=== PATIENT | male | born 1940 | race Caucasian/White ===

== ENCOUNTER 2022-12-21 08:37 | Day surgery (SDC) | payer MEDICARE, OTHER, SELFPAY ==
--- NOTE | 2022-12-18 14:04 | EKG12_ITS ---
Test Reason : PRE OP Blood Pressure : / mmHG Vent. Rate : 062 BPM Atrial Rate : 062 BPM P-R Int : 170 ms QRS Dur : 082 ms QT Int : 366 ms P-R-T Axes : 030 -33 013 degrees QTc Int : 371 ms Normal sinus rhythm Left axis deviation Abnormal ECG Confirmed by JORDANA KNUTSON, ROLY ([id number]), film or videotape editor SONIA PATTON ([id number]) on 12/19/2022 9:03:17 AM Referred By: Munir Vincent Confirmed By:SATURNINO SILVEIRA MD
--- NOTE | 2022-12-18 14:04 | RAD_ITS ---
STUDY: X-RAY CHEST REASON FOR EXAM: Male, 81 years old. PREOP TECHNIQUE: PA and lateral views of the chest. COMPARISON: Comparison is made with prior examination dated January 14, 2017. FINDINGS: Elevation of the right hemidiaphragm. Mild increased linear markings at the left lung base suggestive of either linear atelectasis and/or scarring. There is no demonstrated pleural abnormality. Normal size heart. Normal mediastinum and genesis. Normal visualized pulmonary arteries. There is atherosclerotic tortuosity of the aortic arch and descending thoracic aorta. There are diffuse degenerative changes of the visualized thoracic spine. Normal visualized ribs, clavicles, and shoulders. There is no demonstrated abnormality of the visualized soft tissue structures of the upper abdomen. RAD/Chest PA and Lateral IMPRESSION: Mild increased markings at the left lung base suggestive of linear atelectasis and/or scarring. Electronically Signed: Juan Alberto Patino MD at 14:23 EDT ,
[2022-12-18 14:23] LABS: Absolute Lymphocyte Count 2.44 X10^3/uL (0.83-4.51); Absolute Neutrophil Count 5.3 X10^3/uL (2.0-7.7); Basophil# 0.07 X10^3/uL; Basophil% 0.8 % (0-1); Eosinophils% 2.3 % (0-5); Hematocrit 40.9 % (40-54); Hemoglobin 13.3 g/dL (13.0-16.5); Lymphocyte # 2.44 X10^3/ul (0.83-4.51); Lymphocyte % 27.6 % (19-41); Mean Corp Hgb Conc 32.5 g/dL (32-36); Mean Corpuscular Hgb 31.1 pg (27.0-32.0); Mean Corpuscular Volume 95.6 fL (80-94); Mean Platelet Vol. 9.8 fl (6.2-12.0); Monocyte# 0.81 X10^3/uL; Monocyte% 9.2 % (0-10); NRBC Flagged by Analyzer 0 % (0-5); Neutrophil % 59.8 % (47-70); Platelet Count 208 K/mm3 (150-450); RBC Distribution Width CV 14.5 % (11.6-14.6); RBC Distribution Width SD 50.2 fl (35.1-43.9); Red Blood Count 4.28 M/mm3 (4.6-6.2); White Blood Count 8.9 K/mm3 (4.4-11.0)
[2022-12-18 14:30] LABS: International Normalized Ratio 1.1; Partial Thromboplast Time 32.7 Seconds (24.1-36.2); Prothrombin Time (Protime)PT. 13.9 SECONDS (11.7-14.9)
[2022-12-18 14:45] LABS: Anion Gap 6 (5-15); BUN 17 mg/dL (7-18); BUN/Creat Ratio 14.5 RATIO (10-20); Chloride 106 mmol/L (98-107); Creatinine, Serum 1.17 mg/dL (0.70-1.30); EST Glomerular Filtration Rate 63 mL/min (>60); Est Glom Filt Rate - Afr Amer 76 mL/min (>60); Glucose 88 mg/dL (74-106); Potassium 4.4 mmol/L (3.5-5.1); Sodium Level 141 mmol/L (136-145)
[2022-12-21] VITALS (8 sets, daily range): BP systolic 112–141; BP diastolic 59–67; PULSE 62–79; RESP 16–18; TEMP 36.1–36.9; O2SAT 93–96; BMI 35.3
--- NOTE | 2022-12-21 09:17 | OP.PCM_ITS ---
Problems Associated Problem List Diagnoses (1) Lumbar stenosis: Report of Operation Date of Procedure: 12/21/22 Pre-Operative Diagnosis: 1. Lumbar stenosis L3-4 with spondylosis 2. Lumbar degenerative disc disease L3-4 3. Postlaminectomy syndrome Post-Operative Diagnosis: 1. Lumbar stenosis L3-4 with spondylosis 2. Lumbar degenerative disc disease L3-4 3. Postlaminectomy syndrome Surgery/Procedure Performed:: 1. L3 laminectomy decompression 2. Bilateral L3-4 foraminotomies Description of Surgical Findings:: The patient is an 81-year-old male with intractable back and leg pain. Image studies confirm the above diagnosis. He has failed conservative treatments including medications physical therapy and injections and has opted for operative intervention understanding the risk to include but not limited to infection, bleeding, damage to nerves arteries and veins, possibility of spinal fluid leak, continued pain, need for further surgery, deep vein thrombosis, pulmonary embolism, heart attack, risk of stroke or . The patient was identified in the preoperative holding area. There he received preoperative IV antibiotics Ancef and was then transferred to the operative suite. Once in the operative suite after general endotracheal anesthesia was established the patient was transferred to the [place] operating table in the prone position. All bony prominences were padded accordingly. The lumbar spine was prepped and draped in a sterile manner. A midline incision was made and taken down to the fascia. The fascia was divided and subperiosteal dissection was taken down to the level of the bilateral L3-4 facet joints. Deep retractors were placed. A bone scalpel was used to make cuts in the lamina of L3 bilaterally and then a series of Kerrisons and rongeurs was used removing the spinous process and lamina of L3 bilaterally. Then foraminotomies were performed at L3-4 bilaterally decompressing the bilateral nerve roots. The incision was thoroughly irrigated. Tisseel was placed over the dura as a hemostatic agent. The fascia was closed with #1 Vicryl, subcutaneous with 2-0 Vicryl and skin with 2-0 nylon. A sterile dressing was applied with 4 x 4's ABD and tape. Sponge instrument and needle counts were correct at the end of the case. The patient was extubated and taken to the PACU without incident Surgeon: Munir Vincent Type of Anesthesia: General Estimated Blood Loss (mL): 20 cc Fluids Replaced: 1600 cc Complications None Admit VTE Documentation VTE Present on Admission: No
--- NOTE | 2022-12-21 09:17 | PCM.PN.ORT ---
Subjective Subjective The patient was seen and examined postoperatively. He is lying in bed resting comfortably. His pain is well controlled. He denies any acute numbness tingling or weakness Objective Data Lab / Micro Data Result Diagrams: 12/18/22 13:38 12/18/22 13:38 Physical Exam Const alert, oriented x3 and no apparent distress General Appearance: cooperative, comfortable and well kempt HEENT normocephalic and head/scalp atraumatic Eyes EOMs intact bilaterally and conjunctivae normal Neck full ROM General: normal visual inspection Chest inspection of chest normal and palpation of chest normal Resp normal respiratory effort and normal air movement Cardio regular rate, regular rhythm and peripheral pulses 2+ throughout GI soft to palpation, non-tender and non-distended Back/Spine Back/Spine Narrative: Dressing clean dry and intact Cervical Spine: cervical ROM normal Thoracic Spine / Upper Back: normal to inspection Lumbar Spine / Lower Back: normal to inspection Extremity normal to inspection, full ROM, normal capillary refill and no calf tenderness Skin no rashes or lesions noted General Skin Exam: no breakdown Neuro oriented x3, CN's II-XII intact bilaterally, moves all extremities, no focal motor deficits, no sensory deficits noted and deep tendon reflexes 2+ bilaterally Motor Exam: strength 5/5 throughout and muscle tone normal throughout Assessment & Plan Assessment/Plan (1) Lumbar stenosis: PLAN: Okay to discharge home See discharge instructions Follow-up with Dr. Vincent as scheduled
[2022-12-21] MEDS: Lactated Ringers 1,000 ML 15 ML IV (09:20)
--- NOTE | 2022-12-21 10:15 | RAD_ITS ---
PROCEDURE: L3 laminectomy. DATE OF EXAMINATION: December 21, 2022 INDICATION: Male, 81 years old. Spinal stenosis. FLUOROSCOPY TIME (if supplied): (11 seconds) minutes/seconds. 8.38 mCi RAD/Spine 1 View Any Level IMPRESSION: Intraoperative fluoroscopy for localization of the L3-L4 disc space. Electronically Signed: Juan Alberto Patino MD at 13:09 EDT ,
[2022-12-21] MEDS: Cefazolin 2 GM in 0.9% Normal Saline 100 ML IV (10:20)
[2022-12-21] MEDS: THROMBIN (RECOMBINANT) 20,000 UNIT VIAL 20000 UNIT TOPICAL (10:53)
[2022-12-21] MEDS: Bupivacaine 0.25% 30 ML Vial (11:49)
== END 2022-12-21 14:54 | disposition home or self-care (01) ==
LOC: SDC 08:38 → AC 08:38
PROVIDERS: PCP Internal Medicine; Referring Provider Orthopaedic Surgery; Visit Provider Orthopaedic Surgery
PROC: (CPT 63030; principal; 2022-12-21 09:45)
DX: M48.061 Spinal stenosis, lumbar region without neurogenic claudication (principal); M46.96 Unspecified inflammatory spondylopathy, lumbar region; M46.98 Unspecified inflammatory spondylopathy, sacral and sacrococcygeal region; E11.9 Type 2 diabetes mellitus without complications; M96.1 Postlaminectomy syndrome, not elsewhere classified; M51.36 Other intervertebral disc degeneration, lumbar region; M47.26 Other spondylosis with radiculopathy, lumbar region; I10 Essential (primary) hypertension; E78.00 Pure hypercholesterolemia, unspecified; Z79.82 Long term (current) use of aspirin; Z79.899 Other long term (current) drug therapy; Z86.718 Personal history of other venous thrombosis and embolism
CPT/HCPCS: 63047; 00630; 36415; 71046; 72020; 76000; 80048; 85025; 85610; 85730; 93005; J7120; J2405

== ENCOUNTER → 2023-01-26 | Outpatient (CLI) | payer MEDICARE, OTHER, SELFPAY ==
[2023-01-26 10:57] LABS: Absolute Lymphocyte Count 2.41 X10^3/uL (0.83-4.51); Absolute Neutrophil Count 4.2 X10^3/uL (2.0-7.7); Basophil# 0.05 X10^3/uL; Basophil% 0.7 % (0-1); Eosinophil# 0.13 X10^3/uL; Eosinophils% 1.7 % (0-5); Hematocrit 39.5 % (40-54); Hemoglobin 12.6 g/dL (13.0-16.5); Lymphocyte # 2.41 X10^3/ul (0.83-4.51); Lymphocyte % 31.9 % (19-41); Mean Corp Hgb Conc 31.9 g/dL (32-36); Mean Corpuscular Hgb 30.7 pg (27.0-32.0); Mean Corpuscular Volume 96.3 fL (80-94); Mean Platelet Vol. 9.8 fl (6.2-12.0); Monocyte# 0.71 X10^3/uL; Monocyte% 9.4 % (0-10); NRBC Flagged by Analyzer 0 % (0-5); Neutrophil % 55.6 % (47-70); Platelet Count 236 K/mm3 (150-450); RBC Distribution Width CV 14.4 % (11.6-14.6); RBC Distribution Width SD 50.8 fl (35.1-43.9); White Blood Count 7.6 K/mm3 (4.4-11.0)
[2023-01-26 11:16] LABS: Hemoglobin A1c 6.2 % (3.8-5.6)
[2023-01-26 11:37] LABS: ALB/GLOB Ratio 0.9 RATIO (0.9-2.4); AST(SGOT) 21 U/L (15-37); Alanine Aminotransfer ALT/SGPT 26 U/L (16-61); Alkaline Phosphatase 94 U/L (45-117); Anion Gap 6 (5-15); BUN 17 mg/dL (7-18); BUN/Creat Ratio 16.3 RATIO (10-20); Calcium,Total 9.2 mg/dL (8.5-10.1); Chloride 108 mmol/L (98-107); Cholesterol 126 mg/dL (200); Creatinine, Serum 1.04 mg/dL (0.70-1.30); EST Glomerular Filtration Rate 72 mL/min (>60); Est Glom Filt Rate - Afr Amer 88 mL/min (>60); Globulin 3.4 g/dL (2.2-4.2); Glucose 112 mg/dL (74-106); High Density Lipoprotein 56 mg/dL; Potassium 4.3 mmol/L (3.5-5.1); Protein, Total 6.4 g/dL (6.4-8.2); Sodium Level 141 mmol/L (136-145); Thyroid Stim Hormone (TSH) 1.45 uIU/mL (0.358-3.74); Triglycerides 83 mg/dL; Very Low Density Lipoprotein 17 mg/dL (5-40)
== END | disposition home or self-care (01) ==
LOC: MFPLAB 08:04
PROVIDERS: PCP Family Medicine; Visit Provider Family Medicine
DX: E88.81 Metabolic syndrome and other insulin resistance (principal); E78.5 Hyperlipidemia, unspecified; I10 Essential (primary) hypertension
CPT/HCPCS: 36415; 80053; 80061; 83036; 84443; 85025

== ENCOUNTER → 2023-02-02 | Outpatient (CLI) | payer MEDICARE, OTHER, SELFPAY ==
--- NOTE | 2023-02-02 13:54 | VDLE_ITS ---
Reason For Study: Right leg edema RIGHT LEFT GSV is normal. CFV is compressible, spontaneous, phasic, CFV is compressible, spontaneous, phasic, competent, and demonstrates normal competent and demonstrates normal augmentation. augmentation. FV is compressible, spontaneous, phasic, competent and demonstrates normal augmentation. POP V is compressible, spontaneous, phasic, competent and demonstrates normal augmentation. T/P Trunk is compressible. PTV is compressible. RT PerV is compressible. Non vascularized structure noted from the popliteal fossa to prox calf that measures 0.93 x 5.68 x 6.93 cm. Procedure This is a venous duplex using B-mode, color flow and spectral Doppler. Exam performed in department. A preliminary report was called and/or faxed to Dr. Geiger and Dr. Vincent. VL/Venous Duplex US, Unilateral Interpretation Summary There is no evidence of right lower extremity deep vein thrombosis. Right great saphenous vein appears patent and compressible segmentally. 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 Clinical correlation would be approp yesenia. Patent and compressible left common femoral vein Ordering Physician: Trey Geiger Referring Physician: Juanjo Yang Performed By: Rosalind Cisse RVT
== END | disposition home or self-care (01) ==
LOC: CVS 13:48
PROVIDERS: PCP Family Medicine; Visit Provider Family Medicine
DX: R22.41 Localized swelling, mass and lump, right lower limb (principal)
CPT/HCPCS: 93971

== ENCOUNTER 2023-03-21 19:33 | Emergency (ER) | payer MEDICARE, OTHER, SELFPAY ==
[2023-03-21 19:34] VITALS: BP 129/66; PULSE 81; RESP 16; TEMP 36.6; O2SAT 99; BMI 35.4
--- NOTE | 2023-03-21 20:14 | CT_ITS ---
EXAM: CT ABDOMEN AND PELVIS WITH INTRAVENOUS CONTRAST CLINICAL INDICATION: LLQ abdominal pain TECHNIQUE: Helically acquired images were obtained of the abdomen and pelvis with intravenous contrast. This CT exam was performed using one or more of the following dose reduction techniques: automated exposure control, adjustment of the mA and/or kV according to patient size, and/or use of iterative reconstruction technique. CONTRAST: IV 100mL Isovue-370 COMPARISON: No relevant prior studies available. FINDINGS: LOWER THORAX: Unremarkable. Lung bases are clear. No cardiomegaly. No significant pericardial effusion. ABDOMEN: LIVER: Unremarkable. Homogeneous. No focal mass. GALLBLADDER AND BILE DUCTS: Unremarkable. No calcified gallstones. No gallbladder distention or wall edema. No intra- or extrahepatic biliary ductal dilation. PANCREAS: Unremarkable. No focal cystic or solid mass. SPLEEN: Unremarkable. Normal size without focal cystic or solid mass. ADRENALS: Unremarkable. No nodules. KIDNEYS AND URETERS: There is a nonobstructing calyceal stone left kidney. Normal renal size and position. STOMACH AND BOWEL: There is moderate stool in the rectosigmoid colon which may represent early fecal impaction. There is sigmoid diverticulosis with no evidence of diverticulitis. No stomach or bowel distention. PELVIS: APPENDIX: No evidence of acute appendicitis. BLADDER: There is a Marr catheter in the bladder. REPRODUCTIVE: Unremarkable as visualized. No mass. ABDOMEN and PELVIS: INTRAPERITONEAL SPACE: Unremarkable. No ascites or other fluid collection. No free air. BONES/JOINTS: There are postsurgical changes from laminectomy from L3 through L5. There is hardware from posterior fusion of L4 and L5. No suspicious lytic or blastic abnormality. SOFT TISSUES: Unremarkable. No discrete abdominal or pelvic wall hernia. VASCULATURE: There is an inferior vena cava filter in place. Abdominal aorta is non-dilated. LYMPH NODES: Unremarkable. No enlarged lymph nodes. CT/Abdomen/Pelvis W IV Cont ONLY IMPRESSION: 1. Moderate stool the distal colon which may represent developing impaction. 2. Sigmoid diverticulosis with no evidence of diverticulitis. Electronically Signed: Bart Viera MD at 22:03 EDT ,
--- NOTE | 2023-03-21 20:16 | ED.VIS.GI ---
HPI HPI - GI History of Present Illness Chief Complaint: Constipation Narrative Narrative: 82-year-old male presents with his because of 2 chief complaints, mainly constipation quadrant pain, and urinary retention. He states that he at least has a bowel movement daily, and his last normal bowel movement was 3 days ago. He saw his primary care provider who put him on a stool softener. Since noon today, 8 hours ago, he has not urinated. He denies any fevers or chills, no nausea or vomiting, no prior abdominal surgeries. He is still having flatulence, but very little. He states he is starting to have suprapubic discomfort from bladder distention. [facility] Medical History High cholesterol History of DVT (deep vein thrombosis) History of edema History of stress test Hypertension Injury of back Non-smoker Wears glasses Home Medications simvastatin 40 mg tablet 40 mg PO QHS HLD 03/07/14 [History Last Taken Unknown] glucosamine HCl 500 mg-msm 83 mg-chondroitin 400 mg tablet 1,500 mg PO BID SUPPLEMENT 03/26/14 [History Last Taken Unknown] potassium 99 mg tablet 99 mg PO DAILY SUPPLEMENT 03/27/14 [History Last Taken Unknown] cholecalciferol (vitamin D3) 125 mcg (5,000 unit) tablet (Vitamin D3) 125 mcg PO DAILY SUPPLEMENT 12/18/22 [History Last Taken Unknown] enalapril maleate 5 mg tablet 10 mg PO DAILY HTN 12/18/22 [History Last Taken 12/21/22] gabapentin 300 mg capsule 600 mg PO 5X/DAY NERVE PAIN 12/18/22 [History Last Taken Unknown] vitamin B complex 2 cap PO DAILY SUPPLEMENT 12/18/22 [History Last Taken Unknown] aspirin 81 mg tablet,delayed release (Adult Aspirin Regimen) 81 mg PO DAILY 03/21/23 [History Last Taken Unknown] enalapril maleate 10 mg tablet 10 mg PO Q24H 03/21/23 [History Last Taken Unknown] pregabalin 150 mg capsule 300 mg PO DAILY 03/21/23 [History Last Taken Unknown] Allergy/AdvReac Type Severity Reaction Status Date / Time vancomycin Allergy Rash Verified 03/21/23 19:35 Surgical History History of back surgery History of bilateral cataract extraction History of colonoscopy Social History Smoking Status: Never smoker ROS ROS ED ROS Narrative Constitutional: No fever, no chills. HEENT: No sore throat. No neck pain. No loss of vision. No rhinorrhea. Cardiovascular: No chest pain. No palpitations. No pedal edema. Respiratory: No cough, no shortness of breath. Abdominal: Lower quadrant abdominal pain. No nausea. No vomiting. Positive constipation with no bowel movement for last 2 to 3 days. Genitourinary: No dysuria. No hematuria. Polo retention and bladder discomfort/distention. Musculoskeletal: No myalgias. No arthralgias. Neurologic: No headaches. No dizziness. No lightheadedness. Skin: No rash. No change in color. Psychiatric: No depression. No anxiety. EXAM Physical Exam Narrative Exam Narrative: Afebrile. Vital signs noted. HEENT: Normocephalic. Atraumatic. PERRL, EOMI. Neck soft and supple. No point tenderness or step off. Cardiovascular: Regular rate and rhythm. No murmurs, rubs, or gallops appreciated. Respiratory: No tachypnea. Lungs clear to auscultation bilaterally. Gastrointestinal: Abdomen soft, mild tenderness to palpation left lower quadrant with normoactive bowel sounds. No rebound or guarding. Neurological: Awake. Alert. Nonfocal, nonlateralizing. Skin: No rash. Normal color. No pallor. Musculoskeletal: No pedal edema. Full range of motion extremities. Const Vital Signs: 03/21/23 19:34 03/21/23 21:33 Temperature 98 F Temperature Source Temporal Pulse Rate 81 71 Respiratory Rate 16 14 Blood Pressure 129/66 H 124/84 H Blood Pressure Mean 87 97 Pulse Ox 99 98 Oxygen Delivery Method Room Air Room Air MDM MDM MDM Narrative Medical decision making narrative: In the differential diagnosis is diverticulitis versus constipation. His urinary retention may be secondary to fecal impaction as well. I have lower suspicion for bowel obstruction as he has not had any prior abdominal surgeries. Comprehensive work-up was pursued. I do feel CT imaging is indicated. He will be bladder scan and Marr catheter placed as he may have BPH causing his urinary retention. He will be bolused normal saline after Marr catheter placement because of the IV dye load from the CT scan. Reviewed his laboratory work and he has slightly elevated white count 11.3 which I think is nonspecific, hemoglobin normal at 13.5, hematocrit 42.1, with platelet count normal at 206. Electrolyte panel was reviewed and he has a normal sodium of 138, potassium normal at 4.6, chloride normal at 107, BUN slightly elevated 21 with a creatinine of 1.18. Glucose is elevated appropriately at 157 with a normal anion gap/low at 3. AST and ALT are normal. Urinalysis was obtained after Marr catheter was inserted. Bladder scan had shown greater than 600 mL of urine. He had approximately 800 to a liter out, and was relieved. I am unsure as to which came first, his urinary retention causing constipation versus fecal impaction causing urinary retention. I do feel that the Marr catheter should be left in place and removed by urology for a voiding trial. He will be given a leg bag. CT of the abdomen pelvis was obtained and I reviewed the radiology report which shows sigmoid diverticulosis without evidence of diverticulitis. There is a moderate amount of stool in the distal colon consistent with developing fecal impaction. I discussed manual disimpaction with the patient and his . Chaperoned rectal examination was performed with a moderate amount of stool removed from the rectal vault. Patient shows improvement. He will continue his stool softener at home, and they state that they have MiraLAX as well. He will start his dosing tomorrow, and if he does not have a bowel movement within an hour, he will repeat the dose. He will also try to have a bowel movement prior to bedtime tonight. I feel he be discharged safely home with follow-up and I do not feel that he requires observation. Return instructions to the emergency department were reviewed. Disposition is discharged home in stable condition. History & Record Review Discussion w/independent historian: Patient and Family Additional record(s) reviewed:: Prior ED visit and Prior labs Lab Data Attestation: I reviewed the patient's lab results. Labs: Laboratory Results - last 24 hr 03/21/23 20:25 WBC 11.3 H RBC 4.42 L Hgb 13.5 Hct 42.1 MCV 95.2 H MCH 30.5 MCHC 32.1 RDW Std Deviation 51.2 H RDW Coeff of Leigha 14.6 Plt Count 206 MPV 9.8 Immature Gran % (Auto) 0.600 Neut % (Auto) 75.8 H Lymph % (Auto) 13.6 L [place] % (Auto) 9.3 Eos % (Auto) 0.5 Baso % (Auto) 0.2 Absolute Neuts (auto) 8.6 H Absolute Lymphs (auto) 1.54 Nucleated RBC % 0 Sodium 138 Potassium 4.6 Chloride 107 Carbon Dioxide 28.0 Anion Gap 3 L BUN 21 H Creatinine 1.18 Estim Creat Clear Calc 49.63 Est GFR (MDRD) Af Amer 76 Est GFR (MDRD) Non-Af 63 BUN/Creatinine Ratio 17.8 Glucose 157 H Calcium 9.7 Total Bilirubin 0.50 AST 36 ALT 33 Alkaline Phosphatase 86 Total Protein 6.8 Albumin 3.2 Globulin 3.6 Albumin/Globulin Ratio 0.9 Urine Color Yellow Urine Clarity Clear Urine pH 5.0 Ur Specific [place] 1.020 Urine Protein Negative Urine Glucose (UA) Normal Urine Ketones 15 H Urine Occult Blood Negative Urine Nitrite Negative Urine Bilirubin Negative Urine Urobilinogen Normal Ur Leukocyte Esterase Negative Urine RBC 0 SEEN Urine WBC 0 SEEN Ur Squamous Epith Cells 0 SEEN Urine Bacteria 0 SEEN Urine Mucus 0 SEEN Radiography Diagnostic Testing: Clinical Impression(s) from Imaging Studies Abdomen/Pelvis CT 03/21/23 20:14 IMPRESSION: 1. Moderate stool the distal colon which may represent developing impaction. 2. Sigmoid diverticulosis with no evidence of diverticulitis. Electronically Signed: Bart Viera MD at 22:03 EDT Reading Location ID and State: [address] [place] [address] Tel , Service support , Discharge Plan Triage Chief Complaint: Constipation Other Complaint: Complaint ED Provider: Donell Glover Dx/Rx/DC Orders Clinical Impression: Fecal impaction, Acute urinary retention, Constipation Instructions: ED Constipation (Adult), ED Fecal Impaction, Treated, ED Marr Catheter, Care, ED Urinary Retention, Male Prescriptions: No Action simvastatin 40 MG tablet 40 mg PO QHS Patient Comments: reduce cholesterol glucosamine [id number] 1 EACH tablet 1,500 mg PO BID Patient Comments: DIABETES potassium 99 MG tablet 99 mg PO DAILY Patient Comments: DIETARY SUPPLEMENT enalapril maleate 5 MG tablet 10 mg PO DAILY Patient Comments: LOWERS BLOOD PRESSURE gabapentin 300 MG capsule 600 mg PO 5X/DAY Patient Comments: NEUROPATHY vitamin B complex Capsule 2 cap PO DAILY cholecalciferol (vitamin D3) [Vitamin D3] 125 mcg (5,000 unit) Tablet 125 mcg PO DAILY enalapril maleate 10 mg tablet 10 mg PO Q24H pregabalin 150 mg capsule 300 mg PO DAILY aspirin [Adult Aspirin Regimen] 81 mg tablet,delayed release (DR/EC) 81 mg PO DAILY Primary Care Provider: Trey Geiger Referrals: Trey Geiger MD [Primary Care Provider] - 3-5 Days if not improving Joe Bee MD [Med Staff - Active Staff] - 1 Week Activity Restrictions/Additional Instructions: Take MiraLAX as directed. If no bowel movement within an hour, you may repeat the dose. Do not target Marr catheter. Call Dr. Bee for an appointment to have the Marr catheter removed within 1 week. Continue your stool softener as previously directed. Disposition Disposition: Home, Self Care
[2023-03-21] MEDS: 0.9% Normal Saline (1000mL) 1,000 ML 1000 ML IV (20:39)
[2023-03-21 20:52] LABS: Bacteria 0 SEEN /hpf (None Seen); Mucous, Urine 0 SEEN /hpf (<or=2+); Red Blood Cells-Urine 0 SEEN /hpf (0-5); Squamous Epithelial Cells - UA 0 SEEN /hpf (0-5); White Blood Cells 0 SEEN /hpf (0-5)
[2023-03-21 20:54] LABS: Absolute Lymphocyte Count 1.54 X10^3/uL (0.83-4.51); Absolute Neutrophil Count 8.6 X10^3/uL (2.0-7.7); Basophil# 0.02 X10^3/uL; Basophil% 0.2 % (0-1); Eosinophil# 0.06 X10^3/uL; Eosinophils% 0.5 % (0-5); Hematocrit 42.1 % (40-54); Hemoglobin 13.5 g/dL (13.0-16.5); Lymphocyte # 1.54 X10^3/ul (0.83-4.51); Lymphocyte % 13.6 % (19-41); Mean Corp Hgb Conc 32.1 g/dL (32-36); Mean Corpuscular Hgb 30.5 pg (27.0-32.0); Mean Corpuscular Volume 95.2 fL (80-94); Mean Platelet Vol. 9.8 fl (6.2-12.0); Monocyte# 1.06 X10^3/uL; Monocyte% 9.3 % (0-10); NRBC Flagged by Analyzer 0 % (0-5); Neutrophil # 8.59 X10^3/uL (2.7-7.7); Neutrophil % 75.8 % (47-70); Platelet Count 206 K/mm3 (150-450); RBC Distribution Width CV 14.6 % (11.6-14.6); RBC Distribution Width SD 51.2 fl (35.1-43.9); Red Blood Count 4.42 M/mm3 (4.6-6.2); White Blood Count 11.3 K/mm3 (4.4-11.0)
[2023-03-21 21:01] LABS: Color, Urine Yellow (Yellow); Glucose, Dipstick Normal (Normal); Ketone-Dipstick 15 mg/dl (Negative); Leukocyte Esterase-Dipstick Negative /ul (Negative); Nitrite-Dipstick Negative (Negative); Occult Blood-Urine Negative /ul (Negative); Protein-Dipstick Negative (Negative); Urine Bilirubin Dipstick Negative (Negative); Urine Clarity Clear (Clear); Urine Urobilinogen Normal (Normal)
[2023-03-21 21:11] LABS: ALB/GLOB Ratio 0.9 RATIO (0.9-2.4); AST(SGOT) 36 U/L (15-37); Alanine Aminotransfer ALT/SGPT 33 U/L (16-61); Albumin, Serum 3.2 g/dL (3.2-5.0); Alkaline Phosphatase 86 U/L (45-117); Anion Gap 3 (5-15); BUN 21 mg/dL (7-18); BUN/Creat Ratio 17.8 RATIO (10-20); Calcium,Total 9.7 mg/dL (8.5-10.1); Chloride 107 mmol/L (98-107); Creatinine, Serum 1.18 mg/dL (0.70-1.30); EST Glomerular Filtration Rate 63 mL/min (>60); Est Glom Filt Rate - Afr Amer 76 mL/min (>60); Estimated Creatinine Clearance 49.63 ml/min; Globulin 3.6 g/dL (2.2-4.2); Glucose 157 mg/dL (74-106); Potassium 4.6 mmol/L (3.5-5.1); Protein, Total 6.8 g/dL (6.4-8.2); Sodium Level 138 mmol/L (136-145)
[2023-03-21 21:33] VITALS: BP 124/84; PULSE 71; RESP 14; O2SAT 98
== END 2023-03-21 23:15 | disposition home or self-care (01) ==
PROVIDERS: Emergency Provider Emergency Medicine; PCP Family Medicine; Visit Provider Emergency Medicine
DX: K56.41 Fecal impaction (principal); I10 Essential (primary) hypertension; E78.00 Pure hypercholesterolemia, unspecified; R33.9 Retention of urine, unspecified; K57.30 Diverticulosis of large intestine without perforation or abscess without bleeding; Z79.82 Long term (current) use of aspirin; Z79.899 Other long term (current) drug therapy
CPT/HCPCS: 74177; 80053; 81001; 85025; 96360; 99284; J7030; Q9967; A4216

== ENCOUNTER → 2023-11-13 | Outpatient (CLI) | payer MEDICARE, SELFPAY ==
[2023-11-13 11:09] LABS: PSA,Total- Diagnostic 3.06 ng/mL (0.0-4.0)
== END | disposition home or self-care (01) ==
PROVIDERS: PCP Family Medicine; Referring Provider Urology; Visit Provider Urology
DX: N40.3 Nodular prostate with lower urinary tract symptoms (principal)
CPT/HCPCS: 36415; 84153

== ENCOUNTER 2023-11-22 17:02 | Emergency (ER) | payer MEDICARE, SELFPAY ==
[2023-11-22 17:03] VITALS: BP 139/75; PULSE 54; RESP 18; TEMP 35.8; O2SAT 99
[2023-11-22 17:05] VITALS: BP 139/75; PULSE 54; RESP 18; TEMP 35.8; O2SAT 99
[2023-11-22] MEDS: Ketorolac 30 MG/ML Syringe IM (17:35)
--- NOTE | 2023-11-22 17:36 | ED.VIS.BACK ---
HPI <GLENNY Barba - Last Filed: 11/22/23 18:13> History of Present Illness Chief Complaint: Back Narrative Narrative: 82-year-old male who was carrying a box of canned blades from his RV into the house when he twisted and felt pain in his left lower back along the belt line. Pain is worse with movement. He had no fall or direct trauma. He has no pain radiating down into the lower extremities and denies weakness, numbness or tingling, saddle anesthesia or bladder bowel incontinence. He has had 2 remote low back surgeries but states he does not have much chronic pain. He took Tylenol this afternoon. PFS <GLENNY Barba - Last Filed: 11/22/23 18:13> [facility] Medical History High cholesterol History of DVT (deep vein thrombosis) History of edema History of stress test Hypertension Injury of back Non-smoker Wears glasses Home Medications ?Medication ?Instructions ?Recorded ?Last Taken ?Type simvastatin 40 mg tablet 40 mg PO QHS HLD 03/07/14 Unknown History glucosamine HCl 500 mg-msm 83 1,500 mg PO BID SUPPLEMENT 03/26/14 Unknown History mg-chondroitin 400 mg tablet potassium 99 mg tablet 99 mg PO DAILY SUPPLEMENT 03/27/14 Unknown History cholecalciferol (vitamin D3) 125 125 mcg PO DAILY SUPPLEMENT 12/18/22 Unknown History mcg (5,000 unit) tablet (Vitamin D3) enalapril maleate 5 mg tablet 10 mg PO DAILY HTN 12/18/22 12/21/22 History gabapentin 300 mg capsule 600 mg PO 5X/DAY NERVE PAIN 12/18/22 Unknown History vitamin B complex 2 cap PO DAILY SUPPLEMENT 12/18/22 Unknown History aspirin 81 mg tablet,delayed 81 mg PO DAILY 03/21/23 Unknown History release (Adult Aspirin Regimen) enalapril maleate 10 mg tablet 10 mg PO Q24H 03/21/23 Unknown History pregabalin 150 mg capsule 300 mg PO DAILY 03/21/23 Unknown History orphenadrine citrate 100 mg 100 mg PO BID PRN back pain 5 days 11/22/23 Unknown Rx tablet,extended release #10 tabs Allergy/AdvReac Type Severity Reaction Status Date / Time vancomycin Allergy Rash Verified 11/22/23 17:04 Surgical History History of back surgery History of bilateral cataract extraction History of colonoscopy Social History Smoking Status: Never smoker ROS <GLENNY Barba - Last Filed: 11/22/23 18:13> ROS ED ROS Narrative Constitutional: Negative for fever, chills, malaise. GI: Negative for abdominal pain, nausea, vomiting. Neuro: Negative for motor/sensory dysfunction. Musc: Negative for joint pain, swelling, trauma. EXAM <GLENNY Barba - Last Filed: 11/22/23 18:13> Physical Exam Narrative Exam Narrative: CONST: Patient sitting in no acute distress. EYES: Normal inspection. NECK: Normal inspection. RESP: No respiratory distress, CTAB. CVS: Regular rate and rhythm, no murmur, no gallop. Back: Normal inspection with old healed midline lumbar surgical scar. No midline tenderness or step-offs. Tender over left lower lumbar muscles. SKIN: Color normal, no rash, warm, dry, intact. EXTREMITIES: Normal appearance, wearing bilateral compression hose. Full range of motion, 5/5 strength in bilateral hip flexion, knee flexion/extension, and DF/PF. Normal sensation. 2+ DP pulses. Negative straight leg raise bilaterally. NEURO: Alert and answering questions appropriately. PSYCH: Normal affect. Const Vital Signs: 11/22/23 17:03 11/22/23 17:05 Temperature 96.4 F L 96.4 F L Temperature Source Temporal Temporal Pulse Rate 54 L 54 L Respiratory Rate 18 18 Blood Pressure 139/75 H 139/75 H Blood Pressure Mean 96 96 Pulse Ox 99 99 Oxygen Delivery Method Room Air Room Air <Dr. Pete Bland MD - Last Filed: 11/22/23 17:59> Physical Exam Const Vital Signs: 11/22/23 17:03 11/22/23 17:05 Temperature 96.4 F L 96.4 F L Temperature Source Temporal Temporal Pulse Rate 54 L 54 L Respiratory Rate 18 18 Blood Pressure 139/75 H 139/75 H Blood Pressure Mean 96 96 Pulse Ox 99 99 Oxygen Delivery Method Room Air Room Air MDM <GLENNY Barba - Last Filed: 11/22/23 18:13> MDM MDM Narrative Medical decision making narrative: History gathered from: Patient and spouse Patient has left lumbar pain after carrying a box of canned goods. He felt a pull in this area while turning to the side holding the box. No fall or direct trauma. Is reproducible left lumbar muscle tenderness. No midline tenderness. Lower extremity MSPs and reflexes are intact. No indication for x-rays with no direct trauma and he has no red flag signs concerning for cauda equina syndrome. He was treated with IM Norflex and Toradol and feels much better and states he would like to go home. I recommended [id number] pain relievers and prescribed Norflex as needed. He was discharged in stable condition. <Dr. Pete Bland MD - Last Filed: 11/22/23 17:59> [facility] Treatment and Re-Evaluation Narrative: I have personally performed a face to face assessment of the patient and have reviewed the GUILHERME Note. I performed a substantive portion of the visit including all aspects of the following. My salter findings include: History is acute injury to left low back while turning while lifting a heavy box. No leg radiation, bowel or bladder dysfunction. Hurts more to move better to rest. Exam is tender along the waist line left low back, more when he moves, no midline tenderness no sciatic notch tenderness negative straight leg raises. Neurovascular intact distally both lower extremities. Medical Decison Making muscle strain versus sacroiliac dysfunction/sprain, supportive care advised follow-up as needed. Other additions or changes: [None] Discharge Plan Triage Chief Complaint: Back ED Midlevel Provider: Thais Reardon ED Provider: Pete Bland Dx/Rx/DC Orders Clinical Impression: Acute lumbar myofascial strain Instructions: Back Safety: Lifting, Understanding Lumbosacral Strain Prescriptions: New orphenadrine citrate 100 mg tablet extended release 100 mg PO BID PRN (Reason: back pain) 5 Days Qty: 10 0RF No Action simvastatin 40 MG tablet 40 mg PO QHS Patient Comments: reduce cholesterol glucosamine [id number] 1 EACH tablet 1,500 mg PO BID Patient Comments: DIABETES potassium 99 MG tablet 99 mg PO DAILY Patient Comments: DIETARY SUPPLEMENT enalapril maleate 5 MG tablet 10 mg PO DAILY Patient Comments: LOWERS BLOOD PRESSURE gabapentin 300 MG capsule 600 mg PO 5X/DAY Patient Comments: NEUROPATHY vitamin B complex Capsule 2 cap PO DAILY cholecalciferol (vitamin D3) [Vitamin D3] 125 mcg (5,000 unit) Tablet 125 mcg PO DAILY enalapril maleate 10 mg tablet 10 mg PO Q24H pregabalin 150 mg capsule 300 mg PO DAILY aspirin [Adult Aspirin Regimen] 81 mg tablet,delayed release (DR/EC) 81 mg PO DAILY Primary Care Provider: Trey Geiger Referrals: Trey Geiger MD [Primary Care Provider] - Activity Restrictions/Additional Instructions: Ice and you can alternate Tylenol and ibuprofen as needed. Follow-up with your primary care doctor. Print Language: [place] Citizen Disposition Disposition: Home, Self Care
[2023-11-22] MEDS: Orphenadrine 60 MG/2 ML Ampul IM (17:39)
[2023-11-22 18:15] VITALS: BP 138/74; PULSE 55; RESP 18; TEMP 36.4; O2SAT 99
== END 2023-11-22 18:37 | disposition home or self-care (01) ==
LOC: ED 18:26
PROVIDERS: Emergency Provider Emergency Medicine; PCP Family Medicine; Visit Provider Emergency Medicine
DX: S39.012A Strain of muscle, fascia and tendon of lower back, initial encounter (principal); X50.0XXA Overexertion from strenuous movement or load, initial encounter; I10 Essential (primary) hypertension; E78.00 Pure hypercholesterolemia, unspecified; Z86.718 Personal history of other venous thrombosis and embolism
CPT/HCPCS: 96372; 99283

== ENCOUNTER 2023-12-05 09:37 | Outpatient (RCR) | payer MEDICARE, SELFPAY ==
[2023-12-05 09:54] VITALS: BP 120/60; PULSE 81; RESP 18; TEMP 37.1; BMI 34.8
--- NOTE | 2023-12-05 15:13 | PCM.WC.HP ---
History of Present Illness Date of Service: 12/05/23 Chief Complaint: Right digital wound History of Wound: Right digital wound Progress of Wound: Mr. Gordon is a 82-year-old male presenting to wound care center today [facility] for evaluation of a full-thickness wound to the plantar aspect of his right great toe. Patient has been in [place] since winter as he travels there during the cold season in [place] and then returns to [place] in the summer months. 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 Patient has had history of calluses to the plantar aspect of the right great toe and now has noticed a wound with drainage in his custom inserts. The patient's last A1c was 6.2%. He is not a diabetic however does suffer from lumbar radiculopathy. Patient has been doing home treatment. He denies trauma. Denies constitutional symptoms. No other pedal complaints at this time. [facility] Medical History Wears glasses High cholesterol History of DVT (deep vein thrombosis) Injury of back Non-smoker History of edema History of stress test Hypertension Home Medications ?Medication ?Instructions ?Recorded ?Last Taken ?Type simvastatin 40 mg tablet 20 mg PO QHS HLD 03/07/14 Unknown History glucosamine HCl 500 mg-msm 83 1,500 mg PO BID SUPPLEMENT 03/26/14 Unknown History mg-chondroitin 400 mg tablet potassium 99 mg tablet 99 mg PO DAILY SUPPLEMENT 03/27/14 Unknown History cholecalciferol (vitamin D3) 125 125 mcg PO DAILY SUPPLEMENT 12/18/22 Unknown History mcg (5,000 unit) tablet (Vitamin D3) enalapril maleate 5 mg tablet 10 mg PO DAILY HTN 12/18/22 12/21/22 History gabapentin 300 mg capsule 600 mg PO 5X/DAY NERVE PAIN 12/18/22 Unknown History vitamin B complex 2 cap PO DAILY SUPPLEMENT 12/18/22 Unknown History aspirin 81 mg tablet,delayed 81 mg PO DAILY 03/21/23 Unknown History release (Adult Aspirin Regimen) enalapril maleate 10 mg tablet 10 mg PO Q24H 03/21/23 Unknown History pregabalin 150 mg capsule 300 mg PO DAILY 03/21/23 Unknown History orphenadrine citrate 100 mg 100 mg PO BID PRN back pain 5 days 11/22/23 Unknown Rx tablet,extended release #10 tabs Allergy/AdvReac Type Severity Reaction Status Date / Time vancomycin Allergy Rash Verified 11/22/23 17:04 Surgical History History of colonoscopy History of back surgery History of bilateral cataract extraction Social History Smoking Status: Never smoker Vital Signs Vital Signs Vital Signs: 12/05/23 09:54 Temperature 98.7 F Temperature Source Temporal Pulse Rate 81 Respiratory Rate 18 Blood Pressure 120/60 Blood Pressure Mean 80 Blood Pressure Source Monitor Blood Pressure Position Sitting Blood Pressure Location Left Arm Oxygen Delivery Method Room Air Weight Weight: 113.398 kg Body Mass Index (BMI) 34.8 Physical Exam Narrative Vascular: DP and PT pulses are palpable. CFT is brisk. Skin temperature gradient is warm to warm from proximal ankle to distal digits. Nonpitting edema appreciated bilateral lower extremity. Neurological: Light touch intact. Protective sensation is diminished to the toes and reestablish at the level of the midfoot and ankle. Dermatological: Full-thickness ulceration to the plantar aspect of the IPJ of the right hallux measuring 0.7 x 0.6 x 0.2 cm. Wound base is granular nature. No drainage. No probe to bone. No malodor. No sign of infection. Evidence of callus to the distal aspect of the left hallux stable. Excisional debridement of the right hallux plantar ulceration down to and including subcutaneous tissue with a number 3 mm dermal curette without incident. Predebridement measurement is callus. Postdebridement measurement is 0.7 x 0.6 x 0.2 cm. Musculoskeletal: Muscle strength is 5 out of 5 in all quadrants bilateral. 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 First metatarsophalangeal joint range of motion is within normal limits bilateral. No pain with calf compression. Debridement Note Debridement Note Debridement Free Text: Excisional debridement of the right hallux plantar ulceration down to and including subcutaneous tissue with a number 3 mm dermal curette without incident. Predebridement measurement is callus. Postdebridement measurement is 0.7 x 0.6 x 0.2 cm. Post-Debridement Measurements and Additional Note: Post-Debridement Measurements/Treatment - Nurse 1 - General Ulcer Assessment Start: 12/05/23 09:49 Freq: Status: Active Protocol: VICTORINO Activity Type Activity Date Activity User E-sign Co-sign Detail Recorded Client Recorded Date Recorded By Document 12/05/23 09:54 GM 12/05/23 10:06 GM 12/05/23 09:54 - Today's Visit Information Type of service Initial Visit Arrival Mode Ambulatory Accompanied by Patient Identification Verified (Name & Yes ) Height and Weight Height 5 ft 11 in Weight 113.398 kg Weight in Pounds 250.0 lbs Body Mass Index (BMI) 34.8 BMI Classification Obese BSA - Nevin 2.32 Vital Signs Temperature (97.8 F-99.1 F) 98.7 F Temperature Source Temporal Pulse Rate (60-100) 81 Pulse Location Monitor Respiratory Rate (12-18) 18 Respiratory rate source Observation Oxygen Delivery Method Room Air Blood Pressure (90/60-120/80) 120/60 Blood Pressure Mean 80 Source Monitor Position Sitting Blood Pressure Location Left Arm Pain Scale: 0-10 Numeric Is Patient Pain Free? Yes Lower Extremity Assessment/ Foot Assessment/ Toe Nail Assessment Right -Posterior Tibial Palpable Yes -Dorsalis Pedis Palpable Yes -Extremity Color Normal -Hair Growth on Legs No -Hair Growth on Toes No -Temperature of Extremity Warm -Capillary Refill Less than 3 Seconds -Dependent Rubor No -Other Deformity No -Prior Foot Ulcer No -Charcot Joint No -Thick Yes -Discolored Yes -Deformed No -Improper Length & Hygeine No Neuropathy Assessment Feet - Top Side and Bottom <Entered> (a) Communication Assessment Preferred language [place]i Block Engraver Required No Able to Read Yes Able to Write Yes Communication Tools Letter Board Right Hearing Abillity Normal Left Hearing Abillity Normal Visual Assistive Devices Glasses Teaching Assessment Preferences Verbal,Written Barriers to Learning None Readiness To Learn Good Willingness to Engage in Self Management High Activies Readiness to Engage in Self Management High Activities Anxiety Level Calm Cooperation Cooperative Perception Coherent Interest in Health Problem Asks Questions Does Patient Smoke tobacco or other No substances Functional Assessment Recent Decline in Ability to Perform Denies Any Declines Assistive Device With Patient Yes List Device(s) with Patient cane Culture/Presybeterian/Display Coordinator Cultural/Presybeterian Needs that may affect No Treatment Plan Would you allow our hospital retail merchandising coordinator to No meet you for the purpose of spiritual/ emotional support? Display Coordinator to contact place of rastafarian No (a) 1 - decreased sensation 2 - decreased sensation WC - Nurse 1 - General Ulcer Measurement Start: 12/05/23 09:49 Freq: Status: Active Protocol: Activity Type Activity Date Activity User E-sign Co-sign Detail Recorded Client Recorded Date Recorded By Document 12/05/23 09:54 GM 12/05/23 10:06 12/05/23 09:54 Wound Center Nurse 1 Right great toe -Current Size (cm) - Length 0.5 -Current Size (cm) - Width 0.6 -Current Size (cm) - Depth 0.1 -Total Square Cm 0.30 -Date of Last Picture (Recall this 12/05/23 field) -Photo Taken Yes -Epithelialization Small 1-33% -Tunneling No -Undermining/Tunneling No -Circular Undermining No -Exudate Amt None Present -Wound Margin Indistinct, Non -Visible -Granulation Amt Small (1-33%) -Granulation Quality Imbery -Slough/Fibrin Yes -Texture (Bhavna-wound Skin Appearance) Assessed,Callus -Moisture (Bhavna-wound Skin Appearance) Assessed,Dry/ Scaly -Color (Bhavna-wound Skin Appearance) Assessed -Temperature (Bhavna-wound Skin No Abnormality Appearance) (Pt Warm) -Tenderness on Palpation (Bhavna-wound No Skin Appearance) -Ulcer Cleansing Soap and Water -Foul Odor after Cleansing No -Anesthetic Used 5% Lidocaine Gel Lower Limb Edema Present No Right Calf (cm) 41.5 Right Ankle (cm) 25.0 WC - Nurse 2 - General Ulcer CM Notes Start: 12/05/23 09:49 Freq: Status: Active Protocol: Activity Type Activity Date Activity User E-sign Co-sign Detail Recorded Client Recorded Date Recorded By Document 12/05/23 10:12 [id number] 12/05/23 10:26 12/05/23 10:12 Wound Center Nurse 2 Right great toe -Time 10:13 -Correct Patient Yes -Correct Side, Site, Position Yes -Correct Procedure Yes -Procedure Performed Yes -Type of Procedure Debridement -Clinical Debridement Subcutaneous -Tissue Removed Subcutaneous -Post Debridement (cm) - Length 0.7 -Post Debridement (cm) - Width 0.6 -Post Debridement (cm) - Depth 0.2 -Total Square (Post) (cm) 0.42 -Area of Debridement (cm) - Length 0.7 -Area of Debridement (cm) - Width 0.6 -Total Square (Area) (cm) 0.42 -Tunneling No -Undermining/Tunneling No -Circular Undermining No -Wound/Ulcer Outcome Not Healed -Ulcer Cleansing Rinsed/ Irrigated with Saline -Foul Odor after Cleansing No -Bioengineered Tissue No -Bleeding Controlled with Pressure -Treatment Response Procedure Tolerated Well -Offloading No -Debridement - Subq, 1st 20sq cm Yes Pain Scale: 0-10 Numeric Is Patient Pain Free? Yes WC - Nurse 3 - General Ulcer D/C NN Start: 12/05/23 09:49 Freq: Status: Active Protocol: Activity Type Activity Date Activity User E-sign Co-sign Detail Recorded Client Recorded Date Recorded By Document 12/05/23 10:44 KW wound center 12/05/23 11:03 KW 12/05/23 10:44 Wound Care Center Nurse 3 Right great toe -Primary Dressing Applied C Hydrogel ($) -Primary Dressing Covered/Secured with Dry Gauze & Roll Gauze, Secured with Tape Pain Scale: 0-10 Numeric Is Patient Pain Free? Yes WC - Visit Discharge Discharge Condition Stable Ambulatory Status Ambulatory,Cane Transportation Private Auto Accompanied by Medication Reconcilliation completed & No provided to patient/care provider Clinical Summary of Care Provided Yes Assessment/Plan Assessment/Plan (1) Non-pressure chronic ulcer of other part of right foot with fat layer exposed: CODE(S): L97.512 - Non-pressure chronic ulcer of other part of right foot with fat layer exposed PLAN: Patient was examined and evaluated. All findings were discussed with the patient. All questions were answered to the patient's satisfaction. Excisional debridement of the right hallux plantar ulceration down to and including subcutaneous tissue with a number 3 mm dermal curette without incident. Predebridement measurement is callus. Postdebridement measurement is 0.7 x 0.6 x 0.2 cm. Right lower extremities were cleaned and patted dry. The ulceration was dressed with triple antibiotic and sterile Band-Aid. Patient will do daily dressing changes at home and understanding how to do them. There is also educated the patient that due to the contracture and osteoarthritis of his IPJ of the right hallux that he would benefit from a arthroplasty of the IPJ to help increase his range of motion and allow the ulceration to heal if it is nonhealing in nature which she is understanding of. Further discussion will be made during the patient's next wound care visit. Patient was grateful for his care and will follow-up in 1 week. Follow-up at the wound care center with Dr. Cunningham in 1 week. (2) Other specified peripheral vascular diseases: CODE(S): I73.89 - Other specified peripheral vascular diseases (3) Osteoarthritis of right foot: CODE(S): M19.071 - Primary osteoarthritis, right ankle and foot QUALIFIERS: Osteoarthritis type: primary Qualified Code(s): M19.071 - Primary osteoarthritis, right ankle and foot (4) Lumbar radiculopathy: CODE(S): M54.16 - Radiculopathy, lumbar region
== END 2023-12-07 23:59 | disposition home or self-care (01) ==
LOC: WC 09:37
PROVIDERS: PCP Family Medicine; Visit Provider Podiatrist Foot & Ankle Surgery
DX: L97.412 Non-pressure chronic ulcer of right heel and midfoot with fat layer exposed (principal); I10 Essential (primary) hypertension; I73.89 Other specified peripheral vascular diseases; M19.071 Primary osteoarthritis, right ankle and foot; M54.16 Radiculopathy, lumbar region; E78.00 Pure hypercholesterolemia, unspecified; Z79.82 Long term (current) use of aspirin; Z79.899 Other long term (current) drug therapy
CPT/HCPCS: 11042; 87070; 87075; 87101; 87205; 99214; G0463

== ENCOUNTER 2024-01-02 10:00 | Outpatient (RCR) | payer MEDICARE, SELFPAY ==
[2023-12-08 02:38] VITALS: BP 120/60; PULSE 81; RESP 18; TEMP 37.1; BMI 34.8
[2023-12-12 10:00] VITALS: BP 134/74; PULSE 78; RESP 18; TEMP 36.4; BMI 34.8
--- NOTE | 2023-12-12 12:32 | PN.PCM_ITS ---
History of Present Illness Date of Service: 12/12/23 Chief Complaint: Right digital wound History of Wound: Right digital wound Subjective Subjective Mr. Gordon is 82-year-old male presenting to clinic today for follow-up evaluation of full-thickness wound to the right great toe. He has been changing his dressing as instructed. He admits the wound is smaller. He has continued to use the offloading pad and his orthotics. He is grateful for his care. Denies trauma. Denies constitutional symptoms. No other pedal complaints at this time. Objective Data Objective Data Vital Signs: Vital Signs Temp Pulse Resp BP O2 Del Method 97.5 F L 78 18 134/74 H Room Air 12/12/23 10:00 12/12/23 10:00 12/12/23 10:00 12/12/23 10:12/12/23 10:00 Oxygen Delivery Method Room Air Weight: 113.398 kg Body Mass Index (BMI) 34.8 Physical Exam Narrative Vascular: DP and PT pulses are palpable. CFT is brisk. Skin temperature gradient is warm to warm from proximal ankle to distal digits. Nonpitting edema appreciated bilateral lower extremity. Neurological: Light touch intact. Protective sensation is diminished to the toes and reestablish at the level of the midfoot and ankle. Dermatological: Full-thickness ulceration to the plantar aspect of the IPJ of the right hallux measuring 0.9 x 1.1 x 0.1 cm. Wound base is granular nature. No drainage. No probe to bone. No malodor. No sign of infection. Evidence of callus to the distal aspect of the left hallux stable. Excisional debridement of the right hallux plantar ulceration down to and including subcutaneous tissue with a number 3 mm dermal curette without incident. Predebridement measurement is 0.5 x 0.5 x 0.1 cm. Postdebridement measurement is 0.9 x 1.1 x 0.1 cm. Musculoskeletal: Muscle strength is 5 out of 5 in all quadrants bilateral. 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 First metatarsophalangeal joint range of motion is within normal limits bilateral. No pain with calf compression. Debridement Note Debridement Note Debridement Free Text: Excisional debridement of the right hallux plantar ulceration down to and including subcutaneous tissue with a number 3 mm dermal curette without incident. Predebridement measurement is 0.5 x 0.5 x 0.1 cm. Postdebridement measurement is 0.9 x 1.1 x 0.1 cm. Post-Debridement Measurements and Additional Note: Post-Debridement Measurements/Treatment ANTONIO - Nurse 1 - General Ulcer Assessment Start: 12/12/23 09:58 Freq: Status: Active Protocol: LOWEXCinthia Activity Type Activity Date Activity User E-sign Co-sign Detail Recorded Client Recorded Date Recorded By Document 12/12/23 10:00 [facility] 12/12/23 10:11 12/12/23 10:00 - Today's Visit Information Type of service Follow-up Visit (Physician/[employer] ) Arrival Mode Ambulatory,Cane Accompanied by Patient Identification Verified (Name & Yes ) Height and Weight Body Mass Index (BMI) 34.8 BMI Classification Obese Vital Signs Temperature (97.8 F-99.1 F) 97.5 F L Temperature Source Temporal Pulse Rate (60-100) 78 Pulse Location Monitor Respiratory Rate (12-18) 18 Respiratory rate source Observation Oxygen Delivery Method Room Air Blood Pressure (90/60-120/80) 134/74 H Blood Pressure Mean (mm Hg) 94 Source Monitor Position Sitting Blood Pressure Location Left Arm History Since Last Visit- (Skip if this is Patient's initial visit) Have you changed medications since your No last visit? Any new allergies or adverse reactions No Had a fall/change in ADL's that may No increase risk of falls Signs or symptoms of abuse and/or No neglect since last visit Have you been in the hospital since your No last visit? Has dressing in place as prescribed Yes Has compression in place as prescribed Yes Has offloadiing in place as prescribed N/A Experienced any changes in pain level or No management Left Footwear Regular Shoe Right Footwear Regular Shoe Pain Scale: 0-10 Numeric Is Patient Pain Free? Yes ANTONIO - Nurse 1 - General Ulcer Measurement Start: 12/12/23 09:58 Freq: Status: Active Protocol: Activity Type Activity Date Activity User E-sign Co-sign Detail Recorded Client Recorded Date Recorded By Document 12/12/23 10:00 [facility] 12/12/23 10:11 12/12/23 10:00 Wound Center Nurse 1 Right great toe -Current Size (cm) - Length 0.5 -Current Size (cm) - Width 0.5 -Current Size (cm) - Depth 0.1 -Total Square Cm 0.25 -Photo Taken No -Epithelialization Small 1-33% -Tunneling No -Undermining/Tunneling No -Circular Undermining No -Exudate Amt Medium -Exudate Type Serosanguineous -Wound Margin Distinct, Outline Attached -Granulation Amt Medium (34-66%) -Granulation Quality Red -Necrosis Amt Small (1-33%) -Texture (Bhavna-wound Skin Appearance) Assessed -Moisture (Bhavna-wound Skin Appearance) Assessed -Color (Bhavna-wound Skin Appearance) Assessed -Temperature (Bhavna-wound Skin No Abnormality Appearance) (Pt Warm) -Ulcer Cleansing Soap and Water -Foul Odor after Cleansing No -Anesthetic Used 5% Lidocaine Gel Right Calf (cm) 40.7 Right Ankle (cm) 25.2 WC - Nurse 2 - General Ulcer CM Notes Start: 12/12/23 09:58 Freq: Status: Active Protocol: Activity Type Activity Date Activity User E-sign Co-sign Detail Recorded Client Recorded Date Recorded By Document 12/12/23 10:25 [id number] 12/12/23 10:27 12/12/23 10:25 Wound Center Nurse 2 Right great toe -Time 10:26 -Correct Patient Yes -Correct Side, Site, Position Yes -Correct Procedure Yes -Procedure Performed Yes -Type of Procedure Debridement -Clinical Debridement Subcutaneous -Tissue Removed Subcutaneous -Post Debridement (cm) - Length 0.9 -Post Debridement (cm) - Width 1.1 -Post Debridement (cm) - Depth 0.1 -Total Square (Post) (cm) 0.99 -Area of Debridement (cm) - Length 0.9 -Area of Debridement (cm) - Width 1.1 -Total Square (Area) (cm) 0.99 -Tunneling No -Undermining/Tunneling No -Circular Undermining No -Wound/Ulcer Outcome Not Healed -Ulcer Cleansing Rinsed/ Irrigated with Saline -Foul Odor after Cleansing No -Bioengineered Tissue No -Bleeding Controlled with Pressure -Treatment Response Procedure Tolerated Well -Offloading Yes -Type of Offloading Surgical Shoe -Debridement - Subq, 1st 20sq cm Yes Pain Scale: 0-10 Numeric Is Patient Pain Free? Yes - Nurse 3 - General Ulcer D/C NN Start: 12/12/23 09:58 Freq: Status: Active Protocol: Activity Type Activity Date Activity User E-sign Co-sign Detail Recorded Client Recorded Date Recorded By Document 12/12/23 10:27 [id number] 12/12/23 10:28 LINO 12/12/23 10:27 Wound Care Center Nurse 3 Right great toe -Ulcer Cleansing Rinsed/ Irrigated with Saline -Foul Odor after Cleansing No -Other Dressing hydrogel -Primary Dressing Covered/Secured with Dry Gauze, Secured with Tape Pain Scale: 0-10 Numeric Is Patient Pain Free? Yes WC - Visit Discharge Discharge Condition Stable Ambulatory Status Ambulatory,Cane Transportation Private Auto Accompanied by Medication Reconcilliation completed & Yes provided to patient/care provider Clinical Summary of Care Provided Yes Assessment/Plan Assessment/Plan (1) Non-pressure chronic ulcer of other part of right foot with fat layer exposed: CODE(S): L97.512 - Non-pressure chronic ulcer of other part of right foot with fat layer exposed PLAN: Patient was examined and evaluated. All findings were discussed with the patient. All questions were answered to the patient's satisfaction. Excisional debridement of the right hallux plantar ulceration down to and including subcutaneous tissue with a number 3 mm dermal curette without incident. Predebridement measurement is 0.5 x 0.5 x 0.1 cm. Postdebridement measurement is 0.9 x 1.1 x 0.1 cm. Left hallux with pain and patted dry. New offloading pad was placed in the orthotic. Hydrogel was placed on the wound followed by dry sterile dressing and tape. Patient will continue wound care plans. Patient will get vascular studies and x-rays this Sunday. Follow-up at the wound care center with Dr. Cunningham in 2 week. (2) Other specified peripheral vascular diseases: CODE(S): I73.89 - Other specified peripheral vascular diseases
--- NOTE | 2023-12-14 13:02 | VDLE_ITS ---
Reason For Study: Bilateral leg edema RIGHT LEFT CFV is compressible, spontaneous, phasic, CFV is compressible, spontaneous, phasic, competent and demonstrates normal competent, and demonstrates normal augmentation. augmentation. FV is compressible, spontaneous, phasic, FV is compressible, spontaneous, phasic, competent and demonstrates normal competent and demonstrates normal augmentation. augmentation. POP V is compressible, spontaneous, phasic, POP V is compressible, spontaneous, phasic, competent and demonstrates normal competent and demonstrates normal augmentation. augmentation. T/P Trunk is compressible. T/P Trunk is compressible. PTV is compressible. PTV is compressible. RT PerV is compressible. LT PerV is compressible. Nonvascularized structure noted in the right Gastroc V is partially compressible with popliteal to prox calf. bright intraluminal echoes consistent with GSV and SSV prox previous ablation. Chronic DVT. SFJ is INCOMPETENT and measures 0.68 x 0.90 Nonvascularized structure noted in the right cm. popliteal to prox calf. SSV mid calf is INCOMPETENT for greater than SSV previous ablation. 0.5 seconds and measures 0.13 x 0.15 cm. SFJ is competent and measures 1.25 x 1.17 cm. Procedure GSV proximal thigh measures 0.62 x 0.69 cm. This is a venous duplex using B-mode, color GSV at knee measures 0.46 x 0.45 cm. flow and spectral Doppler. GSV INCOMPETENT throughout for greater than Exam performed in department. 0.5 seconds. A preliminary report was called and/or faxed to . VL/Venous Duplex US - Ezequiel Extrem Interpretation Summary Deep veins of the right lower extremity are patent and compressible segmentally . There is no evidence of right lower extremity deep vein thrombosis. Chronic venous changes are noted in the left gastrocnemius vein, which is partially compressible and demonstrates bright int raluminal echogenicity. The remainder of the left lower extremity deep venous system is p atent and compressible. Valvular competence appears intact within the proximal deep venou s systems bilaterally. The right sapheno-femoral junction is incompetent. The right great saphenous vein and small saphenous vein are absent, consistent with a prior endoluminal ablation. The left sapheno- femoral junction is competent. The left great saphenous vein is patent and inco mpetent. The left small saphenous vein has been previously ablated. A non-vascular, hypoechoic st ructure is noted in the popliteal space/proximal calf bilaterally. These may represent popliteal cy sts. Clinical correlation is advised. Ordering Physician: Rob Cunningham Referring Physician: Trey Geiger Performed By: Rosalind Cisse RVT
--- NOTE | 2023-12-14 13:02 | ART_ITS ---
Reason For Study: PVD Procedure A bilateral lower extremity continuous wave Doppler with analog waveform analysis,segmental pressures,and ankle brachial indexes without exercise. Left Segmental Pressures Left brachial= 111mmHg. Left posterior tibial artery = 133mmHg. Left dorsalis pedis artery = 150mmHg. The left dorsalis pedis waveforms are triphasic. The left posterior tibial artery waveforms are triphasic. Right Segmental Pressures Right brachial= 112mmHg. Right posterior tibial artery = 147mmHg. Right dorsalis pedis artery = 148mmHg. The right dorsalis pedis waveforms are triphasic. The right posterior tibial artery waveforms are triphasic. Indices The right ankle brachial index by the dorsalis pedis is 1.32. The right ankle brachial index by the posterior tibial artery is 1.31. The left ankle brachial index by the dorsalis pedis is 1.34. The left ankle brachial index by the posterior tibial artery is 1.19. VL/Lower Ext Art Exam w/o Exercis Interpretation Summary Triphasic Doppler waveforms are noted at ankle level bilaterally. Pulse-volume recordings appear satisfactory at all levels bilaterally. Resting ankle-brachial indices are norm al bilaterally. There is no evidence of significant arterial occlusive disease in the lower ext remities bilaterally. Ordering Physician: Rob Cunningham Referring Physician: Trey Geiger Performed By: Rosalind Cisse RVT and Student
--- NOTE | 2023-12-14 14:30 | RAD_ITS ---
STUDY: X-RAY - RIGHT FOOT CLINICAL: Male, 82 years old. Pain, skin ulceration TECHNIQUE: 3 view(s) of the foot. COMPARISON: None. FINDINGS: Normal talus, calcaneus, and tarsal bones. Normal visualized subtalar, talonavicular, calcaneocuboid, tarsal and tarsometatarsal articulations. Normal metatarsi. Normal metatarsophalangeal joint of the great toe. Normal tibial and fibular sesamoid bones. 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 Normal phalanges of the great toe. Normal second through fifth metatarsophalangeal joints. 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 No subchondral erosions. There is subtle dorsal soft tissue swelling but no evidence of subcutaneous emphysema to suspect an aggressive inflammatory process RAD/Foot min 3 Views IMPRESSION: Age consistent arthrosis. No demonstrated fracture or suspicious osseous lesion Mild dorsal soft tissue swelling, no length film evidence of subcutaneous emphysema Electronically Signed: Adam Menezes MD at 10:38 EDT ,
[2023-12-26 10:05] VITALS: BP 140/67; PULSE 67; RESP 18; TEMP 36.4; BMI 34.8
--- NOTE | 2023-12-26 15:53 | PCM.WC.PN ---
History of Present Illness Date of Service: 12/26/23 Chief Complaint: Right digital wound History of Wound: Right digital wound Subjective Subjective Mr. Gordon is 82-year-old male presenting to clinic today for follow-up evaluation of full-thickness wound to the right great toe. He has been changing his dressing as instructed. He admits the wound is smaller. He has continued to use the offloading pad and his orthotics. He is grateful for his care. Denies trauma. Denies constitutional symptoms. No other pedal complaints at this time. Objective Data Objective Data Vital Signs: Vital Signs Temp Pulse Resp BP O2 Del Method 97.5 F L 67 18 140/67 H Room Air 12/26/23 10:05 12/26/23 10:05 12/26/23 10:05 12/26/23 10:12/26/23 10:05 Oxygen Delivery Method Room Air Weight: 113.398 kg Body Mass Index (BMI) 34.8 Physical Exam Narrative Vascular: DP and PT pulses are palpable. CFT is brisk. Skin temperature gradient is warm to warm from proximal ankle to distal digits. Nonpitting edema appreciated bilateral lower extremity. Neurological: Light touch intact. Protective sensation is diminished to the toes and reestablish at the level of the midfoot and ankle. Dermatological: Full-thickness ulceration to the plantar aspect of the IPJ of the right hallux measuring 0.1 x 0.1 x 0.1 cm. Wound base is granular nature. No drainage. No probe to bone. No malodor. No sign of infection. Evidence of callus to the distal aspect of the left hallux stable. Excisional debridement of the right hallux plantar ulceration down to and including subcutaneous tissue with a number 3 mm dermal curette without incident. Predebridement measurement is callus. Postdebridement measurement is 0.1 x 0.1 x 0.1 cm. Musculoskeletal: Muscle strength is 5 out of 5 in all quadrants bilateral. 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 First metatarsophalangeal joint range of motion is within normal limits bilateral. No pain with calf compression. Debridement Note Debridement Note Debridement Free Text: Excisional debridement of the right hallux plantar ulceration down to and including subcutaneous tissue with a number 3 mm dermal curette without incident. Predebridement measurement is callus. Postdebridement measurement is 0.1 x 0.1 x 0.1 cm. Post-Debridement Measurements and Additional Note: Post-Debridement Measurements/Treatment ANTONIO - Nurse 1 - General Ulcer Assessment Start: 12/12/23 09:58 Freq: Status: Active Protocol: VICTORINO Activity Type Activity Date Activity User E-sign Co-sign Detail Recorded Client Recorded Date Recorded By Document 12/12/23 10:00 [facility] 12/12/23 10:11 Document 12/26/23 10:05 [facility] 12/26/23 10:11 12/12/23 12/26/23 10:00 10:05 - Today's Visit Information Type of service Follow-up Visit Follow-up Visit (Physician/THIRD OFFICER (Physician/THIRD OFFICER ) ) Arrival Mode Ambulatory,Cane Ambulatory,Cane Accompanied by Patient Identification Verified (Name & Yes Yes ) Height and Weight Body Mass Index (BMI) 34.8 34.8 BMI Classification Obese Obese Vital Signs Temperature (97.8 F-99.1 F) 97.5 F L 97.5 F L Temperature Source Temporal Temporal Pulse Rate (60-100) 78 67 Pulse Location Monitor Respiratory Rate (12-18) 18 18 Respiratory rate source Observation Observation Oxygen Delivery Method Room Air Room Air Blood Pressure (90/60-120/80) 134/74 H 140/67 H Blood Pressure Mean (mm Hg) 94 91 Source Monitor Monitor Position Sitting Sitting Blood Pressure Location Left Arm Left Arm History Since Last Visit- (Skip if this is Patient's initial visit) Have you changed medications since your No No last visit? Any new allergies or adverse reactions No No Had a fall/change in ADL's that may No No increase risk of falls Signs or symptoms of abuse and/or No No neglect since last visit Have you been in the hospital since your No No last visit? Has dressing in place as prescribed Yes Yes Has compression in place as prescribed Yes Yes Has offloadiing in place as prescribed N/A Experienced any changes in pain level or No No management Left Footwear Regular Shoe Regular Shoe Right Footwear Regular Shoe Regular Shoe Pain Scale: 0-10 Numeric Is Patient Pain Free? Yes Yes ANTONIO - Nurse 1 - General Ulcer Measurement Start: 12/12/23 09:58 Freq: Status: Active Protocol: Activity Type Activity Date Activity User E-sign Co-sign Detail Recorded Client Recorded Date Recorded By Document 12/12/23 10:00 [facility] 12/12/23 10:11 Document 12/26/23 10:05 [facility] 12/26/23 10:11 12/12/23 12/26/23 10:00 10:05 Wound Center Nurse 1 Right great toe -Current Size (cm) - Length 0.5 0.1 -Current Size (cm) - Width 0.5 0.1 -Current Size (cm) - Depth 0.1 0.1 -Total Square Cm 0.25 0.01 -Photo Taken No No -Epithelialization Small 1-33% -Tunneling No No -Undermining/Tunneling No No -Circular Undermining No No -Exudate Amt Medium None Present -Exudate Type Serosanguineous -Wound Margin Distinct, Outline Attached -Granulation Amt Medium (34-66%) None Present (0 %) -Granulation Quality Red -Necrosis Amt Small (1-33%) -Texture (Bhavna-wound Skin Appearance) Assessed Assessed,Callus -Moisture (Bhavna-wound Skin Appearance) Assessed Assessed -Color (Bhavna-wound Skin Appearance) Assessed Assessed -Temperature (Bhavna-wound Skin No Abnormality No Abnormality Appearance) (Pt Warm) (Pt Warm) -Ulcer Cleansing Soap and Water Rinsed/ Irrigated with Saline -Foul Odor after Cleansing No No -Anesthetic Used 5% Lidocaine 5% Lidocaine Gel Gel Lower Limb Edema Present No Right Calf (cm) 40.7 44.0 Right Ankle (cm) 25.2 24.4 - Nurse 2 - General Ulcer CM Notes Start: 12/12/23 09:58 Freq: Status: Active Protocol: Activity Type Activity Date Activity User E-sign Co-sign Detail Recorded Client Recorded Date Recorded By Document 12/12/23 10:25 [id number] 12/12/23 10:27 Document 12/26/23 10:19 [id number] 12/26/23 10:23 12/12/23 12/26/23 10:25 10:19 Wound Center Nurse 2 Right great toe -Time 10:26 10:22 -Correct Patient Yes Yes -Correct Side, Site, Position Yes Yes -Correct Procedure Yes Yes -Procedure Performed Yes Yes -Type of Procedure Debridement Debridement -Clinical Debridement Subcutaneous Epidermis / Dermis -Tissue Removed Subcutaneous Epidermis, Dermis -Post Debridement (cm) - Length 0.9 0.1 -Post Debridement (cm) - Width 1.1 0.1 -Post Debridement (cm) - Depth 0.1 0.1 -Total Square (Post) (cm) 0.99 0.01 -Area of Debridement (cm) - Length 0.9 0.1 -Area of Debridement (cm) - Width 1.1 0.1 -Total Square (Area) (cm) 0.99 0.01 -Tunneling No No -Undermining/Tunneling No No -Circular Undermining No No -Wound/Ulcer Outcome Not Healed Not Healed -Ulcer Cleansing Rinsed/ Rinsed/ Irrigated with Irrigated with Saline Saline -Foul Odor after Cleansing No No -Bioengineered Tissue No No -Bleeding Controlled with Pressure Pressure -Treatment Response Procedure Procedure Tolerated Well Tolerated Well -Offloading Yes No -Type of Offloading Surgical Shoe Other -Other Type of Offloading insert custom -Debridement - Open, 1st 20sq cm Yes -Debridement - Subq, 1st 20sq cm Yes Pain Scale: 0-10 Numeric Is Patient Pain Free? Yes Yes - Nurse 3 - General Ulcer D/C NN Start: 12/12/23 09:58 Freq: Status: Active Protocol: Activity Type Activity Date Activity User E-sign Co-sign Detail Recorded Client Recorded Date Recorded By Document 12/12/23 10:27 [id number] 12/12/23 10:28 Document 12/26/23 10:31 KW j 12/26/23 10:31 12/12/23 12/26/23 10:27 10:31 Wound Care Center Nurse 3 Right great toe -Ulcer Cleansing Rinsed/ Irrigated with Saline -Foul Odor after Cleansing No -Other Dressing hydrogel c. hydrogel -Primary Dressing Covered/Secured with Dry Gauze, Dry Gauze, Secured with Secured with Tape Tape Pain Scale: 0-10 Numeric Is Patient Pain Free? Yes Yes - Visit Discharge Discharge Condition Stable Stable Ambulatory Status Ambulatory,Cane Ambulatory,Cane Transportation Private Auto Private Auto Accompanied by Medication Reconcilliation completed & Yes No provided to patient/care provider Clinical Summary of Care Provided Yes Yes Assessment/Plan Assessment/Plan (1) Non-pressure chronic ulcer of other part of right foot with fat layer exposed: CODE(S): L97.512 - Non-pressure chronic ulcer of other part of right foot with fat layer exposed PLAN: Patient was examined and evaluated. All findings were discussed with the patient. All questions were answered to the patient's satisfaction. Excisional debridement of the right hallux plantar ulceration down to and including subcutaneous tissue with a number 3 mm dermal curette without incident. Predebridement measurement is callus. Postdebridement measurement is 0.1 x 0.1 x 0.1 cm. The right lower extremities are clean and patted dry. The ulceration was dressed with hydrogel collagen and dry sterile dressing. Patient was dispensed extra dressing supplies. He will changes every other day and will follow-up next week. Told the patient to follow-up with Dr. Slater who made his orthotic to see if he can adjust his orthotic with a Bui's extension with offloading pad to the bilateral first rays. Follow-up at the wound care center with Dr. Cunningham in 1 week. (2) Other specified peripheral vascular diseases: CODE(S): I73.89 - Other specified peripheral vascular diseases (3) Osteoarthritis of right foot: CODE(S): M19.071 - Primary osteoarthritis, right ankle and foot QUALIFIERS: Osteoarthritis type: primary Qualified Code(s): M19.071 - Primary osteoarthritis, right ankle and foot
[2024-01-02 10:21] VITALS: BP 124/68; PULSE 54; RESP 16; TEMP 35.8; BMI 34.8
--- NOTE | 2024-01-02 12:58 | PN.PCM_ITS ---
History of Present Illness Date of Service: 01/02/24 Chief Complaint: Right digital wound History of Wound: Right digital wound Subjective Subjective Mr. Gordon is 82-year-old male presenting to clinic today for follow-up evaluation of full-thickness wound to the right great toe. Patient states that he got his orthotics adjusted by his crop grain or livestock farmer. He states his wound is healed. He is grateful for his care. Denies any pain to the right great toe. Denies trauma. Denies constitutional symptoms. No other pedal complaints at this time. Objective Data Objective Data Vital Signs: Vital Signs Temp Pulse Resp BP O2 Del Method 96.4 F L 54 L 16 124/68 H Room Air 01/02/24 10:01/02/24 10:21 01/02/24 10:01/02/24 10:12/26/23 10:05 Oxygen Delivery Method Room Air Weight: 113.398 kg Body Mass Index (BMI) 34.8 Physical Exam Narrative Vascular: DP and PT pulses are palpable. CFT is brisk. Skin temperature gradient is warm to warm from proximal ankle to distal digits. Nonpitting edema appreciated bilateral lower extremity. Neurological: Light touch intact. Protective sensation is diminished to the toes and reestablish at the level of the midfoot and ankle. Dermatological: Full-thickness ulceration to the plantar aspect of the IPJ of the right hallux measuring 0.1 x 0.1 x 0.1 cm. Wound base is granular nature. No drainage. No probe to bone. No malodor. No sign of infection. Evidence of callus to the distal aspect of the left hallux stable. Musculoskeletal: Muscle strength is 5 out of 5 in all quadrants bilateral. 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 First metatarsophalangeal joint range of motion is within normal limits bilateral. No pain with calf compression. Debridement Note Debridement Note Post-Debridement Measurements and Additional Note: Post-Debridement Measurements/Treatment - Nurse 1 - General Ulcer Assessment Start: 12/12/23 09:58 Freq: Status: Active Protocol: [email or web address] Activity Type Activity Date Activity User E-sign Co-sign Detail Recorded Client Recorded Date Recorded By Document 12/12/23 10:00 GM 12/12/23 10:11 GM Document 12/26/23 10:05 [facility] 12/26/23 10:11 Document 01/02/24 10:21 [id number] 01/02/24 10:23 12/12/23 12/26/23 01/02/24 10:00 10:05 10:21 - Today's Visit Information Type of service Follow-up Visit Follow-up Visit Follow-up Visit (Physician/FRACTIONATION PLANT SUPERVISOR (Physician/FRACTIONATION PLANT SUPERVISOR (Physician/FRACTIONATION PLANT SUPERVISOR ) ) ) Arrival Mode Ambulatory,Cane Ambulatory,Cane Ambulatory,Cane Accompanied by Patient Identification Verified (Name & Yes Yes Yes ) Patient Requires Transmission-Based No Precautions Height and Weight Body Mass Index (BMI) 34.8 34.8 34.8 BMI Classification Obese Obese Obese Vital Signs Temperature (97.8 F-99.1 F) 97.5 F L 97.5 F L 96.4 F L Temperature Source Temporal Temporal Temporal Pulse Rate (60-100) 78 67 54 L Pulse Location Monitor Monitor Respiratory Rate (12-18) 18 18 16 Respiratory rate source Observation Observation Observation Oxygen Delivery Method Room Air Room Air Blood Pressure (90/60-120/80) 134/74 H 140/67 H 124/68 H Blood Pressure Mean (mm Hg) 94 91 86 Source Monitor Monitor Monitor Position Sitting Sitting Sitting Blood Pressure Location Left Arm Left Arm Left Arm History Since Last Visit- (Skip if this is Patient's initial visit) Have you changed medications since your No No No last visit? Any new allergies or adverse reactions No No No Had a fall/change in ADL's that may No No No increase risk of falls Signs or symptoms of abuse and/or No No No neglect since last visit Have you been in the hospital since your No No No last visit? Has dressing in place as prescribed Yes Yes Yes Has compression in place as prescribed Yes Yes N/A Has offloadiing in place as prescribed N/A Yes Experienced any changes in pain level or No No No management Left Footwear Regular Shoe Regular Shoe Regular Shoe Right Footwear Regular Shoe Regular Shoe Regular Shoe Pain Scale: 0-10 Numeric Is Patient Pain Free? Yes Yes Yes - Nurse 1 - General Ulcer Measurement Start: 12/12/23 09:58 Freq: Status: Active Protocol: Activity Type Activity Date Activity User E-sign Co-sign Detail Recorded Client Recorded Date Recorded By Document 12/12/23 10:00 [facility] 12/12/23 10:11 Document 12/26/23 10:05 [facility] 12/26/23 10:11 Document 01/02/24 10:21 [id number] 01/02/24 10:23 12/12/23 12/26/23 01/02/24 10:00 10:05 10:21 Wound Center Nurse 1 Right great toe -Combined with other wound No -Current Size (cm) - Length 0.5 0.1 0.1 -Current Size (cm) - Width 0.5 0.1 0.1 -Current Size (cm) - Depth 0.1 0.1 0.1 -Total Square Cm 0.25 0.01 0.01 -Photo Taken No No No -Epithelialization Small 1-33% Large 67-100% -Tunneling No No No -Undermining/Tunneling No No No -Circular Undermining No No No -Exudate Amt Medium None Present None Present -Exudate Type Serosanguineous -Wound Margin Distinct, Flat & Intact Outline Attached -Granulation Amt Medium (34-66%) None Present (0 None Present (0 %) %) -Granulation Quality Red -Slough/Fibrin No -Necrosis Amt Small (1-33%) -Structure Exposed N/A -Texture (Bhavna-wound Skin Appearance) Assessed Assessed,Callus Assessed,Callus -Moisture (Bhavna-wound Skin Appearance) Assessed Assessed Assessed -Color (Bhavna-wound Skin Appearance) Assessed Assessed Assessed -Temperature (Bhavna-wound Skin No Abnormality No Abnormality No Abnormality Appearance) (Pt Warm) (Pt Warm) (Pt Warm) -Tenderness on Palpation (Bhavna-wound No Skin Appearance) -Ulcer Cleansing Soap and Water Rinsed/ Rinsed/ Irrigated with Irrigated with Saline Saline -Foul Odor after Cleansing No No -Anesthetic Used 5% Lidocaine 5% Lidocaine Gel Gel Lower Limb Edema Present No NA Right Calf (cm) 40.7 44.0 Right Ankle (cm) 25.2 24.4 - Nurse 2 - General Ulcer CM Notes Start: 12/12/23 09:58 Freq: Status: Active Protocol: Activity Type Activity Date Activity User E-sign Co-sign Detail Recorded Client Recorded Date Recorded By Document 12/12/23 10:25 [id number] 12/12/23 10:27 Document 12/26/23 10:19 [id number] 12/26/23 10:23 JF Document 01/02/24 10:31 JF 000 01/02/24 10:34 JF 12/12/23 12/26/23 01/02/24 10:25 10:19 10:31 Wound Center Nurse 2 Right great toe -Time 10:26 10:22 -Correct Patient Yes Yes No -Correct Side, Site, Position Yes Yes No -Correct Procedure Yes Yes No -Procedure Performed Yes Yes No -Type of Procedure Debridement Debridement -Clinical Debridement Subcutaneous Epidermis / Dermis -Tissue Removed Subcutaneous Epidermis, Dermis -Post Debridement (cm) - Length 0.9 0.1 0.1 -Post Debridement (cm) - Width 1.1 0.1 0.1 -Post Debridement (cm) - Depth 0.1 0.1 0.1 -Total Square (Post) (cm) 0.99 0.01 0.01 -Area of Debridement (cm) - Length 0.9 0.1 0.1 -Area of Debridement (cm) - Width 1.1 0.1 0.1 -Total Square (Area) (cm) 0.99 0.01 0.01 -Tunneling No No -Undermining/Tunneling No No -Circular Undermining No No -Wound/Ulcer Outcome Not Healed Not Healed Not Healed -Ulcer Cleansing Rinsed/ Rinsed/ Irrigated with Irrigated with Saline Saline -Foul Odor after Cleansing No No -Bioengineered Tissue No No -Bleeding Controlled with Pressure Pressure Pressure -Treatment Response Procedure Procedure Tolerated Well Tolerated Well -Offloading Yes No -Type of Offloading Surgical Shoe Other -Other Type of Offloading insert custom -Debridement - Open, 1st 20sq cm Yes -Debridement - Subq, 1st 20sq cm Yes No Pain Scale: 0-10 Numeric Is Patient Pain Free? Yes Yes Yes - Nurse 3 - General Ulcer D/C NN Start: 12/12/23 09:58 Freq: Status: Active Protocol: Activity Type Activity Date Activity User E-sign Co-sign Detail Recorded Client Recorded Date Recorded By Document 12/12/23 10:27 [id number] 12/12/23 10:28 JF Document 12/26/23 10:31 KW j 12/26/23 10:31 KW Document 01/02/24 11:18 KW [id number] 01/02/24 11:19 KW 12/12/23 12/26/23 01/02/24 10:27 10:31 11:18 Wound Care Center Nurse 3 Right great toe -Ulcer Cleansing Rinsed/ Irrigated with Saline -Foul Odor after Cleansing No -Primary Dressing Applied C Hydrogel ($) -Other Dressing hydrogel c. hydrogel -Primary Dressing Covered/Secured with Dry Gauze, Dry Gauze, Dry Gauze, Secured with Secured with Secured with Tape Tape Tape ble -Other pt own compression stockings Pain Scale: 0-10 Numeric Is Patient Pain Free? Yes Yes Yes WC - Visit Discharge Discharge Condition Stable Stable Stable Ambulatory Status Ambulatory,Cane Ambulatory,Cane Ambulatory,Cane Transportation Private Auto Private Auto Private Auto Accompanied by Medication Reconcilliation completed & Yes No No provided to patient/care provider Clinical Summary of Care Provided Yes Yes Yes Assessment/Plan Assessment/Plan (1) Non-pressure chronic ulcer of other part of right foot with fat layer exposed: CODE(S): L97.512 - Non-pressure chronic ulcer of other part of right foot with fat layer exposed PLAN: Patient was examined and evaluated. All findings were discussed with the patient. All questions were answered to the patient's satisfaction. Patient shows evidence of very small wound to the distal aspect of the right great toe measuring 0.1 x 0.1 x 0.1 cm. Patient will continue to use the hydrogel with collagen and a Band-Aid and use his orthotics as instructed by his outpatient crop grain or livestock farmer. Patient is grateful for his care and will follow-up in 1 week for evaluation. Follow-up at the wound care center with Dr. Cunningham in 1 week. (2) Other specified peripheral vascular diseases: CODE(S): I73.89 - Other specified peripheral vascular diseases (3) Osteoarthritis of right foot: CODE(S): M19.071 - Primary osteoarthritis, right ankle and foot QUALIFIERS: Osteoarthritis type: primary Qualified Code(s): M19.071 - Primary osteoarthritis, right ankle and foot
== END 2024-01-06 23:59 | disposition home or self-care (01) ==
LOC: WC 10:00
PROVIDERS: PCP Family Medicine; Visit Provider Podiatrist Foot & Ankle Surgery
DX: L97.412 Non-pressure chronic ulcer of right heel and midfoot with fat layer exposed (principal); L84 Corns and callosities; I73.89 Other specified peripheral vascular diseases; M19.071 Primary osteoarthritis, right ankle and foot; R60.0 Localized edema
CPT/HCPCS: 11042; 73630; 93923; 93970; 97597; 99212; G0463

== ENCOUNTER 2024-01-09 10:05 | Outpatient (RCR) | payer MEDICARE, SELFPAY ==
[2024-01-07 00:47] VITALS: BP 120/60; PULSE 81; RESP 18; TEMP 37.1; BMI 34.8
[2024-01-09 11:19] VITALS: BP 131/61; PULSE 56; RESP 18; TEMP 36; BMI 34.8
--- NOTE | 2024-01-09 12:26 | PCM.WC.PN ---
History of Present Illness Date of Service: 01/09/24 Chief Complaint: Right digital wound History of Wound: Right digital wound Subjective Subjective Mr. Gordon is 82-year-old male presenting to clinic today for follow-up evaluation of full-thickness wound to the right great toe. Patient states that he got his orthotics adjusted by his museum service scheduler. He states his wound is healed. He is grateful for his care. Denies any pain to the right great toe. Denies trauma. Denies constitutional symptoms. No other pedal complaints at this time. Objective Data Objective Data Vital Signs: Vital Signs Temp Pulse Resp BP O2 Del Method 96.8 F L 56 L 18 131/61 H Room Air 01/09/24 11:19 01/09/24 11:19 01/09/24 11:19 01/09/24 11:19 01/09/24 11:19 Oxygen Delivery Method Room Air Weight: 113.398 kg Body Mass Index (BMI) 34.8 Physical Exam Narrative Vascular: DP and PT pulses are palpable. CFT is brisk. Skin temperature gradient is warm to warm from proximal ankle to distal digits. Nonpitting edema appreciated bilateral lower extremity. Neurological: Light touch intact. Protective sensation is diminished to the toes and reestablish at the level of the midfoot and ankle. Dermatological: Full-thickness ulceration to the plantar aspect of the IPJ of the right hallux, healed. No drainage. No probe to bone. No malodor. No sign of infection. Evidence of callus to the distal aspect of the left hallux stable. Musculoskeletal: Muscle strength is 5 out of 5 in all quadrants bilateral. 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 First metatarsophalangeal joint range of motion is within normal limits bilateral. No pain with calf compression. Debridement Note Debridement Note Post-Debridement Measurements and Additional Note: Post-Debridement Measurements/Treatment ANTONIO - Nurse 1 - General Ulcer Assessment Start: 01/09/24 11:19 Freq: Status: Active Protocol: [email or web address] Activity Type Activity Date Activity User E-sign Co-sign Detail Recorded Client Recorded Date Recorded By Document 01/09/24 11:19 KW ; 01/09/24 11:23 KW 01/09/24 11:19 - Today's Visit Information Type of service Follow-up Visit (Physician/PROFESSOR OF ENVIRONMENTAL ENGINEERING ) Arrival Mode Ambulatory,Cane Accompanied by Patient Identification Verified (Name & Yes ) Height and Weight Body Mass Index (BMI) 34.8 BMI Classification Obese Vital Signs Temperature (97.8 F-99.1 F) 96.8 F L Temperature Source Temporal Pulse Rate (60-100) 56 L Pulse Location Monitor Respiratory Rate (12-18) 18 Respiratory rate source Observation Oxygen Delivery Method Room Air Blood Pressure (90/60-120/80) 131/61 H Blood Pressure Mean (mm Hg) 84 Source Monitor Position Sitting Blood Pressure Location Right Arm History Since Last Visit- (Skip if this is Patient's initial visit) Have you changed medications since your No last visit? Any new allergies or adverse reactions No Had a fall/change in ADL's that may No increase risk of falls Signs or symptoms of abuse and/or No neglect since last visit Have you been in the hospital since your No last visit? Has dressing in place as prescribed Yes Has compression in place as prescribed Yes Has offloadiing in place as prescribed N/A Experienced any changes in pain level or No management Left Footwear Regular Shoe Right Footwear Regular Shoe Pain Scale: 0-10 Numeric Is Patient Pain Free? Yes WC - Nurse 1 - General Ulcer Measurement Start: 01/09/24 11:19 Freq: Status: Active Protocol: Activity Type Activity Date Activity User E-sign Co-sign Detail Recorded Client Recorded Date Recorded By Document 01/09/24 11:19 KW ; 01/09/24 11:23 KW 01/09/24 11:19 Wound Center Nurse 1 Right great toe -Current Size (cm) - Length 0.1 -Current Size (cm) - Width 0.1 -Current Size (cm) - Depth 0.1 -Total Square Cm 0.01 -Exudate Amt None Present -Texture (Bhavna-wound Skin Appearance) Assessed -Moisture (Bhavna-wound Skin Appearance) Assessed -Color (Bhavna-wound Skin Appearance) Assessed -Temperature (Bhavna-wound Skin No Abnormality Appearance) (Pt Warm) -Tenderness on Palpation (Bhavna-wound No Skin Appearance) -Ulcer Cleansing Rinsed/ Irrigated with Saline -Foul Odor after Cleansing No -Anesthetic Used 5% Lidocaine Gel WC - Nurse 2 - General Ulcer CM Notes Start: 01/09/24 11:19 Freq: Status: Active Protocol: Activity Type Activity Date Activity User E-sign Co-sign Detail Recorded Client Recorded Date Recorded By Document 01/09/24 11:31 JF 0000 01/09/24 11:32 01/09/24 11:31 Wound Center Nurse 2 -Correct Patient No -Correct Side, Site, Position No -Correct Procedure No -Procedure Performed No -Post Debridement (cm) - Length 0 -Post Debridement (cm) - Width 0 -Post Debridement (cm) - Depth 0 -Total Square (Post) (cm) 0 -Area of Debridement (cm) - Length 0 -Area of Debridement (cm) - Width 0 -Total Square (Area) (cm) 0 -Wound/Ulcer Outcome Healed- Epithelialized Pain Scale: 0-10 Numeric Is Patient Pain Free? Yes WC - Nurse 3 - General Ulcer D/C NN Start: 01/09/24 11:19 Freq: Status: Active Protocol: Activity Type Activity Date Activity User E-sign Co-sign Detail Recorded Client Recorded Date Recorded By Document 01/09/24 11:32 JF 0000 01/09/24 11:32 01/09/24 11:32 Is Patient Pain Free? Yes - Visit Discharge Discharge Condition Stable Ambulatory Status Ambulatory Transportation Private Auto Medication Reconcilliation completed & Yes provided to patient/care provider Clinical Summary of Care Provided Yes Assessment/Plan Assessment/Plan (1) Non-pressure chronic ulcer of other part of right foot with fat layer exposed: CODE(S): L97.512 - Non-pressure chronic ulcer of other part of right foot with fat layer exposed PLAN: Patient was examined and evaluated. All findings were discussed with the patient. All questions were answered to the patient's satisfaction. Patient's ulcer is now healed. He will continue to wear his offloading orthotics and continue to apply lotion on his legs wears compression stockings. Patient will follow-up in private office in approximately 1 month. He last the wound care center completed this visit. (2) Other specified peripheral vascular diseases: CODE(S): I73.89 - Other specified peripheral vascular diseases
== END 2024-01-11 08:49 | disposition home or self-care (01) ==
LOC: WC 10:05
PROVIDERS: PCP Family Medicine; Visit Provider Podiatrist Foot & Ankle Surgery
DX: Z09 Encounter for follow-up examination after completed treatment for conditions other than malignant neoplasm (principal); I73.89 Other specified peripheral vascular diseases; Z79.82 Long term (current) use of aspirin; Z79.899 Other long term (current) drug therapy
CPT/HCPCS: 99213; G0463

== ENCOUNTER → 2024-01-15 | Outpatient (CLI) | payer MEDICARE, SELFPAY ==
[2024-01-15 13:36] LABS: Anion Gap 6 (5-15); BUN 15 mg/dL (7-18); BUN/Creat Ratio 14.7 RATIO (10-20); Calcium,Total 9.7 mg/dL (8.5-10.1); Chloride 107 mmol/L (98-107); Creatinine, Serum 1.02 mg/dL (0.70-1.30); EST Glomerular Filtration Rate 74 mL/min (>60); Est Glom Filt Rate - Afr Amer 89 mL/min (>60); Glucose 99 mg/dL (74-106); Potassium 4.3 mmol/L (3.5-5.1); Sodium Level 139 mmol/L (136-145)
== END | disposition home or self-care (01) ==
LOC: LAB 11:07
PROVIDERS: PCP Family Medicine; Referring Provider Family Medicine; Visit Provider Family Medicine
DX: E87.5 Hyperkalemia (principal)
CPT/HCPCS: 36415; 80048

== ENCOUNTER → 2024-04-25 | Outpatient (CLI) | payer MEDICARE, SELFPAY ==
--- NOTE | 2024-04-25 10:45 | RAD_ITS ---
INDICATION: DEFORMITY, PAIN EXAMINATION/TECHNIQUE: X-RAY - LEFT XR Foot Min 3 Views COMPARISON: Right foot radiograph on same day FINDINGS: SOFT TISSUES: No soft tissue swelling or gas. No radiopaque foreign body. BONES/JOINTS: No acute fracture.. No dislocation. 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 No erosions or aggressive osseous lesion. Mild osteopenia. RAD/Foot min 3 Views IMPRESSION: No evidence of acute injury. Mild diffuse forefoot osteoarthritis. Osteopenia. Electronically Signed: George Locke MD at 10:29 EDT ,
--- NOTE | 2024-04-25 10:45 | RAD_ITS ---
INDICATION: DEFORMITY, PAIN EXAMINATION/TECHNIQUE: X-RAY - RIGHT XR Foot Min 3 Views 6 VIEWS COMPARISON: Left foot radiograph on same day.] Right foot radiograph December 14, 2023 FINDINGS: SOFT TISSUES: No soft tissue swelling or subcutaneous emphysema. No radiopaque foreign body. BONES/JOINTS: New plantar lateral subluxation of the first distal phalanx relative to the medial phalanx with increased lateral angulation compared to prior exam. Small osseous fragment at the lateral first distal phalanx base on AP view suggests corner fracture. Hammertoe configuration of the second through fourth digits. Mild first metatarsophalangeal joint and scattered interphalangeal joint degenerative change. No aggressive osseous lesion... Mild osteopenia. RAD/Foot min 3 Views IMPRESSION: Findings concerning for fracture of the lateral first distal phalanx base with exaggerated lateral and plantar subluxation Hammertoe configuration of the second through fourth digits with mild degenerative change. Osteopenia. Electronically Signed: George Locke MD at 10:26 EDT ,
--- OUTSIDE RECORDS SUMMARY | 2024-04-25 11:02 | XMS RPT_ITS | CCD ---
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 Name Role Phone Kong Pollack Unavailable Unavailable Mary Lou Sneed MD Primary Care Provider GANKRISTIAN, MARY LOU Attending Unavailable GANTA, MARY LOU Primary Care Unavailable GANTA, MARY LOU Referring Unavailable GANTA, MARY LOU Attending Unavailable GANTA, MARY LOU Primary Care Unavailable GANTA, MARY LOU Referring Unavailable GANTA, MARY LOU Primary Care Unavailable GANTA, MARY LOU Primary Care Unavailable GANTA, MARY LOU Attending Unavailable GANTA, MARY LOU Primary Care Unavailable GANTA, MARY LOU Referring Unavailable YIFANTA, MARY LOU Primary Care Unavailable Kong Pollack Unavailable Unavailable Mary Lou Sneed MD Primary Care Provider Mary Lou Sneed MD Primary Care Provider Allergies Allergy Classification Reported Allergen(s) Allergy Type Date of Onset Reaction(s) Facility (14 sources) Vancomycin; Translations: [VANCOMYCIN] Drug Allergy 07-21-2014 Rash, Swelling [facility] Medications Current Medications Medication Drug Class(es) Dates Sig (Normalized) Sig (Original) Blood-Glucose Meter misc (13 sources) Start: 02-03-2014 Blood-Glucose Meter misc As directed daily. Dx 250.00 1 Each 0 02/03/2014 Active Comment on above: As directed daily. D x 250.00 capsaicin 0.75 mg/ml topical cream (13 sources) Start: 01-25-2016 capsaicin (ZOSTRIX-HP) 0.075 % topical cream Apply 1 application to affected area twice daily. 01/25/2016 Active Comment on above: Apply 1 application to affected area twice daily. gabapentin 600 mg oral tablet (15 sources) Anti-epileptic Agent Start: 12-25-2022 End: 12-25-2023 take 1 tablet by mouth five times daily gabapentin (NEURONTIN) 600 mg tablet Indications: Hereditary and idiopathic peripheral neuropathy Take 1 tablet by mouth five times daily. 450 tablet 3 12/25/2022 12/25/2023 Active Start: 05-16-2021 End: 01-15-2023 gabapentin (NEURONTIN) 600 m g tablet Indications: Hereditary and idiopathic peripheral neuropathy Take 5 times daily 450 tablet 3 01/20/2022 12/25/2022 Discontinued Comment on above: Take 5 times daily Take 1 tablet by ari th five times daily. potassium gluconate 2.5 meq oral tablet (13 sources) Start: 03-12-2009 POTASSIUM 99 MG TAB Take one(1) tablet daily. 0 03/12/2009 Active Comment on above: Take one(1) tablet d aily. Completed/Discontinued Medications Medication Drug Class(es) Dates Sig (Normalized) Sig (Original) COMPOUNDED PRESCRIPTION (20 sources) Start: 03-16-2017 End: 12-26-2022 COMPOUNDED PRESCRIPTION Indications: DM type 2 with diabetic peripheral neuropathy (HCC) Hba1c due in jun 2017. Re: DIABETES MELLITUS 1 Each 03/16/2017 12/26/2022 Discontinued Start: 03-16-2017 End: 12-26-2022 COMPOUNDED PRESCRIPTION Ana cations: DM type 2 with diabetic peripheral neuropathy (HCC) Hba1c due in jun 2017. Re: DIABETES MELLITUS 1 Each 0 03/16/2017 12/26/2022 Discontinued Start: 03-16-2017 COMPOUNDED PRE SCRIPTION Indications: DM type 2 with diabetic peripheral neuropathy (HCC) Hba1c due in jun 2017. Re: DIABETES MELLITUS 1 Each 0 03/16/2017 Active Start: 12-08-2014 COMPOUNDED PRE SCRIPTION Standing INR monthly and prn Dx:453.40 License #[id number] 1 Each 99 12/08/2014 Active Comment on above: Standing INR monthly and prn Dx:453.40 License #[id number] Hba1c due in jun. Re: DIABETES MELLITUS enalapril maleate 10 mg oral tablet (15 sources) Angiotensin Converting Enzyme Inhibitor Start: End: take 1 tablet by mouth once daily enalapril (VASOTEC) 10 mg tablet Indications: Essential hypertension Take 1 tablet by mouth once daily. 90 tablet 3 04/24/2022 04/24/2023 Discontinued Comment on above: Take 1 tablet by ari th once daily. take 1 tablet every day Multivitamins-[place] als-Lutein (CENTRUM SILVER) ORAL Tab (11 sources) Start: 7 End: 3 take 1 tablet by mouth once daily Multivitamins-Mineral s-Lutein (CENTRUM SILVER) ORAL Tab Take one(1) tablet daily. 1 0 02/07/2007 12/26/2022 Discontinued Start: 02-07-2007 take 1 tablet by ari th once daily Hesovldqnwmue-Llwkrnfh-Qdmiqe (CENTRUM SILVER) ORAL Tab Take one(1) tablet daily. 1 0 02/07/2007 Active Comment on above: Take one(1) tablet d aily. pregabalin 150 mg oral capsule (2 sources) Start: 3 pregabalin (LYRICA) 150 mg capsule sennosides, chcf 8.6 mg oral tablet (2 sources) take 1 tablet by mouth twice daily senna (ELSA-PAMELA) 8.6 mg tab Take 8.6 mg by mouth twice daily. 0 Active Comment on above: Take 8.6 mg by mouth twice daily. simvastatin 40 mg oral tablet (16 sources) HMG-CoA Reductase Inhibitor Start: 3 End: 3 take 1 tablet by mouth once daily at bedtime simvastatin (ZOCOR) 40 mg tablet Indications: Mixed hyperlipidemia Take 1 tablet by mouth daily at bedtime. 90 tablet 1 10/16/2022 04/24/2023 Discontinued Start: 12-07-2021 End: 10-13-2022 take 1 tablet by mouth once daily at bedtime simvastatin (ZOCOR) 40 mg tablet Indications: Mixed hyperlipidemia Take 1 tablet by mouth daily at bedtime. 90 tablet 3 12/07/2021 10/13/2022 Discontinued Start: 12-30-2020 End: 12-02-2021 take 1 tablet by mouth once daily at bedtime simvastatin (ZOCOR) 40 mg tablet Indications: Mixed hyperlipidemia Take 1 tablet by mouth daily at bedtime. 90 tablet 3 12/30/2020 12/02/2021 Discontinued Comment on above: Take 1 tablet by ari th daily at bedtime. take 1 tablet at bed time Problems Active Problems Problem Classification Problem Date Documented Da te Episodic/Chronic Abdominal pain (1 source) Abdominal pain; Translations: [Unspecified abdominal pain] 03-21-2023 Episodic Disorders of lipid metabolism (19 sources) Mixed hyperlipidemia; Translations: [Mixed hyperlipidemia] Chronic Diverticulosis and diverticulitis (13 sources) Diverticulosis of colon; Translations: [Diverticulosis of large intestine without perforation or abscess without bleeding] 05-20-2015 Chronic Essential hypertension (19 sources) Essential hypertension; Translations: [Essential (primary) hypertension] Onset: 03-16-2017 Chronic Immunizations and screening for infectious disease (1 source) Patient encounter status; Translations: [Encounter for immunization] Episodic Miscellaneous mental health disorders (1 source) Dream disorder; 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 or known physiological condition] Chronic Open wounds of extremities (1 source) Open wound of left elbow region; Translations: [Unspecified open wound of left elbow, initial encounter] Episodic Osteoarthritis (13 sources) Bilateral arthritis of knees; Translations: [Bilateral primary osteoarthritis of knee] Onset: 07-21-2014 07-21-2014 Chronic Other and unspecified benign neoplasm (13 sources) History of polyp of colon; Translations: [Personal history of colonic polyps] 05-20-2015 Episodic Other congenital anomalies (13 sources) Congenital pes planus; Translations: [Congenital pes planus, unspecified foot] Onset: 01-18-2011 01-18-2011 Chronic Other connective tissue disease (1 source) History of lumbar fusion; Translations: [Arthrodesis status] Episodic Other gastrointestinal disorders (1 source) Constipation; Translations: [Constipation, unspecified] Episodic Other gastrointestinal disorders (1 source) Acute constipation; Translations: [Constipation, unspecified] 03-21-2023 Episodic Other nervous system disorders (16 sources) Disorder of the peripheral nervous system; Translations: [Hereditary and idiopathic neuropathy, unspecified] Chronic Other nutritional; endocrine; and metabolic disorders (13 sources) Metabolic syndrome X; Translations: [Metabolic syndrome] Onset: 05-10-2010 Chronic Past or Other Problems Problem Classification Problem Date Documented Da te Episodic/Chronic Diabetes mellitus with complications (6 sources) Type 2 diabetes mellitus; Translations: [Type 2 diabetes mellitus with other specified complication] Onset: 01-20-2014 Resolved: 12-26-2022 11-27-2022 Chronic Diabetes mellitus without complication (4 sources) Prediabetes; Translations: [Prediabetes] Onset: 06-05-2008 Resolved: 02-12-2014 Episodic Genitourinary symptoms and ill-defined conditions (14 sources) Nocturia; Translations: [Nocturia] Onset: 05-10-2010 05-10-2010 Episodic Other connective tissue disease (13 sources) Enthesopathy of ankle AND/OR tarsus; Translations: [Other enthesopathy of unspecified foot and ankle] Onset: 01-18-2011 01-18-2011 Episodic Other connective tissue disease (12 sources) Synovial cyst of knee; Translations: [Synovial cyst of popliteal space [Bond], unspecified knee] Onset: 02-19-2014 02-19-2014 Episodic Other connective tissue disease (1 source) Synovial cyst of popliteal space [Bond], unspecified knee; Translations: [Synovial cyst of popliteal space] Onset: 02-19-2014 02-19-2014 Episodic Other lower respiratory disease (1 source) Cough; Translations: [Cough] Onset: 03-04-2014 Resolved: 01-25-2016 01-25-2016 Episodic Other non-epithelial cancer of skin (13 sources) Basal cell carcinoma of skin; Translations: [Basal cell carcinoma of skin, unspecified] Onset: 03-17-2008 07-04-2021 Episodic Other non-traumatic joint disorders (13 sources) Swelling of knee joint; Translations: [Effusion, left knee] Onset: 07-21-2014 07-21-2014 Episodic Other non-traumatic joint disorders (13 sources) Pain in left knee; Translations: [Pain in joint, lower leg] Onset: 07-21-2014 07-21-2014 Episodic Other upper respiratory disease (1 source) Other diseases of pharynx; Translations: [Other diseases of pharynx, not elsewhere classified] Onset: 03-10-2008 Resolved: 01-25-2016 01-25-2016 Episodic Phlebitis; thrombophlebitis and thromboembolism (13 sources) Thromboembolism of vein; Translations: [Acute embolism and thrombosis of unspecified deep veins of unspecified lower extremity] Onset: 04-27-2014 03-16-2017 Episodic Sprains and strains (13 sources) Sprain of foot; Translations: [Unspecified sprain of unspecified foot, initial encounter] Onset: 01-18-2011 01-18-2011 Episodic Results Test Name Value Interpretation Reference Range Facility CNOVon 03-21-2023 CNOV Office Visit (UCWSTR ) SALINAS GORDON ([id number]) 1940 M Date Time Provider Department 03/21/23 7:00 PM LOBO FELICIANO [facility] During your visit today, we recorded the following information about you: Temperature Pulse Respiration Blood pressure 98.1 degrees 79/minute 18/minute 140/72 Weight 114.1 kg Lobo Feliciano PA-C 03/21/2023 7:30 PM Signed This note was created using CredSimpleriter. Subjective Salinas Gordon is a 82 year old male. HPI Patient presents with a chief complaint of lower abdominal pain, urinary retention and constipation. He has not had a bowel movement in 3 days. His primary care wrote him for Elsa-Pamela which she took about 12 hours ago and has not had a bowel movement. He has been leaking fluid stool. He states he has not been able to urinate the past 8 hours either. Denies history of abdominal surgeries. Denies chronic constipation. Denies history of diverticulitis. No fever. No vomiting. States he does have a history of prostate enlargement. Review of Systems HENT: Negative. Respiratory: Negative. Gastrointestinal: Positive for abdominal pain, constipation and rectal pain. Negative for nausea and vomiting. Genitourinary: Positive for difficulty urinating. Urinary retention All other systems reviewed and are negative. PAST MEDICAL HISTORY Diagnosis Date BCC (basal cell carcinoma of skin) Benign neoplasm of colon Diabetes (HCC) Diverticulosis of colon (without mention of hemorrhage) Diverticulosis DM type 2 with diabetic peripheral neuropathy ([facility]) 02/24/2016 Foot pain Intractable back pain Other and unspecified hyperlipidemia Personal history of colonic polyps Colon polyps Spinal stenosis Type 2 diabetes mellitus with other specified complication, without long-term current use of insulin ([facility]) 11/27/2022 Unspecified essential hypertension Unspecified hereditary and idiopathic peripheral neuropathy Current Outpatient Medications Medication Sig Dispense Refill senna (ELSA-PAMELA) 8.6 mg tab Take 8.6 mg by mouth twice daily. pregabalin (LYRICA) 150 mg capsule gabapentin (NEURONTIN) 600 mg tablet Take 1 tablet by mouth five times daily. (Patient not taking: Reported on 03/21/2023) 450 tablet 3 simvastatin (ZOCOR) 40 mg tablet Take 1 tablet by mouth daily at bedtime. 90 tablet 1 enalapril (VASOTEC) 10 mg tablet Take 1 tablet by mouth once daily. 90 tablet 3 blood sugar diagnostic (BLOOD GLUCOSE TEST) test strip Test blood sugar(s) once daily. Dx: E11.9. Insulin: No 50 Strip 5 capsaicin (ZOSTRIX-HP) 0.075 % topical cream Apply 1 application to affected area twice daily. COMPOUNDED PRESCRIPTION Standing INR monthly and prn Dx:453.40 License #[id number] 1 Each 99 Lancets lancets Test blood sugar(s) once daily. Dx: 250.00. Insulin: No 100 Each 11 Blood-Glucose Meter misc As directed daily. Dx 250.00 1 Each 0 POTASSIUM 99 MG TAB Take one(1) tablet daily. 0 No current facility-administered medications for this visit. PAST SURGICAL HISTORY Procedure Laterality Date CATARACT SURGERY, COMPLEX r2001 lt 2009 bilateral COLONOSCOPY ABLATION POLYP 03/14/07 COLONOSCOPY FLX DX W/COLLJ SPEC WHEN PFRMD 03/11/2002 flex sigmoidoscopy COLONOSCOPY FLX DX W/COLLJ SPEC WHEN PFRMD 02/26/12 PAST SURGICAL HISTORY OF lumbar laminectomy FAMILY HISTORY Problem Relation Age of Onset other (no siblings [Other]) Other Social History Tobacco Use Smoking status: Never Smokeless tobacco: Never Substance Use Topics Alcohol use: No Drug use: No Objective BP 140/72 Pulse 79 Temp 36.7 ?C (98.1 ?F) Resp 18 Wt 114.1 kg (251 lb 9.6 oz) SpO2 95% BMI 35.09 kg/m? Physical Exam Vitals reviewed. Constitutional: Appearance: Normal appearance. HENT: Head: Normocephalic and atraumatic. Cardiovascular: Rate and Rhythm: Normal rate and regular rhythm. Heart sounds: Normal heart sounds. Pulmonary: Effort: Pulmonary effort is normal. Breath sounds: Normal breath sounds. Abdominal: General: Abdomen is flat. Palpations: Abdomen is soft. Comments: Abdomen is distended. He is tender on palpation over the suprapubic and left lower quadrant. Some guarding. Bowel sounds hyperactive. Musculoskeletal: Cervical back: Neck supple. Skin: General: Skin is warm and dry. Neurological: General: No focal deficit present. Mental Status: He is alert. Assessment and Plan ASSESSMENT/PLAN: 1. Abdominal pain, unspecified abdominal location - ICD9: 789.00, ICD10: R10.9 (primary diagnosis) Concern for the abdominal pain and urinary retention. He has not been able to urinate in over 8 hours. Likely also has impacted stool with the leaking liquid around it. Discussed with patient I would recommend being seen in the ER as he may need a catheter due to the urinary retention. Patient and are agreeable with plan. She will take him to [facility] (more content not included)... Normal [facility] CNOVon 12-26-2022 CNOV Office Visit (INTMWS ) SALINAS GORDON ([id number]) 1940 M Date Time Provider Department 12/26/22 1:40 PM MARY LOU SNEED During your visit today, we recorded the following information about you: Temperature Pulse Respiration Blood pressure 97.5 degrees 72/minute 14/minute 130/68 Weight Height 120.2 kg 1.803 m Mary Lou Sneed MD 12/26/2022 5:28 PM Signed Reason for Visit Patient presents with: Follow Up: post back surgery Salinas Gordon is a 82 year old male who presents here today for Above Complaints.. Health Maintenance SHINGRIX VACCINE(2 of 3) DTAP,TDAP,TD(2 - Tdap) LDL CHOLESTEROL DILATED RETINAL EXAM HBA1C ADVANCE DIRECTIVE DISCUSSION DEPRESSION ASSESSMENT HPI Patient had back surgery, was a day procedure, sent home the same day once they kept him awake. Was asked to use compression stockings and then was asked to do things the same way as before. He is to remove stiches in 3 weeks in the office. He is a little concerned about the bruising in the back from the surgery. It is worse when they did l4 and l5. He is not not diabetic yet, hba1c last month was 6.0. he is careful with diet and will improve the exercise now that his back is a little better. Bp is a little on the higher side due to the procedure, he is on vicodin for pain. For constipation he is taking stool softner. Also advised miralax for the patient. It was recommended he hang on to the walker for stability No problem-specific Assessment AND Plan notes found for this encounter. PAST MEDICAL HISTORY Diagnosis Date BCC (basal cell carcinoma of skin) Benign neoplasm of colon Diabetes (HCC) Diverticulosis of colon (without mention of hemorrhage) Diverticulosis DM type 2 with diabetic peripheral neuropathy (HCC) 02/24/2016 Foot pain Intractable back pain Other and unspecified hyperlipidemia Personal history of colonic polyps Colon polyps Spinal stenosis Unspecified essential hypertension Unspecified hereditary and idiopathic peripheral neuropathy PAST SURGICAL HISTORY Procedure Laterality Date CATARACT SURGERY, COMPLEX r2001 lt 2009 bilateral COLONOSCOPY ABLATION POLYP 03/14/07 COLONOSCOPY FLX DX W/COLLJ SPEC WHEN PFRMD 03/11/2002 flex sigmoidoscopy COLONOSCOPY FLX DX W/COLLJ SPEC WHEN PFRMD 02/26/12 PAST SURGICAL HISTORY OF lumbar laminectomy FAMILY HISTORY Problem Relation Age of Onset other (no siblings [Other]) Other Social History Tobacco Use Smoking status: Never Smokeless tobacco: Never Substance Use Topics Alcohol use: No Drug use: No Past medical history, appointments, medications, allergies reviewed. Pertinent Lab/Diagnostic Studies are reviewed and discussed today Current Outpatient Medications: gabapentin (NEURONTIN) 600 mg tablet simvastatin (ZOCOR) 40 mg tablet enalapril (VASOTEC) 10 mg tablet COMPOUNDED PRESCRIPTION blood sugar diagnostic (BLOOD GLUCOSE TEST) test strip capsaicin (ZOSTRIX-HP) 0.075 % topical cream COMPOUNDED PRESCRIPTION Lancets lancets Blood-Glucose Meter misc POTASSIUM 99 MG TAB Multivitamins-Minerals -Lutein (CENTRUM SILVER) ORAL Tab Review of Systems CONSTITUTIONAL: No fevers, chills night sweats, unintended weight loss CARDIOVASCULAR: No chest pain, dyspnea, palpitations, orthopnea, PND, ankle edema. PULM: No dyspnea, unexplained cough. GI: No dysphagia/odynophagia, problematic reflux, constipation, diarrhea, changes in stool habits, hematochezia, melena. : No new urinary complaints, including dysuria, gross hematuria or pyuria. NEURO: No new balance problems, peripheral weakness/paresthesias or numbness of concern. Physical Exam BP 130/68 (BP Site: Left Arm, BP Position: Sitting, BP Cuff Size: Large Adult) Pulse 72 Temp 36.4 ?C (97.5 ?F) Resp 14 Ht 180.3 cm (5' 11 ) Wt 120.2 kg (265 lb) SpO2 98% BMI 36.96 kg/m? General appearance: in a walker alert, in no acute distress, well nourished. Skin: Skin color, texture, turgor normal, no suspicious rashes or lesions Head: Normocephalic, no masses, lesions, tenderness or abnormalities Eyes: Anicteric sclera. Pupils are equally round and reactive to light. Extraocular movements are intact. Lungs: Lungs clear to auscultation. No wheezing, rhonchi, rales Heart: RRR without murmur, gallop, or rubs. Back: the stitches do not look infected , he does have some bruising on the left lower back ASSESSMENT/PLAN: 1. S/P lumbar fusion - ICD9: V45.4, ICD10: Z98.1 (primary diagnosis) The incision looks clean with no signs of infection His lungs are clear 2. Mixed hyperlipidemia - ICD9: 272.2, ICD10: E78.2 - Controlled - Counseled on healthy diet and regular exercise 3. Essential hypertension - ICD9: 401.9, ICD10: I10 - Controlled - Recommend home blood pressure monitoring, to bring results to next visit - Encouraged sodium restriction (more content not included)... Normal [facility] 12-11-20[facility] SALINAS GORDON ([id number]) 1940 M Date Time Provider Department 12/11/22 MARY LOU SNEED [facility] During your visit today, we recorded the following information about you: Adriana Patel RN 12/11/2022 8:45 AM Signed Patient calls to check on pre-op forms that were to be sent to Dr. Vincent. Noted OV note but no forms. Please fax to [phone]. During call, patient reports that pain to left buttocks and leg has gotten so bad that he is having difficulty ambulating. Rates the pain a 9/10 and reports that he has been using a urinal in bed because he is afraid to get out. Spoke with patient and recommending ED evaluation for severe pain and inability to ambulate. reports she wouldn't be able to transport him. Instructed to call an ambulance. verbalizes understanding. TESSIE Kumar Ma 12/11/2022 12:03 PM Signed Pre- op form and OV note refaxed. Allergies As of Date: 12/11/2022 Noted Allergy Reaction VANCOMYCIN 07/21/2014 2 - Rash 7 - Swelling Date Reviewed: 11/27/2022 Reviewed by: Anay Peace LPN - Fully Assessed Reason for Visit: Patient Update [1234] Forms [913] Prescriptions as of 12/11/2022 - simvastatin (ZOCOR) 40 mg tablet Take 1 tablet by mouth daily at bedtime. - enalapril (VASOTEC) 10 mg tablet Take 1 tablet by mouth once daily. - gabapentin (NEURONTIN) 600 mg tablet Take 5 times daily - COMPOUNDED PRESCRIPTION Hba1c due in jun 2017. Re: DIABETES MELLITUS - blood sugar diagnostic (BLOOD GLUCOSE TEST) test strip Test blood sugar(s) once daily. Dx: E11.9. Insulin: No - capsaicin (ZOSTRIX-HP) 0.075 % topical cream Apply 1 application to affected area twice daily. - COMPOUNDED PRESCRIPTION Standing INR monthly and prn Dx:453.40 License #[id number] - Lancets lancets Test blood sugar(s) once daily. Dx: 250.00. Insulin: No - Blood-Glucose Meter misc As directed daily. Dx 250.00 - POTASSIUM 99 MG TAB Take one(1) tablet daily. - Multivitamins-Minerals -Lutein (CENTRUM SILVER) ORAL Tab Take one(1) tablet daily. Problem List As Of Date 12/11/2022 Noted Resolved Hereditary and idiopathic peripheral neuropathy* Mixed hyperlipidemia [E78.2] Essential hypertension [I10] PERS HX COLONIC POLYPS [Z86.010] DIVERTICULOSIS OF COLON W/O BLEED [K57.30] Other diseases of pharynx, not elsewhere classi*03/10/2008 01/25/2016 Impaired fasting glucose [R73.01] 06/05/2008 02/12/2014 Metabolic syndrome [E88.81] 05/10/2010 Nocturia [R35.1] 05/10/2010 Basal cell carcinoma [C44.91] 03/17/2008 Enthesopathy of ankle and tarsus, unspecified [*01/18/2011 Sprain of foot, unspecified site [S93.609A] 01/18/2011 Congenital pes planus [Q66.50] 01/18/2011 DM (diabetes mellitus), type 1 with neurologica*01/20/2014 02/05/2018 Bond's cyst [M71.20] 02/19/2014 Cough [R05.9] 03/04/2014 01/25/2016 Acute thromboembolism of deep veins of lower ex*04/27/2014 Arthritis of both knees [M17.0] 07/21/2014 Swelling of joint, knee, left [M25.462] 07/21/2014 Left knee pain [M25.562] 07/21/2014 Medicare annual wellness visit, subsequent [Z00*03/10/2015 DM type 2 with diabetic peripheral neuropathy (*02/24/2016 11/30/2021 Type 2 diabetes mellitus with other specified c*11/27/2022 Encounter Status:Closed by AIMEE GO [facility] SALINAS GORDON ([id number]) 1940 M Date Time Provider Department 11/28/[address] [facility] During your visit today, we recorded the following information about you: Angely Hwang LPN 11/28/2022 9:07 AM Signed Pt is calling for CXR results. Pt requests dr's result message be sent through . Angely Sneed MD 11/29/2022 12:51 PM Signed Xr results show Either the patient is not breathing full breaths as he has some parts of his lungs collapsed Its a small area of his lung and not concerning. The way the collapsed lung and early pneumonia look son the xr is the same so, if he has sob, cough, fever, feels very tired he could be developing a pneumonia Please confirm I did release his surgical clearance. He had dvt back in 2013 after some surgery so he needs to be care to not have it again Regards, Mary Lou Peace LPN 11/29/2022 1:58 PM Signed Patient stated that coughing, tired no other symptoms noted at this time. Please review. Anay Sneed MD 11/29/2022 7:44 PM Signed I would treat for pneumonia- sent 2 abx to [facility], he needs to take both He could be having a pneumonia shot Regards, Mary Lou Peace LPN 11/29/2022 7:56 PM Signed Patient stated that he is also taking meloxicam. Patient and notified of meds that have been sent to pharmacy. Anay Peace LPN Allergies As of Date: 11/28/2022 Noted Allergy Reaction VANCOMYCIN 07/21/2014 2 - Rash 7 - Swelling Date Reviewed: 11/27/2022 Reviewed by: Anay Peace LPN - Fully Assessed Reason for Visit: Results [95] Order(s):amoxicillin (AMOXIL) 875 mg tabletTake 1 tablet by mouth twice daily for 10 days.Disp: 20 tabletRfl: 0 azithromycin (ZITHROMAX Z-ALEXEI) 250 mg tabletTake 2 tablets day one, then, 1 tablet daily until gone.Disp: 6 tabletRfl: 0 Prescriptions as of 11/29/2022 - amoxicillin (AMOXIL) 875 mg tablet Take 1 tablet by mouth twice daily for 10 days. - azithromycin (ZITHROMAX Z-ALEXEI) 250 mg tablet Take 2 tablets day one, then, 1 tablet daily until gone. - simvastatin (ZOCOR) 40 mg tablet Take 1 tablet by mouth daily at bedtime. - enalapril (VASOTEC) 10 mg tablet Take 1 tablet by mouth once daily. - gabapentin (NEURONTIN) 600 mg tablet Take 5 times daily - COMPOUNDED PRESCRIPTION Hba1c due in jun 2017. Re: DIABETES MELLITUS - blood sugar diagnostic (BLOOD GLUCOSE TEST) test strip Test blood sugar(s) once daily. Dx: E11.9. Insulin: No - capsaicin (ZOSTRIX-HP) 0.075 % topical cream Apply 1 application to affected area twice daily. - COMPOUNDED PRESCRIPTION Standing INR monthly and prn Dx:453.40 License #[id number] - Lancets lancets Test blood sugar(s) once daily. Dx: 250.00. Insulin: No - Blood-Glucose Meter misc As directed daily. Dx 250.00 - POTASSIUM 99 MG TAB Take one(1) tablet daily. - Multivitamins-Minerals -Lutein (CENTRUM SILVER) ORAL Tab Take one(1) tablet daily. Problem List As Of Date 11/28/2022 Noted Resolved Hereditary and idiopathic peripheral neuropathy* Mixed hyperlipidemia [E78.2] Essential hypertension [I10] PERS HX COLONIC POLYPS [Z86.010] DIVERTICULOSIS OF COLON W/O BLEED [K57.30] Other diseases of pharynx, not elsewhere classi*03/10/2008 01/25/2016 Impaired fasting glucose [R73.01] 06/05/2008 02/12/2014 Metabolic syndrome [E88.81] 05/10/2010 Nocturia [R35.1] 05/10/2010 Basal cell carcinoma [C44.91] 03/17/2008 Enthesopathy of ankle and tarsus, unspecified [*01/18/2011 Sprain of foot, unspecified site [S93.609A] 01/18/2011 Congenital pes planus [Q66.50] 01/18/2011 DM (diabetes mellitus), type 1 with neurologica*01/20/2014 02/05/2018 Bond's cyst [M71.20] 02/19/2014 Cough [R05.9] 03/04/2014 01/25/2016 Acute thromboembolism of deep veins of lower ex*04/27/2014 Arthritis of both knees [M17.0] 07/21/2014 Swelling of joint, knee, left [M25.462] 07/21/2014 Left knee pain [M25.562] 07/21/2014 Medicare annual wellness visit, subsequent [Z00*03/10/2015 DM type 2 with diabetic peripheral neuropathy (*02/24/2016 11/30/2021 Type 2 diabetes mellitus with other specified c*11/27/2022 Prescriptions ordered this encounter Disp Refills Start End AMOXICILLIN 875 MG TABLET 20 t* 0 11/29/2022 12/09/2022 Route: ORAL Sig: Take 1 tablet by mouth twice daily for 10 days. AZITHROMYCIN 250 MG TABLET 6 ta* 0 11/29/2022 12/04/2022 Sig: Take 2 tablets day one, then, 1 tablet daily until gone. Encounter Status:Closed by ANAY PEACE LPN on 11/29/22 [facility] CNNighat 11-27-2022 CNOV Office Visit (INTMWS ) SALINAS GORDON ([id number]) 1940 M Date Time Provider Department 11/27/22 3:20 PM MARY LOU SNEEDWS During your visit today, we recorded the following information about you: Temperature Pulse Respiration Blood pressure 97.6 degrees 68/minute 12/minute 108/56 Weight Height 113.9 kg 1.803 m Mary Lou Sneed MD 11/27/2022 5:59 PM Signed Reason for Visit Patient presents with: Pre-Op Visit: surgery undetermined with Dr.Watts Salinas Vaz Evan is a 81 year old male who presents here today for Above Complaints.. Health Maintenance SHINGRIX VACCINE(2 of 3) DTAP,TDAP,TD(2 - Tdap) LDL CHOLESTEROL DILATED RETINAL EXAM HBA1C ADVANCE DIRECTIVE DISCUSSION DEPRESSION ASSESSMENT HPI Going for a Lumbar surgery for L3 nerve decompression. His symptoms are pain in the buttock area. It goes down to the leg, and knee if the angle is such. When that happens he can lose all strength and fall He is using a walker proactively to prevent such a situation. He also had decreased sensation of the thigh and paraethesias with sensation of a shock when it happens. He has the l4 and l5 fused many years ago. Cp: not chest pain , sob, dizziness, or syncope. Lung: did not recently have any lung issues, no cp or sob. No hemoptysis. HTN: BP controlled today. Checks BP at home. Compliant with medications. Denies any chest pain, palpitations, SOB, swelling in the feet. Careful with diet to avoid salt, trying to eat more fruits and vegetables, exercises regularly Patient fell a week ago, while he was trying to get up 3 stairs. METS: Walk indoors, such as around the house (1.75 METs): YES Do light work around the house, such as dusting or washing dishes (2.70 METs): YES Take care of self; that is eating, dressing, bathing, using the toilet (2.75 METs): YES Walk a block or two on level ground (2.75 METs): YES Do moderate work around the house such as vacuuming, sweeping floors, or carrying in groceries (3.50 METs): YES Do yardwork, such as raking leaves, weeding,or pushing a power mower (4.50 METs): YES No problem-specific Assessment AND Plan notes found for this encounter. PAST MEDICAL HISTORY Diagnosis Date BCC (basal cell carcinoma of skin) Benign neoplasm of colon Diabetes (HCC) Diverticulosis of colon (without mention of hemorrhage) Diverticulosis DM type 2 with diabetic peripheral neuropathy (HCC) 02/24/2016 Foot pain Intractable back pain Other and unspecified hyperlipidemia Personal history of colonic polyps Colon polyps Spinal stenosis Unspecified essential hypertension Unspecified hereditary and idiopathic peripheral neuropathy PAST SURGICAL HISTORY Procedure Laterality Date CATARACT SURGERY, COMPLEX r2001 lt 2009 bilateral COLONOSCOPY ABLATION POLYP 03/14/07 COLONOSCOPY FLX DX W/COLLJ SPEC WHEN PFRMD 03/11/2002 flex sigmoidoscopy COLONOSCOPY FLX DX W/COLLJ SPEC WHEN PFRMD 02/26/12 PAST SURGICAL HISTORY OF lumbar laminectomy FAMILY HISTORY Problem Relation Age of Onset other (no siblings [Other]) Other Social History Tobacco Use Smoking status: Never Smokeless tobacco: Never Substance Use Topics Alcohol use: No Drug use: No Past medical history, appointments, medications, allergies reviewed. Pertinent Lab/Diagnostic Studies are reviewed and discussed today Current Outpatient Medications: simvastatin (ZOCOR) 40 mg tablet enalapril (VASOTEC) 10 mg tablet gabapentin (NEURONTIN) 600 mg tablet COMPOUNDED PRESCRIPTION blood sugar diagnostic (BLOOD GLUCOSE TEST) test strip capsaicin (ZOSTRIX-HP) 0.075 % topical cream COMPOUNDED PRESCRIPTION Lancets lancets Blood-Glucose Meter misc POTASSIUM 99 MG TAB Multivitamins-Minerals -Lutein (CENTRUM SILVER) ORAL Tab Review of Systems CONSTITUTIONAL: No fevers, chills night sweats, unintended weight loss CARDIOVASCULAR: No chest pain, dyspnea, palpitations, orthopnea, PND, ankle edema. PULM: No dyspnea, unexplained cough. GI: No dysphagia/odynophagia, problematic reflux, constipation, diarrhea, changes in stool habits, hematochezia, melena. : No new urinary complaints, including dysuria, gross hematuria or pyuria. NEURO: No new balance problems, peripheral weakness/paresthesias or numbness of concern. Physical Exam BP 108/56 (BP Site: Left Arm, BP Position: Sitting, BP Cuff Size: Large Adult) Pulse 68 Temp 36.4 ?C (97.6 ?F) Resp 12 Ht 180.3 cm (5' 11 ) Wt 113.9 kg (251 lb) SpO2 97% BMI 35.01 kg/m? General appearance: Well appearing, alert, in no acute distress, well nourished. Skin: Skin color, texture, turgor normal, no suspicious rashes or lesions Head: Normocephalic, no masses, lesions, tenderness or abnormalities Eyes: Anicteric sclera. Pupils are equally round and reactive to light. Extraocular movements are intact. Lungs: Lungs clear to (more content not included)... Normal [facility] XR CHEST 2V FRONTAL/LATon XR CHEST 2V FRONTAL/LAT * * *Final Report* * * DATE OF EXAM: Nov 27 2022 4:51PM WOX 5291 - XR CHEST 2V FRONTAL/LAT / PROCEDURE REASON: Pre-operative clearance * * * * Physician Interpretation * * * * EXAMINATION: CHEST RADIOGRAPH (2 VIEW FRONTAL and LATERAL) CLINICAL HISTORY: Pre-operative clearance MQ: XC2_6 EXAM DATE/TIME: 11/27/2022 4:51 PM COMPARISON: Chest x-ray on 03/19/2014. RESULT: Lines, tubes, and devices: None. Lungs and pleura: There appear to be bibasilar pulmonary infiltrates versus atelectasis; a complete evaluation is limited due to inadequate inspiration. No solid mass lesion identified. No definite pleural effusions or pneumothorax. Cardiomediastinal silhouette: The cardiac silhouette is within normal limits, with tortuosity of the thoracic aorta. Bones and soft tissues: The spine shows degenerative changes. IMPRESSION: Bibasilar pulmonary infiltrates versus atelectasis. Consider follow-up. Mental Health Unit Lead Psychologist: [facility] Transcribe Date/Time: Nov 27 2022 4:53P Dictated by : KEL RIVERA MD This examination was interpreted and the report reviewed and electronically signed by: KEL RIVERA MD on Nov 27 2022 4:55PM EST [id number] Normal [facility] XR Chest PA and Lateralon IMPRESSION: Bibasilar pulmonary infiltrates versus atelectasis. Consider follow-up. Mental Health Unit Lead Psychologist: [facility] Transcribe Date/Time: Nov 27 2022 4:53P Dictated by : KEL RIVERA MD This examination was interpreted and the report reviewed and electronically signed by: KEL RIVERA MD on Nov 27 2022 4:55PM EST DIVISION OF RADIOLOGY * * *Final Report* * * DATE OF EXAM: Nov 27 2022 4:51PM WOX 5291 - XR CHEST 2V FRONTAL/LAT / PROCEDURE REASON: Pre-operative clearance * * * * Physician Interpretation * * * * EXAMINATION: CHEST RADIOGRAPH (2 VIEW FRONTAL & LATERAL) CLINICAL HISTORY: Pre-operative clearance MQ: XC2_6 EXAM DATE/TIME: 11/27/2022 4:51 PM COMPARISON: Chest x-ray on 03/19/2014. RESULT: Lines, tubes, and devices: None. Lungs and pleura: There appear to be bibasilar pulmonary infiltrates versus atelectasis; a complete evaluation is limited due to inadequate inspiration. No solid mass lesion identified. No definite pleural effusions or pneumothorax. Cardiomediastinal silhouette: The cardiac silhouette is within normal limits, with tortuosity of the thoracic aorta. Bones and soft tissues: The spine shows degenerative changes. DIVISION OF RADIOLOGY Provider, [facility] - 11/27/2022 * * *Final Report* * * DATE OF EXAM: Nov 27 2022 4:51PM WOX 5291 - XR CHEST 2V FRONTAL/LAT / PROCEDURE REASON: Pre-operative clearance * * * * Physician Interpretation * * * * EXAMINATION: CHEST RADIOGRAPH (2 VIEW FRONTAL & LATERAL) CLINICAL HISTORY: Pre-operative clearance MQ: XC2_6 EXAM DATE/TIME: 11/27/2022 4:51 PM COMPARISON: Chest x-ray on 03/19/2014. RESULT: Lines, tubes, and devices: None. Lungs and pleura: There appear to be bibasilar pulmonary infiltrates versus atelectasis; a complete evaluation is limited due to inadequate inspiration. No solid mass lesion identified. No definite pleural effusions or pneumothorax. Cardiomediastinal silhouette: The cardiac silhouette is within normal limits, with tortuosity of the thoracic aorta. Bones and soft tissues: The spine shows degenerative changes. IMPRESSION IMPRESSION: Bibasilar pulmonary infiltrates versus atelectasis. Consider follow-up. Mental Health Unit Lead Psychologist: [facility] Transcribe Date/Time: Nov 27 2022 4:53P Dictated by : KEL RIVERA MD This examination was interpreted and the report reviewed and electronically signed by: KEL RIVERA MD on Nov 27 2022 4:55PM EST [facility] Radiology Study observation (narrative) [facility] XR Chest PA and LateralOrder ed By: [facility] Provider on 11-27-[address] [facility] CNOVon 04-11-2022 CNOV Office Visit (INTMWS ) SALINAS GORDON ([id number]) 1940 M Date Time Provider Department 04/11/22 12:00 PM MARY LOU SNEED INTMWS During your visit today, we recorded the following information about you: Temperature Pulse Respiration Blood pressure 98.4 degrees 72/minute 14/minute 110/52 Weight Height 109.8 kg 1.803 m Mary Lou Sneed MD 04/11/2022 2:47 PM Signed Reason for Visit Patient presents with: Recheck: 5 month follow up Salinas Gordon is a 81 year old male who presents here today for Above Complaints.. Health Maintenance SHINGRIX VACCINE(2 of 3) DTAP,TDAP,TD(2 - Tdap) COVID-19 VACCINE(2 - Pfizer series) DEPRESSION ASSESSMENT LDL CHOLESTEROL DILATED RETINAL EXAM INFLUENZA(1) HPI Reviewed blood work- -glucose was mildly elevated so next time we will check the hba1c. Patient maintained his intentional weight loss, gained a couple pounds back. Went from a large to smaller plate. They eat less. Typically dont have a desire for more. They are eating less carbs and dessert. More vegetables and meat. Less red meat. uptodate with all screening, increased exercise. Last year we increased the gabapentin to 600 mgs 5 times a day and it has helped significant. Last month he started having random dreams and was acting out in his dreams some bit. Hit his elbow Does not remember his dreams, is loud. Most of the time he is not aware of the dream but was aware this time. Interestingly no new medications. No sleep aid. No much change in the past few years HPL: Reviewed test results with patient , takes medications regularly , does not report side effects. Conscious to avoid red meats, full fat dairy and its by products. Exercising 3 to 5 times a week. HTN: Compliant with medications. Denies any chest pain, palpitations, or edema. No SOB. Doesn't check BP at home generally. Careful with diet to avoid salt, trying to eat more fruits and vegetables, exercises regularly. No problem-specific Assessment AND Plan notes found for this encounter. PAST MEDICAL HISTORY Diagnosis Date BCC (basal cell carcinoma of skin) Benign neoplasm of colon Diabetes (HCC) Diverticulosis of colon (without mention of hemorrhage) Diverticulosis DM type 2 with diabetic peripheral neuropathy (HCC) 02/24/2016 Foot pain Intractable back pain Other and unspecified hyperlipidemia Personal history of colonic polyps Colon polyps Spinal stenosis Unspecified essential hypertension Unspecified hereditary and idiopathic peripheral neuropathy PAST SURGICAL HISTORY Procedure Laterality Date CATARACT SURGERY, COMPLEX r2001 lt 2009 bilateral COLONOSCOPY ABLATION POLYP 03/14/07 COLONOSCOPY FLX DX W/COLLJ SPEC WHEN PFRMD 03/11/2002 flex sigmoidoscopy COLONOSCOPY FLX DX W/COLLJ SPEC WHEN PFRMD 02/26/12 PAST SURGICAL HISTORY OF lumbar laminectomy FAMILY HISTORY Problem Relation Age of Onset other (no siblings [Other]) Other Social History Tobacco Use Smoking status: Never Smokeless tobacco: Never Substance Use Topics Alcohol use: No Drug use: No Past medical history, appointments, medications, allergies reviewed. Pertinent Lab/Diagnostic Studies are reviewed and discussed today Current Outpatient Medications: gabapentin (NEURONTIN) 600 mg tablet simvastatin (ZOCOR) 40 mg tablet enalapril (VASOTEC) 10 mg tablet COMPOUNDED PRESCRIPTION blood sugar diagnostic (BLOOD GLUCOSE TEST) test strip capsaicin (ZOSTRIX-HP) 0.075 % topical cream COMPOUNDED PRESCRIPTION Lancets lancets Blood-Glucose Meter misc POTASSIUM 99 MG TAB Multivitamins-Minerals -Lutein (CENTRUM SILVER) ORAL Tab Review of Systems CONSTITUTIONAL: No fevers, chills night sweats, unintended weight loss CARDIOVASCULAR: No chest pain, dyspnea, palpitations, orthopnea, PND, ankle edema. PULM: No dyspnea, unexplained cough. GI: No dysphagia/odynophagia, problematic reflux, constipation, diarrhea, changes in stool habits, hematochezia, melena. : No new urinary complaints, including dysuria, gross hematuria or pyuria. NEURO: No new balance problems, peripheral weakness/paresthesias or numbness of concern. Physical Exam BP 110/52 (BP Site: Left Arm, BP Position: Sitting, BP Cuff Size: Large Adult) Pulse 72 Temp 36.9 ?C (98.4 ?F) Resp 14 Ht 180.3 cm (5' 11 ) Wt 109.8 kg (242 lb) SpO2 96% BMI 33.75 kg/m? General appearance: Well appearing, alert, in no acute distress, well nourished. Skin: Skin color, texture, turgor normal, no suspicious rashes or lesions Head: Normocephalic, no masses, lesions, tenderness or abnormalities Eyes: Anicteric sclera. Pupils are equally round and reactive to light. Extraocular movements are intact. Lungs: Lungs clear to auscultation. No wheezing, rhonchi, rales Heart: RRR without murmur, gallop, or rubs. Extremities: No deformities, edema, skin discoloration, (more content not included)... Normal [facility] CBC W Auto Differential pane l (Bld)on 04-06-2022 Basophils (Bld) [#/Vol] 0.07 10*3/uL Normal <0.11 [facility] Comment on above: Order Comment: Speci men Type: BLOOD SPECIMENOrdering Facility: [facility] Address: [address] [place] [address] Performed By: #### 5 7021-8 ####[facility] LABCLIA [id number] [place] [address] [place] Basophils/100 WBC (Bld) 0.7 % Normal [facility] Comment on above: Order Comment: Speci men Type: BLOOD SPECIMENOrdering Facility: [facility] Address: [address] [place] [address] Performed By: #### 5 7021-8 ####[facility] LABCLIA [id number] [address] [place] Differential cell count method Nom (Bld) Auto Normal [facility] Comment on above: Order Comment: Speci men Type: BLOOD SPECIMENOrdering Facility: [facility] Address: [address] [place] [address] Performed By: #### 5 7021-8 ####[facility] LABCLIA [id number] [place] [address] [place] Eosinophils (Bld) [#/Vol] 0.15 10*3/uL Normal <0.46 [facility] Comment on above: Order Comment: Speci men Type: BLOOD SPECIMENOrdering Facility: [facility] Address: [address] [place] [address] Performed By: #### 5 7021-8 ####[facility] LABCLIA [id number] [facility] [address] [place] Eosinophils/100 WBC (Bld) 1.6 % Normal [facility] Comment on above: Order Comment: Speci men Type: BLOOD SPECIMENOrdering Facility: [facility] Address: [address] [place], [place] [id number] Performed By: #### 5 7021-8 ####[facility] LABCLIA [id number] [address] [place] Erythrocyte distribution width (RBC) [Ratio] 13.8 % Normal 11.5-15.0 [facility] Comment on above: Order Comment: Speci men Type: BLOOD SPECIMENOrdering Facility: [facility] Address: [address] [place], [place] [id number] Performed By: #### 5 7021-8 ####[facility] LABCLIA [id number] [address] [place] Hematocrit (Bld) [Volume fraction] 43.0 % Normal 39.0-51.0 [facility] Comment on above: Order Comment: Speci men Type: BLOOD SPECIMENOrdering Facility: [facility] Address: [address] [place], [place] [id number] Performed By: #### 5 7021-8 ####[facility] LABCLIA [id number] [place] [address] [place] Hemoglobin (Bld) [Mass/Vol] 14.0 g/dL Normal 13.0-17.0 [facility] Comment on above: Order Comment: Speci men Type: BLOOD SPECIMENOrdering Facility: [facility] Address: [address] [place], [place] [id number] Performed By: #### 5 7021-8 ####[facility] LABCLIA [id number] [place] [address] [place] IMMATURE GRAN % 0.4 % Normal [facility] Comment on above: Order Comment: Speci men Type: BLOOD SPECIMENOrdering Facility: [facility] Address: [address] [place], [place] [id number] Performed By: #### 5 7021-8 ####[facility] LABCLIA [id number] [place] [address] [place] IMMATURE GRAN ABS 0.04 k/uL Normal <0.10 [facility] Comment on above: Order Comment: Speci men Type: BLOOD SPECIMENOrdering Facility: [facility] Address: [address] [place] [address] Performed By: #### 5 7021-8 ####[facility] LABCLIA [id number] [place] [address] [place] Lymphocytes (Bld) [#/Vol] 2.21 10*3/uL Normal 1.00-4.00 [facility] Comment on above: Order Comment: Speci men Type: BLOOD SPECIMENOrdering Facility: [facility] Address: [address] [place] [address] Performed By: #### 5 7021-8 ####[facility] LABIA [id number] [address] [place] Lymphocytes/100 WBC (Bld) 23.1 % Normal [facility] Comment on above: Order Comment: Speci men Type: BLOOD SPECIMENOrdering Facility: [facility] Address: [address] [place] [address] Performed By: #### 5 7021-8 ####[facility] LABIA [id number] [place] [address] [place] MCH (RBC) [Entitic mass] 30.4 pg Normal 26.0-34.0 [facility] Comment on above: Order Comment: Speci men Type: BLOOD SPECIMENOrdering Facility: [facility] Address: [address] [place], [place] [id number] Performed By: #### 5 7021-8 ####[facility] LABCLIA [id number] [address] [place] MCHC (RBC) [Mass/Vol] 32.6 g/dL Normal 30.5-36.0 [facility] Comment on above: Order Comment: Speci men Type: BLOOD SPECIMENOrdering Facility: [facility] Address: [address] [place], [place] [id number] Performed By: #### 5 7021-8 ####[facility] LABCLIA [id number] [place] [address] [place] MCV (RBC) [Entitic vol] 93.3 fL Normal 80.0-100.0 [facility] Comment on above: Order Comment: Speci men Type: BLOOD SPECIMENOrdering Facility: [facility] Address: [address] [place], [place] [id number] Performed By: #### 5 7021-8 ####[facility] LABIA [id number] [place] [address] [place] Monocytes (Bld) [#/Vol] 0.78 10*3/uL Normal <0.87 [facility] Comment on above: Order Comment: Speci men Type: BLOOD SPECIMENOrdering Facility: [facility] Address: [address] [place], [place] [id number] Performed By: #### 5 7021-8 ####[facility] LABCLIA [id number] [place] [address] [place] Monocytes/100 WBC (Bld) 8.2 % Normal [facility] Comment on above: Order Comment: Speci men Type: BLOOD SPECIMENOrdering Facility: [facility] Address: [address] [place] [address] Performed By: #### 5 7021-8 ####[facility] LABCLIA [id number] [place] [address] [place] Neutrophils (Bld) [#/Vol] 6.32 10*3/uL Normal 1.45-7.50 [facility] Comment on above: Order Comment: Speci men Type: BLOOD SPECIMENOrdering Facility: [facility] Address: [address] [place] [address] Performed By: #### 5 7021-8 ####[facility] LABCLIA [id number] [address] [place] Neutrophils/100 WBC (Bld) 66.0 % Normal [facility] Comment on above: Order Comment: Speci men Type: BLOOD SPECIMENOrdering Facility: [facility] Address: [address] [place], [place] [id number] Performed By: #### 5 7021-8 ####[facility] LABIA [id number] [place] [address] [place] Nucleated RBC (Bld) [#/Vol] 10*3/uL Normal <0.01 [facility] Comment on above: Order Comment: Speci men Type: BLOOD SPECIMENOrdering Facility: [facility] Address: [address] [place], [place] [id number] Performed By: #### 5 7021-8 ####[facility] LABIA [id number] [place] [address] [place] Nucleated RBC/100 WBC (Bld) [Ratio] 0.0 /100 WBC Normal [facility] Comment on above: Order Comment: Speci men Type: BLOOD SPECIMENOrdering Facility: [facility] Address: [address] [place] [address] Performed By: #### 5 7021-8 ####[facility] LABIA [id number] [place] [address] [place] Platelet mean volume (Bld) [Entitic vol] 9.9 fL Normal 9.0-12.7 [facility] Comment on above: Order Comment: Speci men Type: BLOOD SPECIMENOrdering Facility: [facility] Address: [address] [place] [address] Performed By: #### 5 7021-8 ####[facility] LABIA [id number] [place] [address] [place] Platelets (Bld) [#/Vol] 227 10*3/uL Normal 150-400 [facility] Comment on above: Order Comment: Speci men Type: BLOOD SPECIMENOrdering Facility: [facility] Address: [address] [place] [address] Performed By: #### 5 7021-8 ####[facility] LABCLIA [id number] [place] [address] [place] RBC (Bld) [#/Vol] 4.61 10*6/uL Normal 4.20-6.00 [facility] Comment on above: Order Comment: Speci men Type: BLOOD SPECIMENOrdering Facility: [facility] Address: [address] [place] [address] Performed By: #### 5 7021-8 ####[facility] LABCLIA [id number] [place] [address] [place] WBC (Bld) [#/Vol] 9.57 10*3/uL Normal 3.70-11.00 [facility] Comment on above: Order Comment: Speci men Type: BLOOD SPECIMENOrdering Facility: [facility] Address: [address] [place], [place] [id number] Performed By: #### 5 7021-8 ####[facility] LABCLIA [id number] [place] [address] [place] Comprehensive metabolic 2000 panelon 04-06-2022 Albumin [Mass/Vol] 3.9 g/dL Normal 3.9-4.9 [facility] Comment on above: Order Comment: Speci men Type: BLOOD SPECIMEN [facility] Address: [address] [place], [place] [id number] Performed By: #### 2 4323-8 #### [facility] CLIA [id number] [address] [place] [address] [place] ALP [Catalytic activity/Vol] 76 U/L Normal 38-113 [facility] Comment on above: Order Comment: Speci men Type: BLOOD SPECIMEN [facility] Address: [address] [place], [place] [id number] Performed By: #### 2 4323-8 #### [facility] CLIA [id number] [address] [place] [address] [place] ALT [Catalytic activity/Vol] 33 U/L Normal 10-54 [facility] Comment on above: Order Comment: Speci men Type: BLOOD SPECIMEN [facility] Address: [address] [place], [place] [address] Performed By: #### 2 4323-8 #### [facility] CLIA [id number] [address] [place] [address] [place] Anion gap [Moles/Vol] 9 mmol/L Normal 9-18 [facility] Comment on above: Order Comment: Speci men Type: BLOOD SPECIMEN [facility] Address: [address] [place], [place] [id number] Performed By: #### 2 4323-8 #### [facility] CLIA [id number] [address] [place] [address] [place] AST [Catalytic activity/Vol] 36 U/L Normal 14-40 [facility] Comment on above: Order Comment: Speci men Type: BLOOD SPECIMEN [facility] Address: [address] [place], [place] [address] Performed By: #### 2 4323-8 #### [facility] CLIA [id number] [address] [place] [address] [place] Bilirubin [Mass/Vol] 0.6 mg/dL Normal 0.2-1.3 [facility] Comment on above: Order Comment: Speci men Type: BLOOD SPECIMEN [facility] Address: [address] [place], [place] [id number] Performed By: #### 2 4323-8 #### [facility] CLIA [id number] [address] [place] [address] [place] Calcium [Mass/Vol] 9.9 mg/dL Normal 8.5-10.2 [facility] Comment on above: Order Comment: Speci men Type: BLOOD SPECIMEN [facility] Address: [address] [place] [address] Performed By: #### 2 4323-8 #### [facility] CLIA [id number] [address] [place] [address] [place] Chloride [Moles/Vol] 106 mmol/L High 97-105 [facility] Comment on above: Order Comment: Speci men Type: BLOOD SPECIMEN [facility] Address: [address] [place] [address] Performed By: #### 2 4323-8 #### [facility] CLIA [id number] [address] [place] [address] [place] CO2 [Moles/Vol] 24 mmol/L Normal 22-30 [facility] Comment on above: Order Comment: Speci men Type: BLOOD SPECIMEN [facility] Address: [address] [place] [address] Performed By: #### 2 4323-8 #### [facility] CLIA [id number] [address] [place] [address] [place] Creatinine [Mass/Vol] 0.96 mg/dL Normal 0.73-1.22 [facility] Comment on above: Order Comment: Speci men Type: BLOOD SPECIMEN [facility] Address: [address] [place] [address] Performed By: #### 2 4323-8 #### [facility] CLIA [id number] [address] [place] [address] [place] ESTIMATED GLOMERULAR FILTRATION RATE 78 mL/min/1.73m??? Normal >=60 [facility] Comment on above: Order Comment: Maggy ly Type: BLOOD SPECIMEN [facility] Address: [address] [place] [address] Result Comment: Lisa mated Glomerular Filtration Rate (eGFR) is calculated using the 2020 CKD-EPI creatinine equation. This equation utilizes serum creatinine, sex, and age as parameters. The creatinine assay has traceable calibration to isotope dilution-mass spectrometry. Refer to KDIGO guidelines for clinical interpretation. In patients with unstable renal function, e.g. those with acute kidney injury, the eGFR may not accurately reflect actual GFR. Performed By: #### 2 4323-8 #### [facility] CLIA [id number] [address] [place] [address] [place] Glucose [Mass/Vol] 101 mg/dL High 74-99 [facility] Comment on above: Order Comment: Maggy ly Type: BLOOD SPECIMEN [facility] Address: [address] [place] [address] Result Comment: The [place] [employer] (ADA) provides guidance for cutoff values for fasting glucose and random glucose. The ADA defines fasting as no caloric intake for at least 8 hours. Fasting plasma glucose results between 100 to 125 mg/dL indicate increased risk for diabetes (prediabetes). Fasting plasma glucose results greater than or equal to 126 mg/dL meet the criteria for diagnosis of diabetes. In the absence of unequivocal hyperglycemia, results should be confirmed by repeat testing. In a patient with classic symptoms of hyperglycemia or hyperglycemic crisis, random plasma glucose results greater than or equal to 200 mg/dL meet the criteria for diagnosis of diabetes. Reference: Standards of Medical Care in Diabetes 2016, [place] [employer]. Diabetes Care. 2016.39(Suppl 1). Performed By: #### 2 4323-8 #### [facility] CLIA [id number] [address] [place] [address] [place] Potassium [Moles/Vol] 4.6 mmol/L Normal 3.7-5.1 [facility] Comment on above: Order Comment: Maggy ly Type: BLOOD SPECIMEN [facility] Address: [address] [place], [place] [id number] Performed By: #### 2 4323-8 #### [facility] CLIA [id number] [address] [place] [address] [place] Protein [Mass/Vol] 6.4 g/dL Normal 6.3-8.0 [facility] Comment on above: Order Comment: Speci men Type: BLOOD SPECIMEN [facility] Address: [address] [place] [address] Performed By: #### 2 4323-8 #### [facility] CLIA [id number] [address] [place] [address] [place] Sodium [Moles/Vol] 139 mmol/L Normal 136-144 [facility] Comment on above: Order Comment: Speci men Type: BLOOD SPECIMEN [facility] Address: [address] [place] [address] Performed By: #### 2 4323-8 #### [facility] CLIA [id number] [address] [place] [address] [place] Urea nitrogen [Mass/Vol] 17 mg/dL Normal 9-24 [facility] Comment on above: Order Comment: Speci men Type: BLOOD SPECIMEN [facility] Address: [address] [place], [place] [address] Performed By: #### 2 4323-8 #### [facility] CLIA [id number] [address] [place] [address] [place] Vital Signs Date Time Vital Sign Value Performing Clinician Reg carpenter 03-21-2023 19:08-0400 Body temperature 98.1 [degF] Lobo Feliciano PA-C Work Phone: [facility] 03-21-2023 19:08-0400 Body weight 114.13 kg Lobo Feliciano PA-C Work Phone: [facility] 03-21-2023 19:08-0400 Diastolic blood pressure 72 mm[Hg] Lobo Athy PA-C Work Phone: [facility] 03-21-2023 19:08-0400 Heart rate 79 /min Lobo Athy PA-C Work Phone: [facility] 03-21-2023 19:08-0400 Respiratory rate 18 /min Lobo Athy PA-C Work Phone: [facility] 03-21-2023 19:08-0400 SaO2% (BldA) [Mass fraction] 95 % Lobo Athy PA-C Work Phone: [facility] 03-21-2023 19:08-0400 Systolic blood pressure 140 mm[Hg] Lobo Athy PA-C Work Phone: [facility] 12-26-2022 13:51-0400 Body height 180.3 cm Mary Lou Sneed MD Work Phone: [facility] 12-26-2022 13:51-0400 Body temperature 97.5 [degF] Mary Lou Sneed MD Work Phone: [facility] 12-26-2022 13:51-0400 Body weight 120.2 kg Mary Lou Sneed MD Work Phone: [facility] 12-26-2022 13:51-0400 Diastolic blood pressure 68 mm[Hg] Mary Lou Sneed MD Work Phone: [facility] 12-26-2022 13:51-0400 Heart rate 72 /min Mary Lou Sneed MD Work Phone: [facility] 12-26-2022 13:51-0400 Respiratory rate 14 /min Mary Lou Sneed MD Work Phone: [facility] 12-26-2022 13:51-0400 SaO2% (BldA) [Mass fraction] 98 % Mary Lou Sneed MD Work Phone: [facility] 12-26-2022 13:51-0400 Systolic blood pressure 130 mm[Hg] Mary Lou Sneed MD Work Phone: [facility] 04-11-2022 11:46-0400 Body height 180.3 cm Mary Lou Sneed MD Work Phone: [facility] 04-11-2022 11:46-0400 Body temperature 98.4 [degF] Mary Lou Sneed MD Work Phone: [facility] 04-11-2022 11:46-0400 Body weight 109.77 kg Mary Lou Sneed MD Work Phone: [facility] 04-11-2022 11:46-0400 Diastolic blood pressure 52 mm[Hg] Mary Lou Sneed MD Work Phone: [facility] 04-11-2022 11:46-0400 Heart rate 72 /min Mary Lou Sneed MD Work Phone: [facility] 04-11-2022 11:46-0400 Respiratory rate 14 /min Mary Lou Sneed MD Work Phone: [facility] 04-11-2022 11:46-0400 SaO2% (BldA) [Mass fraction] 96 % Mary Lou Sneed MD Work Phone: [facility] 04-11-2022 11:46-0400 Systolic blood pressure 110 mm[Hg] Mary Lou Sneed MD Work Phone: [facility] 11-30-2021 08:08-0400 Body height 180.3 cm Mary Lou Sneed MD Work Phone: [facility] 11-30-2021 08:08-0400 Body temperature 96.8 [degF] Mary Lou Sneed MD Work Phone: [facility] 11-30-2021 08:08-0400 Body weight 107.96 kg Mary Lou Sneed MD Work Phone: [facility] 11-30-2021 08:08-0400 Diastolic blood pressure 58 mm[Hg] Mary Lou Sneed MD Work Phone: [facility] 11-30-2021 08:08-0400 Heart rate 58 /min Mary Lou Sneed MD Work Phone: [facility] 11-30-2021 08:08-0400 Respiratory rate 14 /min Mary Lou Sneed MD Work Phone: [facility] 11-30-2021 08:08-0400 SaO2% (BldA) [Mass fraction] 97 % Mary Lou Sneed MD Work Phone: [facility] 11-30-2021 08:08-0400 Systolic blood pressure 122 mm[Hg] Mary Lou Sneed MD Work Phone: [facility] Encounters Encounter Date Encounter Type Care Provider Facility Start: 04-23-2023 Refill Nica Older RETAIL STORE ASSISTANT .[employer] TOPSTITCHER Work Phone: [facility] Comment on above: Refill Request Start: 03-21-2023 End: 03-21-2023 [facility] Facility:[facility] Start: 03-21-2023 End: 03-21-2023 Patient encounter procedure Lobo Feliciano PA-C Work Phone: [facility] Comment on above: Abdominal pain, unsp ecified abdominal location (Primary Dx); Urinary retention; Acute constipation Start: 12-26-2022 End: 12-26-2022 [facility] Facility:[facility] Start: 12-26-2022 End: 12-26-2022 Patient encounter procedure Mary Lou Sneed MD Work Phone: [facility] Comment on above: S/P lumbar fusion (P rimary Dx); Mixed hyperlipidemia; Essential hypertension; Prediabetes; Constipation, unspecified constipation type Start: 12-24-2022 Refill Nica Older RETAIL STORE ASSISTANT .LOCKSTITCH TOPSTITCHER Work Phone: [facility] Comment on above: Refill Request Start: 12-11-2022 ambulatory Mary Lou Deleon Work Phone: [facility] Comment on above: Pre-Operative reques t Start: 12-11-2022 Telephone encounter Mary Lou bhardwaj MD Work Phone: [facility] Comment on above: Patient Update; Form s Start: 11-27-2022 End: 11-27-2022 [facility] Facility:[facility] Start: 11-27-2022 Encounter for other preprocedural examination [facility] Start: 11-27-2022 End: 11-27-2022 ambulatory [facility] Facility:[facility] Start: 11-27-2022 End: 11-27-2022 Preoperative state [facility]r [facility] Work Phone: [facility] Start: 11-27-2022 End: 11-27-2022 Subsequent hospital visit by physician Xr [facility] Work Phone: Radiology Comment on above: Pre-operative cleara nce [Z01.818] Start: 10-13-2022 Refill Nica De La Torre RETAIL STORE ASSISTANT .[employer]STITCH TOPSTITCHER Work Phone: [facility] Comment on above: Refill Request Start: 04-23-2022 Refill Nicolasa Adkins APRN.[employer]STITCH TOPSTITCHER Work Phone: [facility] Comment on above: Refill Request Start: 04-11-2022 End: 04-11-2022 [facility] Facility:[facility] Start: 04-11-2022 End: 04-11-2022 Patient encounter procedure Mary Lou Sneed MD Work Phone: [facility] Comment on above: Elevated blood sugar (Primary Dx); Mixed hyperlipidemia; Essential hypertension Start: 04-06-2022 End: 04-06-2022 [facility] Start: 01-19-2022 Refill Mary Lou Deleon Work Phone: [facility] Comment on above: Refill Request Start: 12-02-2021 Refill Harry Bocanegra APRN.[employer]STITCH TOPSTITCHER Work Phone: [facility] Comment on above: Refill Request Start: 11-30-2021 End: 11-30-2021 Patient encounter procedure Mary Lou Sneed MD Work Phone: [facility] [place] Comment on above: Medicare annual well ness visit, subsequent (Primary Dx); Essential hypertension; Mixed hyperlipidemia; Encounter for immunization; Abnormal dreams; Prediabetes; Hereditary and idiopathic peripheral neuropathy; Open wound of left elbow, initial encounter Start: 03-10-2015 Patient encounter procedure Mary Lou Sneed MD Work Phone: [facility] Procedures Date Procedure Procedure Detail Performing Clinician Start: 11-27-2022 Radiologic exam ches t 2 views Mary Lou Sneed MD Work Phone: Plan of Treatment Date Care Activity Detail Author Start: 04-06-2025 Diabetes Screening Diabetes Screenin g [facility] Start: 03-09-2024 Covid-19 Vaccine () Covid-19 Vaccine () [facility] Start: 03-09-2024 Influenza vaccination Influenza Vacc ine (#1) [facility] Start: 07-09-2023 Advance Directive Discussion Advance Directive Discussion [facility] Start: 03-09-2023 Covid-19 Vaccine () Covid-19 Vaccine () [facility] Start: 10-10-2022 End: 12-10-2022 Hemoglobin A1c in Blood HGB A1C Lab Routine Elevated blood sugar Mixed hyperlipidemia Expected: 10/10/2022, Expires: 12/10/2022 [facility] Work Phone: Comment on above: Expected: 10/10/2022 , Expires: 12/10/2022 Start: 10-10-2022 End: 12-10-2022 Lipid 1996 panel - Serum or Plasma LIPID PANEL BASIC Lab Routine Mixed hyperlipidemia Expected: 10/10/2022, Expires: 12/10/2022 [facility] Work Phone: Comment on above: Expected: 10/10/2022 , Expires: 12/10/2022 Start: 09-06-2022 Covid-19 Vaccine (3 - Pfizer series) Covid-19 Vaccine (3 - Pfizer series) [facility] Start: 07-09-2022 ADVANCE DIRECTIVE DISCUSSION ADVANCE DIRECTIVE DISCUSSION [facility] Start: 07-09-2022 DEPRESSION ASSESSMENT DEPRESSION ASS ESSMENT [facility] Start: 06-02-2022 End: 08-02-2022 LIPID PANEL BASIC LIPID PANEL BASIC Lab Routine Mixed hyperlipidemia Expected: 06/02/2022, Expires: 08/02/2022 [facility] Work Phone: Comment on above: Expected: 06/02/2022 , Expires: 08/02/2022 Start: 05-26-2022 Hemoglobin A1c/Hemoglobin.total in Blood HBA1C [facility] Start: 05-02-2022 End: 07-02-2022 CBC W Auto Differential panel - Blood CBC + DIFF Lab Routine Essential hypertension Expected: 05/02/2022, Expires: 07/02/2022 [facility] Work Phone: Comment on above: Expected: 05/02/2022 , Expires: 07/02/2022 Start: 05-02-2022 End: 07-02-2022 Comprehensive metabolic 2000 panel - Serum or Plasma COMP METABOLIC PANEL Lab Routine Essential hypertension Expected: 05/02/2022, Expires: 07/02/2022 [facility] Work Phone: Comment on above: Expected: 05/02/2022 , Expires: 07/02/2022 Start: 03-09-2022 Influenza vaccination INFLUENZA (#1) [facility] Start: 02-04-2022 Hepatitis C antibody , confirmatory test DILATED RETINAL EXAM [facility] Start: 12-31-2021 Urine microalbumin profile DTAP,TDAP,TD (2 - Tdap) [facility] Comment on above: Postponed from 02/07 (Postponed To Appropriate Date) Start: 12-14-2021 Hepatitis B surface antibody level LDL CHOLESTEROL [facility] Start: 07-09-2021 DEPRESSION ASSESSMENT DEPRESSION ASS ESSMENT [facility] Start: 04-27-2021 COVID-19 VACCINE (2 - Pfizer series) COVID-19 VACCINE (2 - Pfizer series) [facility] Start: 02-07-2017 Urine microalbumin profile [facility] Start: 04-15-2012 SHINGRIX VACCINE (2 of 3) SHINGRIX VACCINE (2 of 3) [facility] Start: 1998 Hepatitis B Vaccine (1 of 3 - Risk 3-dose series) Hepatitis B Vaccine (1 of 3 - Risk 3-dose series) [facility] Start: 1998 RSV Vaccine (1 - 1-d ose 60+ series) RSV Vaccine (1 - 1-dose 60+ series) [facility] Start: 1956 Anxiety Screening Anxiety Screening [facility] Start: 1958 Depression Screening Depression Scre ening [facility] Immunizations Immunization Date Immunization Notes Care Provider Andrew robert 03-18-2023 influenza virus vacc ine, unspecified formulation [facility] Work Phone: [facility] 11-30-2021 pneumococcal polysaccharide vaccine, 23 valent Mary Lou Sneed MD Work Phone: [facility] Work Phone: 04-21-2019 influenza, high dose seasonal, preservative-free Mary Lou Sneed MD Work Phone: [facility] Work Phone: 04-29-2018 influenza, high dose seasonal, preservative-free Mary Lou Sneed MD Work Phone: [facility] Work Phone: 05-11-2017 influenza, high dose seasonal, preservative-free Mary Lou Sneed MD Work Phone: [facility] Work Phone: 04-20-2016 influenza, high dose seasonal, preservative-free Mary Lou Sneed MD Work Phone: [facility] 04-21-2015 influenza, high dose seasonal, preservative-free Mary Lou Sneed MD Work Phone: [facility] Work Phone: 10-20-2014 pneumococcal conjuga te vaccine, 13 valent Mary Lou Sneed MD Work Phone: [facility] 04-23-2014 influenza, high dose seasonal, preservative-free Mary Lou Sneed MD Work Phone: [facility] Work Phone: 03-18-2013 influenza virus vacc ine, unspecified formulation Mary Lou Sneed MD Work Phone: [facility] 02-19-2012 zoster vaccine, live Mary Lou Sneed MD Work Phone: [facility] Work Phone: 02-07-2007 diphtheria and tetan us toxoids, adsorbed for pediatric use Mary Lou Sneed MD Work Phone: [facility] Work Phone: 01-02-2006 pneumococcal polysaccharide vaccine, 23 valent Mary Lou Sneed MD Work Phone: [facility] Payers Date Payer Category Payer Medicare [id number] 2012 Private Health Insurance [employer]NA HU[employer]NA MEDICARE SUPPLEMENT [id number] 2012-Present [phone] [address] [address] [place] [address] Indemnity [id number] 2012 Private Health Insurance HUMANA HUMANA MEDICARE SUPPLEMENT [id number] 2012-Present [phone] [address] [address] [place] [address] Indemnity [id number] 2003 Medicare MEDICARE MEDICAR E A AND B [id number] 2003-Present [phone] [id number] [place], [place] [address] Medicare [id number] 2003 Medicare MEDICARE MEDICAR E A AND B [id number] 2003-Present [phone] [place] [address] Medicare [id number] 2003 Medicare [id number] Social History Date Type Detail Facility Start: 06-29-2014 Tobacco smoking status NHIS Never smoked tobacco [facility] Work Phone: Start: 11-30-2021 End: 11-27-2022 Alcohol intake Current non-drinker of alcohol (finding) [facility] Start: 12-24-2020 End: 12-24-2022 History SDOH Alcohol Frequency [address] [facility] Start: 12-24-2020 End: 12-24-2022 History SDOH Alcohol Std Drinks [address] [facility] Start: 12-24-2020 End: 12-24-2022 History SDOH Social Connections Phone [address] [facility] Start: 12-24-2020 End: 12-24-2022 History SDOH Social Connections Get Together [address] [facility] Start: 12-24-2020 History SDOH Physical Activity DPW [address] [facility] Start: 12-24-[address] [facility] Start: 1940 Sex Assigned At Male [facility] Start: 11-20-2021 End: 04-11-2022 Exposure to SARS-CoV-2 (event) Not sure [facility] Work Phone: Start: 06-29-2014 Tobacco use and exposure Smokeless tobacco non-user [facility] Start: 12-24-2022 History SDOH Social Connections Yarsanism [address] [facility] Start: 12-24-2022 History SDOH Physical Activity DPW [address] [facility] Start: 12-24-2022 History SDOH Physical Activity MPS [address] [facility] Start: 11-27-2022 End: 12-24-2022 History of Social function [facility] Start: 11-27-2022 End: 12-24-2022 Social connection and isolation panel [facility] How often do you att end christian or catholic services? Patient refused [facility] Do you belong to any clubs or organizations such as christian groups, unions, fraternal or athletic groups, or school groups? Yes [facility] Are you now , , , , never or living with a partner? [facility] How often to you hav e a drink containing alcohol? Monthly or less [facility] How many standard dr inks containing alcohol do you have on a typical day? [address] [facility] How often do you hav e 6 or more drinks on 1 occasion? Never [facility] Do you feel stress - tense, restless, nervous, or anxious, or unable to sleep at night because your mind is troubled all the time - these days [OSQ] Not at all [facility] (I/We) worried wheearlene er (my/our) food would run out before (I/we) got money to buy more. Never true [facility] In the past 12 month s, was there a time when you were not able to pay the mortgage or rent on time? No [facility] Start: 11-24-2021 Gender identity Identifies as male gender (finding) [facility] Start: 11-24-2021 Sexual orientation Heterosexual (finding) [facility] How often to you hav e a drink containing alcohol? 2-4 times a month [facility] Do you feel stress - tense, restless, nervous, or anxious, or unable to sleep at night because your mind is troubled all the time - these days [OSQ] Only a little [facility] Medical Equipment Procedure Code Equipment Code Equipment Origin al Text Equipment Identifier Dates Screw [id number] Start: 03-03-2014 Comment on above: Description: LEGACY Aaron [id number] Start: 03-03-2014 Comment on above: Description: LEGACY Set Screw [id number] Start: 03-03-2014 Comment on above: Description: LEGACY Interbody Fusion Device [id number] Start: 03-03-2014 [id number], [id number] Start: 02-03-2014 Comment on above: Test blood sugar(s) once daily. Dx: E11.9. Insulin: No Test blood sugar(s) once daily. Dx: 250.00. Insulin: No Clinical Notes 02-24-2016 to 04-24-2023 Telephone Encounter - Anay Emanuel - 04/24/2023 12:17 PM Lobo Matamoros PA-C - 03/21/2023 7:26 PM Melania Sneed MD - 12/26/2022 2:09 PM Sandra Sarabia RT(R) - 11/27/2022 4:50 PM EDT Note Date & Type Note Facility 04-24-2023 Miscellaneous Notes Formattin g of this note is different from the original. Patient has been identified by name and date of : No Patient phones for refill(s): Requested Prescriptions Pending Prescriptions Disp Refills enalapril (VASOTEC) 10 mg tablet [Pharmacy Med Name: ENALAPRIL MALEATE 10 MG Tablet] 90 tablet 10 Sig: take 1 tablet every day simvastatin (ZOCOR) 40 mg tablet [Pharmacy Med Name: SIMVASTATIN 40 MG Tablet] 90 tablet 10 Sig: take 1 tablet at bedtime Date of last office visit in primary care: 12/26/2022 Date of next office visit in primary care: Visit date not found Last 2 Encounter Wt Readings: Date: Wt: 03/21/2023 114.1 kg (251 lb 9.6 oz) 12/26/2022 120.2 kg (265 lb) Previous labs/tests for medication: Cholesterol: HDL Cholesterol (mg/dL) Date Value 12/14/2020 56 LDL Cholesterol (mg/dL) Date Value 12/14/2020 73 ALT (U/L) Date Value 04/06/2022 33 12/14/2020 20 Non HDL Cholesterol (mg/dL) Date Value 12/14/2020 89 Blood Pressure: BUN (mg/dL) Date Value 04/06/2022 17 12/14/2020 13 Sodium (mmol/L) Date Value 04/06/2022 139 12/14/2020 140 Last 1 Encounter BP Readings: Date: BP: 03/21/2023 140/72 Please advise. Thank you. Anay Emanuel. documented in this encounter [facility] 03-21-2023 Note HNO ID: [id number] Author: Lobo Feliciano PA-C Service: ? Author Type: Physician Product Control And Logistics Analyst Type: Progress Notes Filed: 03/21/2023 7:30 PM Note Text: This note was created using CredSimpleriter. Subjective Salinas Gordon is a 82 year old male. HPI Patient presents with a chief complaint of lower abdominal pain, urinary retention and constipation. He has not had a bowel movement in 3 days. His primary care wrote him for Elsa-Pamela which she took about 12 hours ago and has not had a bowel movement. He has been leaking fluid stool. He states he has not been able to urinate the past 8 hours either. Denies history of abdominal surgeries. Denies chronic constipation. Denies history of diverticulitis. No fever. No vomiting. States he does have a history of prostate enlargement. Review of Systems HENT: Negative. Respiratory: Negative. Gastrointestinal: Positive for abdominal pain, constipation and rectal pain. Negative for nausea and vomiting. Genitourinary: Positive for difficulty urinating. Urinary retention All other systems reviewed and are negative. PAST MEDICAL HISTORY Diagnosis Date BCC (basal cell carcinoma of skin) Benign neoplasm of colon Diabetes (HCC) Diverticulosis of colon (without mention of hemorrhage) Diverticulosis DM type 2 with diabetic peripheral neuropathy ([facility]) 02/24/2016 Foot pain Intractable back pain Other and unspecified hyperlipidemia Personal history of colonic polyps Colon polyps Spinal stenosis Type 2 diabetes mellitus with other specified complication, without long-term current use of insulin ([facility]) 11/27/2022 Unspecified essential hypertension Unspecified hereditary and idiopathic peripheral neuropathy Current Outpatient Medications Medication Sig Dispense Refill senna (ELSA-PAMELA) 8.6 mg tab Take 8.6 mg by mouth twice daily. pregabalin (LYRICA) 150 mg capsule gabapentin (NEURONTIN) 600 mg tablet Take 1 tablet by mouth five times daily. (Patient not taking: Reported on 03/21/2023) 450 tablet 3 simvastatin (ZOCOR) 40 mg tablet Take 1 tablet by mouth daily at bedtime. 90 tablet 1 enalapril (VASOTEC) 10 mg tablet Take 1 tablet by mouth once daily. 90 tablet 3 blood sugar diagnostic (BLOOD GLUCOSE TEST) test strip Test blood sugar(s) once daily. Dx: E11.9. Insulin: No 50 Strip 5 capsaicin (ZOSTRIX-HP) 0.075 % topical cream Apply 1 application to affected area twice daily. COMPOUNDED PRESCRIPTION Standing INR monthly and prn Dx:453.40 License #[id number] 1 Each 99 Lancets lancets Test blood sugar(s) once daily. Dx: 250.00. Insulin: No 100 Each 11 Blood-Glucose Meter misc As directed daily. Dx 250.00 1 Each 0 POTASSIUM 99 MG TAB Take one(1) tablet daily. 0 No current facility-administered medications for this visit. PAST SURGICAL HISTORY Procedure Laterality Date CATARACT SURGERY, COMPLEX r2001 lt 2010 bilateral COLONOSCOPY ABLATION POLYP 03/14/07 COLONOSCOPY FLX DX W/COLLJ SPEC WHEN PFRMD 03/11/2002 flex sigmoidoscopy COLONOSCOPY FLX DX W/COLLJ SPEC WHEN PFRMD 02/26/12 PAST SURGICAL HISTORY OF lumbar laminectomy FAMILY HISTORY Problem Relation Age of Onset other (no siblings [Other]) Other Social History Tobacco Use Smoking status: Never Smokeless tobacco: Never Substance Use Topics Alcohol use: No Drug use: No Objective BP 140/72 Pulse 79 Temp 36.7 ?C (98.1 ?F) Resp 18 Wt 114.1 kg (251 lb 9.6 oz) SpO2 95% BMI 35.09 kg/m? Physical Exam Vitals reviewed. Constitutional: Appearance: Normal appearance. HENT: Head: Normocephalic and atraumatic. Cardiovascular: Rate and Rhythm: Normal rate and regular rhythm. Heart sounds: Normal heart sounds. Pulmonary: Effort: Pulmonary effort is normal. Breath sounds: Normal breath sounds. Abdominal: General: Abdomen is flat. Palpations: Abdomen is soft. Comments: Abdomen is distended. He is tender on palpation over the suprapubic and left lower quadrant. Some guarding. Bowel sounds hyperactive. Musculoskeletal: Cervical back: Neck supple. Skin: General: Skin is warm and dry. Neurological: General: No focal deficit present. Mental Status: He is alert. Assessment and Plan ASSESSMENT/PLAN: 1. Abdominal pain, unspecified abdominal location - ICD9: 789.00, ICD10: R10.9 (primary diagnosis) Concern for the abdominal pain and urinary retention. He has not been able to urinate in over 8 hours. Likely also has impacted stool with the leaking liquid around it. Discussed with patient I would recommend being seen in the ER as he may need a catheter due to the urinary retention. Patient and are agreeable with plan. She will take him to [facility] across the street. ER passport sent. 2. Urinary retention - ICD9: 788.20, ICD10: R33.9 3. Acute constipation - ICD9: 564.00, ICD10: K59.00 Lobo Feliciano PA-C [facility] 03-21-2023 History of Presen t illness Narrative This note was created using Cred[employer]pleriter. Subjective Salinas Gordon is a 82 year old male. HPI Patient presents with a chief complaint of lower abdominal pain, urinary retention and constipation. He has not had a bowel movement in 3 days. His primary care wrote him for Elsa-Pamela which she took about 12 hours ago and has not had a bowel movement. He has been leaking fluid stool. He states he has not been able to urinate the past 8 hours either. Denies history of abdominal surgeries. Denies chronic constipation. Denies history of diverticulitis. No fever. No vomiting. States he does have a history of prostate enlargement. Review of Systems HENT: Negative. Respiratory: Negative. Gastrointestinal: Positive for abdominal pain, constipation and rectal pain. Negative for nausea and vomiting. Genitourinary: Positive for difficulty urinating. Urinary retention All other systems reviewed and are negative. PAST MEDICAL HISTORY Diagnosis Date BCC (basal cell carcinoma of skin) Benign neoplasm of colon Diabetes (HCC) Diverticulosis of colon (without mention of hemorrhage) Diverticulosis DM type 2 with diabetic peripheral neuropathy ([facility]) 02/24/2016 Foot pain Intractable back pain Other and unspecified hyperlipidemia Personal history of colonic polyps Colon polyps Spinal stenosis Type 2 diabetes mellitus with other specified complication, without long-term current use of insulin ([facility]) 11/27/2022 Unspecified essential hypertension Unspecified hereditary and idiopathic peripheral neuropathy Current Outpatient Medications Medication Sig Dispense Refill senna (ELSA-PAMELA) 8.6 mg tab Take 8.6 mg by mouth twice daily. pregabalin (LYRICA) 150 mg capsule gabapentin (NEURONTIN) 600 mg tablet Take 1 tablet by mouth five times daily. (Patient not taking: Reported on 03/21/2023) 450 tablet 3 simvastatin (ZOCOR) 40 mg tablet Take 1 tablet by mouth daily at bedtime. 90 tablet 1 enalapril (VASOTEC) 10 mg tablet Take 1 tablet by mouth once daily. 90 tablet 3 blood sugar diagnostic (BLOOD GLUCOSE TEST) test strip Test blood sugar(s) once daily. Dx: E11.9. Insulin: No 50 Strip 5 capsaicin (ZOSTRIX-HP) 0.075 % topical cream Apply 1 application to affected area twice daily. COMPOUNDED PRESCRIPTION Standing INR monthly and prn Dx:453.40 License #[id number] 1 Each 99 Lancets lancets Test blood sugar(s) once daily. Dx: 250.00. Insulin: No 100 Each 11 Blood-Glucose Meter misc As directed daily. Dx 250.00 1 Each 0 POTASSIUM 99 MG TAB Take one(1) tablet daily. 0 No current facility-administered medications for this visit. PAST SURGICAL HISTORY Procedure Laterality Date CATARACT SURGERY, COMPLEX r2001 lt 2009 bilateral COLONOSCOPY ABLATION POLYP 03/14/07 COLONOSCOPY FLX DX W/COLLJ SPEC WHEN PFRMD 03/11/2002 flex sigmoidoscopy COLONOSCOPY FLX DX W/COLLJ SPEC WHEN PFRMD 02/26/12 PAST SURGICAL HISTORY OF lumbar laminectomy FAMILY HISTORY Problem Relation Age of Onset other (no siblings [Other]) Other Social History Tobacco Use Smoking status: Never Smokeless tobacco: Never Substance Use Topics Alcohol use: No Drug use: No Objective BP 140/72 Pulse 79 Temp 36.7 C (98.1 F) Resp 18 Wt 114.1 kg (251 lb 9.6 oz) SpO2 95% BMI 35.09 kg/m Physical Exam Vitals reviewed. Constitutional: Appearance: Normal appearance. HENT: Head: Normocephalic and atraumatic. Cardiovascular: Rate and Rhythm: Normal rate and regular rhythm. Heart sounds: Normal heart sounds. Pulmonary: Effort: Pulmonary effort is normal. Breath sounds: Normal breath sounds. Abdominal: General: Abdomen is flat. Palpations: Abdomen is soft. Comments: Abdomen is distended. He is tender on palpation over the suprapubic and left lower quadrant. Some guarding. Bowel sounds hyperactive. Musculoskeletal: Cervical back: Neck supple. Skin: General: Skin is warm and dry. Neurological: General: No focal deficit present. Mental Status: He is alert. Assessment and Plan ASSESSMENT/PLAN: 1. Abdominal pain, unspecified abdominal location - ICD9: 789.00, ICD10: R10.9 (primary diagnosis) Concern for the abdominal pain and urinary retention. He has not been able to urinate in over 8 hours. Likely also has impacted stool with the leaking liquid around it. Discussed with patient I would recommend being seen in the ER as he may need a catheter due to the urinary retention. Patient and are agreeable with plan. She will take him to [facility] across the street. ER passport sent. 2. Urinary retention - ICD9: 788.20, ICD10: R33.9 3. Acute constipation - ICD9: 564.00, ICD10: K59.00 Lobo Feliciano PA-C documented in this encounter [facility] 12-26-2022 Note HNO ID: [id number] Author: Mary Lou Sneed MD Service: ? Author Type: Physician Type: Progress Notes Filed: 12/26/2022 5:28 PM Note Text: Reason for Visit Patient presents with: Follow Up: post back surgery Salinas Gordon is a 82 year old male who presents here today for Above Complaints.. Health Maintenance SHINGRIX VACCINE(2 of 3) DTAP,TDAP,TD(2 - Tdap) LDL CHOLESTEROL DILATED RETINAL EXAM HBA1C ADVANCE DIRECTIVE DISCUSSION DEPRESSION ASSESSMENT HPI Patient had back surgery, was a day procedure, sent home the same day once they kept him awake. Was asked to use compression stockings and then was asked to do things the same way as before. He is to remove stiches in 3 weeks in the office. He is a little concerned about the bruising in the back from the surgery. It is worse when they did l4 and l5. He is not not diabetic yet, hba1c last month was 6.0. he is careful with diet and will improve the exercise now that his back is a little better. Bp is a little on the higher side due to the procedure, he is on vicodin for pain. For constipation he is taking stool softner. Also advised miralax for the patient. It was recommended he hang on to the walker for stability No problem-specific Assessment AND Plan notes found for this encounter. PAST MEDICAL HISTORY Diagnosis Date BCC (basal cell carcinoma of skin) Benign neoplasm of colon Diabetes (HCC) Diverticulosis of colon (without mention of hemorrhage) Diverticulosis DM type 2 with diabetic peripheral neuropathy (HCC) 02/24/2016 Foot pain Intractable back pain Other and unspecified hyperlipidemia Personal history of colonic polyps Colon polyps Spinal stenosis Unspecified essential hypertension Unspecified hereditary and idiopathic peripheral neuropathy PAST SURGICAL HISTORY Procedure Laterality Date CATARACT SURGERY, COMPLEX r2001 lt 2009 bilateral COLONOSCOPY ABLATION POLYP 03/14/07 COLONOSCOPY FLX DX W/COLLJ SPEC WHEN PFRMD 03/11/2002 flex sigmoidoscopy COLONOSCOPY FLX DX W/COLLJ SPEC WHEN PFRMD 02/26/12 PAST SURGICAL HISTORY OF lumbar laminectomy FAMILY HISTORY Problem Relation Age of Onset other (no siblings [Other]) Other Social History Tobacco Use Smoking status: Never Smokeless tobacco: Never Substance Use Topics Alcohol use: No Drug use: No Past medical history, appointments, medications, allergies reviewed. Pertinent Lab/Diagnostic Studies are reviewed and discussed today Current Outpatient Medications: gabapentin (NEURONTIN) 600 mg tablet simvastatin (ZOCOR) 40 mg tablet enalapril (VASOTEC) 10 mg tablet COMPOUNDED PRESCRIPTION blood sugar diagnostic (BLOOD GLUCOSE TEST) test strip capsaicin (ZOSTRIX-HP) 0.075 % topical cream COMPOUNDED PRESCRIPTION Lancets lancets Blood-Glucose Meter misc POTASSIUM 99 MG TAB Ysmvawonvagkc-Jlpocwzq-Kvzvzf (CENTRUM SILVER) ORAL Tab Review of Systems CONSTITUTIONAL: No fevers, chills night sweats, unintended weight loss CARDIOVASCULAR: No chest pain, dyspnea, palpitations, orthopnea, PND, ankle edema. PULM: No dyspnea, unexplained cough. GI: No dysphagia/odynophagia, problematic reflux, constipation, diarrhea, changes in stool habits, hematochezia, melena. : No new urinary complaints, including dysuria, gross hematuria or pyuria. NEURO: No new balance problems, peripheral weakness/paresthesias or numbness of concern. Physical Exam BP 130/68 (BP Site: Left Arm, BP Position: Sitting, BP Cuff Size: Large Adult) Pulse 72 Temp 36.4 ?C (97.5 ?F) Resp 14 Ht 180.3 cm (5' 11 ) Wt 120.2 kg (265 lb) SpO2 98% BMI 36.96 kg/m? General appearance: in a walker alert, in no acute distress, well nourished. Skin: Skin color, texture, turgor normal, no suspicious rashes or lesions Head: Normocephalic, no masses, lesions, tenderness or abnormalities Eyes: Anicteric sclera. Pupils are equally round and reactive to light. Extraocular movements are intact. Lungs: Lungs clear to auscultation. No wheezing, rhonchi, rales Heart: RRR without murmur, gallop, or rubs. Back: the stitches do not look infected , he does have some bruising on the left lower back ASSESSMENT/PLAN: 1. S/P lumbar fusion - ICD9: V45.4, ICD10: Z98.1 (primary diagnosis) The incision looks clean with no signs of infection His lungs are clear 2. Mixed hyperlipidemia - ICD9: 272.2, ICD10: E78.2 - Controlled - Counseled on healthy diet and regular exercise 3. Essential hypertension - ICD9: 401.9, ICD10: I10 - Controlled - Recommend home blood pressure monitoring, to bring results to next visit - Encouraged sodium restriction, DASH or Mediterranean diet - Recommend regular aerobic exercise 4. Prediabetes - ICD9: 790.29, ICD10: R73.03 5. Constipation, unspecified constipation type - ICD9: 564.00, ICD10: K59.00 Cont the miralax Mary Lou Sneed MD [facility] 12-26-2022 History of Presen t illness Narrative Reason for Visit Patient presents with: Follow Up: post back surgery Salinas Gordon is a 82 year old male who presents here today for Above Complaints.. Health Maintenance SHINGRIX VACCINE(2 of 3) DTAP,TDAP,TD(2 - Tdap) LDL CHOLESTEROL DILATED RETINAL EXAM HBA1C ADVANCE DIRECTIVE DISCUSSION DEPRESSION ASSESSMENT HPI Patient had back surgery, was a day procedure, sent home the same day once they kept him awake. Was asked to use compression stockings and then was asked to do things the same way as before. He is to remove stiches in 3 weeks in the office. He is a little concerned about the bruising in the back from the surgery. It is worse when they did l4 and l5. He is not not diabetic yet, hba1c last month was 6.0. he is careful with diet and will improve the exercise now that his back is a little better. Bp is a little on the higher side due to the procedure, he is on vicodin for pain. For constipation he is taking stool softner. Also advised miralax for the patient. It was recommended he hang on to the walker for stability No problem-specific Assessment & Plan notes found for this encounter. PAST MEDICAL HISTORY Diagnosis Date BCC (basal cell carcinoma of skin) Benign neoplasm of colon Diabetes (HCC) Diverticulosis of colon (without mention of hemorrhage) Diverticulosis DM type 2 with diabetic peripheral neuropathy (HCC) 02/24/2016 Foot pain Intractable back pain Other and unspecified hyperlipidemia Personal history of colonic polyps Colon polyps Spinal stenosis Unspecified essential hypertension Unspecified hereditary and idiopathic peripheral neuropathy PAST SURGICAL HISTORY Procedure Laterality Date CATARACT SURGERY, COMPLEX r2001 lt 2009 bilateral COLONOSCOPY ABLATION POLYP 03/14/07 COLONOSCOPY FLX DX W/COLLJ SPEC WHEN PFRMD 03/11/2002 flex sigmoidoscopy COLONOSCOPY FLX DX W/COLLJ SPEC WHEN PFRMD 02/26/12 PAST SURGICAL HISTORY OF lumbar laminectomy FAMILY HISTORY Problem Relation Age of Onset other (no siblings [Other]) Other Social History Tobacco Use Smoking status: Never Smokeless tobacco: Never Substance Use Topics Alcohol use: No Drug use: No Past medical history, appointments, medications, allergies reviewed. Pertinent Lab/Diagnostic Studies are reviewed and discussed today Current Outpatient Medications: gabapentin (NEURONTIN) 600 mg tablet simvastatin (ZOCOR) 40 mg tablet enalapril (VASOTEC) 10 mg tablet COMPOUNDED PRESCRIPTION blood sugar diagnostic (BLOOD GLUCOSE TEST) test strip capsaicin (ZOSTRIX-HP) 0.075 % topical cream COMPOUNDED PRESCRIPTION Lancets lancets Blood-Glucose Meter misc POTASSIUM 99 MG TAB Xunxokezevtve-Xtydtycy-Obummt (CENTRUM SILVER) ORAL Tab Review of Systems CONSTITUTIONAL: No fevers, chills night sweats, unintended weight loss CARDIOVASCULAR: No chest pain, dyspnea, palpitations, orthopnea, PND, ankle edema. PULM: No dyspnea, unexplained cough. GI: No dysphagia/odynophagia, problematic reflux, constipation, diarrhea, changes in stool habits, hematochezia, melena. : No new urinary complaints, including dysuria, gross hematuria or pyuria. NEURO: No new balance problems, peripheral weakness/paresthesias or numbness of concern. Physical Exam BP 130/68 (BP Site: Left Arm, BP Position: Sitting, BP Cuff Size: Large Adult) Pulse 72 Temp 36.4 C (97.5 F) Resp 14 Ht 180.3 cm (5' 11 ) Wt 120.2 kg (265 lb) SpO2 98% BMI 36.96 kg/m General appearance: in a walker alert, in no acute distress, well nourished. Skin: Skin color, texture, turgor normal, no suspicious rashes or lesions Head: Normocephalic, no masses, lesions, tenderness or abnormalities Eyes: Anicteric sclera. Pupils are equally round and reactive to light. Extraocular movements are intact. Lungs: Lungs clear to auscultation. No wheezing, rhonchi, rales Heart: RRR without murmur, gallop, or rubs. Back: the stitches do not look infected , he does have some bruising on the left lower back ASSESSMENT/PLAN: 1. S/P lumbar fusion - ICD9: V45.4, ICD10: Z98.1 (primary diagnosis) The incision looks clean with no signs of infection His lungs are clear 2. Mixed hyperlipidemia - ICD9: 272.2, ICD10: E78.2 - Controlled - Counseled on healthy diet and regular exercise 3. Essential hypertension - ICD9: 401.9, ICD10: I10 - Controlled - Recommend home blood pressure monitoring, to bring results to next visit - Encouraged sodium restriction, DASH or Mediterranean diet - Recommend regular aerobic exercise 4. Prediabetes - ICD9: 790.29, ICD10: R73.03 5. Constipation, unspecified constipation type - ICD9: 564.00, ICD10: K59.00 Cont the miralax Mary Lou Sneed MD documented in this encounter [facility] 12-25-2022 Miscellaneous Notes Formattin g of this note is different from the original. Patient has been identified by name and date of : No Patient phones for refill(s): Requested Prescriptions Pending Prescriptions Disp Refills gabapentin (NEURONTIN) 600 mg tablet [Pharmacy Med Name: GABAPENTIN 600 MG Tablet] 450 tablet 3 Sig: TAKE 5 TIMES DAILY Date of last office visit in primary care: 11/27/22 Last 2 Encounter Wt Readings: Date: Wt: 11/27/2022 113.9 kg (251 lb) 04/11/2022 109.8 kg (242 lb) Previous labs/tests for medication: Not applicable Please advise. Thank you. Anay Peace LPN documented in this encounter [facility] 12-12-2022 Miscellaneous Notes Formattin g of this note might be different from the original. Phoned patient to notify him that we have faxed the preop clearance form to office on November 29 and then again on December 11 and we can again refax today as well. patient understood Phoned [facility] and left message that we have faxed form to their office x 3 on November 29, December 11, . Anay Peace LPN Staff Please call patients ortho office to see what is required for surgical clearance As far as I remember I think the clearance was given. The patient unfortunately since he could not schedule his surgery because there was some disconnect about where the clearance was given. This is urgent care please look into it Regards, Mary Lou Sneed MD documented in this encounter [facility] 12-11-2022 Miscellaneous Notes Formattin g of this note might be different from the original. Pre- op form and OV note refaxed. Patient calls to check on pre-op forms that were to be sent to Dr. Vincent. Noted OV note but no forms. Please fax to [phone]. During call, patient reports that pain to left buttocks and leg has gotten so bad that he is having difficulty ambulating. Rates the pain a 9/10 and reports that he has been using a urinal in bed because he is afraid to get out. Spoke with patient and recommending ED evaluation for severe pain and inability to ambulate. reports she wouldn't be able to transport him. Instructed to call an ambulance. verbalizes understanding. Adriana Patel RN documented in this encounter [facility] 11-27-2022 Note HNO ID: [id number] Author: Sandra Ya RT(R) Service: Nuclear Medicine Author Type: Technologist Type: Progress Notes Filed: 11/27/2022 4:50 PM Note Text: Radiology Service Progress Note PATIENT NAME: Sal[place] Gordon DATE OF SERVICE: November 27, 2022 TIME: 4:43 PM PATIENT IDENTITY VERIFICATION COMPLETED USING TWO (2) IDENTIFIERS: Name and Date of confirmed by patient verbally. FALL SCREENING: Has the patient had 2 falls in the last year or 1 fall with injury or currently using an Ambulatory Assistive Device (Walker, Cane, Wheelchair, Crutches, etc.)? No PATIENT GENDER DATA: Male PATIENT RELEVANT IMPLANT DATA REVIEWED: Not Applicable RADIOLOGY DEPARTMENT: General X-ray: Exam(s) Completed: Chest X-Ray PERIPHERAL IV DATA: Not applicable SIGNED BY: Sandra Ya, RT(R) November 27, 2022 4:43 PM [facility] 11-27-2022 Note HNO ID: [id number] Author: Mary Lou Sneed MD Service: ? Author Type: Physician Type: Progress Notes Filed: 11/27/2022 5:59 PM Note Text: Reason for Visit Patient presents with: Pre-Op Visit: surgery undetermined with Dr.Watts Niño Milind Gordon is a 81 year old male who presents here today for Above Complaints.. Health Maintenance SHINGRIX VACCINE(2 of 3) DTAP,TDAP,TD(2 - Tdap) LDL CHOLESTEROL DILATED RETINAL EXAM HBA1C ADVANCE DIRECTIVE DISCUSSION DEPRESSION ASSESSMENT HPI Going for a Lumbar surgery for L3 nerve decompression. His symptoms are pain in the buttock area. It goes down to the leg, and knee if the angle is such. When that happens he can lose all strength and fall He is using a walker proactively to prevent such a situation. He also had decreased sensation of the thigh and paraethesias with sensation of a shock when it happens. He has the l4 and l5 fused many years ago. Cp: not chest pain , sob, dizziness, or syncope. Lung: did not recently have any lung issues, no cp or sob. No hemoptysis. HTN: BP controlled today. Checks BP at home. Compliant with medications. Denies any chest pain, palpitations, SOB, swelling in the feet. Careful with diet to avoid salt, trying to eat more fruits and vegetables, exercises regularly Patient fell a week ago, while he was trying to get up 3 stairs. METS: Walk indoors, such as around the house (1.75 METs): YES Do light work around the house, such as dusting or washing dishes (2.70 METs): YES Take care of self; that is eating, dressing, bathing, using the toilet (2.75 METs): YES Walk a block or two on level ground (2.75 METs): YES Do moderate work around the house such as vacuuming, sweeping floors, or carrying in groceries (3.50 METs): YES Do yardwork, such as raking leaves, weeding,or pushing a power mower (4.50 METs): YES No problem-specific Assessment AND Plan notes found for this encounter. PAST MEDICAL HISTORY Diagnosis Date BCC (basal cell carcinoma of skin) Benign neoplasm of colon Diabetes (HCC) Diverticulosis of colon (without mention of hemorrhage) Diverticulosis DM type 2 with diabetic peripheral neuropathy (HCC) 02/24/2016 Foot pain Intractable back pain Other and unspecified hyperlipidemia Personal history of colonic polyps Colon polyps Spinal stenosis Unspecified essential hypertension Unspecified hereditary and idiopathic peripheral neuropathy PAST SURGICAL HISTORY Procedure Laterality Date CATARACT SURGERY, COMPLEX r2001 lt 2010 bilateral COLONOSCOPY ABLATION POLYP 03/14/07 COLONOSCOPY FLX DX W/COLLJ SPEC WHEN PFRMD 03/11/2002 flex sigmoidoscopy COLONOSCOPY FLX DX W/COLLJ SPEC WHEN PFRMD 02/26/12 PAST SURGICAL HISTORY OF lumbar laminectomy FAMILY HISTORY Problem Relation Age of Onset other (no siblings [Other]) Other Social History Tobacco Use Smoking status: Never Smokeless tobacco: Never Substance Use Topics Alcohol use: No Drug use: No Past medical history, appointments, medications, allergies reviewed. Pertinent Lab/Diagnostic Studies are reviewed and discussed today Current Outpatient Medications: simvastatin (ZOCOR) 40 mg tablet enalapril (VASOTEC) 10 mg tablet gabapentin (NEURONTIN) 600 mg tablet COMPOUNDED PRESCRIPTION blood sugar diagnostic (BLOOD GLUCOSE TEST) test strip capsaicin (ZOSTRIX-HP) 0.075 % topical cream COMPOUNDED PRESCRIPTION Lancets lancets Blood-Glucose Meter misc POTASSIUM 99 MG TAB Vrinubscsjtog-Gzyxfisg-Rrhcby (CENTRUM SILVER) ORAL Tab Review of Systems CONSTITUTIONAL: No fevers, chills night sweats, unintended weight loss CARDIOVASCULAR: No chest pain, dyspnea, palpitations, orthopnea, PND, ankle edema. PULM: No dyspnea, unexplained cough. GI: No dysphagia/odynophagia, problematic reflux, constipation, diarrhea, changes in stool habits, hematochezia, melena. : No new urinary complaints, including dysuria, gross hematuria or pyuria. NEURO: No new balance problems, peripheral weakness/paresthesias or numbness of concern. Physical Exam BP 108/56 (BP Site: Left Arm, BP Position: Sitting, BP Cuff Size: Large Adult) Pulse 68 Temp 36.4 ?C (97.6 ?F) Resp 12 Ht 180.3 cm (5' 11 ) Wt 113.9 kg (251 lb) SpO2 97% BMI 35.01 kg/m? General appearance: Well appearing, alert, in no acute distress, well nourished. Skin: Skin color, texture, turgor normal, no suspicious rashes or lesions Head: Normocephalic, no masses, lesions, tenderness or abnormalities Eyes: Anicteric sclera. Pupils are equally round and reactive to light. Extraocular movements are intact. Lungs: Lungs clear to auscultation. No wheezing, rhonchi, rales Heart: RRR without murmur, gallop, or rubs. Extremities: No deformities, edema, skin discoloration, clubbing or cyanosis. Good capillary refill. ASSESSMENT/PLAN: 1. Pre-operative clearance - ICD9: V72.84, ICD10: Z01.818 (primary diagnosis) Advised deep breathi (more content not included)... [facility] 11-27-2022 History of Presen t illness Narrative Radiology Service Progress Note PATIENT NAME: Salinas Gordon DATE OF SERVICE: November 27, 2022 TIME: 4:43 PM PATIENT IDENTITY VERIFICATION COMPLETED USING TWO (2) IDENTIFIERS: Name and Date of confirmed by patient verbally. FALL SCREENING: Has the patient had 2 falls in the last year or 1 fall with injury or currently using an Ambulatory Assistive Device (Walker, Cane, Wheelchair, Crutches, etc.)? No PATIENT GENDER DATA: Male PATIENT RELEVANT IMPLANT DATA REVIEWED: Not Applicable RADIOLOGY DEPARTMENT: General X-ray: Exam(s) Completed: Chest X-Ray PERIPHERAL IV DATA: Not applicable SIGNED BY: RT Carrie(R) November 27, 2022 4:43 PM documented in this encounter [facility] 11-27-2022 History of Past i llness Narrative Problem Noted Date Resolved Date Type 2 diabetes mellitus wit h other specified complication, without long-term current use of insulin 11/27/2022 12/26/2022 DM type 2 with diabetic peripheral neuropathy 11/30/2021 Last Assessment & Plan: Blood sugar level have been running an average of 122. After food he does not check it. Cough 03/04/2014 01/25/2016 DM (diabetes mellitus), type 1 with neurological complications 01/20/2014 02/05/2018 Last Assessment & Plan: Sugar is very well controlled at this point Impaired fasting glucose 06/05/2008 014 Other diseases of pharynx, not elsewhere classif ied(478.29) 03/10/2008 01/25/2016 documented as of this encounter (statuses as of 12/27/2022) [facility] History of Past illness Narrative* Problem Noted Date Diagnosed Date Resolved Date Type 2 diabetes mellitus wit h other specified complication, without long-term current use of insulin 11/27/2022 12/26/2022 DM type 2 with diabetic peripheral neuropathy 02/24/20 16 11/30/2021 Last Assessment & Plan: Blood sugar level have been running an average of 122. After food he does not check it. Cough 03/04/2014 01/25/2016 DM (diabetes mellitus), type 1 with neurological complications 01/20/2014 02/05/2018 Last Assessment & Plan: Sugar is very well controlled at this point Impaired fasting glucose 06/05/200801/2014 Other diseases of pharynx, n ot elsewhere classified(478.29) 03/10/2008 01/25/2016 documented as of this encounter (statuses as of 03/22/2023) [facility] History of Past illness Narrative* Problem Noted Date Diagnosed Date Resolved Date Type 2 diabetes mellitus wit h other specified complication, without long-term current use of insulin 11/27/2022 12/26/2022 DM type 2 with diabetic peripheral neuropathy 02/24/20 16 11/30/2021 Last Assessment & Plan: Blood sugar level have been running an average of 122. After food he does not check it. Cough 03/04/2014 01/25/2016 DM (diabetes mellitus), type 1 with neurological complications 01/20/2014 02/05/2018 Last Assessment & Plan: Sugar is very well controlled at this point Impaired fasting glucose 06/05/200801/2014 Other diseases of pharynx, n ot elsewhere classified(478.29) 03/10/2008 01/25/2016 documented as of this encounter (statuses as of 04/25/2023) [facility]-10[facility] Miscellaneous Notes* Telephone Encounter - Anay Peace LPN - 10/16/2022 1:25 PM EDT Patient has been identified by name and date of : No Patient phones for refill(s): Requested Prescriptions Pending Prescriptions Disp Refills simvastatin (ZOCOR) 40 mg tablet 90 tablet 3 Sig: Take 1 tablet by mouth daily at bedtime. Date of last office visit in primary care: 04/11/22 Last 2 Encounter Wt Readings: Date: Wt: 04/11/2022 109.8 kg (242 lb) 11/30/2021 108 kg (238 lb) Previous labs/tests for medication: Cholesterol: HDL Cholesterol (mg/dL) Date Value 12/14/2020 56 LDL Cholesterol (mg/dL) Date Value 12/14/2020 73 ALT (U/L) Date Value 04/06/2022 33 12/14/2020 20 Non HDL Cholesterol (mg/dL) Date Value 12/14/2020 89 Please advise. Thank you. Anay Peace LPN [facility] Miscellaneous Notes* Telephone Encounter - Daisha Andrews LPN - 04/24/2022 1:04 PM EDT Patient phones requesting refills as follows: Requested Prescriptions Pending Prescriptions Disp Refills enalapril (VASOTEC) 10 mg tablet 90 tablet 3 Sig: Take 1 tablet by mouth once daily. LISA-04/11/22 Labs-04/06/22 NOV-none med filled 06/10/21 Please review and advise. Daisha Andrews LPN [facility] NoteHNO ID: [id number] Author: Mary Lou Sneed MD Service: ? Author Type: Physician Type: Progress Notes Filed: 04/11/2022 2:47 PM Note Text: Reason for Visit Patient presents with: Recheck: 5 month follow up Salinas Gordon is a 81 year old male who presents here today for Above Complaints.. Health Maintenance SHINGRIX VACCINE(2 of 3) DTAP,TDAP,TD(2 - Tdap) COVID-19 VACCINE(2 - Pfizer series) DEPRESSION ASSESSMENT LDL CHOLESTEROL DILATED RETINAL EXAM INFLUENZA(1) HPI Reviewed blood work- -glucose was mildly elevated so next time we will check the hba1c. Patient maintained his intentional weight loss, gained a couple pounds back. Went from a large to smaller plate. They eat less. Typically dont have a desire for more. They are eating less carbs and dessert. More vegetables and meat. Less red meat. uptodate with all screening, increased exercise. Last year we increased the gabapentin to 600 mgs 5 times a day and it has helped significant. Last month he started having random dreams and was acting out in his dreams some bit. Hit his elbow Does not remember his dreams, is loud. Most of the time he is not aware of the dream but was aware this time. Interestingly no new medications. No sleep aid. No much change in the past few years HPL: Reviewed test results with patient , takes medications regularly , does not report side effects. Conscious to avoid red meats, full fat dairy and its by products. Exercising 3 to 5 times a week. HTN: Compliant with medications. Denies any chest pain, palpitations, or edema. No SOB. Doesn't check BP at home generally. Careful with diet to avoid salt, trying to eat more fruits and vegetables, exercises regularly. No problem-specific Assessment AND Plan notes found for this encounter. PAST MEDICAL HISTORY Diagnosis Date BCC (basal cell carcinoma of skin) Benign neoplasm of colon Diabetes (HCC) Diverticulosis of colon (without mention of hemorrhage) Diverticulosis DM type 2 with diabetic peripheral neuropathy (HCC) 02/24/2016 Foot pain Intractable back pain Other and unspecified hyperlipidemia Personal history of colonic polyps Colon polyps Spinal stenosis Unspecified essential hypertension Unspecified hereditary and idiopathic peripheral neuropathy PAST SURGICAL HISTORY Procedure Laterality Date CATARACT SURGERY, COMPLEX r2001 lt 2009 bilateral COLONOSCOPY ABLATION POLYP 03/14/07 COLONOSCOPY FLX DX W/COLLJ SPEC WHEN PFRMD 03/11/2002 flex sigmoidoscopy COLONOSCOPY FLX DX W/COLLJ SPEC WHEN PFRMD 02/26/12 PAST SURGICAL HISTORY OF lumbar laminectomy FAMILY HISTORY Problem Relation Age of Onset other (no siblings [Other]) Other Social History Tobacco Use Smoking status: Never Smokeless tobacco: Never Substance Use Topics Alcohol use: No Drug use: No Past medical history, appointments, medications, allergies reviewed. Pertinent Lab/Diagnostic Studies are reviewed and discussed today Current Outpatient Medications: gabapentin (NEURONTIN) 600 mg tablet simvastatin (ZOCOR) 40 mg tablet enalapril (VASOTEC) 10 mg tablet COMPOUNDED PRESCRIPTION blood sugar diagnostic (BLOOD GLUCOSE TEST) test strip capsaicin (ZOSTRIX-HP) 0.075 % topical cream COMPOUNDED PRESCRIPTION Lancets lancets Blood-Glucose Meter misc POTASSIUM 99 MG TAB Mvutnhzpnzfgx-Bfhllbpq-Lierud (CENTRUM SILVER) ORAL Tab Review of Systems CONSTITUTIONAL: No fevers, chills night sweats, unintended weight loss CARDIOVASCULAR: No chest pain, dyspnea, palpitations, orthopnea, PND, ankle edema. PULM: No dyspnea, unexplained cough. GI: No dysphagia/odynophagia, problematic reflux, constipation, diarrhea, changes in stool habits, hematochezia, melena. : No new urinary complaints, including dysuria, gross hematuria or pyuria. NEURO: No new balance problems, peripheral weakness/paresthesias or numbness of concern. Physical Exam BP 110/52 (BP Site: Left Arm, BP Position: Sitting, BP Cuff Size: Large Adult) Pulse 72 Temp 36.9 ?C (98.4 ?F) Resp 14 Ht 180.3 cm (5' 11 ) Wt 109.8 kg (242 lb) SpO2 96% BMI 33.75 kg/m? General appearance: Well appearing, alert, in no acute distress, well nourished. Skin: Skin color, texture, turgor normal, no suspicious rashes or lesions Head: Normocephalic, no masses, lesions, tenderness or abnormalities Eyes: Anicteric sclera. Pupils are equally round and reactive to light. Extraocular movements are intact. Lungs: Lungs clear to auscultation. No wheezing, rhonchi, rales Heart: RRR without murmur, gallop, or rubs. Extremities: No deformities, edema, skin discoloration, clubbing or cyanosis. Good capillary refill. ASSESSMENT/PLAN: 1. Elevated blood sugar - ICD9: 790.29, ICD10: R73.9 (primary diagnosis) - HGB A1C 2. Mixed hyperlipidemia - ICD9: 272.2, ICD10: E78.2 - HGB A1C - LIPID PANEL BASIC 3. Essential hypertension - ICD9: 401.9, ICD10: I10 HTN: Compliant with (more content not included)...[facility] 04-11-2022 History of Present illness Narrative* Mary Lou Sneed MD - 04/11/2022 12:05 PM EDT Reason for Visit Patient presents with: Recheck: 5 month follow up Sal[place] Gordon is a 81 year old male who presents here today for Above Complaints.. Health Maintenance SHINGRIX VACCINE(2 of 3) DTAP,TDAP,TD(2 - Tdap) COVID-19 VACCINE(2 - Pfizer series) DEPRESSION ASSESSMENT LDL CHOLESTEROL DILATED RETINAL EXAM INFLUENZA(1) HPI Reviewed blood work- -glucose was mildly elevated so next time we will check the hba1c. Patient maintained his intentional weight loss, gained a couple pounds back. Went from a large to smaller plate. They eat less. Typically dont have a desire for more. They are eating less carbs and dessert. More vegetables and meat. Less red meat. uptodate with all screening, increased exercise. Last year we increased the gabapentin to 600 mgs 5 times a day and it has helped significant. Last month he started having random dreams and was acting out in his dreams some bit. Hit his elbow Does not remember his dreams, is loud. Most of the time he is not aware of the dream but was aware this time. Interestingly no new medications. No sleep aid. No much change in the past few years HPL: Reviewed test results with patient , takes medications regularly , does not report side effects. Conscious to avoid red meats, full fat dairy and its by products. Exercising 3 to 5 times a week. HTN: Compliant with medications. Denies any chest pain, palpitations, or edema. No SOB. Doesn't check BP at home generally. Careful with diet to avoid salt, trying to eat more fruits and vegetables, exercises regularly. No problem-specific Assessment & Plan notes found for this encounter. PAST MEDICAL HISTORY Diagnosis Date BCC (basal cell carcinoma of skin) Benign neoplasm of colon Diabetes (HCC) Diverticulosis of colon (without mention of hemorrhage) Diverticulosis DM type 2 with diabetic peripheral neuropathy (HCC) 02/24/2016 Foot pain Intractable back pain Other and unspecified hyperlipidemia Personal history of colonic polyps Colon polyps Spinal stenosis Unspecified essential hypertension Unspecified hereditary and idiopathic peripheral neuropathy PAST SURGICAL HISTORY Procedure Laterality Date CATARACT SURGERY, COMPLEX r2001 lt 2009 bilateral COLONOSCOPY ABLATION POLYP 03/14/07 COLONOSCOPY FLX DX W/COLLJ SPEC WHEN PFRMD 03/11/2002 flex sigmoidoscopy COLONOSCOPY FLX DX W/COLLJ SPEC WHEN PFRMD 02/26/12 PAST SURGICAL HISTORY OF lumbar laminectomy FAMILY HISTORY Problem Relation Age of Onset other (no siblings [Other]) Other Social History Tobacco Use Smoking status: Never Smokeless tobacco: Never Substance Use Topics Alcohol use: No Drug use: No Past medical history, appointments, medications, allergies reviewed. Pertinent Lab/Diagnostic Studies are reviewed and discussed today Current Outpatient Medications: gabapentin (NEURONTIN) 600 mg tablet simvastatin (ZOCOR) 40 mg tablet enalapril (VASOTEC) 10 mg tablet COMPOUNDED PRESCRIPTION blood sugar diagnostic (BLOOD GLUCOSE TEST) test strip capsaicin (ZOSTRIX-HP) 0.075 % topical cream COMPOUNDED PRESCRIPTION Lancets lancets Blood-Glucose Meter misc POTASSIUM 99 MG TAB Kminlxbyeeniw-Xhrxoxzn-Npvcsp (CENTRUM SILVER) ORAL Tab Review of Systems CONSTITUTIONAL: No fevers, chills night sweats, unintended weight loss CARDIOVASCULAR: No chest pain, dyspnea, palpitations, orthopnea, PND, ankle edema. PULM: No dyspnea, unexplained cough. GI: No dysphagia/odynophagia, problematic reflux, constipation, diarrhea, changes in stool habits, hematochezia, melena. : No new urinary complaints, including dysuria, gross hematuria or pyuria. NEURO: No new balance problems, peripheral weakness/paresthesias or numbness of concern. Physical Exam BP 110/52 (BP Site: Left Arm, BP Position: Sitting, BP Cuff Size: Large Adult) Pulse 72 Temp 36.9 C (98.4 F) Resp 14 Ht 180.3 cm (5' 11 ) Wt 109.8 kg (242 lb) SpO2 96% BMI 33.75 kg/m General appearance: Well appearing, alert, in no acute distress, well nourished. Skin: Skin color, texture, turgor normal, no suspicious rashes or lesions Head: Normocephalic, no masses, lesions, tenderness or abnormalities Eyes: Anicteric sclera. Pupils are equally round and reactive to light. Extraocular movements are intact. Lungs: Lungs clear to auscultation. No wheezing, rhonchi, rales Heart: RRR without murmur, gallop, or rubs. Extremities: No deformities, edema, skin discoloration, clubbing or cyanosis. Good capillary refill. ASSESSMENT/PLAN: 1. Elevated blood sugar - ICD9: 790.29, ICD10: R73.9 (primary diagnosis) - HGB A1C 2. Mixed hyperlipidemia - ICD9: 272.2, ICD10: E78.2 - HGB A1C - LIPID PANEL BASIC 3. Essential hypertension - ICD9: 401.9, ICD10: I10 HTN: Compliant with medications. Denies any chest pain, palpitations, or edema. No SOB. Doesn't check BP at home generally. Careful with diet to avoid salt, trying to eat more fruits and vegetables, exercises regularly. Mary Lou Sneed MD [facility] Miscellaneous Notes* Telephone Encounter - Nica De La Torre APRN.CNP - 01/20/2022 4:32 PM EDT Please remind patient there is outstanding lab work that needs completed. Thank you Nica De La Torre APRN.CNP * Telephone Encounter - Anay Peace LPN - 01/20/2022 8:14 AM EDT Patient has been identified by name and date of : Yes Patient phones for refill(s): Pending Prescriptions Disp Refills GABAPENTIN 600 MG TABLET 450 tablet 3 Sig: Take 5 times daily DONAVON: No Date of last office visit in primary care: 11/30/21 Last 2 Encounter Wt Readings: Date: Wt: 11/30/2021 108 kg (238 lb) 12/30/2020 114.3 kg (252 lb) Previous labs/tests for medication: Not applicable Please advise. Thank you. Anay Peace LPN [facility] Miscellaneous Notes* Telephone Encounter - Jessica Glynn LPN - 12/03/2021 11:22 AM EDT Pharmacy electronically requests the following refill(s) Pending Prescriptions Disp Refills SIMVASTATIN 40 MG TABLET 90 tablet 3 Sig: Take 1 tablet by mouth daily at bedtime. DONAVON: No Jessica Glynn LPN Last Office visit: 11/30/2021 Next Office visit: 04/11/[address] [facility] History of Present illness Narrative* Mary Lou Sneed MD - 11/30/2021 8:19 AM EDT Welcome To Medicare Visit Medical B eligibility date age 63 Date of last exam none in the last visit. PAST MEDICAL HISTORY Diagnosis Date BCC (basal cell carcinoma of skin) Benign neoplasm of colon Diabetes (HCC) Diverticulosis of colon (without mention of hemorrhage) Diverticulosis Foot pain Intractable back pain Other and unspecified hyperlipidemia Personal history of colonic polyps Colon polyps Spinal stenosis Unspecified essential hypertension Unspecified hereditary and idiopathic peripheral neuropathy PAST SURGICAL HISTORY Procedure Laterality Date CATARACT SURGERY, COMPLEX r2001 lt 2010 bilateral COLONOSCOPY ABLATION POLYP 03/14/07 COLONOSCOPY FLX DX W/COLLJ SPEC WHEN PFRMD 03/11/2002 flex sigmoidoscopy COLONOSCOPY FLX DX W/COLLJ SPEC WHEN PFRMD 02/26/12 PAST SURGICAL HISTORY OF lumbar laminectomy Vancomycin Medications reviewed: Yes FAMILY HISTORY Problem Relation Age of Onset other (no siblings [Other]) Unknown SOCIAL HISTORY: Social History Tobacco Use Smoking status: Never Smoker Smokeless tobacco: Never Used Substance Use Topics Alcohol use: No Drug use: No Salinas denies regular aerobic exercise or likes to exercise by walking. He watches his diet for sodium, low fat and low cholesterol most of the time. List of current specialists seen: Eye doc [place] Planning discussed including patients advanced directive wishes: Yes I am willing to follow Salinas's advanced directives. PHQ-2 / Depression screen He in the past two weeks denies having felt down, depressed, hopeless or with little interest or pleasure in doing things. Functional Ability/Safety Screen 1. Was the patient's timed Up and Go test unsteady or longer than 30 seconds? No 2. Does the patient need help with the phone, transportation, shopping,preparing meals, housework, laundry, medications or managing money? No 3. Does your home have rugs in the hallway, lack of grab bars in the bathroom, lack of handrails onthe stairs or have poor lighting? No Hearing Evaluation: normal PHYSICAL EXAM BP 122/58 (BP Site: Right Arm, BP Position: Sitting, BP Cuff Size: Large Adult) Pulse (!) 58 Temp 36 C (96.8 F) Resp 14 Ht 180.3 cm (5' 11 ) Wt 108 kg (238 lb) SpO2 97% BMI 33.19 kg/m Alert and oriented X 3: YES Body mass index is 33.19 kg/m . ASSESSMENT/PLAN: 80 year old male The following prevention plan was discussed during the office visit and provided to the patient: - Glaucoma screening - Lipid panel Mary Lou Sneed MD Reason for Visit Patient presents with: Established Patient: jhonny Gordon is a 80 year old male who presents here today for Above Complaints.. Health Maintenance SHINGRIX VACCINE(2 of 3) PNEUMOCOCCAL: 65+(3 - PPSV23 or PCV20) COVID-19 VACCINE(2 - Pfizer series) ADVANCE DIRECTIVE DISCUSSION LDL CHOLESTEROL HPI Had a cut with a knife on the right thigh, linear cut but it is clean, and precise and well approximated, they bandaged it at home and it has healed well no signs of infection. Elbow injury during sleep, dreams. otc taking asa, b complex, vit d . Small wound and it is clean with out any signs of infections. He has had 13 pound weight loss, it is intentional. Went from a large to smaller plate. They eat less. Typically dont have a desire for more. They are eating less carbs and dessert. More vegetables and meat. Less red meat. uptodate with all screening, increased exercise. Last year we increased the gabapentin to 600 mgs 5 times a day and it has helped significant. Last month he started having random dreams and was acting out in his dreams some bit. Hit his elbow Does not remember his dreams, is loud. Most of the time he is not aware of the dream but was aware this time. Interestingly no new medications. No sleep aid. HPL: Reviewed test results with patient , takes medications regularly , does not report side effects. Conscious to avoid red meats, full fat dairy and its by products. Exercising 3 to 5 times a week. HTN: Compliant with medications. Denies any chest pain, palpitations, or edema. No SOB. Doesn't check BP at home generally. Careful with diet to avoid salt, trying to eat more fruits and vegetables, exercises regularly. No problem-specific Assessment & Plan notes found for this encounter. PAST MEDICAL HISTORY Diagnosis Date BCC (basal cell carcinoma of skin) Benign neoplasm of colon Diabetes (HCC) Diverticulosis of colon (without mention of hemorrhage) Diverticulosis Foot pain Intractable back pain Other and unspecified hyperlipidemia Personal history of colonic polyps Colon polyps Spinal stenosis Unspecified essential hypertension Unspecified hereditary and idiopathic peripheral neuropathy PAST SURGICAL HISTORY Procedure Laterality Date CATARACT SURGERY, COMPLEX r2001 lt 2009 bilateral COLONOSCOPY ABLATION POLYP 03/14/07 COLONOSCOPY FLX DX W/COLLJ SPEC WHEN PFRMD 03/11/2002 flex sigmoidoscopy COLONOSCOPY FLX DX W/COLLJ SPEC WHEN PFRMD 02/26/12 PAST SURGICAL HISTORY OF lumbar laminectomy FAMILY HISTORY Problem Relation Age of Onset other (no siblings [Other]) Unknown Social History Tobacco Use Smoking status: Never Smoker Smokeless tobacco: Never Used Substance Use Topics Alcohol use: No Drug use: No Past medical history, appointments, medications, allergies reviewed. Pertinent Lab/Diagnostic Studies are reviewed and discussed today Current Outpatient Medications: enalapril (VASOTEC) 10 mg tablet gabapentin (NEURONTIN) 600 mg tablet simvastatin (ZOCOR) 40 mg tablet COMPOUNDED PRESCRIPTION blood sugar diagnostic (BLOOD GLUCOSE TEST) test strip capsaicin (ZOSTRIX-HP) 0.075 % topical cream COMPOUNDED PRESCRIPTION Lancets lancets Blood-Glucose Meter misc POTASSIUM 99 MG TAB Liawupetmgzhu-Jhpfezjv-Jqusnx (CENTRUM SILVER) ORAL Tab Review of Systems CONSTITUTIONAL: No fevers, chills night sweats, unintended weight loss CARDIOVASCULAR: No chest pain, dyspnea, palpitations, orthopnea, PND, ankle edema. PULM: No dyspnea, unexplained cough. GI: No dysphagia/odynophagia, problematic reflux, constipation, diarrhea, changes in stool habits, hematochezia, melena. : No new urinary complaints, including dysuria, gross hematuria or pyuria. NEURO: No new balance problems, peripheral weakness/paresthesias or numbness of concern. Physical Exam BP 122/58 (BP Site: Right Arm, BP Position: Sitting, BP Cuff Size: Large Adult) Pulse (!) 58 Temp 36 C (96.8 F) Resp 14 Ht 180.3 cm (5' 11 ) Wt 108 kg (238 lb) SpO2 97% BMI 33.19 kg/m General appearance: Well appearing, alert, in no acute distress, well nourished. Skin: right thigh, linear cut but it is clean, and precise and well approximated,Head: Normocephalic, no masses, lesions, tenderness or abnormalities, they have cleaned it well and there are no signsof infection Eyes: Anicteric sclera. Pupils are equally round and reactive to light. Extraocular movements are intact. Lungs: Lungs clear to auscultation. No wheezing, rhonchi, rales Heart: RRR without murmur, gallop, or rubs. Extremities: No deformities, edema, skin discoloration, clubbing or cyanosis. Good capillary refill. ASSESSMENT/PLAN: 1. Medicare annual wellness visit, subsequent - ICD9: V70.0, ICD10: Z00.00 (primary diagnosis) - Counseled on healthy diet and regular exercise 2. Essential hypertension - ICD9: 401.9, ICD10: I10 - good control - Recommended regular aerobic exercise. - Recommend home blood pressure monitoring, to bring results in on next visit - Goal of BP <130/80 - CBC + DIFF - COMP METABOLIC PANEL 3. Mixed hyperlipidemia - ICD9: 272.2, ICD10: E78.2 - good control - Continue current medication. - LIPID PANEL BASIC 4. Encounter for immunization - ICD9: V03.89, ICD10: Z23 5. Abnormal dreams - ICD9: 307.47, ICD10: F51.8 Not clear why he has the abnormal dreams - CONSULT TO SLEEP MEDICINE - ADULT 6. Prediabetes - ICD9: 790.29, ICD10: R73.03 Needs to reduce 7 percent of body weight and exercise 30 mins moderate intensity to reverse/ delay progression to diabetes. He has come down on his numbers which is wonderful 7. Hereditary and idiopathic peripheral neuropathy - ICD9: 356.9, ICD10: G60.9 He is on a high dose of gabapentin and he does well with that dose. So he needs to continue that. [facility] Lou Sneed MD [facility] of Past illness Narrative* Problem Noted Date Resolved Date DM type 2 with diabetic peripheral neuropathy 11/30/2021 Last Assessment & Plan: Blood sugar level have been running an average of 122. After food he does not check it. Cough 03/04/2014 01/25/2016 DM (diabetes mellitus), type 1 with neurological complications 01/20/2014 02/05/2018 Last Assessment & Plan: Sugar is very well controlled at this point Impaired fasting glucose 06/05/2008 014 Other diseases of pharynx, not elsewhere classif ied(478.29) 03/10/2008 01/25/2016 documented as of this encounter (statuses as of 11/30/2021) [facility] of Past illness Narrative* Problem Noted Date Resolved Date DM type 2 with diabetic peripheral neuropathy 11/30/2021 Last Assessment & Plan: Blood sugar level have been running an average of 122. After food he does not check it. Cough 03/04/2014 01/25/2016 DM (diabetes mellitus), type 1 with neurological complications 01/20/2014 02/05/2018 Last Assessment & Plan: Sugar is very well controlled at this point Impaired fasting glucose 06/05/2008 014 Other diseases of pharynx, not elsewhere classif ied(478.29) 03/10/2008 01/25/2016 documented as of this encounter (statuses as of 12/07/2021) [facility] of Past illness Narrative* Problem Noted Date Resolved Date DM type 2 with diabetic peripheral neuropathy 11/30/2021 Last Assessment & Plan: Blood sugar level have been running an average of 122. After food he does not check it. Cough 03/04/2014 01/25/2016 DM (diabetes mellitus), type 1 with neurological complications 01/20/2014 02/05/2018 Last Assessment & Plan: Sugar is very well controlled at this point Impaired fasting glucose 06/05/2008 014 Other diseases of pharynx, not elsewhere classif ied(478.29) 03/10/2008 01/25/2016 documented as of this encounter (statuses as of 01/20/2022) [facility] of Past illness Narrative* Problem Noted Date Resolved Date DM type 2 with diabetic peripheral neuropathy 11/30/2021 Last Assessment & Plan: Blood sugar level have been running an average of 122. After food he does not check it. Cough 03/04/2014 01/25/2016 DM (diabetes mellitus), type 1 with neurological complications 01/20/2014 02/05/2018 Last Assessment & Plan: Sugar is very well controlled at this point Impaired fasting glucose 06/05/2008 014 Other diseases of pharynx, not elsewhere classif ied(478.29) 03/10/2008 01/25/2016 documented as of this encounter (statuses as of 04/11/2022) [facility] of Past illness Narrative* Problem Noted Date Resolved Date DM type 2 with diabetic peripheral neuropathy 11/30/2021 Last Assessment & Plan: Blood sugar level have been running an average of 122. After food he does not check it. Cough 03/04/2014 01/25/2016 DM (diabetes mellitus), type 1 with neurological complications 01/20/2014 02/05/2018 Last Assessment & Plan: Sugar is very well controlled at this point Impaired fasting glucose 06/05/2008 014 Other diseases of pharynx, not elsewhere classif ied(478.29) 03/10/2008 01/25/2016 documented as of this encounter (statuses as of 04/24/2022) [facility] of Past illness Narrative* Problem Noted Date Resolved Date DM type 2 with diabetic peripheral neuropathy 11/30/2021 Last Assessment & Plan: Blood sugar level have been running an average of 122. After food he does not check it. Cough 03/04/2014 01/25/2016 DM (diabetes mellitus), type 1 with neurological complications 01/20/2014 02/05/2018 Last Assessment & Plan: Sugar is very well controlled at this point Impaired fasting glucose 06/05/2008 014 Other diseases of pharynx, not elsewhere classif ied(478.29) 03/10/2008 01/25/2016 documented as of this encounter (statuses as of 10/17/2022) [facility] of Past illness Narrative* Problem Noted Date Resolved Date DM type 2 with diabetic peripheral neuropathy 11/30/2021 Last Assessment & Plan: Blood sugar level have been running an average of 122. After food he does not check it. Cough 03/04/2014 01/25/2016 DM (diabetes mellitus), type 1 with neurological complications 01/20/2014 02/05/2018 Last Assessment & Plan: Sugar is very well controlled at this point Impaired fasting glucose 06/05/2008 014 Other diseases of pharynx, not elsewhere classif ied(478.29) 03/10/2008 01/25/2016 documented as of this encounter (statuses as of 12/11/2022) [facility] of Past illness Narrative* Problem Noted Date Resolved Date DM type 2 with diabetic peripheral neuropathy 11/30/2021 Last Assessment & Plan: Blood sugar level have been running an average of 122. After food he does not check it. Cough 03/04/2014 01/25/2016 DM (diabetes mellitus), type 1 with neurological complications 01/20/2014 02/05/2018 Last Assessment & Plan: Sugar is very well controlled at this point Impaired fasting glucose 06/05/2008 014 Other diseases of pharynx, not elsewhere classif ied(478.29) 03/10/2008 01/25/2016 documented as of this encounter (statuses as of 12/12/2022) [facility] of Past illness Narrative* Problem Noted Date Resolved Date DM type 2 with diabetic peripheral neuropathy 11/30/2021 Last Assessment & Plan: Blood sugar level have been running an average of 122. After food he does not check it. Cough 03/04/2014 01/25/2016 DM (diabetes mellitus), type 1 with neurological complications 01/20/2014 02/05/2018 Last Assessment & Plan: Sugar is very well controlled at this point Impaired fasting glucose 06/05/2008 014 Other diseases of pharynx, not elsewhere classif ied(478.29) 03/10/2008 01/25/2016 documented as of this encounter (statuses as of 12/25/2022) [facility] Diagnosis Medicare annual wellness visit, subsequent- Primary Routine general medical examination at a health care facility Essential hypertension Unspecified essential hypertension Mixed hyperlipidemia Encounter for immunization Need for other specified prophylactic vaccination against single bacterial disease Abnormal dreams Other dysfunctions of sleep stages or arousal from sleep Prediabetes Other abnormal glucose Hereditary and idiopathic peripheral neuropathy Unspecified hereditary and idiopathic peripheral neuropathy Open wound of left elbow, initial encounter [facility] Mixed hyperlipidemia [facility] Diagnosis Hereditary and idiopathic peripheral neuropathy Unspecified hereditary and idiopathic peripheral neuropathy [facility] Diagnosis Elevated blood sugar- Primary Other abnormal glucose Mixed hyperlipidemia Essential hypertension Unspecified essential hypertension [facility] Diagnosis Essential hypertension Unspecified essential hypertension [facility] Diagnosis Mixed hyperlipidemia [facility] Diagnosis Hereditary and idiopathic peripheral neuropathy Unspecified hereditary and idiopathic peripheral neuropathy [facility]* Diagnosis S/P lumbar fusion- Primary Arthrodesis status Mixed hyperlipidemia Essential hypertension Unspecified essential hypertension Prediabetes Other abnormal glucose Constipation, unspecified constipation type documented in this encounter [facility] note* Diagnosis Abdominal pain, unspecified abdominal location- Primary Urinary retention Retention of urine, unspecified Acute constipation Unspecified constipation documented in this encounter [facility] note* Diagnosis Essential hypertension Unspecified essential hypertension Mixed hyperlipidemia [facility]* Diagnosis Chronic anticoagulation- Primary Long-term (current) use of anticoagulants DM type 2 with diabetic peripheral neuropathy (HCC) Type II or unspecified type diabetes mellitus with neurological manifestations, not stated as uncontrolled HYPERTENSION NOS Unspecified essential hypertension HYPERLIPIDEMIA NEC/NOS Other and unspecified hyperlipidemia Acute thromboembolism of deep veins of lower extremity, bilateral (HCC) Type 2 diabetes mellitus with diabetic polyneuropathy, without long-term current use of insulin (HCC) Vitamin B 12 deficiency Other B-complex deficiencies Essential hypertension Unspecified essential hypertension DM type 2 with diabetic peripheral neuropathy (HCC) Type II or unspecified type diabetes mellitus with neurological manifestations, not stated as uncontrolled Acute thromboembolism of deep veins of both lower extremities (HCC) Pre-operative clearance Preoperative examination, unspecified documented in this encounter 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 event this information is protected by the Federal Confidentiality of Alcohol and Drug Abuse Patient Records regulations: The Federal rules restrict any use of the information to criminally investigate or prosecute any alcohol or drug abuse patient.[facility] event this information is protected by the Federal Confidentiality of Alcohol and Drug Abuse Patient Records regulations: The Federal rules restrict any use of the information to criminally investigate or prosecute any alcohol or drug abuse patient.[facility] the event this information is protected by the Federal Confidentiality of Alcohol and Drug Abuse Patient Records regulations: The Federal rules restrict any use of the information to criminally investigate or prosecute any alcohol or drug abuse patient.[facility] the event this information is protected by the Federal Confidentiality of Alcohol and Drug Abuse Patient Records regulations: The Federal rules restrict any use of the information to criminally investigate or prosecute any alcohol or drug abuse patient.[facility] the event this information is protected by the Federal Confidentiality of Alcohol and Drug Abuse Patient Records regulations: The Federal rules restrict any use of the information to criminally investigate or prosecute any alcohol or drug abuse patient.[facility] the event this information is protected by the Federal Confidentiality of Alcohol and Drug Abuse Patient Records regulations: The Federal rules restrict any use of the information to criminally investigate or prosecute any alcohol or drug abuse patient.[facility] the event this information is protected by the Federal Confidentiality of Alcohol and Drug Abuse Patient Records regulations: The Federal rules restrict any use of the information to criminally investigate or prosecute any alcohol or drug abuse patient.[facility] the event this information is protected by the Federal Confidentiality of Alcohol and Drug Abuse Patient Records regulations: The Federal rules restrict any use of the information to criminally investigate or prosecute any alcohol or drug abuse patient.[facility] the event this information is protected by the Federal Confidentiality of Alcohol and Drug Abuse Patient Records regulations: The Federal rules restrict any use of the information to criminally investigate or prosecute any alcohol or drug abuse patient.[facility] the event this information is protected by the Federal Confidentiality of Alcohol and Drug Abuse Patient Records regulations: The Federal rules restrict any use of the information to criminally investigate or prosecute any alcohol or drug abuse patient.[facility] the event this information is protected by the Federal Confidentiality of Alcohol and Drug Abuse Patient Records regulations: The Federal rules restrict any use of the information to criminally investigate or prosecute any alcohol or drug abuse patient.[facility] the event this information is protected by the Federal Confidentiality of Alcohol and Drug Abuse Patient Records regulations: The Federal rules restrict any use of the information to criminally investigate or prosecute any alcohol or drug abuse patient.[facility] Reason for Visit (unrecogniz ed section and content) Reason Comments Established Patient annual Reason Onset Date Comments Refill Request 12/02/2021 Reason Onset Date Comments Refill Request 01/19/2022 Reason Comments Recheck 5 month follow up Reason Onset Date Comments Refill Request 04/23/2022 Reason Onset Date Comments Refill Request 10/13/2022 Reason Comments Patient Update Forms Reason Comments Refill Request Reason Comments Follow Up post back surgery Reason Comments Constipation X2 days, causing dif ficult urination Care Teams (unrecognized sec tion and content) Commercial Front Load Driver Relationship Specialty Start Date End Date Mary Lou Sneed MD [address], [place] [address] PCP - General Internal Medicine 11/09/16 Kong Pollack NO FORWARDING ADDRESS 05/02/02 Commercial Front Load Driver Relationship Specialty Start Date End Date Mary Lou Sneed MD [address], [place] [id number] PCP - General Internal Medicine 11/09/16 Kong Pollack NO FORWARDING ADDRESS 05/02/02 Commercial Front Load Driver Relationship Specialty Start Date End Date Mary Lou Sneed MD [address] [place], [place] [id number] PCP - General Internal Medicine 11/09/16 Kong Pollack NO FORWARDING ADDRESS 05/02/02 Commercial Front Load Driver Relationship Specialty Start Date End Date Mary Lou Sneed MD [address] [place] [address] PCP - General Internal Medicine 11/09/16 Kong Pollack NO FORWARDING ADDRESS 05/02/02 Commercial Front Load Driver Relationship Specialty Start Date End Date Mary Lou Sneed MD [address] [place] [address] PCP - General Internal Medicine 11/09/16 Kogn Pollack NO FORWARDING ADDRESS 05/02/02 Commercial Front Load Driver Relationship Specialty Start Date End Date Mary Lou Sneed MD [address] [place] [address] PCP - General Internal Medicine 11/09/16 Kong Pollack NO FORWARDING ADDRESS 05/02/02 Commercial Front Load Driver Relationship Specialty Start Date End Date Mary Lou Sneed MD [address] [place] [address] PCP - General Internal Medicine 11/09/16 Kong Pollack NO FORWARDING ADDRESS 05/02/02 Commercial Front Load Driver Relationship Specialty Start Date End Date Mary Lou Sneed MD [address] [place] [address] PCP - General Internal Medicine 11/09/16 Kong Pollack NO FORWARDING ADDRESS 05/02/02 Commercial Front Load Driver Relationship Specialty Start Date End Date Mary Lou Sneed MD [address] [place] [address] PCP - General Internal Medicine 11/09/16 Kong Pollack NO FORWARDING ADDRESS 05/02/02 Commercial Front Load Driver Relationship Specialty Start Date End Date Mary Lou Sneed MD [address] [place] [address] PCP - General Internal Medicine 11/09/16 Kong Pollack NO FORWARDING ADDRESS 05/02/02 (unrecognized sect ion and content) No Status Records Found INFORMATION SOURCE (unrecogn ized section and content) DATE CREATED AUTHOR 03/23/2023 [facility] FOR RECORDS PERTAINING TO PATIENTS WHO ARE OR HAVE BEEN ENROLLED IN A CHEMICAL DEPENDENCY/SUBSTANCEABUSE PROGRAM, SOME INFORMATION MAY BE OMITTED. This clinical summary was aggregated from multiple sources. Caution should be exercised in using it in the provision of clinical care. This summary normalizes information from multiple sources, and as a consequence, information in this document may materially change the coding, format and clinical context of patient data. In addition, data may be omitted in some cases. CLINICAL DECISIONS SHOULD BE BASED ON THE PRIMARY CLINICAL RECORDS. [email or web address] provides no warranty or guarantee of the accuracy or completeness of information in this document.
== END | disposition home or self-care (01) ==
LOC: MTRAD 10:44
PROVIDERS: PCP Family Medicine; Referring Provider Family Medicine; Visit Provider Family Medicine
DX: M21.962 Unspecified acquired deformity of left lower leg (principal); M79.671 Pain in right foot
CPT/HCPCS: 73630

== ENCOUNTER → 2024-12-02 | Outpatient (CLI) | payer MEDICARE, SELFPAY ==
[2024-12-02 18:04] LABS: Absolute Lymphocyte Count 2.05 X10^3/uL (0.83-4.51); Absolute Neutrophil Count 5.8 X10^3/uL (2.0-7.7); Basophil# 0.06 X10^3/uL; Basophil% 0.7 % (0-1); Eosinophil# 0.09 X10^3/uL; Hematocrit 40.2 % (40-54); Lymphocyte # 2.05 X10^3/ul (0.83-4.51); Lymphocyte % 23.1 % (19-41); Mean Corp Hgb Conc 32.3 g/dL (32-36); Mean Corpuscular Hgb 31.4 pg (27.0-32.0); Mean Corpuscular Volume 97.1 fL (80-94); Monocyte# 0.85 X10^3/uL; Monocyte% 9.6 % (0-10); NRBC Flagged by Analyzer 0 % (0-5); Neutrophil # 5.81 X10^3/uL (2.7-7.7); Neutrophil % 65.3 % (47-70); Platelet Count 244 K/mm3 (150-450); RBC Distribution Width CV 13.9 % (11.6-14.6); RBC Distribution Width SD 49.9 fl (35.1-43.9); Red Blood Count 4.14 M/mm3 (4.6-6.2); White Blood Count 8.9 K/mm3 (4.4-11.0)
[2024-12-02 19:01] LABS: Hemoglobin A1c 6.2 % (<=5.6)
[2024-12-02 19:05] LABS: ALB/GLOB Ratio 1.6 RATIO (0.9-2.4); AST(SGOT) 25 U/L (<=37); Alanine Aminotransfer ALT/SGPT 18 U/L (<=46); Albumin, Serum 3.8 g/dL (3.4-4.8); Alkaline Phosphatase 83 U/L (40-129); Anion Gap 10 (5-15); BUN 13 mg/dL (4-19); BUN/Creat Ratio 13.6 RATIO (10-20); Calcium,Total 9.4 mg/dL (7.6-11.0); Carbon Dioxide 24.2 mmol/L (21.0-32.0); Chloride 104 mmol/L (98-108); Creatinine, Serum 0.97 mg/dL (0.70-1.20); EST Glomerular Filtration Rate 76 (>60); Globulin 2.3 g/dL (2.2-4.2); Glucose 126 mg/dL (70-99); PSA,Total - Annual Screen 2.47 ng/mL (0.02-4.00); Sodium Level 138 mmol/L (133-145); Total Bilirubin 0.29 mg/dL (0.00-1.30); Vitamin D,25 Hydroxy 59.2 ng/mL (30-100)
== END | disposition home or self-care (01) ==
PROVIDERS: PCP Family Medicine; Referring Provider Family Medicine; Visit Provider Family Medicine
DX: E87.5 Hyperkalemia (principal); E11.40 Type 2 diabetes mellitus with diabetic neuropathy, unspecified; E55.9 Vitamin D deficiency, unspecified; I95.9 Hypotension, unspecified; Z12.5 Encounter for screening for malignant neoplasm of prostate
CPT/HCPCS: 36415; 80053; 82306; 83036; 84153; 84443; 85025; G0103

== ENCOUNTER → 2025-02-26 | Outpatient (CLI) | payer MEDICARE, SELFPAY ==
--- NOTE | 2025-02-26 15:27 | RAD_ITS ---
PROCEDURE: FOOT MIN 3 VIEWS 02/26/2025 REASON FOR EXAM: FOOT DEFORMITY TECHNIQUE: FOOT MIN 3 VIEWS Laterality: COMPARISON: 04/25/2024. FINDINGS: No evidence acute fracture or dislocation. Mild degenerative changes throughout the foot. No acute soft tissue abnormalities. Osseous demineralization. RAD/Foot min 3 Views IMPRESSION: No acute osseous abnormalities. Osteoarthrosis. Osseous demineralization. Reading Location: [id number]
--- NOTE | 2025-02-26 15:27 | RAD_ITS ---
PROCEDURE: FOOT MIN 3 VIEWS 02/26/2025 REASON FOR EXAM: FOOT DEFORMITY TECHNIQUE: FOOT MIN 3 VIEWS Laterality: COMPARISON: 12/14/2023. FINDINGS: No evidence of acute fracture or dislocation. Mild degenerative changes throughout the foot. Tiny calcaneal enthesophyte. No ankle joint effusion. No acute soft tissue abnormalities. Osseous demineralization. RAD/Foot min 3 Views IMPRESSION: No acute osseous abnormalities. Osteoarthrosis. Osseous demineralization. Reading Location: [id number]
--- NOTE | 2025-02-26 15:27 | RAD_ITS ---
PROCEDURE: LUMBAR SPINE 2 OR 3 VIEWS 02/26/2025 REASON FOR EXAM: LOW BACK PAIN TECHNIQUE: LUMBAR SPINE 2 OR 3 VIEWS FINDINGS: No evidence of acute fracture or dislocation. L5-S1 posterior fusion. Grade 1 anterolisthesis of L3 on L4 on L4 on L5. Moderate degenerative changes of the non fused levels. IVC filter. RAD/Lumbar Spine 2 or 3 Views IMPRESSION: L5-S1 fusion. Spondylosis. Spondylolisthesis. Reading Location: [id number]
== END | disposition home or self-care (01) ==
LOC: MTRAD 15:25
PROVIDERS: PCP Family Medicine; Referring Provider Family Medicine; Visit Provider Family Medicine
DX: M21.969 Unspecified acquired deformity of unspecified lower leg (principal); M54.50 Low back pain, unspecified
CPT/HCPCS: 72100; 73630

== ENCOUNTER 2025-03-27 06:32 | Observation (INO) | payer MEDICARE, SELFPAY ==
[2025-03-27] VITALS (12 sets, daily range): BP systolic 114–161; BP diastolic 61–78; PULSE 51–89; RESP 16–22; TEMP 36.4–37.1; O2SAT 95–99; BMI 30.4
--- NOTE | 2025-03-27 06:30 | CT_ITS ---
PROCEDURE: SINUS/FACIAL BONE 03/27/2025 REASON FOR EXAM: INJURY TECHNIQUE: Procedure Code: CTSI Modality: CT Procedure: SINUS/FACIAL BONE Coronal and Sagittal reconstruction series were provided. One or more dose reduction techniques were used (e.g., Automated exposure control, adjustment of the mA and/or kV according to patient size, use of iterative reconstruction technique). RADIATION DOSE SUMMARY: CTDlvol: 10.84 mGy DLP: 1833.76 mGycm COMPARISON: None. FINDINGS: Paranasal sinuses and mastoid cells: Clear. Soft tissues: Right frontal scalp hematoma. Orbits: No acute findings. Bones: No acute fractures. Other findings: The visualized intracranial structures and nasopharynx are unremarkable without acute abnormalities. The temporal mandibular joints are well aligned. CT/Sinus/Facial Bone IMPRESSION: No acute injury to the maxillofacial bones. No paranasal sinus mucosal thickening. Reading Location: [id number]
--- NOTE | 2025-03-27 06:30 | CT_ITS ---
PROCEDURE: STROKE CTA HEAD AND NECK W/CON 03/27/2025 REASON FOR EXAM: NEURO DEFICIT, ACUTE, STROKE SUSPECTED TECHNIQUE: Procedure Code: [id number].ST.HN Modality: CT Procedure: STROKE CTA HEAD AND NECK W/CON Multiplanar Sagittal and Coronal images were obtained. CONTRAST: Isovue 370 VOLUME: 95 mL One or more dose reduction techniques were used (e.g., Automated exposure control, adjustment of the mA and/or kV according to patient size, use of iterative reconstruction technique). RADIATION DOSE SUMMARY: CTDlvol: 10.84 mGy DLP: 1833.76 mGycm COMPARISON: None. FINDINGS: Aortic Arch: Normal size and branching pattern. No significant atherosclerotic plaque. Brachiocephalic and Subclavians: Unremarkable RIGHT Carotid: Right CCA: Unremarkable. Right ICA: Unremarkable. Right ECA: Unremarkable. LEFT Carotid: Left CCA: Unremarkable. Left ICA: Unremarkable. Left ECA: Unremarkable. Vertebrals: Codominant. Arise from the subclavians. Both vertebrals form the basilar. RIGHT Vertebral: Unremarkable. LEFT Vertebral: Unremarkable. Anatomy: [place] anatomy is normal. Aneurysm or avm: No intracranial aneurysms or large vascular malformations are identified. Anterior cerebral arteries: Unremarkable: Middle cerebral arteries: Unremarkable. Basilar artery: Unremarkable. Posterior cerebral arteries: Unremarkable. Other major branches of the posterior circulation: Unremarkable. Major venous structures: Unremarkable. Other findings: Neck: No lymphadenopathy. Lungs: Lung apices are clear. Bones: Bones are unremarkable. CT/STROKE CTA Head AND Neck W/Con IMPRESSION: No evidence of hemodynamically significant stenosis or aneurysm in the head and neck. Reading Location: [facility], [facility]
--- NOTE | 2025-03-27 06:36 | RAD_ITS ---
PROCEDURE: CHEST 1 VIEW 03/27/2025 REASON FOR EXAM: NEURO DEFICIT, ACUTE, STROKE SUSPECTED TECHNIQUE: Frontal view of the chest. COMPARISON: Chest x-ray 12/18/2022 FINDINGS: Hardware: Monitoring electrodes overlying chest. Heart: Heart size is mildly enlarged. Lungs: Bibasilar atelectasis. Mild pulmonary vascular congestion. Bones: Age-related degenerative changes. Other: RAD/Chest 1 View IMPRESSION: No acute cardiopulmonary abnormality. Reading Location: [id number]
--- NOTE | 2025-03-27 06:36 | CT_ITS ---
PROCEDURE: STROKE BRAIN/HEAD WITHOUT CONT 03/27/2025 REASON FOR EXAM: NEURO DEFICIT, ACUTE, STROKE SUSPECTED TECHNIQUE: Procedure Code: CTBR.ST Modality: CT Procedure: STROKE BRAIN/HEAD WITHOUT CONT Coronal and Sagittal reconstruction series were provided. One or more dose reduction techniques were used (e.g., Automated exposure control, adjustment of the mA and/or kV according to patient size, use of iterative reconstruction technique. RADIATION DOSE SUMMARY: CTDlvol: 44.99 mGy DLP: 880.47 mGycm COMPARISON: None. FINDINGS: Brain: Extensive low density in the deep cerebral white matter most likely represents advanced chronic small vessel ischemic disease. No acute territorial infarction. No acute intracranial hemorrhage. No mass-effect or midline shift. No ventriculomegaly. Atherosclerotic calcifications of the carotid siphons. CSF Spaces: Advanced generalized cerebral atrophy Sinuses/Mastoids: Clear at visualized levels Bones: No acute bony abnormalities. CT/STROKE Brain/Head without Cont IMPRESSION: No acute intracranial abnormalities. Reading Location: [id number]
--- NOTE | 2025-03-27 06:36 | EKG12_ITS ---
Test Reason : STROKE Blood Pressure : */* mmHG Vent. Rate : 47 BPM Atrial Rate : 47 BPM P-R Int : 180 ms QRS Dur : 90 ms QT Int : 434 ms P-R-T Axes : 36 -35 10 degrees QTcB Int : 384 ms Sinus bradycardia Left axis deviation Low voltage QRS Abnormal ECG Confirmed by ZAID KNUTSON, RUIZ ([id number]), editorial writer LISBET STRAUSS ([id number]) on 03/30/2025 8:08:49 AM Referred By: Confirmed By: RUIZ MAR MD
--- NOTE | 2025-03-27 06:37 | RAD_ITS ---
PROCEDURE: PELVIS 1 OR 2 VIEWS 03/27/2025 REASON FOR EXAM: FALL History of fall. TECHNIQUE: Procedure Code: RADPEL Modality: DX Procedure: PELVIS 1 OR 2 VIEWS COMPARISON: None FINDINGS: Contrast is seen within the bladder from recent CT scan. No fracture seen. The patient is status post laminectomy and fusion at the L4-L5 level with prosthetic disc. Multiple phleboliths are seen. Mild degree of osteoarthritis of both hip joints. RAD/Pelvis 1 or 2 Views IMPRESSION: No fracture seen. Reading Location: [place] [id number]
--- OUTSIDE RECORDS SUMMARY | 2025-03-27 06:38 | XMS RPT_ITS | CCD ---
Author Organization [facility] Care Team Providers Care Bank Compliance Officer Name Role Phone Kong Pollack Unavailable Unavailable Paula KNUTSON, Mary Lou Primary Care Provider Dr. Mary Lou Mitchell Primary Care Provider Dr. Maria E Garner Attending Provider Dr. Munir Vincent Referring Provider [phone] MD Trey Geiger Primary Care Provider [phone] MD Trey Geiger Referring Provider [phone] Dr. Silverio Doty Attending Provider Kong Pollack Unavailable Unavailable Mary Lou Mitchell MD Primary Care Provider [phone] Paula KNUTSON, Mary Lou Primary Care Provider [phone] Juanjo KNUTSON, Trey Primary Care Provider [phone] Juanjo KNUTSON, Trey Primary Care Provider [phone] Trey Geiger MD Attending Provider [phone] Juanjo KNUTSON, Trey Referring Provider [phone] Juanjo, Chalon Attending Unavailable Juanjo, Chalon Referring Unavailable Juanjo, Chalon Primary Care Unavailable Juanjo, Chalon Attending Unavailable Juanjo, Chalon Referring Unavailable Juanjo, Chalon Primary Care Unavailable Juanjo, Chalon Attending Unavailable Juanjo, Chalon Referring Unavailable Juanjo, Chalon Primary Care Unavailable Allergies Allergy Classification Reported Allergen(s) Allergy Type Date of Onset Reaction(s) Facility (20 sources) Vancomycin Drug Allergy 5 Rash, Swelling [facility] Comment on above: Patient received van comycin in Dr. Granados office. After several weeks of treatment, the patient experienced a red rash on back and chest. Leonard from Dr. Granados office called to report the reaction. (2 sources) Finasteride Drug Allergy 4 [facility] (2 sources) tamsulosin Drug Allergy 4 [facility] (1 source) Finasteride Drug Allergy 4 [facility] (1 source) tamsulosin Drug Allergy 4 [facility] (1 source) Vancomycin Drug Allergy 4 [facility] Medications Current Medications Medication Drug Class(es) Dates Sig (Normalized) Sig (Original) aspirin 81 mg delayed release oral tablet (8 sources) Platelet Aggregation Inhibitor, Nonsteroidal Anti-inflammatory Drug Start: 03-21-2023 take 1 tablet by mouth once daily Aspirin (Adult Aspirin Regimen) 81 mg tablet,delayed release (DR/EC) Active 81 mg PO DAILY March 21, 2023 12:00am Start: 12-18-2022 End: 12-21-2022 take 1 tablet by mouth once daily Aspirin 81 mg Tablet Discontinued 81 mg PO DAILY December 18, 2022 12:00am December 21, 2022 9:18am [facility] Blood-Glucose Meter misc (15 sources) Start: 02-03-2014 Blood-Glucose Meter misc As directed daily. Dx 250.00 1 Each 0 02/03/2014 Active Comment on above: As directed daily. D x 250.00 capsaicin 0.75 mg/ml topical cream (15 sources) Start: 01-25-2016 capsaicin (ZOSTRIX-HP) 0.075 % topical cream Apply 1 application to affected area twice daily. 01/25/2016 Active Comment on above: Apply 1 application to affected area twice daily. cholecalciferol 0.125 mg oral tablet (5 sources) Vitamin D Start: 12-18-2022 take 1 tablet by mouth once daily Cholecalciferol (Vitamin D3) (Vitamin D3) 125 mcg (5,000 unit) Tablet Active 125 ug PO DAILY December 18, 2022 12:00am SUPPLEMENT chondroitin sulfates 400 mg / glucosamine hydrochloride 500 mg / methylsulfonylmethane 83 mg oral tablet (5 sources) Start: 03-26-2014 take 1 tablet by mouth twice daily Glucosamine Blw-Dbn-Qszvklegde 1 EACH tablet Active 1500 mg PO TWICE A DAY March 26, 2014 12:00am SUPPLEMENT Start: 03-26-2014 take 1000 mg by mout h twice daily Glucosamine Fll-Jns-Cmpooitsai Active 1000 MG PO TWICE A DAY March 26, 2014 12:00am enalapril maleate 10 mg oral tablet (20 sources) Angiotensin Converting Enzyme Inhibitor Start: 03-21-2023 take 1 tablet by mouth every twenty-four hours Enalapril Maleate 10 mg tablet Active 10 mg PO Q24H March 21, 2023 12:00am Start: 12-18-2022 End: 01-11-2024 take 2 tablets by mouth once daily Enalapril Maleate 5 MG tablet Discontinued 10 mg PO DAILY December 18, 2022 11:45am January 11, 2024 4:53pm HTN Start: 12-18-2022 take 10 mg by mouth once daily Enalapril Maleate Active 10 MG PO DAILY December 18, 2022 11:45am Start: 06-10-2021 End: 04-24-2023 enalapril (VASOTEC) 10 mg ta blet Indications: Essential hypertension take 1 tablet every day 90 tablet 10 04/24/2023 Active Start: 04-01-2014 End: 12-18-2022 take 3 tablets by mouth once daily Enalapril Maleate 5 MG tablet Discontinued 15 mg PO DAILY April 01, 2014 12:00am December 18, 2022 11:45am Start: 04-01-2014 End: 12-18-2022 take 15 mg by mouth once daily Enalapril Maleate Disco ntinued 15 MG PO DAILY April 01, 2014 12:00am December 18, 2022 11:45am Start: 03-07-2014 End: 04-01-2014 take 1 tablet by mouth once daily Enalapril Maleate 10 MG tablet Discontinued 10 mg PO DAILY March 07, 2014 12:00am April 01, 2014 10:24am Comment on above: Take 1 tablet by ari th once daily. take 1 tablet every day gabapentin 600 mg oral tablet (20 sources) Anti-epileptic Agent Start: 12-25-2022 End: 12-25-2023 take 1 tablet by mouth five times daily gabapentin (NEURONTIN) 600 mg tablet Indications: Hereditary and idiopathic peripheral neuropathy Take 1 tablet by mouth five times daily. 450 tablet 3 12/25/2022 Active Start: 12-18-2022 End: 01-11-2024 take 2 capsules by mouth five times daily Gabapentin 300 MG capsule Discontinued 600 mg PO 5 TIMES DAILY December 18, 2022 11:45am January 11, 2024 4:53pm NERVE PAIN Start: 12-18-2022 take 600 mg by mouth five times daily Gabapentin Active 600 MG PO 5 TIMES DAILY December 18, 2022 11:45am Start: 05-16-2021 End: 01-15-2023 gabapentin (NEURONTIN) 600 m g tablet Indications: Hereditary and idiopathic peripheral neuropathy Take 5 times daily 450 tablet 3 01/20/2022 12/25/2022 Discontinued Start: 03-07-2014 End: 12-18-2022 take 2 capsules by mouth four times daily Gabapentin 300 MG capsule Discontinued 600 mg PO 4 TIMES DAILY 120 0 April 01, 2014 10:25am December 18, 2022 11:45am Start: 03-07-2014 End: 12-18-2022 take 600 mg by mouth four times daily Gabapentin Discontinued 600 MG PO 4 TIMES DAILY 120 April 01, 2014 10:25am December 18, 2022 11:45am Comment on above: Take 5 times daily Take 1 tablet by ari th five times daily. 12 hr orphenadrine citrate 100 mg extended release oral tablet (2 sources) Muscle Relaxant Start: take 1 tablet by mouth twice daily as needed for pain Orphenadrine Citrate 100 mg tablet extended release Active 100 mg PO TWICE A DAY as needed for back pain 10 5 0 November 22, 2023 5:58pm potassium 99 mg extended release oral tablet (10 sources) Start: 4 take 1 tablet by mouth once daily Potassium 99 MG tablet Active 99 mg PO DAILY March 27, 2014 12:00am SUPPLEMENT Start: 03-07-2014 End: 03-19-2014 take 1 tablet by mouth once daily Potassium 99 MG tablet Discontinued 99 mg PO DAILY March 07, 2014 12:00am March 19, 2014 10:00am potassium gluconate 2.5 meq oral tablet (15 sources) Start: 03-12-2009 POTASSIUM 99 M G TAB Take one(1) tablet daily. 0 03/12/2009 Active Comment on above: Take one(1) tablet d aily. pregabalin 150 mg oral capsule (7 sources) Start: 03-21-2023 take 2 capsules by mouth once daily Pregabalin 150 mg capsule Active 300 mg PO DAILY March 21, 2023 12:00am Start: 03-21-2023 take 300 mg by mouth once homer y Pregabalin Active 300 MG PO DAILY March 21, 2023 12:00am Start: 02-09-2023 pregabalin (LY MARYAM) 150 mg capsule 02/09/2023 Active sennosides, custodial 8.6 mg oral tablet (4 sources) take 1 tablet by mouth twice daily senna (ELSA-MALIA) 8.6 mg tab Take 8.6 mg by mouth twice daily. Active Comment on above: Take 8.6 mg by mouth twice daily. simvastatin 40 mg oral tablet (20 sources) HMG-CoA Reductase Inhibitor Start: 3 End: 3 simvastatin (ZOCOR) 40 mg tablet Indications: Mixed hyperlipidemia take 1 tablet at bedtime 90 tablet 10 04/24/2023 Active Start: 03-07-2014 End: 01-11-2024 Simvastatin 40 MG tablet Dis continued 20 mg PO AT BEDTIME March 07, 2014 12:00am January 11, 2024 4:53pm HLD Start: 03-07-2014 End: 10-13-2022 take 1 tablet by mouth once daily at bedtime simvastatin (ZOCOR) 40 mg tablet Indications: Mixed hyperlipidemia Take 1 tablet by mouth daily at bedtime. 90 tablet 1 10/16/2022 Active Comment on above: Take 1 tablet by ari th daily at bedtime. take 1 tablet at bed time Vitamin B Complex (3 sources) Start: 12-18-2022 take 2 capsules by mouth once daily Vitamin B Complex Active 2 CAP PO DAILY December 18, 2022 12:00am Vitamin B Complex Capsule (2 sources) Start: 12-18-2022 Vitamin B Complex Capsule Active 2 NMA PO DAILY December 18, 2022 12:00am SUPPLEMENT Start: 12-18-2022 Vitamin B Comp willie Capsule Active 2 NMA PO DAILY December 18, 2022 12:00am Completed/Discontinued Medications Medication Drug Class(es) Dates Sig (Normalized) Sig (Original) acetaminophen 325 mg / oxyCODONE hydrochloride 5 mg oral tablet (5 sources) Opioid Agonist Start: 03-07-2014 End: 04-01-2014 Oxycodone-Acetamino phen 1 TABLET tablet Discontinued 1 - 2 {tbl} PO EVERY 6 HOURS NEEDED as needed for Pain March 07, 2014 12:00am April 01, 2014 10:28am Start: 03-07-2014 End: 04-01-2014 take 1 tablet by mouth every six hours as needed Oxycodone-Acetaminophen Discontinued 1 - 2 TABLET PO EVERY 6 HOURS NEEDED March 07, 2014 12:00am April 01, 2014 10:28am COMPOUNDED PRESCRIPTION (20 sources) Start: 03-16-2017 End: 12-26-2022 COMPOUNDED PRESCRIPTION Ana [...] Standing INR monthly and prn Dx:453.40 License #[id number] 1 Each 99 12/08/2014 Active Comment on above: Standing INR monthly and prn Dx:453.40 License #[id number] Hba1c due in jun. Re: DIABETES MELLITUS 0.8 ml enoxaparin sodium 150 mg/ml prefilled syringe (5 sources) Low Molecular Weight Heparin Start: 03-26-2014 End: 04-01-2014 Enoxaparin 120 MG/0.8 ML syringe Discontinued 120 mg SC Q12@0600,1800 March 26, 2014 12:00am April 01, 2014 10:25am Multivitamins-Minera ls-Lutein (CENTRUM SILVER) ORAL Tab (11 sources) Start: 02-07-2007 End: 12-26-2022 take 1 tablet by mouth once daily Multivitamins-Mineral s-Lutein (CENTRUM SILVER) ORAL Tab Take one(1) tablet daily. 1 0 02/07/2007 12/26/2022 Discontinued Start: 02-07-2007 take 1 tablet by ari th once daily Dkccmgfkihpru-Wrihpmft-Pppqyy (CENTRUM SILVER) ORAL Tab Take one(1) tablet daily. 1 0 02/07/2007 Active Comment on above: Take one(1) tablet d aily. Problems Active Problems Problem Classification Problem Date Documented Da te Episodic/Chronic Abdominal pain (1 source) Abdominal pain; Translations: [Unspecified abdominal pain] 03-21-2023 Episodic Chronic ulcer of skin (2 sources) Non-pressure chronic ulcer of other part of right foot with fat layer exposed; Translations: [Non-pressure chronic ulcer of other part of right foot with fat layer exposed] 12-05-2023 Chronic Diabetes mellitus without complication (5 sources) Diabetes mellitus 03-08-2014 Chronic Disorders of lipid metabolism (20 sources) Mixed hyperlipidemia; Translations: [Mixed hyperlipidemia] Chronic Diverticulosis and diverticulitis (15 sources) Diverticulosis of colon; Translations: [Diverticulosis of large intestine without perforation or abscess without bleeding] 05-20-2015 Chronic Essential hypertension (20 sources) Essential hypertension; Translations: [Essential (primary) hypertension] Chronic Genitourinary symptoms and ill-defined conditions (19 sources) Nocturia; Translations: [Nocturia] Onset: 05-10-2010 05-10-2010 Episodic Immunizations and screening for infectious disease (1 source) Patient encounter status; Translations: [Encounter for immunization] Episodic Intestinal obstruction without hernia (3 sources) Fecal impaction; Translations: [Fecal impaction] 03-21-2023 Episodic Miscellaneous mental health disorders (1 source) Dream disorder; 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 or known physiological condition] Chronic Open wounds of extremities (1 source) Open wound of left elbow region; Translations: [Unspecified open wound of left elbow, initial encounter] Episodic Osteoarthritis (17 sources) Bilateral arthritis of knees; Translations: [Bilateral primary osteoarthritis of knee] Onset: 07-21-2014 07-21-2014 Chronic Other acquired deformities (1 source) Unspecified acquired deformity of unspecified lower leg; Translations: [Unspecified acquired deformity of unspecified lower leg] Onset: 03-16-2025 Episodic Other and unspecified benign neoplasm (15 sources) History of polyp of colon; Translations: [Personal history of colonic polyps] 05-20-2015 Episodic Other circulatory disease (2 sources) Peripheral vascular disease; Translations: [Other specified peripheral vascular diseases] 12-05-2023 Chronic Other congenital anomalies (15 sources) Congenital pes planus; Translations: [Congenital pes planus, unspecified foot] Onset: 01-18-2011 01-18-2011 Chronic Other connective tissue disease (1 source) History of lumbar fusion; Translations: [Arthrodesis status] Episodic Other gastrointestinal disorders (4 sources) Constipation; Translations: [Constipation, unspecified] Episodic Other gastrointestinal disorders (1 source) Acute constipation; Translations: [Constipation, unspecified] 03-21-2023 Episodic Other nervous system disorders (18 sources) Disorder of the peripheral nervous system; Translations: [Hereditary and idiopathic neuropathy, unspecified] Chronic Other nutritional; endocrine; and metabolic disorders (15 sources) Metabolic syndrome X; Translations: [Metabolic syndrome] Onset: 05-10-2010 Chronic Residual codes; unclassified (5 sources) Obstructive sleep apnea syndrome 03-08-2014 Chronic Spondylosis; intervertebral disc disorders; other back problems (2 sources) Lumbar radiculopathy; Translations: [Radiculopathy, lumbar region] 12-05-2023 Episodic Sprains and strains (17 sources) Sprain of foot; Translations: [Unspecified sprain of unspecified foot, initial encounter] Onset: 01-18-2011 01-18-2011 Episodic Unclassified (8 sources) Lumbar stenosis 03-08-2014 Unclassified (5 sources) Polyarticular osteoarthritis 03-08-2014 Past or Other Problems Problem Classification Problem Date Documented Da te Episodic/Chronic Diabetes mellitus with complications (12 sources) Type 2 diabetes mellitus; Translations: [Type 2 diabetes mellitus with other specified complication] Onset: 01-20-2014 Resolved: 12-26-2022 11-27-2022 Chronic Diabetes mellitus without complication (6 sources) Prediabetes; Translations: [Prediabetes] Onset: 06-05-2008 Resolved: 02-12-2014 Episodic Fluid and electrolyte disorders (1 source) Hyperkalemia; Translations: [Hyperkalemia] Onset: 12-07-2024 Episodic Other acquired deformities (1 source) Unspecified acquired deformity of left lower leg; Translations: [Unspecified acquired deformity of left lower leg] Onset: 08-21-2024 Episodic Other connective tissue disease (15 sources) Enthesopathy of ankle AND/OR tarsus; Translations: [Other enthesopathy of unspecified foot and ankle] Onset: 01-18-2011 01-18-2011 Episodic Other connective tissue disease (12 sources) Synovial cyst of knee; Translations: [Synovial cyst of popliteal space [Bond], unspecified knee] Onset: 02-19-2014 02-19-2014 Episodic Other connective tissue disease (3 sources) Synovial cyst of popliteal space [Bond], unspecified knee; Translations: [Synovial cyst of popliteal space] Onset: 02-19-2014 02-19-2014 Episodic Other lower respiratory disease (3 sources) Cough; Translations: [Cough] Onset: 03-04-2014 Resolved: 01-25-2016 01-25-2016 Episodic Other non-epithelial cancer of skin (15 sources) Basal cell carcinoma of skin; Translations: [Basal cell carcinoma of skin, unspecified] Onset: 03-17-2008 07-04-2021 Episodic Other non-traumatic joint disorders (15 sources) Swelling of knee joint; Translations: [Effusion, left knee] Onset: 07-21-2014 07-21-2014 Episodic Other non-traumatic joint disorders (15 sources) Pain in left knee; Translations: [Pain in joint, lower leg] Onset: 07-21-2014 07-21-2014 Episodic Other upper respiratory disease (3 sources) Other diseases of pharynx; Translations: [Other diseases of pharynx, not elsewhere classified] Onset: 03-10-2008 Resolved: 01-25-2016 01-25-2016 Episodic Phlebitis; thrombophlebitis and thromboembolism (15 sources) Thromboembolism of vein; Translations: [Acute embolism and thrombosis of unspecified deep veins of unspecified lower extremity] Onset: 04-27-2014 03-16-2017 Episodic Results Test Name Value Interpretation Reference Range Facility Foot min 3 Viewson 5 Foot min 3 Views [facility] Imaging Services [address], [place] [address] Foot min 3 Views MR#: [id number] Acct: [id number] Name: REGINA GORDON Rep #: [id number] : 1940 M 84 From: George Voss MD PCP: Dr. Trey Geiger MD Status: REG CLI Study: Foot min 3 Views Date of Exam: 02/26/25 Exam# [id number] Ordering Dr: Trey Geiger MD PROCEDURE: FOOT MIN 3 VIEWS 02/26/2025 REASON FOR EXAM: FOOT DEFORMITY TECHNIQUE: FOOT MIN 3 VIEWS Laterality: COMPARISON: 12/14/2023. FINDINGS: No evidence of acute fracture or dislocation. Mild degenerative changes throughout the foot. Tiny calcaneal enthesophyte. No ankle joint effusion. No acute soft tissue abnormalities. Osseous demineralization. RAD/Foot min 3 Views IMPRESSION: No acute osseous abnormalities. Osteoarthrosis. Osseous demineralization. Reading Location: [facility] CC: Dr. Trey Geiger MD Cartridge Belt Puncher: Signed Normal [facility] Foot min 3 Views [facility] Imaging Services [address] [place] [address] Foot min 3 Views MR#: [id number] Acct: [id number] Name: REGINA GORDON Rep #: [id number] : 1940 M 84 From: George Voss MD PCP: Dr. Trey Geiger MD Status: REG CLI Study: Foot min 3 Views Date of Exam: 02/26/25 Exam# [id number] Ordering Dr: Trey Geiger MD PROCEDURE: FOOT MIN 3 VIEWS 02/26/2025 REASON FOR EXAM: FOOT DEFORMITY TECHNIQUE: FOOT MIN 3 VIEWS Laterality: COMPARISON: 04/25/2024. FINDINGS: No evidence acute fracture or dislocation. Mild degenerative changes throughout the foot. No acute soft tissue abnormalities. Osseous demineralization. RAD/Foot min 3 Views IMPRESSION: No acute osseous abnormalities. Osteoarthrosis. Osseous demineralization. Reading Location: [facility] CC: Dr. Trey Geiger MD Cartridge Belt Puncher: Signed Normal [facility] Lumbar Spine 2 or 3 Viewson 02-26-2025 Lumbar Spine 2 or 3 Views [facility] Imaging Services [address] [place] [address] Lumbar Spine 2 or 3 Views MR#: [id number] Acct: [id number] Name: REGINA GORDON Rep #: [id number] : 1940 M 84 From: George Voss MD PCP: Dr. Trey Geiger MD Status: REG CLI Study: Lumbar Spine 2 or 3 Views Date of Exam: Exam# [id number] Ordering Dr: Trey Geiger MD PROCEDURE: LUMBAR SPINE 2 OR 3 VIEWS 02/26/2025 REASON FOR EXAM: LOW BACK PAIN TECHNIQUE: LUMBAR SPINE 2 OR 3 VIEWS FINDINGS: No evidence of acute fracture or dislocation. L5-S1 posterior fusion. Grade 1 anterolisthesis of L3 on L4 on L4 on L5. Moderate degenerative changes of the non fused levels. IVC filter. RAD/Lumbar Spine 2 or 3 Views IMPRESSION: L5-S1 fusion. Spondylosis. Spondylolisthesis. Reading Location: [facility] CC: Dr. Trey Geiger MD Cartridge Belt Puncher: Signed Normal [facility] Absolute lymphocyte countOrd ered By: Trey Geiger on 12-02-2024 Lymphocytes Auto (Unsp spec) [#/Vol] 2.05 10*3/uL 0.83-4.51 [facility] Absolute neutrophil countOrd ered By: Trey Geiger on 12-02-2024 Neutrophils (Bld) [#/Vol] 5.8 10*3/uL 2.0-7.7 [facility] Anion gap in Serum or Plasma Ordered By: Trey Geiger on 12-02-2024 Anion gap [Moles/Vol] 10 mmol/L 5-15 [facility] Automated lymphocyte count a s percentage of total leukocytesOrdered By: Trey Geiger on 12-02-2024 Lymphocytes/100 WBC Auto (Unsp spec) 23.1 % 19-41 [facility] BUN/creatinine ratioOrdered By: Trey Geiger on 12-02-2024 Urea nitrogen/Creatinine [Mass ratio] 13.6 mg/mg 10-20 [facility] Basophil percentageOrdered B y: Trey Geiger on 12-02-2024 Basophils/100 WBC (Bld) 0.7 % 0-1 [facility] Bilirubin, totalOrdered By: Trey Geiger on 12-02-2024 Bilirubin [Mass/Vol] 0.29 mg/dL 0.00-1.30 [facility] CBC W/Diff, Automatedon 05-2 Absolute Lymph 2.05 X10 3/uL Normal 0.83-4.51 [facility] Comment on above: Performed By: #### L 506.1001, L501.9910, L100.0100, L501.9520, L500.4050, L501.9985 #### [facility] [address] [place], [address] Absolute Neut 5.8 X10 3/uL Normal 2.0-7.7 [facility] Comment on above: Performed By: #### L 506.1001, L501.9910, L100.0100, L501.9520, L500.4050, L501.9985 #### [facility] [address] [place], [address] Basophils/100 WBC (Bld) 0.7 % Normal 0-1 [facility] Comment on above: Performed By: #### L 506.1001, L501.9910, L100.0100, L501.9520, L500.4050, L501.9985 #### [facility] [address] [place], [address] Eosinophils/100 WBC (Bld) 1.0 % Normal 0-5 [facility] Comment on above: Performed By: #### L 506.1001, L501.9910, L100.0100, L501.9520, L500.4050, L501.9985 #### [facility] [address] [place], [address] Erythrocyte distribution width (RBC) [Ratio] 13.9 % Normal 11.6-14.6 [facility] Comment on above: Performed By: #### L 506.1001, L501.9910, L100.0100, L501.9520, L500.4050, L501.9985 #### [facility] [address] [place], [address] Hematocrit (Bld) [Volume fraction] 40.2 % Normal 40-54 [facility] Comment on above: Performed By: #### L 506.1001, L501.9910, L100.0100, L501.9520, L500.4050, L501.9985 #### [facility] [address] [place], [address] Hemoglobin (Bld) [Mass/Vol] 13.0 g/dL Normal 13.0-16.5 [facility] Comment on above: Performed By: #### L 506.1001, L501.9910, L100.0100, L501.9520, L500.4050, L501.9985 #### [facility] [address] [facility] [place], [address] IG% 0.300 Normal 0.0-0.9 [facility] Comment on above: Result Comment: IG% - Immature Granulocytes (promyelocytes, myelocytes and metamyelocytes) > 1% indicates that a LEFT SHIFT is Present. Performed By: #### L 506.1001, L501.9910, L100.0100, L501.9520, L500.4050, L501.9985 #### [facility] [address] [place], [address] Lymphocytes/100 WBC (Bld) 23.1 % Normal 19-41 [facility] Comment on above: Performed By: #### L 506.1001, L501.9910, L100.0100, L501.9520, L500.4050, L501.9985 #### [facility] [address] [place], [address] MCH (RBC) [Entitic mass] 31.4 pg Normal 27.0-32.0 [facility] Comment on above: Performed By: #### L 506.1001, L501.9910, L100.0100, L501.9520, L500.4050, L501.9985 #### [facility] [address] [place], [address] MCHC (RBC) [Mass/Vol] 32.3 g/dL Normal 32-36 [facility] Comment on above: Performed By: #### L 506.1001, L501.9910, L100.0100, L501.9520, L500.4050, L501.9985 #### [facility] [address] [place], [address] MCV (RBC) [Entitic vol] 97.1 fL High 80-94 [facility] Comment on above: Performed By: #### L 506.1001, L501.9910, L100.0100, L501.9520, L500.4050, L501.9985 #### [facility] [address] [place], [address] Monocytes/100 WBC (Bld) 9.6 % Normal 0-10 [facility] Comment on above: Performed By: #### L 506.1001, L501.9910, L100.0100, L501.9520, L500.4050, L501.9985 #### [facility] [address] [place], [address] Neutrophils/100 WBC (Bld) 65.3 % Normal 47-70 [facility] Comment on above: Performed By: #### L 506.1001, L501.9910, L100.0100, L501.9520, L500.4050, L501.9985 #### [facility] [address] [place], [address] Nucleated RBC (Bld) [#/Vol] 0 10*3/uL Normal 0-5 [facility] Comment on above: Performed By: #### L 506.1001, L501.9910, L100.0100, L501.9520, L500.4050, L501.9985 #### [facility] [facility] [address] [place], [address] Platelet mean volume (Bld) [Entitic vol] 10.0 fL Normal 6.2-12.0 [facility] Comment on above: Performed By: #### L 506.1001, L501.9910, L100.0100, L501.9520, L500.4050, L501.9985 #### [facility] [address] [place], [address] Platelets (Bld) [#/Vol] 244 10*3/uL Normal 150-450 [facility] Comment on above: Performed By: #### L 506.1001, L501.9910, L100.0100, L501.9520, L500.4050, L501.9985 #### [facility] [address] [place], [address] RBC (Bld) [#/Vol] 4.14 10*6/uL Low 4.6-6.2 [facility] Comment on above: Performed By: #### L 506.1001, L501.9910, L100.0100, L501.9520, L500.4050, L501.9985 #### [facility] [address] [place], [address] RDW SD 49.9 fl High 35.1-43.9 [facility] Comment on above: Performed By: #### L 506.1001, L501.9910, L100.0100, L501.9520, L500.4050, L501.9985 #### [facility] [address] [place], [address] WBC (Bld) [#/Vol] 8.9 10*3/uL Normal 4.4-11.[address] [facility] Comment on above: Performed By: #### L 506.1001, L501.9910, L100.0100, L501.9520, L500.4050, L501.9985 #### [facility] [address] [place], [address] Carbon dioxide, total [Moles /volume] in Central venous bloodOrdered By: Trey Geiger on 12-02-2024 CO2 [Moles/Vol] 24.2 mmol/L 21.0-32.0 [facility] Chloride assayOrdered By: Thea Geiger on 12-02-2024 Chloride [Moles/Vol] 104 mmol/L 98-108 [facility] Comprehensive Metabolic Prof ilon 12-02-2024 Albumin [Mass/Vol] 3.8 g/dL Normal 3.4-4.[address] [facility] Comment on above: Performed By: #### L 506.1001, L501.9910, L100.0100, L501.9520, L500.4050, L501.9985 #### [facility] [address] [place], [address] Albumin/Globulin [Mass ratio] 1.6 {ratio} Normal 0.9-2.4 [facility] Comment on above: Performed By: #### L 506.1001, L501.9910, L100.0100, L501.9520, L500.4050, L501.9985 #### [facility] [address] [place], [address] ALK PHOS 83 U/L Normal 40-129 [facility] Comment on above: Performed By: #### L 506.1001, L501.9910, L100.0100, L501.9520, L500.4050, L501.9985 #### [facility] [address] [place], [address] ALT [Catalytic activity/Vol] 18 U/L Normal <=46 [facility] Comment on above: Performed By: #### L 506.1001, L501.9910, L100.0100, L501.9520, L500.4050, L501.9985 #### [facility] [address] [place], [address] AST [Catalytic activity/Vol] 25 U/L Normal <=37 [facility] Comment on above: Performed By: #### L 506.1001, L501.9910, L100.0100, L501.9520, L500.4050, L501.9985 #### [facility] [address] [place], [address] Bilirubin [Mass/Vol] 0.29 mg/dL Normal 0.00-1.30 [facility] Comment on above: Performed By: #### L 506.1001, L501.9910, L100.0100, L501.9520, L500.4050, L501.9985 #### [facility] [address] [place], [address] BUN/CRE 13.6 RATIO Normal 10-20 [facility] Comment on above: Performed By: #### L 506.1001, L501.9910, L100.0100, L501.9520, L500.4050, L501.9985 #### [facility] [address] [place], [address] Calcium [Mass/Vol] 9.4 mg/dL Normal 7.6-11.[address] [facility] Comment on above: Performed By: #### L 506.1001, L501.9910, L100.0100, L501.9520, L500.4050, L501.9985 #### [facility] [address] [place], [address] Chloride [Moles/Vol] 104 mmol/L Normal 98-108 [facility] Comment on above: Performed By: #### L 506.1001, L501.9910, L100.0100, L501.9520, L500.4050, L501.9985 #### [facility] [address] [place], [address] CO2 [Moles/Vol] 24.2 mmol/L Normal 21.0-32.0 [facility] Comment on above: Performed By: #### L 506.1001, L501.9910, L100.0100, L501.9520, L500.4050, L501.9985 #### [facility] [address] [place], [address] Creatinine [Mass/Vol] 0.97 mg/dL Normal 0.70-1.20 [facility] Comment on above: Performed By: #### L 506.1001, L501.9910, L100.0100, L501.9520, L500.4050, L501.9985 #### [facility] [address] [place], [address] GAP 10 Normal 5-15 [facility] Comment on above: Performed By: #### L 506.1001, L501.9910, L100.0100, L501.9520, L500.4050, L501.9985 #### [facility] [address] [place], [address] GFR/1.73 sq M.predicted among non-blacks MDRD (S/P/Bld) [Vol rate/Area] 76 mL/min/{1.73_m2} Normal >60 [facility] Comment on above: Result Comment: mL/m in/1.73m2 CKD-EPI Creatinine Equation (2020) Performed By: #### L 506.1001, L501.9910, L100.0100, L501.9520, L500.4050, L501.9985 #### [facility] [address] [place], [address] Globulin (S) [Mass/Vol] 2.3 g/dL Normal 2.2-4.2 [facility] Comment on above: Performed By: #### L 506.1001, L501.9910, L100.0100, L501.9520, L500.4050, L501.9985 #### [facility] [address] [place], [address] Glucose [Mass/Vol] 126 mg/dL High 70-[address] [facility] Comment on above: Performed By: #### L 506.1001, L501.9910, L100.0100, L501.9520, L500.4050, L501.9985 #### [facility] [address] [place], [address] Potassium [Moles/Vol] 5.0 mmol/L Normal 3.3-5.1 [facility] Comment on above: Performed By: #### L 506.1001, L501.9910, L100.0100, L501.9520, L500.4050, L501.9985 #### [facility] [address] [place], [address] Sodium [Moles/Vol] 138 mmol/L Normal 133-[address] [facility] Comment on above: Performed By: #### L 506.1001, L501.9910, L100.0100, L501.9520, L500.4050, L501.9985 #### [facility] [address] [place], [address] T PROT 6.0 g/dL Normal 5.9-8.4 [facility] Comment on above: Performed By: #### L 506.1001, L501.9910, L100.0100, L501.9520, L500.4050, L501.9985 #### [facility] [address] [place], [address] Urea nitrogen [Mass/Vol] 13 mg/dL Normal 4-19 [facility] Comment on above: Performed By: #### L 506.1001, L501.9910, L100.0100, L501.9520, L500.4050, L501.9985 #### [facility] [address] [place], [address] Eosinophil percentageOrdered By: Trey Geiger on 12-02-2024 Eosinophils/100 WBC (Bld) 1.0 % 0-5 [facility] Erythrocyte distribution wid th ratioOrdered By: [facility] on [facility]-2024 Erythrocyte distribution width (RBC) [Ratio] 13.9 % 11.6-14.6 [facility] Erythrocyte distribution wid th standard deviationOrdered By: [facility] on 12-02-2024 Erythrocyte distribution width (RBC) [Ratio] 49.9 fl High 35.1-43.9 [facility] Glomerular filtration rate ( GFR) estimation/1.73 sq m using serum, plasma, or whole bOrdered By: [facility] on 12-02-2024 GFR/1.73 sq M.predicted among non-blacks MDRD (S/P/Bld) [Vol rate/Area] 76 mL/min/{1.73_m2} >60 [facility] Comment on above: mL/min/1.73m2 CKD-EP I Creatinine Equation (2020) Hematocrit Auto (Bld) [Volum e fraction]Ordered By: [facility] on 12-02-2024 Hematocrit (Bld) [Volume fraction] 40.2 % 40-54 [facility] Hemoglobin A1con 12-02-2024 HbA1c (Bld) [Mass fraction] 6.2 % High <=5.6 [facility] Comment on above: Result Comment: Norm al < 5.7 % Prediabetic 5.7 - 6.4 % Diabetic >or= 6.5 % Please note range changes. Performed By: #### L 506.1001, L501.9910, L100.0100, L501.9520, L500.4050, L501.9985 #### [facility] [address] [place], [place], [address] Hemoglobin A1c percentageOrd ered By: Trey Geiger on 12-02-2024 HbA1c (Bld) [Mass fraction] 6.2 % High <5.7 [facility] Comment on above: Normal < 5.7 % Predi abetic 5.7 - 6.4 % Diabetic >or= 6.5 % Please note range changes. Hemoglobin measurementOrdere d By: Trey Geiger on 12-02-2024 Hemoglobin (Bld) [Mass/Vol] 13.0 g/dL 13.0-16.5 [facility] Immature granulocytes/100 WB C Auto (Bld)Ordered By: Trey Geiger on 12-02-2024 Immature granulocytes/100 WBC (Bld) 0.300 % 0.0-0.9 [facility] Comment on above: IG% - Immature Granu locytes (promyelocytes, myelocytes and metamyelocytes) > 1% indicates that a LEFT SHIFT is Present. Laboratory - Chemistry and C hemistry - challengeOrdered By: Trey Geiger on 12-02-2024 AST [Catalytic activity/Vol] 25 U/L <38 [facility] MCV (mean corpuscular volume ) determinationOrdered By: Trey Geiger on 12-02-2024 MCV (RBC) [Entitic vol] 97.1 fL High 80-94 [facility] Mean corpuscular hemoglobin (MCH) determinationOrdered By: Trey Geiger on 12-02-2024 MCH (RBC) [Entitic mass] 31.4 pg 27.0-32.0 [facility] Mean corpuscular hemoglobin concentration (MCHC) determinationOrdered By: Trey Geiger on 12-02-2024 MCHC (RBC) [Mass/Vol] 32.3 g/dL 32-36 [facility] Mean platelet volume determi nationOrdered By: Trey Geiger on 12-02-2024 Platelet mean volume (Bld) [Entitic vol] 10.0 fL 6.2-12.0 [facility] Monocyte percentageOrdered B y: Trey Geiger on 12-02-2024 Monocytes/100 WBC (Bld) 9.6 % 0-10 [facility] Neutrophil percentageOrdered By: Trey Geiger on 12-02-2024 Neutrophils/100 WBC (Bld) 65.3 % 47-70 [facility] Nucleated red blood cell per centageOrdered By: Trey Geiger on 12-02-2024 Nucleated RBC/100 WBC (Bld) [Ratio] 0 % 0-5 [facility] PSA,Total - Annual Screenon 12-02-2024 PSA,TOT SCREEN 2.47 ng/mL Normal 0.02-4.00 [facility] Comment on above: Result Comment: This test was performed using the [employer] tPSA method. Measured values of a patient??sample can vary depending on the testing procedure used. PSA values determined on patient samples by different testing procedures cannot be used interchangeably. If there is a change in PSA assays while monitoring therapy, sequential testing should be performed to confirm baseline values. Performed By: #### L 506.1001, L501.9910, L100.0100, L501.9520, L500.4050, L501.9985 #### [facility] [address] [place], [address] Platelet countOrdered By: Thea Geiger on 12-02-2024 Platelets (Bld) [#/Vol] 244 10*3/uL 150-450 [facility] Potassium measurement (mass/ volume)Ordered By: Trey Geiger on 12-02-2024 Potassium (Unsp spec) [Mass/Vol] 5.0 mmol/L 3.3-5.1 [facility] RBC Auto (Bld) [#/Vol]Ordere d By: Trey Geiger on 12-02-2024 RBC (Bld) [#/Vol] 4.14 10*6/uL Low 4.6-6.2 [facility] Serum creatinine measurement (mass/volume)Ordered By: Trey Geiger on 12-02-2024 Creatinine [Mass/Vol] 0.97 mg/dL 0.70-1.20 [facility] Serum globulin measurementOr dered By: Trey Geiger on 12-02-2024 Globulin (S) [Mass/Vol] 2.3 g/dL 2.2-4.2 [facility] Serum glucose measurement (m ass/volume)Ordered By: Trey Geiger on 12-02-2024 Glucose [Mass/Vol] 126 mg/dL High 70-[address] [facility] Serum or plasma alanine bae otransferase (ALT) measurementOrdered By: Trey Geiger on 12-02-2024 ALT [Catalytic activity/Vol] 18 U/L <47 [facility] Serum or plasma albumin rafy urement (mass/volume)Ordered By: Trey Geiger on 12-02-2024 Albumin [Mass/Vol] 3.8 g/dL 3.4-4.[address] [facility] Serum or plasma albumin/glob ulin mass ratioOrdered By: Trey Geiger on 12-02-2024 Albumin/Globulin [Mass ratio] 1.6 {ratio} 0.9-2.4 [facility] Serum or plasma alkaline angela sphatase measurementOrdered By: Trey Geiger on 12-02-2024 ALP [Catalytic activity/Vol] 83 U/L 40-129 [facility] Serum or plasma calcium rafy urement (mass/volume)Ordered By: Trey Geiger on 12-02-2024 Calcium [Mass/Vol] 9.4 mg/dL 7.6-11.[address] [facility] Serum or plasma urea nitroge n measurement (mass/volume)Ordered By: Trey Geiger on 12-02-2024 Urea nitrogen [Mass/Vol] 13 mg/dL 4-19 [facility] Sodium levelOrdered By: Ion Geiger on 12-02-2024 Sodium [Moles/Vol] 138 mmol/L 133-[address] [facility] TSH DL <= 0.005 mIU/L QnOrde red By: Trey Geiger on 12-02-2024 TSH Qn 1.570 uIU/mL 0.300-4.200 [facility] Thyroid Stim Hormone (TSH)on 12-02-2024 TSH 1.570 uIU/mL Normal 0.300-4.200 [facility] Comment on above: Performed By: #### L 506.1001, L501.9910, L100.0100, L501.9520, L500.4050, L501.9985 #### [facility] [place], [address] Total proteinOrdered By: Anabell Geiger on 12-02-2024 Protein [Mass/Vol] 6.0 g/dL 5.9-8.[address] [facility] Vitamin D,25 Hydroxyon 12-02 Vitamin D 25-OH 59.2 ng/mL Normal 30-100 [facility] Comment on above: Result Comment: Karlene min D Status Deficiency: <20 ng/mL (50nmol/L) Insufficiency: 20-30 ng/mL (50-75 nmol/L) Sufficiency: 30-100 ng/mL (75-250 nmol/L) Toxicity: >100 ng/mL (>250 nmol/L) Performed By: #### L 506.1001, L501.9910, L100.0100, L501.9520, L500.4050, L501.9985 #### [facility] [address] [place], [place], [address] White blood cell (WBC) count Ordered By: Trey Geiger on 12-02-2024 WBC (Bld) [#/Vol] 8.9 10*3/uL 4.4-11.[address] [facility] Foot min 3 Viewson 4 Foot min 3 Views [facility] Imaging Services [address] [place], [place] [address] Foot min 3 Views MR#: [id number] Acct: [id number] Name: REGINA GORDON Rep #: [id number] : [id number] M [id number] From: George Locke MD PCP: Dr. Trey Geiger MD Status: REG CLI Study: Foot min 3 Views Date of Exam: 04/25/24 Exam# [id number] Ordering Dr: Trey Geiger MD [id number] INDICATION: DEFORMITY, PAIN EXAMINATION/TECHNIQUE: X-RAY - LEFT XR Foot Min 3 Views COMPARISON: Right foot radiograph on same day FINDINGS: SOFT TISSUES: No soft tissue swelling or gas. No radiopaque foreign body. BONES/JOINTS: No acute fracture.. No dislocation. 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 No erosions or aggressive osseous lesion. Mild osteopenia. RAD/Foot min 3 Views IMPRESSION: No evidence of acute injury. Mild diffuse forefoot osteoarthritis. Osteopenia. Electronically Signed: George Locke MD at 10:29 EDT , CC: Dr. Trey Geiger MD Cartridge Belt Puncher: Signed Normal [facility] Foot min 3 Views [facility] Imaging Services [address] [place] [address] Foot min 3 Views MR#: [id number] Acct: [id number] Name: REGINA GORDON Rep #: [id number] : 1940 M 83 From: George Locke MD PCP: Dr. Trey Geiger MD Status: REG CLI Study: Foot min 3 Views Date of Exam: 04/25/24 Exam# [id number] Ordering Dr: Trey Geiger MD ADDENDUM by Dr. George Locke MD on 04/26/24 at 1032 ====== ADDENDUM ====== [id number] Corrected report: INDICATION: DEFORMITY, PAIN EXAMINATION/TECHNIQUE: X-RAY - RIGHT XR Foot Min 3 Views COMPARISON: Left foot radiograph on same day.] Right foot radiograph December 14, 2023 FINDINGS: SOFT TISSUES: No soft tissue swelling or subcutaneous emphysema. No radiopaque foreign body. BONES/JOINTS: New plantar lateral subluxation of the first distal phalanx relative to the MIDDLE phalanx with increased lateral angulation compared to prior exam. Small osseous fragment at the MEDIAL first distal phalanx base on AP view suggests corner fracture. Hammertoe configuration of the second through fourth digits. Mild first metatarsophalangeal joint and scattered interphalangeal joint degenerative change. No aggressive osseous lesion. Mild osteopenia. 04/26/24 1032 Date cc: Dr. Trey Geiger MD * Signed ADDENDUM by Dr. George Locke MD on 04/26/24 at 1032 RAD/Foot min 3 Views IMPRESSION: Findings concerning for fracture of the MEDIAL first distal phalanx base with exaggerated lateral and plantar subluxation Hammertoe configuration of the second through fourth digits with mild degenerative change. Osteopenia. Electronically Signed: George Locke MD at 10:32 EDT , 04/26/24 1039 Date cc: Dr. Trey Geiger MD * Signed [id number] INDICATION: DEFORMITY, PAIN EXAMINATION/TECHNIQUE: X-RAY - RIGHT XR Foot Min 3 Views 6 VIEWS COMPARISON: Left foot radiograph on same day.] Right foot radiograph December 14, 2023 FINDINGS: SOFT TISSUES: No soft tissue swelling or subcutaneous emphysema. No radiopaque foreign body. BONES/JOINTS: New plantar lateral subluxation of the first distal phalanx relative to the medial phalanx with increased lateral angulation compared to prior exam. Small osseous fragment at the lateral first distal phalanx base on AP view suggests corner fracture. Hammertoe configuration of the second through fourth digits. Mild first metatarsophalangeal joint and scattered interphalangeal joint degenerative change. No aggressive osseous lesion... Mild osteopenia. RAD/Foot min 3 Views IMPRESSION: Findings concerning for fracture of the lateral first distal phalanx base with exaggerated lateral and plantar subluxation Hammertoe configuration of the second through fourth digits with mild degenerative change. Osteopenia. Electronically Signed: George Locke MD at 10:26 EDT , CC: Dr. Trey Geiger MD Cartridge Belt Puncher: Signed Normal [facility] Absolute lymphocyte countOrd ered By: Donell Belen on 03-21-2023 Lymphocytes Auto (Unsp spec) [#/Vol] 1.54 10*3/uL 0.83-4.51 [facility] Basophil percentageOrdered B y: Donell Belen on 03-21-2023 Basophil percentage 0 SEEN /hpf 0-5 [facility] Basophils/100 WBC (Bld) 0.2 % 0-1 [facility] Bilirubin [Mass/Vol] 0.50 mg/dL 0.20-1.00 [facility] Comment on above: For patients on eltr ombopag therapy, use of Dimension [place] TBIL is not recommended. Chloride [Moles/Vol] 107 mmol/L 98-107 [facility] Eosinophils/100 WBC (Bld) 0.5 % 0-5 [facility] Glucose [Mass/Vol] 157 mg/dL 74-[address] [facility] Comment on above: Fasting Glucose resu lt greater than or equal to 126 mg/dL suggests DIABETES MELLITUS per A.D.A. criteria. Neutrophils (Bld) [#/Vol] 8.6 10*3/uL 2.0-7.7 [facility] Neutrophils/100 WBC (Bld) 75.8 % 47-70 [facility] Potassium [Moles/Vol] 4.6 mmol/L 3.5-5.1 [facility] Protein [Mass/Vol] 6.8 g/dL 6.4-8.[address] [facility] Sodium [Moles/Vol] 138 mmol/L 136-[address] [facility] WBC (Bld) [#/Vol] 11.3 10*3/uL 4.4-11.0 [facility] Bilirubin Test strip Ql (U)O rdered By: Donell Glover on 03-21-2023 Bilirubin Ql (U) Negative Negative [facility] Blood erythrocytes count (nu mber/volume)Ordered By: Donell Glover on 03-21-2023 RBC (Bld) [#/Vol] 4.42 10*6/uL 4.6-6.2 [facility] Blood hemoglobin measurement (mass/volume)Ordered By: Donell Glover on 03-21-2023 Hemoglobin (Bld) [Mass/Vol] 13.5 g/dL 13.0-16.5 [facility] Blood lymphocytes/100 leukoc ytesOrdered By: Donell Glover on 03-21-2023 Lymphocytes/100 WBC (Bld) 13.6 % 19-41 [facility] Blood monocytes/100 leukocyt esOrdered By: Donell Glover on 03-21-2023 Monocytes/100 WBC (Bld) 9.3 % 0-10 [facility] Blood platelet mean volumeOr dered By: Donell Glover on 03-21-2023 Platelet mean volume (Bld) [Entitic vol] 9.8 fL 6.2-12.0 [facility] Determination of erythrocyte mean corpuscular volume (MCV)Ordered By: Donell Glover on 03-21-2023 MCV (RBC) [Entitic vol] 95.2 fL 80-94 [facility] Hematocrit Auto (Bld) [Volum e fraction]Ordered By: Donell Glover on 03-21-2023 Hematocrit (Bld) [Volume fraction] 42.1 % 40-54 [facility] Ketones Test strip Ql (U)Ord ered By: Donell Glover on 03-21-2023 Ketones Ql (U) 15 mg/dl Negative [facility] Laboratory - Chemistry and C hemistry - challengeOrdered By: Donell Glover on 03-21-2023 ALP [Catalytic activity/Vol] 86 U/L 45-117 [facility] ALT [Catalytic activity/Vol] 33 U/L 16-61 [facility] CO2 [Moles/Vol] 28.0 mmol/L 21.0-32.0 [facility] Globulin (S) [Mass/Vol] 3.6 g/dL 2.2-4.2 [facility] Urea nitrogen/Creatinine [Mass ratio] 17.8 mg/mg 10-20 [facility] - Hematology and Cell countsOrdered By: Donell Glover on 03-21-2023 Erythrocyte distribution width (RBC) [Entitic vol] 51.2 fL 35.1-43.9 [facility] Erythrocyte distribution width (RBC) [Ratio] 14.6 % 11.6-14.6 [facility] Immature granulocytes/100 WBC (Bld) 0.600 % 0.0-0.9 [facility] Comment on above: IG% - Immature Granu locytes (promyelocytes, myelocytes and metamyelocytes) > 1% indicates that a LEFT SHIFT is Present. MCH (RBC) [Entitic mass] 30.5 pg 27.0-32.0 [facility] Nucleated RBC/100 WBC (Bld) [Ratio] 0 % 0-5 [facility] MCHC Auto (RBC) [Mass/Vol]Or dered By: Donell Glover on 03-21-2023 MCHC (RBC) [Mass/Vol] 32.1 g/dL 32-36 [facility] Mucus LM Ql (Urine sed)Order ed By: Donell Glover on 03-21-2023 Mucus Ql (Urine sed) 0 SEEN /hpf [facility] Nitrite Test strip Ql (U)Ord ered By: Donell Glover on 03-21-2023 Nitrite Ql (U) Negative Negative [facility] No Panel InformationOrdered By: Donell Glover on 03-21-2023 Estimated Creatinine Clearance Calc 49.63 ml/min [facility] Estimated GFR (MDRD) Amer 76 mL/min >60 [facility] Comment on above: GFR Calc Estimated GFR (MDRD) Non-Af Amer 63 mL/min >60 [facility] Comment on above: Non- GFR Calc Platelets bldOrdered By: Aneta Glover on 03-21-2023 Platelets (Bld) [#/Vol] 206 10*3/uL 150-450 [facility] Protein Test strip Ql (U)Ord ered By: Donell Glover on 03-21-2023 Protein Ql (U) Negative Negative [facility] Serum or plasma albumin rafy urement (mass/volume)Ordered By: Donell Glover on 03-21-2023 Albumin [Mass/Vol] 3.2 g/dL 3.2-5.[address] [facility] Serum or plasma albumin/glob ulin mass ratioOrdered By: Donell Glover on 03-21-2023 Albumin/Globulin [Mass ratio] 0.9 {ratio} 0.9-2.4 [facility] Serum or plasma calcium rafy urement (mass/volume)Ordered By: Donell Glover on 03-21-2023 Calcium [Mass/Vol] 9.7 mg/dL 8.5-10.[address] [facility] Serum or plasma creatinine m easurement (mass/volume)Ordered By: Donell Glover on 03-21-2023 Creatinine [Mass/Vol] 1.18 mg/dL 0.70-1.30 [facility] Comment on above: The validity of the calculated GFR & GFRAA in patients over 70 years has not been determined. Clinical correlation is essential. Serum or plasma urea nitroge n measurement (mass/volume)Ordered By: Donell Glover on 03-21-2023 Urea nitrogen [Mass/Vol] 21 mg/dL 7-18 [facility] Squamous epithelial cells de tection in urine sediment by light microscopyOrdered By: Donell Glover on 03-21-2023 Epithelial cells.squamous LM Ql (Urine sed) 0 SEEN /hpf 0-5 [facility] Thin prep Papanicolaou smear with manual screeningOrdered By: Donell Glover on 03-21-2023 Thin prep Papanicolaou smear with manual screening 36 U/L 15-37 [facility] Thin prep Papanicolaou smear with manual screening 3 5-15 [facility] Urine blood detectionOrdered By: Donell Glover on 03-21-2023 RBC Ql (U) Negative Negative [facility] RBC Ql (U) 0 SEEN /hpf 0-5 [facility] Urine clarityOrdered By: Aneta Glover on 03-21-2023 Clarity (U) Clear Clear [facility] Urine color determinationOrd ered By: Donell Glover on 03-21-2023 Color (U) Yellow Yellow [facility] Urine glucose detectionOrder ed By: Donell Glover on 03-21-2023 Glucose Ql (U) Normal mg/dl Normal [facility] Urine leukocyte esterase det ection by dipstickOrdered By: Donell Gloevr on 03-21-2023 Leukocyte esterase Test strip Ql (U) Negative Negative [facility] Urine pHOrdered By: Donell govea on 03-21-2023 pH (U) 5.0 [pH] 5.0 - 8.0 [facility] Urine sediment bacteria coun t by microscopy (number/high power field)Ordered By: Donell Glover on 03-21-2023 Bacteria LM.HPF (Urine sed) [#/Area] 0 /[HPF] None Seen [facility] Urine specific gravity measu rementOrdered By: Donell Glover on 03-21-2023 Specific gravity (U) [Rel density] 1.020 1.002-1.030 [facility] Urobilinogen Auto test strip Ql (U)Ordered By: Donell Glover on 03-21-2023 Urobilinogen Ql (U) Normal mg/dl Normal [facility] Absolute lymphocyte countOrd ered By: Trey Geiger on 01-26-2023 Lymphocytes Auto (Unsp spec) [#/Vol] 2.41 10*3/uL 0.83-4.51 [facility] Basophil percentageOrdered B y: Trey Geiger on 01-26-2023 Basophils/100 WBC (Bld) 0.7 % 0-1 [facility] Bilirubin [Mass/Vol] 0.50 mg/dL 0.20-1.00 [facility] Comment on above: For patients on eltr ombopag therapy, use of Dimension [place] TBIL is not recommended. Chloride [Moles/Vol] 108 mmol/L 98-107 [facility] Cholesterol [Mass/Vol] 126 mg/dL <200 [facility] Comment on above: <200 mg/dL Desirable 200-240 mg/dL Borderline >240 mg/dL High Risk Eosinophils/100 WBC (Bld) 1.7 % 0-5 [facility] Glucose [Mass/Vol] 112 mg/dL 74-[address] [facility] Comment on above: Fasting Glucose resu lt from 100 to 125 mg/dL suggests IMPAIRED HOMEOSTASIS per A.D.A. criteria. Neutrophils (Bld) [#/Vol] 4.2 10*3/uL 2.0-7.7 [facility] Neutrophils/100 WBC (Bld) 55.6 % 47-70 [facility] Potassium [Moles/Vol] 4.3 mmol/L 3.5-5.1 [facility] Protein [Mass/Vol] 6.4 g/dL 6.4-8.[address] [facility] Sodium [Moles/Vol] 141 mmol/L 136-[address] [facility] Triglyceride [Mass/Vol] 83 mg/dL <199 [facility] Comment on above: The drugs N-Acetylcy steine and Metamizole may falsely depress this assay.Serum Triglycerides Reference Interval Normal <150 mg/dL Borderline high 150 - 199 mg/dL High 200 - 499 mg/dL Very High > or = 500 mg/dL WBC (Bld) [#/Vol] 7.6 10*3/uL 4.4-11.[address] [facility] Blood erythrocytes count (nu mber/volume)Ordered By: Trey Geiger on 01-26-2023 RBC (Bld) [#/Vol] 4.10 10*6/uL 4.6-6.2 [facility] Blood hemoglobin measurement (mass/volume)Ordered By: Trey Geiger on 01-26-2023 Hemoglobin (Bld) [Mass/Vol] 12.6 g/dL 13.0-16.5 [facility] Blood lymphocytes/100 leukoc ytesOrdered By: Trey Geiger on 01-26-2023 Lymphocytes/100 WBC (Bld) 31.9 % 19-41 [facility] Blood monocytes/100 leukocyt esOrdered By: Trey Geiger on 01-26-2023 Monocytes/100 WBC (Bld) 9.4 % 0-10 [facility] Blood platelet mean volumeOr dered By: Trey Geiger on 01-26-2023 Platelet mean volume (Bld) [Entitic vol] 9.8 fL 6.2-12.0 [facility] Determination of erythrocyte mean corpuscular volume (MCV)Ordered By: [facility] on 01-26-2023 MCV (RBC) [Entitic vol] 96.3 fL 80-94 [facility] Hematocrit Auto (Bld) [Volum e fraction]Ordered By: [facility] Juanjo on 01-26-2023 Hematocrit (Bld) [Volume fraction] 39.5 % 40-54 [facility] Laboratory - Chemistry and C hemistry - challengeOrdered By: [facility] on 01-26-2023 ALP [Catalytic activity/Vol] 94 U/L 45-117 [facility] ALT [Catalytic activity/Vol] 26 U/L 16-61 [facility] CO2 [Moles/Vol] 27.0 mmol/L 21.0-32.0 [facility] Globulin (S) [Mass/Vol] 3.4 g/dL 2.2-4.2 [facility] Urea nitrogen/Creatinine [Mass ratio] 16.3 mg/mg 10-20 [facility] Laboratory - Hematology and Cell countsOrdered By: [facility] on 01-26-2023 Erythrocyte distribution width (RBC) [Entitic vol] 50.8 fL 35.1-43.9 [facility] Erythrocyte distribution width (RBC) [Ratio] 14.4 % 11.6-14.6 [facility] Immature granulocytes/100 WBC (Bld) 0.700 % 0.0-0.9 [facility] Comment on above: IG% - Immature Granu locytes (promyelocytes, myelocytes and metamyelocytes) > 1% indicates that a LEFT SHIFT is Present. MCH (RBC) [Entitic mass] 30.7 pg 27.0-32.0 [facility] Nucleated RBC/100 WBC (Bld) [Ratio] 0 % 0-5 [facility] MCHC Auto (RBC) [Mass/Vol]Or dered By: [facility] on 01-26-2023 MCHC (RBC) [Mass/Vol] 31.9 g/dL 32-36 [facility] No Panel InformationOrdered By: Trey Geiger on 01-26-2023 Estimated GFR (MDRD) Amer 88 mL/min >60 [facility] Comment on above: GFR Calc Estimated GFR (MDRD) Non-Af Amer 72 mL/min >60 [facility] Comment on above: Non- GFR Calc Thyroid Stimulating Hormone (TSH) 1.45 uIU/mL 0.358-3.74 [facility] Platelets bldOrdered By: Anabell Geiger on 01-26-2023 Platelets (Bld) [#/Vol] 236 10*3/uL 150-450 [facility] Serum or plasma albumin rafy urement (mass/volume)Ordered By: Trey Geiger on 01-26-2023 Albumin [Mass/Vol] 3.0 g/dL 3.2-5.[address] [facility] Serum or plasma albumin/glob ulin mass ratioOrdered By: Trey Geiger on 01-26-2023 Albumin/Globulin [Mass ratio] 0.9 {ratio} 0.9-2.4 [facility] Serum or plasma calcium rafy urement (mass/volume)Ordered By: Trey Geiger on 01-26-2023 Calcium [Mass/Vol] 9.2 mg/dL 8.5-10.[address] [facility] Serum or plasma cholesterol in HDL measurement (mass/volume)Ordered By: Trey Geiger on 01-26-2023 Cholesterol in HDL [Mass/Vol] 56 mg/dL >40 [facility] Comment on above: The drugs N-Acetylcy steine and Metamizole may falsely depress this assay. Reference Range HDL <40 mg/dL Low HDL Cholesterol HDL >or= 60 mg/dL High HDL Cholesterol Serum or plasma cholesterol in VLDL measurement (mass/volume)Ordered By: Trey Geiger on 01-26-2023 Cholesterol in VLDL [Mass/Vol] 17 mg/dL 5-40 [facility] Serum or plasma creatinine m easurement (mass/volume)Ordered By: Trey Geiger on 01-26-2023 Creatinine [Mass/Vol] 1.04 mg/dL 0.70-1.30 [facility] Comment on above: The validity of the calculated GFR & GFRAA in patients over 70 years has not been determined. Clinical correlation is essential. Serum or plasma low density lipoprotein (LDL) cholesterol measurement (mass/volume)Ordered By: Trey Geiger on 01-26-2023 Cholesterol in LDL [Mass/Vol] 53 mg/dL 0-130 [facility] Serum or plasma urea nitroge n measurement (mass/volume)Ordered By: Trey Geiger on 01-26-2023 Urea nitrogen [Mass/Vol] 17 mg/dL 7-18 [facility] Thin prep Papanicolaou smear with manual screeningOrdered By: Trey Geiger on 01-26-2023 Thin prep Papanicolaou smear with manual screening 21 U/L 15-37 [facility] Thin prep Papanicolaou smear with manual screening 6 5-15 [facility] Whole blood hemoglobin A1c/t otal hemoglobin ratio (mass fraction)Ordered By: Trey Geiger on 01-26-2023 HbA1c (Bld) [Mass fraction] 6.2 % 3.8-5.6 [facility] Comment on above: Normal < 5.7 % Predi abetic 5.7 - 6.4 % Diabetic >or= 6.5 % Please note range changes. Absolute lymphocyte countOrd ered By: Dr. Vincent on 12-18-2022 Lymphocytes Auto (Unsp spec) [#/Vol] 2.44 10*3/uL 0.83-4.51 [facility] Basophil percentageOrdered B y: Dr. Vincent on 12-18-2022 Basophils/100 WBC (Bld) 0.8 % 0-1 [facility] Chloride [Moles/Vol] 106 mmol/L 98-107 [facility] Eosinophils/100 WBC (Bld) 2.3 % 0-5 [facility] Glucose [Mass/Vol] 88 mg/dL 74-[address] [facility] Neutrophils (Bld) [#/Vol] 5.3 10*3/uL 2.0-7.7 [facility] Neutrophils/100 WBC (Bld) 59.8 % 47-70 [facility] Potassium [Moles/Vol] 4.4 mmol/L 3.5-5.1 [facility] Sodium [Moles/Vol] 141 mmol/L 136-[address] [facility] WBC (Bld) [#/Vol] 8.9 10*3/uL 4.4-11.[address] [facility] Blood erythrocytes count (nu mber/volume)Ordered By: Dr. Vincent on 12-18-2022 RBC (Bld) [#/Vol] 4.28 10*6/uL 4.6-6.2 [facility] Blood hemoglobin measurement (mass/volume)Ordered By: Dr. Vincent on 12-18-2022 Hemoglobin (Bld) [Mass/Vol] 13.3 g/dL 13.0-16.5 [facility] Blood lymphocytes/100 leukoc ytesOrdered By: Dr. Vincent on 12-18-2022 Lymphocytes/100 WBC (Bld) 27.6 % 19-41 [facility] Blood monocytes/100 leukocyt esOrdered By: Dr. Vincent on 12-18-2022 Monocytes/100 WBC (Bld) 9.2 % 0-10 [facility] Blood platelet mean volumeOr dered By: Dr. Vincent on 12-18-2022 Platelet mean volume (Bld) [Entitic vol] 9.8 fL 6.2-12.0 [facility] Determination of erythrocyte mean corpuscular volume (MCV)Ordered By: Dr. Vincent on 12-18-2022 MCV (RBC) [Entitic vol] 95.6 fL 80-94 [facility] Hematocrit Auto (Bld) [Volum e fraction]Ordered By: Dr. Vincent on 12-18-2022 Hematocrit (Bld) [Volume fraction] 40.9 % 40-54 [facility] INR in Blood by Coagulation assayOrdered By: Dr. Vincent on 12-18-2022 INR Coag (Bld) [Relative time] 1.1 {INR} [facility] - Chemistry and C hemistry - challengeOrdered By: Dr. Vincent on 12-18-2022 CO2 [Moles/Vol] 29.0 mmol/L 21.0-32.0 [facility] Urea nitrogen/Creatinine [Mass ratio] 14.5 mg/mg 10-20 [facility] - CoagulationOrde red By: Dr. Vincent on 12-18-2022 aPTT Coag (Bld) [Time] 32.7 s 24.1-36.2 [facility] PT Coag (PPP) [Time] 13.9 s 11.7-14.9 [facility] Laboratory - Hematology and Cell countsOrdered By: Dr. Vincent on 12-18-2022 Erythrocyte distribution width (RBC) [Entitic vol] 50.2 fL 35.1-43.9 [facility] Erythrocyte distribution width (RBC) [Ratio] 14.5 % 11.6-14.6 [facility] Immature granulocytes/100 WBC (Bld) 0.300 % 0.0-0.9 [facility] Comment on above: IG% - Immature Granu locytes (promyelocytes, myelocytes and metamyelocytes) > 1% indicates that a LEFT SHIFT is Present. MCH (RBC) [Entitic mass] 31.1 pg 27.0-32.0 [facility] Nucleated RBC/100 WBC (Bld) [Ratio] 0 % 0-5 [facility] MCHC Auto (RBC) [Mass/Vol]Or dered By: Dr. Vincent on 12-18-2022 MCHC (RBC) [Mass/Vol] 32.5 g/dL 32-36 [facility] No Panel InformationOrdered By: Dr. Vincent on 12-18-2022 Estimated GFR (MDRD) Amer 76 mL/min >60 [facility] Comment on above: GFR Calc Estimated GFR (MDRD) Non-Af Amer 63 mL/min >60 [facility] Comment on above: Non- GFR Calc Platelets bldOrdered By: Dr. Vincent on 12-18-2022 Platelets (Bld) [#/Vol] 208 10*3/uL 150-450 [facility] Serum or plasma calcium rafy urement (mass/volume)Ordered By: Dr. Vincent on 12-18-2022 Calcium [Mass/Vol] 10.0 mg/dL 8.5-10.[address] [facility] Serum or plasma creatinine m easurement (mass/volume)Ordered By: Dr. Vincent on 12-18-2022 Creatinine [Mass/Vol] 1.17 mg/dL 0.70-1.30 [facility] Comment on above: The validity of the calculated GFR & GFRAA in patients over 70 years has not been determined. Clinical correlation is essential. Serum or plasma urea nitroge n measurement (mass/volume)Ordered By: Dr. Vincent on 12-18-2022 Urea nitrogen [Mass/Vol] 17 mg/dL 7-18 [facility] Thin prep Papanicolaou smear with manual screeningOrdered By: Dr. Vincent on 12-18-2022 Thin prep Papanicolaou smear with manual screening 6 5-15 [facility] XR Chest PA and Lateralon IMPRESSION: Bibasilar pulmonary infiltrates versus atelectasis. Consider follow-up. Cartridge Belt Puncher: [email or web address] Transcribe Date/Time: Nov 27 2022 4:53P Dictated by : KEL RIVERA MD This examination was interpreted and the report reviewed and electronically signed by: KEL RIVERA MD on Nov 27 2022 4:55PM [facility] DIVISION OF RADIOLOGY * * *Final Report* [...] shows degenerative changes. DIVISION OF RADIOLOGY Provider, [facility] - 11/27/2022 * * *Final [...] Bibasilar pulmonary infiltrates versus atelectasis. Consider follow-up. Cartridge Belt Puncher: [email or web address] Transcribe Date/Time: Nov 27 2022 4:53P Dictated by : KEL RIVERA MD This examination was interpreted and the report reviewed and electronically signed by: KEL RIVERA MD on Nov 27 2022 4:55PM EST [facility] Radiology Study observation (narrative) [facility] XR Chest PA and LateralOrder ed By: [facility] Provider on 11-27-2022 [facility] Vital Signs Date Time Vital Sign Value Performing Clinician Faci lity 03-21-2023 21:33-0400 Diastolic blood pressure 84 mm[Hg] Dr. Mary Lou Mitchell Work Phone: [facility] 03-21-2023 21:33-0400 Heart rate 71 /min Dr. Mary Lou Mitchell Work Phone: [facility] 03-21-2023 21:33-0400 Respiratory rate 14 /min Dr. Mary Lou Mitchell Work Phone: [facility] 03-21-2023 21:33-0400 SaO2% (BldA) [Mass fraction] 98 % Dr. Mary Lou Mitchell Work Phone: [facility] 03-21-2023 21:33-0400 Systolic blood pressure 124 mm[Hg] Dr. Mary Lou Mitchell Work Phone: [facility] 03-21-2023 19:34-0400 Body height 180.[address] Mary Lou Mitchell Work Phone: [facility] 03-21-2023 19:34-0400 Body mass index (BMI) [Ratio] 35.4 kg/m2 Dr. Mary Lou Mitchell Work Phone: [facility] 03-21-2023 19:34-0400 Body temperature 98 [degF] Dr. Mary Lou Mitchell Work Phone: [facility] 03-21-2023 19:34-0400 Body weight 115.[address] Mary Lou Mitchell Work Phone: [facility] 03-21-2023 19:08-0400 Body temperature 98.1 [degF] Sabrina Athy PA-C Work Phone: [facility] 03-21-2023 19:08-0400 Body weight 114.13 kg Sabrina Athy PA-C Work Phone: [facility] 03-21-2023 19:08-0400 Diastolic blood pressure 72 mm[Hg] Sabrina Athy PA-C Work Phone: [facility] 03-21-2023 19:08-0400 Heart rate 79 /min Sabrina Athy PA-C Work Phone: [facility] 03-21-2023 19:08-0400 Respiratory rate 18 /min Sabrina Athy PA-C Work Phone: [facility] 03-21-2023 19:08-0400 SaO2% (BldA) [Mass fraction] 95 % Sabrina Athy PA-C Work Phone: [facility] 03-21-2023 19:08-0400 Systolic blood pressure 140 mm[Hg] Sabrina Athy PA-C Work Phone: [facility] 12-26-2022 13:51-0400 Body height 180.3 cm Mary Lou Mitchell MD Work Phone: [facility] 12-26-2022 13:51-0400 Body temperature 97.5 [degF] Mary Lou Mitchell MD Work Phone: [facility] 12-26-2022 13:51-0400 Body weight 120.2 kg Mary Lou Mitchell MD Work Phone: [facility] 12-26-2022 13:51-0400 Diastolic blood pressure 68 mm[Hg] Mary Lou Mitchell MD Work Phone: [facility] 12-26-2022 13:51-0400 Heart rate 72 /min Mary Lou Mitchell MD Work Phone: [facility] 12-26-2022 13:51-0400 Respiratory rate 14 /min Mary Lou Mitchell MD Work Phone: [facility] 12-26-2022 13:51-0400 SaO2% (BldA) [Mass fraction] 98 % Mary Lou Mitchell MD Work Phone: [facility] 12-26-2022 13:51-0400 Systolic blood pressure 130 mm[Hg] Mary Lou Mitchell MD Work Phone: [facility] 12-21-2022 14:49-0400 Body temperature 97 [degF] [facility] 12-21-2022 14:49-0400 Diastolic blood pressure 64 mm[Hg] [facility] 12-21-2022 14:49-0400 Heart rate 72 /min [facility] 12-21-2022 14:49-0400 Respiratory rate 18 /min [facility] 12-21-2022 14:49-0400 SaO2% (BldA) [Mass fraction] 96 % [facility] 12-21-2022 14:49-0400 Systolic blood pressure 131 mm[Hg] [facility] 12-21-2022 09:13-0400 Body height 180.34 cm [facility] 12-21-2022 09:13-0400 Body mass index (BMI) [Ratio] 35.3 kg/m2 [facility] 12-21-2022 09:13-0400 Body weight 115 kg [facility] 04-11-2022 11:46-0400 Body height 180.3 cm Mary Lou Mitchell MD Work Phone: [facility] 04-11-2022 11:46-0400 Body temperature 98.4 [degF] Mary Lou Mitchell MD Work Phone: [facility] 04-11-2022 11:46-0400 Body weight 109.77 kg Mary Lou Mitchell MD Work Phone: [facility] 04-11-2022 11:46-0400 Diastolic blood pressure 52 mm[Hg] Mary Lou Mitchell MD Work Phone: [facility] 04-11-2022 11:46-0400 Heart rate 72 /min Mary Lou Mitchell MD Work Phone: [facility] 04-11-2022 11:46-0400 Respiratory rate 14 /min Mary Lou Mitchell MD Work Phone: [facility] 04-11-2022 11:46-0400 SaO2% (BldA) [Mass fraction] 96 % Mary Lou Mitchell MD Work Phone: [facility] 04-11-2022 11:46-0400 Systolic blood pressure 110 mm[Hg] Mary Lou Mitchell MD Work Phone: [facility] 11-30-2021 08:08-0400 Body height 180.3 cm Mary Lou Mitchell MD Work Phone: [facility] 11-30-2021 08:08-0400 Body temperature 96.8 [degF] Mary Lou Mitchell MD Work Phone: [facility] 11-30-2021 08:08-0400 Body weight 107.96 kg Mary Lou Mitchell MD Work Phone: [facility] 11-30-2021 08:08-0400 Diastolic blood pressure 58 mm[Hg] Mary Lou Mitchell MD Work Phone: [facility] 11-30-2021 08:08-0400 Heart rate 58 /min Mary Lou Mitchell MD Work Phone: [facility] 11-30-2021 08:08-0400 Respiratory rate 14 /min Mary Lou Mitchell MD Work Phone: [facility] 11-30-2021 08:08-0400 SaO2% (BldA) [Mass fraction] 97 % Mary Lou Mitchell MD Work Phone: [facility] 11-30-2021 [id number] Systolic blood pressure 122 mm[Hg] Mary Lou Mitchell MD Work Phone: [facility] Encounters Encounter Date Encounter Type Care Provider Facility Start: 02-26-2025 End: 02-26-2025 ambulatory Trey Geiger MD Work Phone: -[facility] Start: 02-26-2025 End: 02-26-[address] Trey Geiger MD -[facility] Work Phone: Start: 02-26-2025 End: 02-26-2025 ambulatory Trey Geiger Facility:[facility] Start: 12-02-2024 End: 12-02-2024 ambulatory Trey Geiger MD Work Phone: [facility] Work Phone: Start: 12-02-2024 End: 12-02-[address] Trey Geiger MD -[facility] Start: 12-02-2024 End: 12-02-2024 ambulatory Trey Geiger Facility:[facility] Start: 05-12-2024 End: 05-12-2024 ambulatory Monica Connell MA [facility] Start: 05-12-2024 End: 05-12-2024 Patient encounter procedure Monica Connell MA [facility] Comment on above: Population Health Na vigation Outreach (ACO QAE Surge list CONTINUED FROM 05/05 ENCOUNTER) Start: 05-05-2024 End: 05-05-2024 ambulatory Monica Connell MA [facility] Start: 05-05-2024 End: 05-05-2024 Patient encounter procedure Monica Connell MA [facility] Comment on above: Population Health Na vigation Outreach (ACO QAE Surge list 2023/) Start: 04-25-2024 End: 04-25-2024 ambulatory Trey Geiger Facility:[facility] Start: 04-23-2023 Refill Nica De La Torre APRN, .CNP Work Phone: [facility] [place] Comment on above: Refill Request Start: 03-21-2023 End: 03-21-2023 Emergency department patient visit Dr. Mary Lou Mitchell Work Phone: [facility]Emergency Department Work Phone: Start: 03-21-2023 End: 03-21-2023 Patient encounter procedure Sabrina Dave PA-C Work Phone: [facility] Comment on above: Abdominal pain, unsp ecified abdominal location (Primary Dx); Urinary retention; Acute constipation Start: 02-02-2023 Non-patient / Non-visit Dr. Thea Mitchell Work Phone: [facility] Start: 02-02-2023 End: 02-02-[address] Mary Lou Mitchell Work Phone: [facility] Work Phone: Start: 01-26-2023 End: 01-26-2023 ambulatory [facility] Work Phone: Start: 01-26-2023 End: 01-26-2023 Patient encounter procedure [facility] Start: 12-26-2022 End: 12-26-2022 Patient encounter procedure Mary Lou Mitchell MD Work Phone: [facility] [place] Comment on above: S/P lumbar fusion (P rimary Dx); Mixed hyperlipidemia; Essential hypertension; Prediabetes; Constipation, unspecified constipation type Start: 12-24-2022 Refill Nica De La Torre APRN, .CNP Work Phone: [facility] Comment on above: Refill Request Start: 12-21-2022 End: 12-21-2022 Admission to same day surgery center [facility] Start: 12-21-2022 End: 12-21-2022 ambulatory [facility] Work Phone: Start: 12-18-2022 End: 12-18-2022 Non-patient / Non-visit Dr. Mary Lou Mitchell Work Phone: [facility] Work Phone: Start: 12-11-2022 ambulatory Mary Lou Deleon Work Phone: [facility] [place] Comment on above: Pre-Operative reques t Start: 12-11-2022 Telephone encounter Mary Lou bhardwaj MD Work Phone: [facility] [place] Comment on above: Patient Update; Form s Start: 11-27-2022 End: 11-27-2022 Preoperative state Xr [facility] Work Phone: [facility] Start: 11-27-2022 End: 11-27-2022 Subsequent hospital visit by physician Xr [facility] Work Phone: Radiology Comment on above: Pre-operative cleara nce [Z01.818] Start: 10-13-2022 Refill Nica De La Torre APRN .ELECTRIC SWITCH REPAIRER Work Phone: [facility] [place] Comment on above: Refill Request Start: 04-23-2022 Refill Nicolasa Adkins APRN.ELECTRIC SWITCH REPAIRER Work Phone: [facility] [place] Comment on above: Refill Request Start: 04-11-2022 End: 04-11-2022 Patient encounter procedure Mary Lou Mitchell MD Work Phone: [facility] [place] Comment on above: Elevated blood sugar (Primary Dx); Mixed hyperlipidemia; Essential hypertension Start: 01-19-2022 Refill Mary Lou Deleon Work Phone: [facility] Comment on above: Refill Request Start: 12-02-2021 Refill Harry BLISSELECTRIC SWITCH REPAIRER Work Phone: [facility] [place] Comment on above: Refill Request Start: 11-30-2021 End: 11-30-2021 Patient encounter procedure Mary Lou Mitchell MD Work Phone: [facility] [place] Comment on above: Medicare annual well ness visit, subsequent (Primary Dx); Essential hypertension; Mixed hyperlipidemia; Encounter for immunization; Abnormal dreams; Prediabetes; Hereditary and idiopathic peripheral neuropathy; Open wound of left elbow, initial encounter Start: 03-10-2015 Patient encounter procedure Mary Lou Mitchell MD Work Phone: [facility] Procedures Date Procedure Procedure Detail Performing Clinician Start: 02-26-2025 X-ray of foot, three or more views Trey Geiger MD Work Phone: Start: 02-26-2025 X-ray of lumbar spin e, two or three views Trey Geiger MD Work Phone: Start: 12-02-2024 Prostate specific an tigen measurement Trey Geiger MD Work Phone: Comment on above: This test was perfor med using the [employer] tPSA method. Measured values of a patient sample can vary depending on the testing procedure used. PSA values determined on patient samples by different testing procedures cannot be used interchangeably. If there is a change in PSA assays while monitoring therapy, sequential testing should be performed to confirm baseline values. Start: 12-02-2024 Vitamin D, 25-hydrox y measurement Trey Geiger MD Work Phone: Comment on above: Vitamin D StatusDefi ciency: <20 ng/mL (50nmol/L)Insufficiency: 20-30 ng/mL (50-75 nmol/L)Sufficiency: 30-100 ng/mL (75-250 nmol/L)Toxicity: >100 ng/mL (>250 nmol/L) Start: 03-21-2023 Computed tomography of abdomen and pelvis with intravenous contrast Dr. Mary Lou Mitchell Work Phone: Start: 12-21-2022 Fluoroscopic guidance Start: 12-21-2022 Laminectomy,Lumbar M icro Decompression (Not Applicable) Start: 12-21-2022 Radiography of spine Start: 12-18-2022 Plain chest X-ray Start: 11-27-2022 Radiologic exam ches t 2 views Mary Lou Mitchell MD Work Phone: Plan of Treatment Date Care Activity Detail Author Start: 04-06-2025 Diabetes Screening Diabetes Screenin g [facility] Start: 03-09-2024 Covid-19 Vaccine () Covid-19 Vaccine () [facility] Start: 03-09-2024 Covid-19 Vaccine () Covid-19 Vaccine () [facility] Start: 03-09-2024 Influenza vaccination Influenza Vacc ine (#1) [facility] Start: 07-09-2023 Advance Directive Discussion Advance Directive Discussion [facility] Start: 03-09-2023 Covid-19 Vaccine ( season) Covid-19 Vaccine () [facility] Start: 12-21-2022 Anesthesia lumbar region nos ANESTH SPINE CORD SURGERY [facility] Start: 12-21-2022 Levine facetectomy & foramotomy 1 segment lumbar LEVINE FACETEC & FORAMOT LUMBAR [facility] Start: 12-21-2022 Patient discharge [facility] Start: 10-10-2022 End: 12-10-2022 Hemoglobin A1c in Blood HGB A1C Lab Routine Elevated blood sugar Mixed hyperlipidemia Expected: 10/10/2022, Expires: 12/10/2022 [facility] Work Phone: Comment on above: Expected: 10/10/2022 , Expires: 12/10/2022 Start: 10-10-2022 End: 12-10-2022 Lipid 1996 panel - Serum or Plasma LIPID PANEL BASIC Lab Routine Mixed hyperlipidemia Expected: 10/10/2022, Expires: 12/10/2022 [facility] Work Phone: Comment on above: Expected: 10/10/2022 , Expires: 12/10/2022 Start: 09-06-2022 Covid-19 Vaccine (3 - Pfizer series) Covid-19 Vaccine (3 - Pfizer series) [facility] Start: 07-09-2022 ADVANCE DIRECTIVE DISCUSSION ADVANCE DIRECTIVE DISCUSSION [facility] Start: 07-09-2022 DEPRESSION ASSESSMENT DEPRESSION ASS ESSMENT [facility] Start: 06-02-2022 End: 08-02-2022 LIPID PANEL BASIC LIPID PANEL BASIC Lab Routine Mixed hyperlipidemia Expected: 06/02/2022, Expires: 08/02/2022 [facility] Work Phone: Comment on above: Expected: 06/02/2022 , Expires: 08/02/2022 Start: 05-26-2022 Hemoglobin A1c/Hemoglobin.total in Blood HBA1C [facility] Start: 05-02-2022 End: 07-02-2022 CBC W Auto Differential panel - Blood CBC + DIFF Lab Routine Essential hypertension Expected: 05/02/2022, Expires: 07/02/2022 [facility] Work Phone: Comment on above: Expected: 05/02/2022 , Expires: 07/02/2022 Start: 05-02-2022 End: 07-02-2022 Comprehensive metabolic 2000 panel - Serum or Plasma COMP METABOLIC PANEL Lab Routine Essential hypertension Expected: 05/02/2022, Expires: 07/02/2022 [facility] Work Phone: Comment on above: Expected: 05/02/2022 , Expires: 07/02/2022 Start: 03-09-2022 Influenza vaccination INFLUENZA (#1) [facility] Start: 02-04-2022 Hepatitis C antibody , confirmatory test DILATED RETINAL EXAM [facility] Start: 12-31-2021 Urine microalbumin profile DTAP,TDAP,TD (2 - Tdap) [facility] Comment on above: Postponed from 02/07 (Postponed To Appropriate Date) Start: 12-14-2021 Hepatitis B surface antibody level LDL CHOLESTEROL [facility] Start: 07-09-2021 DEPRESSION ASSESSMENT DEPRESSION ASS ESSMENT [facility] Start: 04-27-2021 COVID-19 VACCINE (2 - Pfizer series) COVID-19 VACCINE (2 - Pfizer series) [facility] Start: 02-07-2017 Urine microalbumin profile [facility] Start: 2013 RSV Vaccine (1 - 1-d ose 75+ series) RSV Vaccine (1 - 1-dose 75+ series) [facility] Start: 04-15-2012 SHINGRIX VACCINE (2 of 3) SHINGRIX VACCINE (2 of 3) [facility] Start: 1998 Hepatitis B Vaccine (1 of 3 - Risk 3-dose series) Hepatitis B Vaccine (1 of 3 - Risk 3-dose series) [facility] Start: 1998 RSV Vaccine (1 - 1-d ose 60+ series) RSV Vaccine (1 - 1-dose 60+ series) [facility] Start: 1956 Anxiety Screening Anxiety Screening [facility] Start: 1956 Depression Screening Depression Scre ening [facility] Patient Education ED Constipatio n (Adult) ED Fecal Impaction, Treated ED Marr Catheter, Care ED Urinary Retention, Male [facility] Work Phone: Patient referral [facility] Work Phone: [facility] Immunizations Immunization Date Immunization Notes Care Provider Fa cility 01-11-2024 tetanus toxoid, redu wilfredo diphtheria toxoid, and acellular pertussis vaccine, adsorbed Trey Geiger MD Work Phone: [facility] 03-18-2023 influenza virus vacc ine, unspecified formulation Xr [place] Work Phone: [facility] 11-30-2021 pneumococcal polysaccharide vaccine, 23 valent Mary Lou Mitchell MD Work Phone: [facility] Work Phone: 04-21-2019 influenza, high dose seasonal, preservative-free Mary Lou Mitchell MD Work Phone: [facility] Work Phone: 04-29-2018 influenza, high dose jada, preservative-free Mary Lou Mitchell MD Work Phone: [facility] Work Phone: 05-11-2017 influenza, high dose jada, preservative-free Mary Lou Mitchell MD Work Phone: [facility] Work Phone: 04-20-2016 influenza, high dose seasonal, preservative-free Mary Lou Mitchell MD Work Phone: [facility] 04-21-2015 influenza, high dose seasonal, preservative-free Mary Lou Mitchell MD Work Phone: [facility] Work Phone: 10-20-2014 pneumococcal conjuga te vaccine, 13 valent Mary Lou Mitchell MD Work Phone: [facility] 04-23-2014 influenza, high dose jada, preservative-free Mary Lou Mitchell MD Work Phone: [facility] Work Phone: 03-18-2013 influenza virus vacc ine, unspecified formulation Mary Lou Mitchell MD Work Phone: [facility] 02-19-2012 zoster vaccine, live Mary Lou Mitchell MD Work Phone: [facility] Work Phone: 02-07-2007 diphtheria and tetan us toxoids, adsorbed for pediatric use Mary Lou Mitchell MD Work Phone: [facility] Work Phone: 01-02-2006 pneumococcal polysaccharide vaccine, 23 valent Mary Lou Mitchell MD Work Phone: [facility] 01-02-2006 pneumococcal vaccine , unspecified formulation [facility] Payers Date Payer Category Payer Self-pay 2013 Private Health Insurance [id number] 2012 Private Health Insurance HUMANA HUMANA MEDICARE SUPPLEMENT [id number] 2012-Present [phone] [address] [address] [place] [address] Indemnity [id number] 2012 Private Health Insurance HUMANA HUMANA MEDICARE SUPPLEMENT [id number] 2012-Present [phone] [address] [address] [place] [address] Indemnity [id number] 2003 Medicare MEDICARE MEDICAR E A AND B [id number] 2003-Present [phone] [address] [address] [place] [address] Medicare [id number] 2003 Medicare MEDICARE MEDICAR E A AND B [id number] 2003-Present [phone] [place] [address] Medicare [id number] 2003 Medicare MEDICARE PART A B [id number] 2003 Medicare [id number] Unknown [id number] Unknown [id number] Unknown [id number] Social History Date Type Detail Facility Start: 06-29-2014 End: 11-22-2023 Tobacco smoking status MOIS Never smoked tobacco [facility] Work Phone: Start: 11-30-2021 End: 03-21-2023 Alcohol intake Current non-drinker of alcohol (finding) [facility] Start: 12-24-2020 End: 12-24-2022 History SDOH Alcohol Frequency 3 [facility] Start: 12-24-2020 End: 12-24-2022 History SDOH Alcohol Std Drinks 1 [facility] Start: 12-24-2020 End: 12-24-2022 History SDOH Social Connections Phone 5 [facility] Start: 12-24-2020 End: 12-24-2022 History SDOH Social Connections Get Together 2 [facility] Start: 12-24-2020 History SDOH Physical Activity DPW 7 [facility] Start: 12-24-2020 Education 17 [facility] Start: 1940 Sex Assigned At Male [facility] Start: 11-20-2021 End: 04-11-2022 Exposure to SARS-CoV-2 (event) Not sure [facility] Work Phone: Start: 06-29-2014 Tobacco use and exposure Smokeless tobacco non-user [facility] Start: 12-18-2022 End: 03-21-2023 Tobacco smoking status NHIS Unknown if ever smoked [facility] Start: 03-27-2014 Occasional [facility] Start: 03-27-2014 None [facility] Start: 03-27-2014 Spouse/ Significant Other [facility] Start: 03-27-2014 Non-smoker [facility] Start: 12-24-2022 History SDOH Social Connections Scientologist 98 [facility] Start: 12-24-2022 History SDOH Physical Activity DPW 6 [facility] Start: 12-24-2022 History SDOH Physical Activity MPS 4 [facility] Start: 11-27-2022 End: 12-24-2022 History of Social function [facility] Start: 11-27-2022 End: 12-24-2022 Social connection and isolation panel [facility] How often do you att end confucianist or catholic services? Patient refused [facility] Do you belong to any clubs or organizations such as confucianist groups, unions, fraternal or athletic groups, or school groups? Yes [facility] Are you now , , , , never or living with a partner? [facility] How often to you hav e a drink containing alcohol? Monthly or less [facility] How many standard dr inks containing alcohol do you have on a typical day? 1 or 2 [facility] How often do you hav e 6 or more drinks on 1 occasion? Never [facility] Do you feel stress - tense, restless, nervous, or anxious, or unable to sleep at night because your mind is troubled all the time - these days [OSQ] Not at all [facility] (I/We) worried jody er (my/our) food would run out before (I/we) got money to buy more. Never true [facility] In the past 12 month s, was there a time when you were not able to pay the mortgage or rent on time? No [facility] Start: 11-24-2021 Gender identity Identifies as male gender (finding) [facility] Start: 11-24-2021 Sexual orientation Heterosexual (finding) [facility] How often to you hav e a drink containing alcohol? 2-4 times a month [facility] Do you feel stress - tense, restless, nervous, or anxious, or unable to sleep at night because your mind is troubled all the time - these days [OSQ] Only a little [facility] Medical Equipment Procedure Code Equipment Code Equipment Origin al Text Equipment Identifier Dates Screw [id number] Start: 03-03-2014 Comment on above: Description: LEGACY Aaron [id number] Start: 03-03-2014 Comment on above: Description: LEGACY Set Screw [id number] Start: 03-03-2014 Comment on above: Description: LEGACY Interbody Fusion Device [id number] Start: 03-03-2014 [id number] Start: 02-03-2014 Comment on above: Test blood sugar(s) once daily. Dx: E11.9. Insulin: No Test blood sugar(s) once daily. Dx: 250.00. Insulin: No [id number] FDA Start: 12-21-2022 ([id number]) Collagen haemost atic agent, non-antimicrobial ()[id number] FDA Start: 12-21-2022 [id number] FDA Start: 12-21-2022 [id number] FDA Start: 12-21-2022 [id number] FDA Start: 12-21-2022 Goals Date Patient Goal Desired Activity /State Mental Status Date Assessment Result Facility 12-21-2022 Cognitive function Level Of Consciousness Sedated [facility] Work Phone: 12-21-2022 Cognitive function Voice/Name [facility] Work Phone: Clinical Notes 02-24-2016 to 02-26-2025 Monica Connell MA - 05/12/2024 3:08 PM Monica Gudino MA - 05/05/2024 12:12 PM EDTTelephone Encounter - Anay Emanuel - 04/24/2023 12:17 PM EDT Note Date & Type Note Facility 02-26-2025 Radiology Diagnostic study note [facility] Imaging Services [address] [place], [place] [address] Foot min 3 Views MR#: [id number] Acct: [id number] Name: REGINA GORDON Rep #: [id number] : 1940 M 84 From: Chirag Voss MD PCP: Dr. Trey Geiger MD Status: REG CL I Study:Foot min 3 Views Date of Exam: Exam# [id number] Ordering Dr: Anabell Geiger MD PROCEDURE: FOOT MIN 3 VIEWS 02/26/2025 REASON FOR EXAM: FOOT DEFORMITY TECHNIQUE: FOOT MIN 3 VIEWS Laterality: COMPARISON: 12/14/2023. FINDINGS: No evidence of acute fracture or dislocation. Mild degenerative changes throughout the foot. Tiny calcaneal enthesophyte. No ankle joint effusion. No acute soft tissue abnormalities. Osseous demineralization. RAD/Foot min 3 Views IMPRESSION: No acute osseous abnormalities. Osteoarthrosis. Osseous demineralization. Reading Location: [facility] CC: Dr. Trey Geiger MD ~ Cartridge Belt Puncher: Signed [facility] 02-26-2025 Radiology Diagnostic study note [facility] Imaging Services [address] [place] [address] Foot min 3 Views MR#: [id number] Acct: [id number] Name: REGINA GORDON Rep #: [id number] : 1940 M 84 From: Chirag Voss MD PCP: Dr. Trey Geiger MD Status: REG CL I Study:Foot min 3 Views Date of Exam: Exam# [id number] Ordering Dr: Anabell Geiger MD PROCEDURE: FOOT MIN 3 VIEWS 02/26/2025 REASON FOR EXAM: FOOT DEFORMITY TECHNIQUE: FOOT MIN 3 VIEWS Laterality: COMPARISON: 04/25/2024. FINDINGS: No evidence acute fracture or dislocation. Mild degenerative changes throughoutthe foot. No acute soft tissue abnormalities. Osseous demineralization. RAD/Foot min 3 Views IMPRESSION: No acute osseous abnormalities. Osteoarthrosis. Osseous demineralization. Reading Location: [facility] CC: Dr. Trey Geiger MD ~ Cartridge Belt Puncher: Signed [facility] 02-26-2025 Radiology Diagnostic study note [facility] Imaging Services [address] [place], [place] [id number] Lumbar Spine 2 or 3 Views MR#: [id number] Acct: [id number] Name: REGINA GORDON Rep #: [id number] : 1940 M 84 From: Chirag Voss MD PCP: Dr. Trey Geiger MD Status: REG CL I Study:Lumbar Spine 2 or 3 Views Date of Exam: 02/26/25 Exam# [id number] Ordering Dr: Anabell Geiger MD PROCEDURE: LUMBAR SPINE 2 OR 3 VIEWS 02/26/2025 REASON FOR EXAM: LOW BACK PAIN TECHNIQUE: LUMBAR SPINE 2 OR 3 VIEWS FINDINGS: No evidence of acute fracture or dislocation. L5-S1 posterior fusion. Grade 1 anterolisthesis of L3 on L4 on L4 on L5. Moderate degenerative changes of the non fused levels. IVC filter. RAD/Lumbar Spine 2 or 3 Views IMPRESSION: L5-S1 fusion. Spondylosis. Spondylolisthesis. Reading Location: [facility] CC: Dr. Trey Geiger MD ~ Cartridge Belt Puncher: Signed [facility] 05-12-2024 Note HNO ID: [id number] Author: MONICA CONNELL MA Service: ? Author Type: Vacuum Evaporation Operator Type: Progress Notes Filed: 05/12/2024 15:12 Note Text: POPULATION HEALTH NAVIGATION OUTREACH Action/FYI Patient called back and states he is no longer using [facility]- PCPis now Dr. Geiger at [facility]. Updated PCP field. Reason for Outreach Care Gap/HCC or Scheduling Wellness Visits Care Gaps due: Medicare Annual Wellness Visit Flu Vaccine Patient Contacted: Spoke to patient/parent/or legal guardian Patient identified by name and : Yes Care Gap/HCC/Scheduling Wellness actions taken: PCP field updated Navigation Signature: Monica Connell MA May 12, 2024 3:09 PM [facility] 05-12-2024 History of Presen t illness Narrative POPULATION HEALTH NAVIGATION OUTREACH Action/FYI Patient called back and states he is no longer using [facility]- PCPis now Dr. Geiger at [facility]. Updated PCP field. Reason for Outreach Care Gap/HCC or Scheduling Wellness Visits Care Gaps due: Medicare Annual Wellness Visit Flu Vaccine Patient Contacted: Spoke to patient/parent/or legal guardian Patient identified by name and : Yes Care Gap/HCC/Scheduling Wellness actions taken: PCP field updated Navigation Signature: Monica Connell MA May 12, 2024 3:09 PM documented in this encounter [facility] 05-12-2024 Note Patient Outreach (NE TNAV) REGINA GORDON ([id number]) 1940 M Date Time Provider Department 05/12/24 MONICA CONNELL During your visit today, we recorded the following information about you: Monica Connell MA 05/12/2024 3:12 PM Signed POPULATION HEALTH NAVIGATION OUTREACH Action/FYI Patient called back and states he is no longer using [facility]- PCPis now Dr. Geiger at [facility]. Updated PCP field. Reason for Outreach Care Gap/HCC or Scheduling Wellness Visits Care Gaps due: Medicare Annual Wellness Visit Flu Vaccine Patient Contacted: Spoke to patient/parent/or legal guardian Patient identified by name and : Yes Care Gap/HCC/Scheduling Wellness actions taken: PCP field updated Navigation Signature: Monica Connell MA May 12, 2024 3:09 PM Allergies As of Date: 05/12/2024 Noted Allergy Reaction VANCOMYCIN 07/21/2014 2 - Rash 7 - Swelling Date Reviewed: 03/21/2023 Reviewed by: Annalee Reed MA - Fully Assessed Reason for Visit: Population Health Navigation Outreach [3910] Cmt: ACO QAE Surge list 2023 CONTINUED FROM 05/05 ENCOUNTER Prescriptions as of 05/12/2024 - enalapril (VASOTEC) 10 mg tablet take 1 tablet every day - simvastatin (ZOCOR) 40 mg tablet take 1 tablet at bedtime - pregabalin (LYRICA) 150 mg capsule - senna (ELSA-MALIA) 8.6 mg tab Take 8.6 mg by mouth twice daily. - gabapentin (NEURONTIN) 600 mg tablet Take 1 tablet by mouth five times daily. - blood sugar diagnostic (BLOOD GLUCOSE TEST) test strip Test blood sugar(s) once daily. Dx: E11.9. Insulin: No - capsaicin (ZOSTRIX-HP) 0.075 % topical cream Apply 1 application to affected area twice daily. - COMPOUNDED PRESCRIPTION Standing INR monthly and prn Dx:453.40 License #[id number] - Lancets lancets Test blood sugar(s) once daily. Dx: 250.00. Insulin: No - Blood-Glucose Meter misc As directed daily. Dx 250.00 - POTASSIUM 99 MG TAB Take one(1) tablet daily. Problem List As Of Date 05/12/2024 Noted Resolved Hereditary and idiopathic peripheral neuropathy* Mixed hyperlipidemia [E78.2] Essential hypertension [I10] PERS HX COLONIC POLYPS [Z86.0100] DIVERTICULOSIS OF COLON W/O BLEED [K57.30] Other diseases of pharynx, not elsewhere classi*03/10/2008 01/25/2016 Impaired fasting glucose [R73.01] 06/05/2008 02/12/2014 Metabolic syndrome [E88.810] 05/10/2010 Nocturia [R35.1] 05/10/2010 Basal cell carcinoma [...] 2 diabetes mellitus with other specified c*11/27/2022 12/26/2022 Encounter Status:Closed by MONICA CONNELL on 05/12/24 [facility] 05-05-2024 Note HNO ID: [id number] Author: MONICA CONNELL MA Service: ? Author Type: Vacuum Evaporation Operator Type: Progress Notes Filed: 05/05/2024 12:19 Note Text: POPULATION HEALTH NAVIGATION OUTREACH Action/FYI Left message for patient to call back. [employer] message sent. Reason for Outreach Care Gap/HCC or Scheduling Wellness Visits Care Gaps due: Medicare Annual Wellness Visit Flu Vaccine Patient Contacted: Unable or unnecessary to reach patient: Left message [facility] message sent Navigation Signature: Monica Connell MA May 05, 2024 12:14 PM [facility] 05-05-2024 History of Presen t illness Narrative POPULATION HEALTH NAVIGATION OUTREACH Action/FYI Left message for patient to call back. Mychart message sent. Reason for Outreach Care Gap/HCC or Scheduling Wellness Visits Care Gaps due: Medicare Annual Wellness Visit Flu Vaccine Patient Contacted: Unable or unnecessary to reach patient: Left message [employer] message sent Navigation Signature: Monica Connell MA May 05, 2024 12:14 PM documented in this encounter [facility] 05-05-2024 Note Patient Outreach (LEEANN TNAV) REGINA GORDON ([id number]) 1940 M Date Time Provider Department 05/05/24 BECKI, MONICA FLAVIO During your visit today, we recorded the following information about you: Monica Connell MA 05/05/2024 12:19 PM Signed POPULATION HEALTH NAVIGATION OUTREACH Action/FYI Left message for patient to call back. [employer] message sent. Reason for Outreach Care Gap/HCC or Scheduling Wellness Visits Care Gaps due: Medicare Annual Wellness Visit Flu Vaccine Patient Contacted: Unable or unnecessary to reach patient: Left message MyChart message sent Navigation Signature: Monica PATRICIO Connell May 05, 2024 12:14 PM Allergies As of Date: 05/05/2024 Noted Allergy Reaction VANCOMYCIN 07/21/2014 2 - Rash 7 - Swelling Date Reviewed: 03/21/2023 Reviewed by: Annalee Reed MA - Fully Assessed Reason for Visit: Population Health Navigation Outreach [3910] Cmt: ACO QAE Surge list 2023 Prescriptions as of 05/05/2024 - enalapril (VASOTEC) 10 mg tablet take 1 tablet every day - simvastatin (ZOCOR) 40 mg tablet take 1 tablet at bedtime - pregabalin (LYRICA) 150 mg capsule - senna (ELSA-MALIA) 8.6 mg tab Take 8.6 mg by mouth twice daily. - gabapentin (NEURONTIN) 600 mg tablet Take 1 tablet by mouth five times daily. - blood sugar diagnostic (BLOOD GLUCOSE TEST) test strip Test blood sugar(s) once daily. Dx: E11.9. Insulin: No - capsaicin (ZOSTRIX-HP) 0.075 % topical cream Apply 1 application to affected area twice daily. - COMPOUNDED PRESCRIPTION Standing INR monthly and prn Dx:453.40 License #[id number] - Lancets lancets Test blood sugar(s) once daily. Dx: 250.00. Insulin: No - Blood-Glucose Meter misc As directed daily. Dx 250.00 - POTASSIUM 99 MG TAB Take one(1) tablet daily. Problem List As Of Date 05/05/2024 Noted Resolved Hereditary and idiopathic peripheral neuropathy* Mixed hyperlipidemia [E78.2] Essential hypertension [I10] PERS HX COLONIC POLYPS [Z86.0100] DIVERTICULOSIS OF COLON W/O BLEED [K57.30] Other diseases of pharynx, not elsewhere classi*03/10/2008 01/25/2016 Impaired fasting glucose [R73.01] 06/05/2008 02/12/2014 Metabolic syndrome [E88.810] 05/10/2010 Nocturia [R35.1] 05/10/2010 Basal cell carcinoma [...] 2 diabetes mellitus with other specified c*11/27/2022 12/26/2022 Encounter Status:Closed by MONICA CONNELL on 05/05/24 [facility] 04-24-2023 Miscellaneous Notes Patient has been identified by name and [...] you. Anay Emanuel. documented in this encounter [facility] 03-21-2023 Discharge summary Note Date/Time March 21, 2023 8:19pm [facility] Medical Records Department [address] [place] [address] Emergency Department Summary 03/21/23 MR#: [id number] Acct: [id number] Name: REGINA GORDON Rep #:[id number] : 1940 82 From: Donell Glover MD PCP: Dr. Trey Geiger MD Status:REG ER Location: ED HPI HPI - GI History of Present Illness Chief Complaint: Constipation Narrative Narrative: 82-year-old male presents with his because of 2 chief complaints, mainly constipation quadrant pain, and urinary retention. He states that he at least has a bowel movement daily, and his last normal bowel movement was 3 days ago. He saw his primary care provider who put him on a stool softener. Since noon today, 8 hours ago, he has not urinated. He denies any fevers or chills, no nausea or vomiting, no prior abdominal surgeries. He is still having flatulence, but very little. He states he is starting to have suprapubic discomfort from bladder distention. [facility] Medical History High cholesterol History of DVT (deep vein thrombosis) History of edema History of stress test Hypertension Injury of back Non-smoker Wears glasses Home Medications simvastatin 40 mg tablet 40 mg PO QHS HLD 03/07/14 [History Last Taken Unknown] glucosamine HCl 500 mg-msm 83 mg-chondroitin 400 mg tablet 1,500 mg PO BID SUPPLEMENT 03/26/14 [History Last Taken Unknown] potassium 99 mg tablet 99 mg PO DAILY SUPPLEMENT 03/27/14 [History Last Taken Unknown] cholecalciferol (vitamin D3) 125 mcg (5,000 unit) tablet (Vitamin D3) 125 mcg PODAILY SUPPLEMENT 12/18/22 [History Last Taken Unknown] enalapril maleate 5 mg tablet 10 mg PO DAILY HTN 12/18/22 [History Last Taken 12/21/22] gabapentin 300 mg capsule 600 mg PO 5X/DAY NERVE PAIN 12/18/22 [History Last Taken Unknown] vitamin B complex 2 cap PO DAILY SUPPLEMENT 12/18/22 [History Last Taken Unknown] aspirin 81 mg tablet,delayed release (Adult Aspirin Regimen) 81 mg PO DAILY 03/21/23 [History Last Taken Unknown] enalapril maleate 10 mg tablet 10 mg PO Q24H 03/21/23 [History Last Taken Unknown] pregabalin 150 mg capsule 300 mg PO DAILY 03/21/23 [History Last Taken Unknown] Allergy/AdvReac Type Severity Reaction Status Date / Time vancomycin Allergy Rash Verified 03/21/23 19:35 Surgical History History of back surgery History of bilateral cataract extraction History of colonoscopy Social History Smoking Status: Never smoker ROS ROS ED ROS Narrative Constitutional: No fever, no chills. HEENT: No sore throat. No neck pain. No loss of vision. No rhinorrhea. Cardiovascular: No chest pain. No palpitations. No pedal edema. Respiratory: No cough, no shortness of breath. Abdominal: Lower quadrant abdominal pain. No nausea. No vomiting. Positive constipation with no bowel movement for last 2 to 3 days. Genitourinary: No dysuria. No hematuria. Polo retention and bladder discomfort/distention. Musculoskeletal: No myalgias. No arthralgias. Neurologic: No headaches. No dizziness. No lightheadedness. Skin: No rash. No change in color. Psychiatric: No depression. No anxiety. EXAM Physical Exam Narrative Exam Narrative: Afebrile. Vital signs noted. HEENT: Normocephalic. Atraumatic. PERRL, EOMI. Neck soft and supple. No pointtenderness or step off. Cardiovascular: Regular rate and rhythm. No murmurs, rubs, or gallops appreciated. Respiratory: No tachypnea. Lungs clear to auscultation bilaterally. Gastrointestinal: Abdomen soft, mild tenderness to palpation left lower quadrantwith normoactive bowel sounds. No rebound or guarding. Neurological: Awake. Alert. Nonfocal, nonlateralizing. Skin: No rash. Normal color. No pallor. Musculoskeletal: No pedal edema. Full range of motion extremities. Const Vital Signs: 03/21/23 19:34 03/21/23 21:33 Temperature 98 F Temperature Source Temporal Pulse Rate 81 71 Respiratory Rate 16 14 Blood Pressure 129/66 H 124/84 H Blood Pressure Mean 87 97 Pulse Ox 99 98 Oxygen Delivery Method Room Air Room Air MDM MDM MDM Narrative Medical decision making narrative: In the differential diagnosis is diverticulitis versus constipation. His urinary retention may be secondary to fecal impaction as well. I have lower suspicion for bowel obstruction as he has not had any prior abdominal surgeries. Comprehensive work-up was pursued. I do feel CT imaging is indicated. He willbe bladder scan and Marr catheter placed as he may have BPH causing his urinaryretention. He will be bolused normal saline after Marr catheter placement because of the IV dye load from the CT scan. Reviewed his laboratory work and he has slightly elevated white count 11.3 whichI think is nonspecific, hemoglobin normal at 13.5, hematocrit 42.1, with platelet count normal at 206. Electrolyte panel was reviewed and he has a normal sodium of 138, potassium normal at 4.6, chloride normal at 107, BUN slightly elevated 21 with a creatinine of 1.18. Glucose is elevated appropriately at 157 with a normal anion gap/low at 3. AST and ALT are normal. Urinalysis was obtained after Marr catheter was inserted. Bladder scan had shown greater than 600 mL of urine. He had approximately 800 to a liter out, and was relieved. I am unsure as to which came first, his urinary retention causing constipation versus fecal impaction causing urinary retention. I do feel that the Marr catheter should be left in place and removed by urology for a voiding trial. He will be given a leg bag. CT of the abdomen pelvis was obtained and I reviewed the radiology report which shows sigmoid diverticulosis without evidence of diverticulitis. There is a moderate amount of stool in the distal colon consistent with developing fecal impaction. I discussed manual disimpaction with the patient and his . Chaperoned rectal examination was performed with a moderate amount of stool removed from the rectal vault. Patient shows improvement. He will continue his stool softener at home, and they state that they have MiraLAX as well. He will start his dosing tomorrow, and if he does not have a bowel movement within an hour, he will repeat the dose. He will also try to have a bowel movement prior to bedtime tonight. I feel he be discharged safely home with follow-up and I do not feel that he requires observation. Return instructions to the emergency department were reviewed. Disposition is discharged home in stable condition. History & Record Review Discussion w/independent historian: Patient and Family Additional record(s) reviewed:: Prior ED visit and Prior labs Lab Data Attestation: I reviewed the patient's lab results. Labs: Laboratory Results - last 24 hr 03/21/23 20:25 WBC 11.3 H RBC 4.42 L Hgb 13.5 Hct 42.1 MCV 95.2 H MCH 30.5 MCHC 32.1 RDW Std Deviation 51.2 H RDW Coeff of Leigha 14.6 Plt Count 206 MPV 9.8 Immature Gran % (Auto) 0.600 Neut % (Auto) 75.8 H Lymph % (Auto) 13.6 L Meade % (Auto) 9.3 Eos % (Auto) 0.5 Baso % (Auto) 0.2 Absolute Neuts (auto) 8.6 H Absolute Lymphs (auto) 1.54 Nucleated RBC % 0 Sodium 138 Potassium 4.6 Chloride 107 Carbon Dioxide 28.0 Anion Gap 3 L BUN 21 H Creatinine 1.18 Estim Creat Clear Calc 49.63 Est GFR (MDRD) Af Amer 76 Est GFR (MDRD) Non-Af 63 BUN/Creatinine Ratio 17.8 Glucose 157 H Calcium 9.7 Total Bilirubin 0.50 AST 36 ALT 33 Alkaline Phosphatase 86 Total Protein 6.8 Albumin 3.2 Globulin 3.6 Albumin/Globulin Ratio 0.9 Urine Color Yellow Urine Clarity Clear Urine pH 5.0 Ur Specific [place] 1.020 Urine Protein Negative Urine Glucose (UA) Normal Urine Ketones 15 H Urine Occult Blood Negative Urine Nitrite Negative Urine Bilirubin Negative Urine Urobilinogen Normal Ur Leukocyte Esterase Negative Urine RBC 0 SEEN Urine WBC 0 SEEN Ur Squamous Epith Cells 0 SEEN Urine Bacteria 0 SEEN Urine Mucus 0 SEEN Radiography Diagnostic Testing: Clinical Impression(s) from Imaging Studies Abdomen/Pelvis CT 03/21/23 20:14 IMPRESSION: 1. Moderate stool the distal colon which may represent developing impaction. 2. Sigmoid diverticulosis with no evidence of diverticulitis. Electronically Signed: Bart Viera MD at 22:03 EDT , Discharge Plan Triage Chief Complaint: Constipation Other Complaint: Complaint ED Provider: Donell Glover Dx/Rx/DC Orders Clinical Impression: Fecal impaction, Acute urinary retention, Constipation Instructions: ED Constipation (Adult), ED Fecal Impaction, Treated, ED Marr Catheter, Care, ED Urinary Retention, Male Prescriptions: No Action simvastatin 40 MG tablet 40 mg PO QHS Patient Comments: reduce cholesterol glucosamine PJs-cfr-vttroqfoos 1 EACH tablet 1,500 mg PO BID Patient Comments: DIABETES potassium 99 MG tablet 99 mg PO DAILY Patient Comments: DIETARY SUPPLEMENT enalapril maleate 5 MG tablet 10 mg PO DAILY Patient Comments: LOWERS BLOOD PRESSURE gabapentin 300 MG capsule 600 mg PO 5X/DAY Patient Comments: NEUROPATHY vitamin B complex Capsule 2 cap PO DAILY cholecalciferol (vitamin D3) [Vitamin D3] 125 mcg (5,000 unit) Tablet 125 mcg PO DAILY enalapril maleate 10 mg tablet 10 mg PO Q24H pregabalin 150 mg capsule 300 mg PO DAILY aspirin [Adult Aspirin Regimen] 81 mg tablet,delayed release (DR/EC) 81 mg PO DAILY Primary Care Provider: Trey Geiger Referrals: Trey Geiger MD [Primary Care Provider] - 3-5 Days if not improving Joe Bee MD [Med Staff - Active Staff] - 1 Week Activity Restrictions/Additional Instructions: Take MiraLAX as directed. If no bowel movement within an hour, you may repeat the dose. Do not target Marr catheter. Call Dr. Bee for an appointment to have the Marr catheter removed within 1 week. Continue your stool softener as previously directed. Disposition Disposition: Home, Self Care What to do if you have Problems For any increased pain, shortness of breath, bleeding, nausea or vomiting, chestpain, or any unexpected problems, contact your Primary Care Provider. Call [facility] ([phone]) or report to the closest Emergency Room. Call 911 if necessary. 03/21/232301 <Electronically signed by Donell Glover MD> Cosigner Signature (if applicable): CC: Dr. Trey Geiger MD ~ Signed [facility] Work Phone: 1(595) 778-599209-13-2023 History of Present illness Narrative* Sabrina Dave PA-C - 03/21/2023 7:26 PM EDT This note was created using [employer]. Subjective Regina Gordon is a 82 year old male. HPI Patient presents with a chief complaint of lower abdominal pain, urinary retention and constipation. He has not had a bowel movement in 3 days. His primary care wrote him for Elsa-Malia which she took about 12 hours ago [...] complication, without long-term current use of insulin (HCC) 11/27/2022 Unspecified essential hypertension Unspecified hereditary and idiopathic peripheral neuropathy Current Outpatient Medications Medication Sig Dispense Refill senna (ELSA-MALIA) 8.6 mg tab Take 8.6 mg by [...] Standing INR monthly and prn Dx:453.40 License #[id number] 1 Each 99 Lancets lancets Test blood [...] liquid around it. Discussed with patient I wouldrecommend being seen in the ER as he may need a catheter due to the urinary retention. Patient and are agreeable with plan. She will take him to [facility] across the street. ER passport sent. 2. Urinary retention - ICD9: 788.20, ICD10: R33.9 3. Acute constipation - ICD9: 564.00, ICD10: K59.00 Sabrina Dave PA-C documented [facility] History of Present illness Narrative* Mary Lou Mitchell MD - 12/26/2022 2:09 PM EDT Reason for Visit Patient presents with: Follow Up: post back surgery Regina Gordon is a 82 year old male [...] the surgery. It is worse when they didl4 and l5. He is not not diabetic yet, hba1c last month was 6.0. he is careful with diet and will improve the exercise now that his back is a little better. Bp is a little on the higher side due to the procedure, he is on vicodin for pain. For constipationhe is taking stool softner. Also advised miralax [...] Blood-Glucose Meter misc POTASSIUM 99 MG TAB Cdzjuunaoqcub-Dhslpefi-Saychf (CENTRUM SILVER) ORAL Tab Review of Systems [...] F) Resp 14 Ht 180.3 cm (5' 11) Wt 120.2 kg (265 lb) SpO2 98% [...] ICD10: K59.00 Cont the miralax Mary Lou Mitchell MD documented in this encounterThe [facility]06-[facility] Miscellaneous Notes* Telephone Encounter - Anay Richardsgregory KHAN - 12/25/2022 10:48 AM EDT Patient has been identified by [...] you. Anay Peace LPN documented in this encounterThe [facility]06-15-[address] Vincent [facility] December 21, 2022 12:32pm Note Date/Time December 21, 2022 9:17 am [facility] Medical Records Department [address] [place] [address] Progress Note - Orthopedic 12/21/2217 MR#: [id number] Acct: [id number] Name: REGINA GORDON Rep #:[id number] : 1940 81 From: Munir Richards PCP: Dr. Mary Lou Mitchell MD Status:REG S DC Location: [place] [address] Subjective Subjective The patient was seen and examined postoperatively. He is lying in bed resting comfortably. His pain is well controlled. He denies any acute numbness tingling or weakness Objective Data Lab / Micro Data Result Diagrams: 12/18/22 13:38 12/18/22 13:38 Physical Exam Const alert, oriented x3 and no apparent distress General Appearance: cooperative, comfortable and well kempt HEENT normocephalic and head/scalp atraumatic Eyes EOMs intact bilaterally and conjunctivae normal Neck full ROM General: normal visual inspection Chest inspection of chest normal and palpation of chest normal Resp normal respiratory effort and normal air movement Cardio regular rate, regular rhythm and peripheral pulses 2+ throughout GI soft to palpation, non-tender and non-distended Back/Spine Back/Spine Narrative: Dressing clean dry and intact Cervical Spine: cervical ROM normal Thoracic Spine / Upper Back: normal to inspection Lumbar Spine / Lower Back: normal to inspection Extremity normal to inspection, full ROM, normal capillary refill and no calf tenderness Skin no rashes or lesions noted General Skin Exam: no breakdown Neuro oriented x3, CN's II-XII intact bilaterally, moves all extremities, no focal motor deficits, no sensory deficits noted and deep tendon reflexes 2+ bilaterally Motor Exam: strength 5/5 throughout and muscle tone normal throughout Assessment & Plan Assessment/Plan (1) Lumbar stenosis: PLAN: Okay to discharge home See discharge instructions Follow-up with Dr. Vincent as scheduled 12/21/22 1232 <Electronically signed by Munir Vincent DO> Leonidesigner Signature (if applicable): CC: ~ Signed [facility] Work Phone: 1(421) 152-541106-15-2023 Procedure [facility] 12-12-2022 Miscellaneous Notes* Telephone Encounter - Anay Peace LPN - 12/12/2022 9:35 AM EDT Phoned patient to notify him that we have faxed the preop clearance form to office on November 29 and then again on December 11 and we can again refax today as well. patient understood Phoned [facility] and left message that we have faxed form to their office x 3 on November 29, December 11, . Anay Peace LPN * Telephone Encounter - Mary Lou Mitchell MD - 12/11/2022 5:54 PM EDT Staff Please call patients ortho office to see what is required for surgical clearance As far as I remember I think the clearance was given. The patient unfortunately since he could not schedule his surgery because there was some disconnect about where the clearance was given. This is urgent care please look into it Regards, Mary Lou Mitchell MD documented in this encounterThe [facility]06-05-2023 Miscellaneous Notes* Telephone Encounter - Aimee Go Ma - 12/11/2022 12:02 PM EDT Pre- op form and OV note refaxed. * Telephone Encounter - Adriana Patel RN - 12/11/2022 8:39 AM EDT Patient calls to check on pre-op forms that were to be sent to Dr. Vincent. Noted OV note but no forms. Please fax to [phone]. During call, patient reports that pain to left buttocks and leg has gotten so bad that he is havingdifficulty ambulating. Rates the pain a 9/10 and reports that he has been using a urinal in bed because he is afraid to get out. Spoke with patient and recommending ED evaluation for severe painand inability to ambulate. reports she wouldn't be able to transport him. Instructed to call an ambulance. verbalizes understanding. Adriana Patel RN documented in this encounterThe [facility]05-22-2023 History of Present illness Narrative* Sandra Ya RT(R) - 11/27/2022 4:50 PM EDT Radiology Service Progress Note PATIENT NAME: Regina Gordon DATE OF SERVICE: November 27, 2022 TIME: 4:43 PM PATIENT IDENTITY VERIFICATION COMPLETED USING TWO (2) IDENTIFIERS: Name and Date of confirmedby patient verbally. FALL SCREENING: Has the patient [...] 27, 2022 4:43 PM documented in this encounterThe [facility]05-22-2023 History of Past illness Narrative* Problem Noted Date Resolved Date Type 2 [...] of this encounter (statuses as of 12/27/2022) [facility] of Past illness Narrative* Problem Noted Date Diagnosed Date Resolved Date Type 2 diabetes mellitus wit h other specified complication, without long-term current use of insulin 11/27/2022 12/26/2022 DM type 2 with diabetic peripheral neuropathy 02/24/2011/30/2021 Last Assessment & Plan: Blood sugar level [...] of this encounter (statuses as of 03/22/2023) [facility] History of Past illness Narrative* Problem Noted Date Diagnosed Date Resolved Date Type 2 diabetes mellitus wit h other specified complication, without long-term current use of insulin 11/27/2022 12/26/2022 DM type 2 with diabetic peripheral neuropathy 02/24/2011/30/2021 Last Assessment & Plan: Blood sugar level [...] of this encounter (statuses as of 04/25/2023) [facility] Miscellaneous Notes* Telephone Encounter - Anay [...] you. Anay Peace LPN documented in this encounterThe [facility]10-17-2022 Miscellaneous Notes* Telephone Encounter - Daisha Andrews LPN - 04/24/2022 1:04 PM EDT Patient phones requesting refills as follows: Requested Prescriptions Pending Prescriptions Disp Refills enalapril (VASOTEC) 10 mg tablet 90 tablet 3 Sig: Take 1 tablet by mouth once daily. LISA-04/11/22 Labs-04/06/22 NOV-none med filled 06/10/21 Please review and advise. Daisha Andrews LPN documented in this encounterThe [facility]10-04-2022 History of Present illness Narrative* Mary Lou Mitchell MD - 04/11/2022 12:05 PM EDT Reason for Visit Patient presents with: Recheck: 5 month follow up Regina Gordon is a 81 year old male [...] Blood-Glucose Meter misc POTASSIUM 99 MG TAB Makgyezzigxdh-Fzpbxapx-Befhad (CENTRUM SILVER) ORAL Tab Review of Systems [...] F) Resp 14 Ht 180.3 cm (5' 11) Wt 109.8 kg (242 lb) SpO2 96% [...] fruits and vegetables, exercises regularly. Mary Lou Mitchell MD documented in this encounterThe [facility]07-15-2022 Miscellaneous Notes* Telephone Encounter - Nica [...] you. Anay Peace LPN documented in this encounterThe [facility]05-28-2022 Miscellaneous Notes* Telephone Encounter - Jessica Glynn LPN - 12/03/2021 11:22 AM EDT Pharmacy electronically requests the following refill(s) Pending Prescriptions Disp Refills SIMVASTATIN 40 MG TABLET 90 tablet 3 Sig: Take 1 tablet by mouth daily at bedtime. DONAVON: No Jessica Glynn LPN Last Office visit: 11/30/2021 Next Office visit: 04/11/2022 documented in this encounterThe [facility]05-25-2022 History of Present illness Narrative* Mary Lou Mitchell MD - 11/30/2021 8:19 AM EDT Welcome [...] Topics Alcohol use: No Drug use: No Regina denies regular aerobic exercise or likes to exercise by walking. He watches his diet for sodium, low fat and low cholesterol most of the time. List of current specialists seen: Eye doc [place] Planning discussed including patients advanced directive wishes: Yes I am willing to follow Regina's advanced directives. PHQ-2 / Depression screen He [...] F) Resp 14 Ht 180.3 cm (5' 11) Wt 108 kg (238 lb) SpO2 97% BMI 33.19 kg/m Alert and oriented X 3: YES Body mass index is 33.19 kg/m . ASSESSMENT/PLAN: 80 year old male The following prevention plan was discussed during the office visit and provided to the patient: - Glaucoma screening - Lipid panel Mary Lou Mitchell MD Reason for Visit Patient presents with: [...] Blood-Glucose Meter misc POTASSIUM 99 MG TAB Vpjxeclxrspbq-Hkoqntgr-Rkqkrq (CENTRUM SILVER) ORAL Tab Review of Systems [...] F) Resp 14 Ht 180.3 cm (5' 11) Wt 108 kg (238 lb) SpO2 97% [...] he needs to continue that. Mary Lou Mitchell MD [place] [id number] History of Past illness Narrative* Problem Noted [...] of this encounter (statuses as of 11/30/2021) [facility] of [facility] Narrative* Problem [...] of this encounter (statuses as of 12/07/2021) [facility] of [facility] illness Narrative* Problem [...] of this encounter (statuses as of 01/20/2022) [facility] of [facility] illness Narrative* Problem [...] of this encounter (statuses as of 04/11/2022) [facility] of [facility] Narrative* Problem [...] of this encounter (statuses as of 04/24/2022) [facility] Narrative* Problem [...] of this encounter (statuses as of 10/17/2022) [facility] of [facility] Narrative* Problem [...] of this encounter (statuses as of 12/11/2022) [facility] of [facility] illness Narrative* Problem [...] controlled at this point Impaired fasting glucose 06/05/20082 014 Other diseases of pharynx, not elsewhere classif ied(478.29) 03/10/2008 01/25/2016 documented as of this encounter (statuses as of 12/12/2022) [facility] of [facility] Narrative* Problem [...] of this encounter (statuses as of 12/25/2022) [facility] [place] [facility]* Diagnosis Medicare annual wellness visit, subsequent- Primary Routine general medical examination at a [facility] care facility Essential hypertension Unspecified essential hypertension Mixed hyperlipidemia Encounter for immunization Need for other specified prophylactic vaccination against single bacterial disease Abnormal dreams Other dysfunctions of sleep stages or arousal from sleep Prediabetes Other abnormal glucose Hereditary and idiopathic peripheral neuropathy Unspecified hereditary and idiopathic peripheral neuropathy Open wound of left elbow, initial encounter documented [facility] this encounter [facility]* Diagnosis Mixed hyperlipidemia [facility] this [facility]* Diagnosis Hereditary and idiopathic peripheral neuropathy Unspecified hereditary and idiopathic peripheral neuropathy [facility]* Diagnosis Elevated blood sugar- Primary Other abnormal glucose Mixed hyperlipidemia Essential hypertension Unspecified essential hypertension [facility] encounter [facility]* Diagnosis Essential hypertension Unspecified essential hypertension [facility] Mixed hyperlipidemia [facility]* Diagnosis Onset Date Resolution Status Lumbar stenosis [facility] Work Phone: Evaluation note* Diagnosis Hereditary and idiopathic peripheral neuropathy Unspecified hereditary and idiopathic peripheral neuropathy documented [facility] this encounter [facility]* Diagnosis S/P lumbar fusion- Primary Arthrodesis status Mixed hyperlipidemia Essential hypertension Unspecified essential hypertension Prediabetes Other abnormal glucose Constipation, unspecified constipation type documented in this encounter [facility]* Diagnosis Abdominal pain, unspecified abdominal location- Primary Urinary retention Retention of urine, unspecified Acute constipation Unspecified constipation documented in this encounter [facility] [place] [facility]* Diagnosis Essential hypertension Unspecified essential hypertension Mixed hyperlipidemia [facility] [place] [facility]* Diagnosis Chronic anticoagulation- Primary Long-term (current) [...] Preoperative examination, unspecified documented in this encounter [facility] noteNo assessment information availableWOhio Valley Hospital Work Phone: Hospital Discharge instructions Additional Instructions 1. During your procedure, you received sedation through your IV. Please follow these instructions for the next 24 hours: Do not drive a motor vehicle, do not drink any alcoholic beverages, and do not sign any legal documents or make personal or business decisions. A responsible adult should stay with you at least 6 hours after the procedure. 2. Keep your surgical site/incision clean and the dressing dry and intact. You may use an ice pack at the surgical site to reduce any swelling or discomfort. 3. Monitor the incision site for any signs or symptoms of infection. Watch for redness, excessive swelling or drainage, or continued pain at the incision site after 3 days. Contact your physician immediately for a fever, chills or a temperature of 101.5 F or greater. 4. Take your medication exactly as prescribed by your physician. Do not attempt to wean yourself off any of your medications even though your pain is improving. This process needs to be carefully monitored by your doctor. Take any antibiotics prescribed exactly as directed and until they are gone. 5. Avoid stretching, bending, pulling, twisting or any sudden movements. Do not bend or twist at the waist. 6. No lifting greater than 5 pounds. 7. Do not operate a motor vehicle, equipment or a power tool while taking pain medication 8. Do not have any manipulation done by a chiropractor or any other physician without first consulting with the surgeon 9. Please contact our office if you are even scheduled for a CT scan or an MRI. 10. Please call us if you have any questions, problems or concerns. Implant Used?: YesWOhio Valley Hospital Work Phone: Hospital Discharge instructions Additional Instructions Take MiraLAX as directed. If no bowel movement within an hour, you may repeat the dose. Do not target Marr catheter. Call Dr. Bee for an appointment to have the Marr catheter removed within 1 week. Continue your stool softener as previously directed.[facility] Work Phone: Reason for referral (narrative)No reason for referral information availableW[facility] Work Phone: Reason for Referral Specialty Diagnoses / Procedures Referred By Sampson phillips Referred To Contact Diagnoses Abnormal dreams Procedures CONSULT TO SLEEP MEDICINE - ADULT OFFICE/OUTPATIENT [facility] 60-74 MINUTES Mary Lou Mitchell MD [address] [place] [address] Referral ID Status Reason Start Date Expiration Date Visits Requested Visits Authorized [id number] Authorized PCP Requested Referral 11/30/2021 11/30/2022 1 1 Advance Directives No Advanced Directives Records FoundDocuments on File Type Date Recorded 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 Advance Directive(s) 03/03/2013 11:36 AM Documents on File Type Date Recorded 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 Advance Directive(s) 03/03/2013 11:36 AM Advance Directive Response Recorded Date/ Time Advance Directives Yes March 11:55am Living Will Yes December 18, 2022 11:50am Power of Wellness Coordinator Yes December 18 11:50am Name of Medical Power of Wellness Coordinator ALIYAH GIANG December 18, 2022 11:50am Advance Directive Response Recorded Date/ Time Name of Medical Power of Wellness Coordinator ALIYAH GIANG December 18, 2022 11:50am Name of Medical Power of Wellness Coordinator aliyah grace March 21, 2023 8:12pm Advance Directives Yes March 11:55am Living Will Yes March 21, 2023 8:12pm Power of Wellness Coordinator Yes March 8:12pm Advance Directive Response Recorded Date/ Time Advance Directives Yes March 11:55am Chief Complaint and Reason for Visit Chief Complaint LUMBAR 3 LAMINECTOMY DECOMPRESSION Reason for Visit Lumbar stenosis Chief Complaint PREOP LUMBAR 3 LAMINECTOMY DECOMPRESSION EDEMA CONSTIPATION, RETENTION Reason for Visit Lumbar stenosis Chief Complaint Admit Date XRAY-LOWER BACK PAIN/FOOR DEFORMITY 2024 3:22pm Family History No Family History Records Found Relationship Condition Age at Onset Recorded Date/T ledy Unknown Family History?No pe rtinent history Unknown March 08, 2014 3:43pm Family History?No pe rtinent history Unknown March 27, 2014 1:05pm Summary Purpose Additional Source Comments Source Comments (unrecognize d section and content) In the event this informatio n is protected by the Federal Confidentiality of Alcohol and Drug Abuse Patient Records regulations: The Federal rules restrict any use of the information to criminally investigate or prosecute any alcohol or drug abuse patient.[facility] the event this information is protected by the Federal Confidentiality of Alcohol and Drug Abuse Patient Records regulations: The Federal rules restrict any use of the information to criminally investigate or prosecute any alcohol or drug abuse patient.[facility] the event this information is protected by the Federal Confidentiality of Alcohol and Drug Abuse Patient Records regulations: The Federal rules restrict any use of the information to criminally investigate or prosecute any alcohol or drug abuse patient.[facility] the event this information is protected by the Federal Confidentiality of Alcohol and Drug Abuse Patient Records regulations: The Federal rules restrict any use of the information to criminally investigate or prosecute any alcohol or drug abuse patient.[facility] the event this information is protected by the Federal Confidentiality of Alcohol and Drug Abuse Patient Records regulations: The Federal rules restrict any use of the information to criminally investigate or prosecute any alcohol or drug abuse patient.[facility] the event this information is protected by the Federal Confidentiality of Alcohol and Drug Abuse Patient Records regulations: The Federal rules restrict any use of the information to criminally investigate or prosecute any alcohol or drug abuse patient.[facility] the event this information is protected by the Federal Confidentiality of Alcohol and Drug Abuse Patient Records regulations: The Federal rules restrict any use of the information to criminally investigate or prosecute any alcohol or drug abuse patient.[facility] the event this information is protected by the Federal Confidentiality of Alcohol and Drug Abuse Patient Records regulations: The Federal rules restrict any use of the information to criminally investigate or prosecute any alcohol or drug abuse patient.[facility] the event this information is protected by the Federal Confidentiality of Alcohol and Drug Abuse Patient Records regulations: The Federal rules restrict any use of the information to criminally investigate or prosecute any alcohol or drug abuse patient.[facility] the event this information is protected by the Federal Confidentiality of Alcohol and Drug Abuse Patient Records regulations: The Federal rules restrict any use of the information to criminally investigate or prosecute any alcohol or drug abuse patient.[facility] the event this information is protected by the Federal Confidentiality of Alcohol and Drug Abuse Patient Records regulations: The Federal rules restrict any use of the information to criminally investigate or prosecute any alcohol or drug abuse patient.[facility] the event this information is protected by the Federal Confidentiality of Alcohol and Drug Abuse Patient Records regulations: The Federal rules restrict any use of the information to criminally investigate or prosecute any alcohol or drug abuse patient.[facility] the event this information is protected by the Federal Confidentiality of Alcohol and Drug Abuse Patient Records regulations: The Federal rules restrict any use of the information to criminally investigate or prosecute any alcohol or drug abuse patient.[facility] the event this information is protected by the Federal Confidentiality of Alcohol and Drug Abuse Patient Records regulations: The Federal rules restrict any use of the information to criminally investigate or prosecute any alcohol or drug abuse patient.[facility] the event this information is protected by the Federal Confidentiality of Alcohol and Drug Abuse Patient Records regulations: The Federal rules restrict any use of the information to criminally investigate or prosecute any alcohol or drug abuse patient.[facility] Reason for Visit (unrecogniz ed section [...] Constipation X2 days, causing dif ficult urination Reason Onset Date Comments Population Health Navigation Outreach 05/05/2024 ACO QAE Surge list 2023 Reason Onset Date Comments Population Health Navigation Outreach 05/12/2024 ACO QAE Surge list ONTINUED FROM 05/05 ENCOUNTER Care Teams (unrecognized sec tion and content) Bank Compliance Officer Relationship Specialty Start Date End Date Mary Lou Mitchell MD [address], [place] [id number] PCP - General Internal Medicine 11/09/16 Kong Pollack NO FORWARDING ADDRESS 05/02/02 Bank Compliance Officer Relationship Specialty Start Date End Date Mary Lou Mitchell MD [address], [place] [id number] PCP - General Internal Medicine 11/09/16 Kong Pollack NO FORWARDING ADDRESS 05/02/02 Bank Compliance Officer Relationship Specialty Start Date End Date Mary Lou Mitchell MD [address], [place] [id number] PCP - General Internal Medicine 11/09/16 Kong Pollack NO FORWARDING ADDRESS 05/02/02 Bank Compliance Officer Relationship Specialty Start Date End Date Mary Lou Mitchell MD [address] [facility] [place] [address] PCP - General Internal Medicine 11/09/16 Kong Pollack NO FORWARDING ADDRESS 05/02/02 Bank Compliance Officer Relationship Specialty Start Date End Date Mary Lou Mitchell MD [address] [facility] [place] [address] PCP - General Internal Medicine 11/09/16 Kong Pollack NO FORWARDING ADDRESS 05/02/02 Team Status: Active Member Role Status Dates Dr. Mary Lou Mitchell MD Family Provider Active Dr. Mary Lou Mitchell MD Primary Care Provider Active Team Status: Inactive Member Role Status Dates Dr. Mary Lou Mitchell MD Primary Care Provider Active Dr. Munir Vincent DO Attending Provider, Referring P romana Active Bank Compliance Officer Relationship Specialty Start Date End Date Mary Lou Mitchell MD [address] [facility] [place] [address] PCP - General Internal Medicine 11/09/16 Kong Pollack NO FORWARDING ADDRESS 05/02/02 Bank Compliance Officer Relationship Specialty Start Date End Date Mary Lou Mitchell MD [address] [facility] [place] [address] PCP - General Internal Medicine 11/09/16 Kong Pollack NO FORWARDING ADDRESS 05/02/02 Team Status: Active Member Role Status Dates Dr. Mary Lou Mitchell MD Family Provider Active Trey Geiger MD Primary Care Provider Active Team Status: Inactive Member Role Status Dates Trey Geiger MD Primary Care Provider, Attending Prov ider Active Team Status: Active Member Role Status Dates Trey Geiger MD Primary Care Provider, Referring Prov ider Active Dr. Silverio Doty MD Attending Provider Active Team Status: Active Member Role Status Dates Dr. Mary Lou Mitchell MD Primary Care Provider Active Dr. Maria E Garner MD Attending Provider Activ e Dr. Munir Vincent , DO Referring Provider Active Team Status: Inactive Member Role Status Dates Trey Geiger MD Primary Care Provider Active Donell Glover MD Emergency Provider Active Team Status: Inactive Member Role Status Dates Trey Geiger MD Primary Care Provider, Attending Prov ider Active Dr. Munir Vincent , DO Other Provider Active Bank Compliance Officer Relationship Specialty Start Date End Date Mary Lou Mitchell MD [address] [facility] [place] [address] PCP - General Internal Medicine 11/09/16 Kong Pollack NO FORWARDING ADDRESS 05/02/02 Bank Compliance Officer Relationship Specialty Start Date End Date Mary Lou Mitchell MD [address] [facility] [place], [place] [address] PCP - General Internal Medicine 11/09/16 Kong Pollack NO FORWARDING ADDRESS 05/02/02 Bank Compliance Officer Relationship Specialty Start Date End Date Mary Lou Mitchell MD [address] [facility] [place], [place] [address] PCP - General Internal Medicine 11/09/16 Kong Pollack NO FORWARDING ADDRESS 05/02/02 Bank Compliance Officer Relationship Specialty Start Date End Date Mary Lou Mitchell MD [address] [facility] [place] [address] PCP - General Internal Medicine 11/09/16 Kong Pollack NO FORWARDING ADDRESS 05/02/02 Bank Compliance Officer Relationship Specialty Start Date End Date Trey Geiger MD [place] [address], [place] [phone] PCP - General Internal Medicine 05/12/24 oKng Pollack NO FORWARDING ADDRESS 05/02/02 Team Status: Inactive Member Role Status Dates Trey Geiger MD Primary Care Provider Active St art: December 02, 2024 End: December 02, 2024 Trey Geiger MD Attending Provider Active Start : December 02, 2024 End: December 02, 2024 Trey Geiger MD Referring Provider Active Start : December 02, 2024 End: December 02, 2024 Team Status: Active Member Role/Relationship Status Dates Dr. Mary Lou Mitchell MD Family Provider Active Trey Geiger MD Primary Care Provider Active Team Status: Inactive Member Role/Relationship Status Irina Geiger MD Primary Care Provider Active St art: December 02, 2024 End: December 02, 2024 Trey Geiger MD Attending Provider Active Start : December 02, 2024 End: December 02, 2024 Trey Geiger MD Referring Provider Active Start : December 02, 2024 End: December 02, 2024 Team Status: Inactive Member Role/Relationship Status Irina Geiger MD Primary Care Provider Active St art: February 26, 2025 End: February 26, 2025 Trey Geiger MD Attending Provider Active Start : February 26, 2025 End: February 26, 2025 Trey Geiger MD Referring Provider Active Start : February 26, 2025 End: February 26, 2025 (unrecognized sect ion and content) No Status Records FoundNo Status Records Found INFORMATION SOURCE (unrecogn ized section and content) DATE CREATED AUTHOR 05/13/2024 [facility] DATE CREATED AUTHOR AUTHOR'S DANIELLE KELLOGG 03/17/2025 [facility] Goals (unrecognized section and content) Goals may be documented in a n alternate sectionGoals may be documented in an alternate section FOR RECORDS PERTAINING TO PATIENTS WHO ARE [...] BE BASED ON THE PRIMARY CLINICAL RECORDS. [facility]. provides no warranty or guarantee of the accuracy or completeness of information in this document.
[2025-03-27 06:47] LABS: Hematocrit 40.0 % (40-54); Hemoglobin 13.2 g/dL (13.0-16.5); Immature Granulocytes Count 0.030 X10^3/uL (0.0-0.0); Mean Corp Hgb Conc 33.0 g/dL (32-36); Mean Corpuscular Volume 94.6 fL (80-94); Mean Platelet Vol. 9.6 fl (6.2-12.0); NRBC Flagged by Analyzer 0 % (0-5); Platelet Count 228 K/mm3 (150-450); RBC Distribution Width CV 13.3 % (11.6-14.6); RBC Distribution Width SD 45.7 fl (35.1-43.9); Red Blood Count 4.23 M/mm3 (4.6-6.2); White Blood Count 8.1 K/mm3 (4.4-11.0)
[2025-03-27 06:56] LABS: Prothrombin Time (Protime)PT. 14.0 SECONDS (11.7-14.9)
[2025-03-27 06:57] LABS: Partial Thromboplast Time 28.9 Seconds (24.1-36.2)
--- NOTE | 2025-03-27 07:06 | CT_ITS ---
PROCEDURE: SPINE CERVICAL WITHOUT CONTRAS 03/27/2025 REASON FOR EXAM: FALL TECHNIQUE: Procedure Code: CTSPC Modality: CT Procedure: SPINE CERVICAL WITHOUT CONTRAS Coronal and Sagittal reconstruction series were provided. One or more dose reduction techniques were used (e.g., Automated exposure control, adjustment of the mA and/or kV according to patient size, use of iterative reconstruction technique. RADIATION DOSE SUMMARY: CTDlvol: 10.84 mGy DLP: 1833.76 mGycm COMPARISON: None. FINDINGS: Alignment: Normal. Vertebrae: No acute bony abnormalities. Disc levels: Multilevel degenerate changes predominantly at C3-C4 where there is disc space narrowing, sclerotic endplates, uncovertebral hypertrophy with severe bilateral foramina stenosis and moderate canal stenosis. Soft Tissues: No soft tissue abnormalities. CT/Spine Cervical without Contras IMPRESSION: No acute injury to the cervical spine. Reading Location: [id number]
[2025-03-27 07:11] LABS: Anion Gap 10 (5-15); BUN 17 mg/dL (4-19); BUN/Creat Ratio 18.4 RATIO (10-20); Calcium,Total 9.3 mg/dL (7.6-11.0); Carbon Dioxide 23.5 mmol/L (21.0-32.0); Chloride 107 mmol/L (98-108); Estimated Creatinine Clearance 69.87 ml/min (50-250); Glucose 120 mg/dL (70-99); Magnesium 1.9 mg/dL (1.5-2.2); Potassium 4.5 mmol/L (3.3-5.1)
--- NOTE | 2025-03-27 07:37 | EX.ED.DYSGE1 ---
HPI History of Present Illness Chief Complaint: Stroke Alert Informant: patient, spouse/S.O. and EMS Narrative Narrative: Patient is a 84-year-old male with past medical history of hypertension and hyperlipidemia as well as previous degenerative disc disease in the low back requiring surgery. Patient states that over the last few days he and his are in the process of moving and after working on doing this throughout the day he has had increased fatigue/tiredness at night. He states that there has been no fevers chills nausea vomiting diarrhea or dysuria he simply has felt tired. He states that he typically gets up throughout the night to use the bathroom. He reports that he did that multiple times last night after going to bed around 11. He reports that he fell asleep on the toilet. He then awoke once he fell off the toilet and struck the bathroom floor hitting his head/face and getting lodged in a awkward position on his right side. He could not get up and was complaining of paresthesias essentially throughout the entire body and therefore EMS was called. EMS reports when they arrived the patient was awake and alert blood sugar was normal at approximately 115. However he was reporting paresthesias and they felt that he had increased weakness mainly to the left side and therefore there was concern for an acute stroke and a stroke alert was activated. [facility] Medical History Wears glasses High cholesterol History of DVT (deep vein thrombosis) Injury of back Non-smoker History of edema History of stress test Hypertension Home Medications ?Medication ?Instructions ?Recorded ?Last Taken ?Type glucosamine HCl 500 mg-msm 83 1,500 mg PO BID SUPPLEMENT 03/26/14 Unknown History mg-chondroitin 400 mg tablet potassium 99 mg tablet 99 mg PO DAILY SUPPLEMENT 03/27/14 Unknown History vitamin B complex 2 cap PO DAILY SUPPLEMENT 12/18/22 Unknown History enalapril maleate 10 mg tablet 10 mg PO Q24H 03/21/23 Unknown History gabapentin 600 mg tablet 600 mg PO Q6H 03/27/25 Unknown History simvastatin 40 mg tablet 40 mg PO QHS 03/27/25 Unknown History Allergy/AdvReac Type Severity Reaction Status Date / Time finasteride Allergy Mild Rash Verified 03/27/25 06:33 tamsulosin Allergy Mild Rash Verified 03/27/25 06:33 vancomycin Allergy Rash Verified 03/27/25 06:33 Surgical History History of colonoscopy History of back surgery History of bilateral cataract extraction Social History Smoking Status: Never smoker ROS ROS ED Constitutional Constitutional ED: Reports other Details: Positive fatigue ; Denies chills or fever(s) Eyes Eyes: Denies blurry vision or change in vision ENT ENT ED: Denies sore throat Cardiovascular Cardiovascular: Denies chest pain, palpitations or racing heartbeat Respiratory/Chest Respiratory/Chest: Denies cough or dyspnea Gastrointestinal Gastrointestinal: Denies abdominal pain, diarrhea, nausea or vomiting Genitourinary Genitourinary ED: Denies dysuria Musculoskeletal Musculoskeletal: Reports back pain and neck pain Integumentary Denies rash Neurologic Neurologic: Reports paresthesias and weakness; Denies headache(s) Hematologic/Lymphatic Hematologic/Lymphatic: Denies easy bleeding or easy bruising EXAM Physical Exam Const Vital Signs: 03/27/25 06:33 03/27/25 06:33 03/27/25 06:36 Temperature 98 F Temperature Source Temporal Pulse Rate 56 L 52 L Respiratory Rate 18 18 Blood Pressure 145/67 H Blood Pressure Mean 93 Pulse Ox 98 98 97 Oxygen Delivery Method Room Air Room Air Room Air 03/27/25 07:06 03/27/25 07:33 Temperature Temperature Source Pulse Rate 51 L 54 L Respiratory Rate 18 18 Blood Pressure 142/70 H 139/71 H Blood Pressure Mean 94 93 Pulse Ox 98 98 Oxygen Delivery Method Room Air Room Air Positive well nourished and well developed General Appearance ED: well developed HEENT HEENT Narrative: Patient has soft tissue swelling with ecchymosis and superficial abrasion along the bridge of the nose and the right orbit consistent with report of fall/head injury No septal hematoma noted No signs of depressed or basilar skull fracture No tongue or cheek biting noted to suggest seizure activity Eyes PERRL and EOMs intact bilaterally Eyes Narrative: No hyphema noted Neck Neck Narrative: No bony deformity or step-off of the cervical spine Patient does have midline pain on palpation at the C7 region Chest Wall palpation of chest normal Chest Narrative: No pain with palpation of the chest wall no subcutaneous emphysema noted Resp normal respiratory effort and clear to auscultation bilaterally Cardio regular rhythm Rate: bradycardia and other Other Details: Bradycardic rate with regular rhythm Radial and carotid pulses are equal and symmetric GI normal to inspection, nondistended, normoactive bowel sounds, non-tender, non-distended and no masses GI Narrative: No voluntary guarding rigidity or pulsatile mass Auscultation: normoactive bowel sounds Palpation: soft Back/Spine Back/Spine Narrative: No bony deformity or step-off of the thoracic or lumbar spine no midline tenderness to palpation Extremity normal to inspection Extremity Narrative: Pelvis is stable there is no shortening or external rotation of either lower extremity No signs of long bone injury such as bony deformity or joint effusion All compartments are soft and compressible going against compartment syndrome Neuro oriented x3 and CN's II-XII intact bilaterally Neuro Narrative: GCS of 15 Cranial nerves II through XII are grossly intact No pronator drift or truncal ataxia noted Patient received an NIH stroke scale score of 1 as reports paresthesias to his right palm Otherwise there is no asymmetric weakness of either arm or leg no aphasia or expressive aphasia no facial droop vision loss or altered mental status Sensorium / Orientation: alert Psych mental status grossly normal Skin Skin Narrative: Soft tissue swelling with ecchymosis and superficial abrasions to the right orbit and bridge of the nose as documented above consistent with report of fall/head/face trauma MDM MDM MDM Narrative Medical decision making narrative: Patient arrived to the ER with stable vitals and he was awake and alert. EMS have reported a fall secondary to generalized weakness and felt that there was left arm and leg weakness compared to the right. Secondary to this we did elect to activate a stroke alert. As the patient had a fall with head/face trauma there is concern for a traumatic subarachnoid or subdural hemorrhage versus facial fracture versus cervical spine fracture. The patient underwent a noncontrast CT which revealed no sign of acute bleed or skull fracture as well as facial CT with CTA of the head and neck with cervical reconstruction. CT of the face revealed no signs of acute trauma cervical spine reconstructions show degeneration without fracture or spondylolisthesis. CTA revealed no signs of LVO or significant stenosis. The fact that the patient was not having any focal deficit or paresthesias until he fell and struck his head/face and was placed in a awkward position with indicates that his symptoms are most likely secondary to neuropraxia. Moreover the longer he has been off the floor and in a normal position his symptoms have spontaneously improved. As he did report increased fatigue there is potential for acute blood loss anemia thyroid dysfunction electrolyte abnormality or acute kidney damage as the cause. Blood work however revealed no acute finding. The case was discussed with [facility] neurology. After obtaining a better history and physical exam with the patient they agree that symptoms do not correlate with an acute stroke and the fact that his workup does not reveal overt trauma such as subarachnoid or subdural hemorrhage or cervical spine fracture that there is no need for transfer or further neurologic intervention at this time. We did attempt to ambulate the patient in the ER. Upon standing he states he feels weak and cannot hold himself up. Therefore at this time as he has persistent generalized weakness with inability ambulate I do not feel that he is safe for discharge and therefore we will reach out to the hospitalist to discuss admission. I discussed the case with Dr. Thomas who feels that yes as the patient has increased weakness with inability ambulate and the fact EMS reported some unilateral weakness upon arrival that it is beneficial to bring him into the hospital for continued evaluation and treatment. This plan of care was discussed with the patient and and they are agreeable to it and therefore will be admitted to the hospital for continued observation and care Please note that as the patient's symptoms are improving and upon my examination there is no focal deficit that the patient therefore does not warrant treatment with TNK. This was discussed with the [facility] neurologist who agrees that there is no need for thrombolytics at this time History & Record Review Discussion w/independent historian: EMS personnel, Patient and Significant other Lab Data Attestation: I reviewed the patient's lab results. Labs: Laboratory Results - last 24 hr 03/27/25 06:24 WBC 8.1 RBC 4.23 L Hgb 13.2 Hct 40.0 MCV 94.6 H MCH 31.2 MCHC 33.0 RDW Std Deviation 45.7 H RDW Coeff of Leigha 13.3 Plt Count 228 MPV 9.6 Immature Gran % (Auto) 0.400 Neut % (Auto) 61.6 Lymph % (Auto) 24.7 [place] % (Auto) 10.1 H Eos % (Auto) 2.3 Baso % (Auto) 0.9 Absolute Neuts (auto) 5.0 Absolute Lymphs (auto) 2.00 Nucleated RBC % 0 PT 14.0 INR 1.1 APTT 28.9 Sodium 140 Potassium 4.5 Chloride 107 Carbon Dioxide 23.5 Anion Gap 10 BUN 17 Creatinine 0.91 Estim Creat Clear Calc 69.87 Est GFR (MDRD) Non-Af 83 BUN/Creatinine Ratio 18.4 Glucose 120 H Calcium 9.3 Magnesium 1.9 TSH 2.510 Radiography Diagnostic Testing: Clinical Impression(s) from Imaging Studies Facial/Sinus 03/27/25 06:30 IMPRESSION: No acute injury to the maxillofacial bones. No paranasal sinus mucosal thickening. Reading Location: [id number] Head/Neck CTA 03/27/25 06:30 IMPRESSION: No evidence of hemodynamically significant stenosis or aneurysm in the head and neck. Reading Location: [id number] Brain CT 03/27/25 06:36 IMPRESSION: No acute intracranial abnormalities. Reading Location: [id number] Cervical Spine CT 03/27/25 07:06 IMPRESSION: No acute injury to the cervical spine. Reading Location: [id number] Management Discussion w/another healthcare provider: Hospitalist and Network Developer Discharge Plan Dx/Rx/DC Orders Clinical Impression: Hyperlipidemia, Hypertension, Generalized weakness, Inability to walk, Paresthesias, Closed head injury Disposition Disposition: Acute Care Hospital [facility]
--- NOTE | 2025-03-27 07:51 | PCM.HP.STD ---
HPI - General General Date of Admission: 03/27/25 Date of Service: 03/27/25 Chief Complaint: Fall HPI Narrative REGINA DELAROSA, is a 84 M with past medical history signal for generalized osteoarthritis dyslipidemia hypertension who presented to the emergency department following a fall. Per patient he fell asleep whilst on his toilet in the early hours of the morning the next thing he remembers is falling to the ground. His did call the EMS squad who brought patient to the ED. Patient had apparently complained of some numbness involving the right upper extremity and EMS had reported subjective weakness involving the right upper extremity as well. Patient was however found not to have any neurological deficits at the time of arrival in the ED head CT was negative. Subsequently admitted to a monitored bed as a case of suspected TIA [facility] Medical History Wears glasses High cholesterol History of DVT (deep vein thrombosis) Injury of back Non-smoker History of edema History of stress test Hypertension Home Medications ?Medication ?Instructions ?Recorded ?Last Taken ?Type glucosamine HCl 500 mg-msm 83 1,500 mg PO BID SUPPLEMENT 03/26/14 Unknown History mg-chondroitin 400 mg tablet potassium 99 mg tablet 99 mg PO DAILY SUPPLEMENT 03/27/14 Unknown History vitamin B complex 2 cap PO DAILY SUPPLEMENT 12/18/22 Unknown History enalapril maleate 10 mg tablet 10 mg PO Q24H 03/21/23 Unknown History gabapentin 600 mg tablet 600 mg PO Q6H 03/27/25 Unknown History simvastatin 40 mg tablet 40 mg PO QHS 03/27/25 Unknown History Allergy/AdvReac Type Severity Reaction Status Date / Time finasteride Allergy Mild Rash Verified 03/27/25 06:33 tamsulosin Allergy Mild Rash Verified 03/27/25 06:33 vancomycin Allergy Rash Verified 03/27/25 06:33 Surgical History History of colonoscopy History of back surgery History of bilateral cataract extraction Social History Smoking Status: Never smoker ROS ROS Narrative GENERAL: denies fever, chills, night sweats, weight loss, anorexia HEENT: denies headache, sinus congestion, or drainage, dysphagia RESPIRATORY: denies cough, sputum production, shortness of breath, dyspnea on exertion CARDIAC: denies chest pain, palpitations, orthopnea, PND GASTROINTESTINAL: denies abdominal pain, nausea, vomiting, melena, GENITOURINARY: denies dysuria, urgency, frequency, heamaturia EXTREMITY: denies swelling MUSCULOSKELETAL: denies current joint pain or tenderness NEUROLOGIC: Right upper extremity numbness HEMATOLOGIC: denies easy bruising and/or hemorrhage INTEGUMENT: denies rashes PSYCHIATRIC: denies suicidal or homicidal ideation Vital Signs Vital Signs Vital Signs: 03/27/25 06:33 03/27/25 06:33 03/27/25 06:36 Temperature 98 F Temperature Source Temporal Pulse Rate 56 L 52 L Respiratory Rate 18 18 Blood Pressure 145/67 H Blood Pressure Mean 93 Pulse Ox 98 98 97 Oxygen Delivery Method Room Air Room Air Room Air 03/27/25 07:06 03/27/25 07:33 Temperature Temperature Source Pulse Rate 51 L 54 L Respiratory Rate 18 18 Blood Pressure 142/70 H 139/71 H Blood Pressure Mean 94 93 Pulse Ox 98 98 Oxygen Delivery Method Room Air Room Air Weight Weight: 99 kg Body Mass Index (BMI) 30.4 Physical Exam Narrative GENERAL: cooperative HEENT: Atraumatic; normocephalic EYES; Anicteric, bruising on the superior aspect of the nasal bones NECK; supple, normal thyroid, RESPIRATORY: Diminished to auscultation CARDIOVASCULAR: Regular S1 S2, GI: soft, normoactive bowel sounds, : No Renal angle tenderness; EXTREMITIES: No edema, no clubbing, MUSCULOSKELETAL: no muscle wasting NEURO: Awake; no lateralizing signs. SKIN: No Rash PSYCH; Flat affect Results Lab / Micro Data 03/27/25 06:24 03/27/25 06:24 Labs: Laboratory Results - last 24 hr 03/27/25 06:24: WBC 8.1, RBC 4.23 L, Hgb 13.2, Hct 40.0, MCV 94.6 H, MCH 31.2, MCHC 33.0, RDW Std Deviation 45.7 H, RDW Coeff of Leigha 13.3, Plt Count 228, MPV 9.6, Immature Gran % (Auto) 0.400, Neut % (Auto) 61.6, Lymph % (Auto) 24.7, Fisher % (Auto) 10.1 H, Eos % (Auto) 2.3, Baso % (Auto) 0.9, Absolute Neuts (auto) 5.0, Absolute Lymphs (auto) 2.00, Nucleated RBC % 0, PT 14.0, INR 1.1, APTT 28.9, Sodium 140, Potassium 4.5, Chloride 107, Carbon Dioxide 23.5, Anion Gap 10, BUN 17, Creatinine 0.91, Estim Creat Clear Calc 69.87, Est GFR (MDRD) Non-Af 83, BUN/Creatinine Ratio 18.4, Glucose 120 H, Calcium 9.3, Magnesium 1.9, TSH 2.510 Imaging Radiology Impression Facial/Sinus 03/27/25 06:30 IMPRESSION: No acute injury to the maxillofacial bones. No paranasal sinus mucosal thickening. Reading Location: [id number] Head/Neck CTA 03/27/25 06:30 IMPRESSION: No evidence of hemodynamically significant stenosis or aneurysm in the head and neck. Reading Location: [id number] Brain CT 03/27/25 06:36 IMPRESSION: No acute intracranial abnormalities. Reading Location: [id number] Cervical Spine CT 03/27/25 07:06 IMPRESSION: No acute injury to the cervical spine. Reading Location: [id number] Assessment & Plan Assessment/Plan (1) Closed head injury: (2) Paresthesias: (3) Hypertension: (4) Hyperlipidemia: PLAN: Plan Patient is an 84-year-old gentleman who presented to the emergency department following a fall. He had also complained of subjective right upper extremity weakness and numbness 1. Transient ischemic attack ? Patient has been admitted to monitored bed. Ordered every 4 neurochecks as well as MRI and a 2D echo. Initial head CT and CTA negative. Patient is already on statin therapy continued added aspirin as well consult was placed to [facility] 2. Physical debility ? Secondary to above requested for PT OT eval and social media editor to assist with discharge planning 3. Dyslipidemia ? Patient is on simvastatin at home substituted with atorvastatin 4. Hypertension ? Blood pressure controlled, home medications continued with dose adjustment as needed 5. Generalized osteoarthritis ? Pain meds?acetaminophen as needed 6. Diabetes mellitus type 2 ? Controlled on diet placed on Accu-Cheks AC and at bedtime with sliding scale coverage 7. Diabetic polyneuropathy ? Patient is on gabapentin did continue at home dose 8. DVT prophylaxis ? On enoxaparin Time spent in the patient's overall evaluation,decision-making process, review of diagnostic data, adjustment of management, discussion with other providers, nursing nursing and ancillary staff involved in patient's care documentation, 75 Minutes Advance planning; did discuss with the patient and family (patient's ) regarding advanced directives as well as CODE STATUS. Did explain the various scenarios involved ( FULL CODE, DNR CCA, DNR CCA with no intubation, and DNR CC and what each meant) patient elected to remain full code with CPR intubation if warranted. Order was placed. Time spent on discussion 16 minutes. Charges/Coding Multi Select Codes Visit Charges Visit Charges: 81179 Init Hosp Hospitalists' Procedures Procedures: 83769 Advncd Care Plan 30 Min
--- NOTE | 2025-03-27 07:57 | MRI_ITS ---
PROCEDURE: BRAIN WITHOUT CONTRAST 03/27/2025 REASON FOR EXAM: CVA TECHNIQUE: Procedure Code: MRIBR Modality: MR Procedure: BRAIN WITHOUT CONTRAST Multiplanar and multisequence images were obtained. COMPARISON: CT head March 27, 2025. FINDINGS: Brain: No restricted diffusion. No hemorrhage. No mass-effect or midline shift. Parenchymal volume loss consistent with brain atrophy. Hyperintense signal on T2 and FLAIR in the white matter which are nonspecific but most likely due to chronic small-vessel ischemia. No mass effect or midline shift. The midline structures and craniocervical junction are unremarkable. Ventricles: No ventriculomegaly Major Intracranial Vessels: Patent. Sinuses: Clear. Mastoids: Clear. MRI/Brain without Contrast IMPRESSION: No acute brain abnormalities. Chronic changes as detailed. Reading Location: [id number]
[2025-03-27 09:01] LABS: Alcohol, Blood (Medical)-Serum < 10.1 mg/dL (<=10.0)
[2025-03-27 09:09] LABS: AST(SGOT) 35 U/L (<=37); Alanine Aminotransfer ALT/SGPT 27 U/L (<=46); Albumin, Serum 3.8 g/dL (3.4-4.8); Alkaline Phosphatase 87 U/L (40-129); Bilirubin, Direct 0.21 mg/dL (0.00-0.30); Globulin 2.4 g/dL (2.2-4.2)
--- OUTSIDE RECORDS SUMMARY | 2025-03-27 09:14 | XMS RPT_ITS | CCD ---
Author Organization [facility] Care Team Providers Care Fax Machine Operator Name Role Phone Kong Pollack Unavailable Unavailable Paula KNUTSON, Mary Lou Primary Care Provider Dr. Mary Lou Mitchell Primary Care Provider Dr. Maria E Garner Attending Provider Dr. Munir Vincent Referring Provider MD Trey Geiger Primary Care Provider [phone] [...] sources) Vancomycin Drug Allergy 5 Rash, Swelling [place] Comment on above: Patient received van comycin in Dr. Granados office. After several weeks of treatment, the patient experienced a red rash on back and chest. Leonard from Dr. Granados office called to report the reaction. (2 sources) Finasteride Drug Allergy 4 [facility] (2 sources) tamsulosin Drug Allergy 4 [facility] (1 source) Finasteride Drug Allergy 4 [facility] Repository (1 source) tamsulosin Drug Allergy 4 [facility] Repository (1 source) Vancomycin Drug Allergy 4 [facility] Repository Medications Current Medications Medication Drug Class(es) [...] 18, 2022 12:00am December 21, 2022 9:18am [facility] Blood-Glucose Meter misc (15 sources) Start: 02-03-2014 [...] 1 tablet by mouth twice daily Glucosamine Wtz-Gon-Fwxwhqrjdn 1 EACH tablet Active 1500 mg PO TWICE A DAY March 26, 2014 12:00am SUPPLEMENT Start: 03-26-2014 take 1000 mg by mout h twice daily Glucosamine Rif-Rxe-Zmiiybvyet Active 1000 MG PO TWICE A DAY [...] MARYAM) 150 mg capsule 02/09/2023 Active sennosides, detention 8.6 mg oral tablet (4 sources) take [...] Standing INR monthly and prn Dx:453.40 License #[id number] 1 Each 99 12/08/2014 Active Comment on above: Standing INR monthly and prn Dx:453.40 License #[id number] Hba1c due in jun. Re: DIABETES MELLITUS [...] 1 tablet by ari th once daily Xagschlwhvogo-Wgrpcfuy-Yuofzb (CENTRUM SILVER) ORAL Tab Take one(1) tablet [...] 3 Viewson 5 Foot min 3 Views [facility] Imaging Services [address] [place], [place] [address] Foot min 3 Views MR#: [id number] Acct: [id number] Name: ERGINA GORDON Rep #: [id number] : 1940 M 84 From: George Voss MD PCP: Dr. Trey Geiger MD Status: REG CLI Study: Foot min 3 Views Date of Exam: 02/26/25 Exam# [id number] Ordering Dr: Trey Geiger MD PROCEDURE: FOOT [...] osseous abnormalities. Osteoarthrosis. Osseous demineralization. Reading Location: [facility] [address] CC: Dr. Trey Geiger MD Web Press Operator: Signed Normal [facility] Foot min 3 Views [facility] Imaging Services [address] [place] [address] Foot min 3 Views MR#: [id number] Acct: [id number] Name: REGINA GORDON Rep #: [id number] : 1940 M 84 From: George Voss MD PCP: Dr. Trey Geiger MD Status: REG CLI Study: Foot min 3 Views Date of Exam: 02/26/25 Exam# [id number] Ordering Dr: Trey Geiger MD PROCEDURE: FOOT MIN 3 VIEWS 02/26/2025 REASON FOR EXAM: FOOT DEFORMITY TECHNIQUE: FOOT MIN 3 VIEWS Laterality: COMPARISON: 04/25/2024. FINDINGS: No evidence acute fracture or dislocation. Mild degenerative changes throughout the foot. No acute soft tissue abnormalities. Osseous demineralization. RAD/Foot min 3 Views IMPRESSION: No acute osseous abnormalities. Osteoarthrosis. Osseous demineralization. Reading Location: [facility] [address] CC: Dr. Trey Geiger MD Web Press Operator: Signed Normal [facility] Lumbar Spine 2 or 3 Viewson 02-26-2025 Lumbar Spine 2 or 3 Views [facility] Imaging Services [address] [place] [address] Lumbar Spine 2 or 3 Views MR#: [id number] Acct: [id number] Name: REGINA GORDON Rep #: [id number] : 1940 M 84 From: George Voss MD PCP: Dr. Trey Geiger MD Status: REG CLI Study: Lumbar Spine 2 or 3 Views Date of Exam: Exam# [id number] Ordering Dr: Trey Geiger MD PROCEDURE: LUMBAR [...] IMPRESSION: L5-S1 fusion. Spondylosis. Spondylolisthesis. Reading Location: [facility] CC: Dr. Trey Geiger MD Web Press Operator: Signed Normal [facility] Absolute lymphocyte countOrd ered By: Trey Geiger on 12-02-2024 Lymphocytes Auto (Unsp spec) [#/Vol] 2.05 10*3/uL 0.83-4.51 [facility] Absolute neutrophil countOrd ered By: Trey Geiger on 12-02-2024 Neutrophils (Bld) [#/Vol] 5.8 10*3/uL 2.0-7.7 [facility] Anion gap in Serum or Plasma Ordered By: Trey Geiger on 12-02-2024 Anion gap [Moles/Vol] 10 mmol/L 5-15 [facility] Automated lymphocyte count a s percentage of total leukocytesOrdered By: Trey Geiger on 12-02-2024 Lymphocytes/100 WBC Auto (Unsp spec) 23.1 % 19-41 [facility] BUN/creatinine ratioOrdered By: Trey Geiger on 12-02-2024 Urea nitrogen/Creatinine [Mass ratio] 13.6 mg/mg 10-20 [facility] Basophil percentageOrdered B y: Trey Geiger on 12-02-2024 Basophils/100 WBC (Bld) 0.7 % 0-1 [facility] Bilirubin, totalOrdered By: Trey Geiger on 12-02-2024 Bilirubin [Mass/Vol] 0.29 mg/dL 0.00-1.30 [facility] CBC W/Diff, Automatedon 05-2 Absolute Lymph 2.05 X10 3/uL Normal 0.83-4.51 [facility] Comment on above: Performed By: #### L 506.1001, L501.9910, L100.0100, L501.9520, L500.4050, L501.9985 #### [facility] Laboratory [address] [place], [address] Absolute Neut 5.8 X10 3/uL Normal 2.0-7.7 [facility] Comment on above: Performed By: #### L 506.1001, L501.9910, L100.0100, L501.9520, L500.4050, L501.9985 #### [facility] Laboratory [address] [place], [address] Basophils/100 WBC (Bld) 0.7 % Normal 0-1 [facility] Comment on above: Performed By: #### L 506.1001, L501.9910, L100.0100, L501.9520, L500.4050, L501.9985 #### [facility] Laboratory [address] [place], [address] Eosinophils/100 WBC (Bld) 1.0 % Normal 0-5 [facility] Comment on above: Performed By: #### L 506.1001, L501.9910, L100.0100, L501.9520, L500.4050, L501.9985 #### [facility] Laboratory [address] [place], [address] Erythrocyte distribution width (RBC) [Ratio] 13.9 % Normal 11.6-14.6 [facility] Comment on above: Performed By: #### L 506.1001, L501.9910, L100.0100, L501.9520, L500.4050, L501.9985 #### [facility] Laboratory [address] [place], [address] Hematocrit (Bld) [Volume fraction] 40.2 % Normal 40-54 [facility] Comment on above: Performed By: #### L 506.1001, L501.9910, L100.0100, L501.9520, L500.4050, L501.9985 #### [facility] Laboratory [address] [place], [address] Hemoglobin (Bld) [Mass/Vol] 13.0 g/dL Normal 13.0-16.5 [facility] Comment on above: Performed By: #### L 506.1001, L501.9910, L100.0100, L501.9520, L500.4050, L501.9985 #### [facility] Laboratory [address] [facility] [place], [address] IG% 0.300 Normal 0.0-0.9 [facility] Comment on above: Result Comment: IG% - Immature Granulocytes (promyelocytes, myelocytes and metamyelocytes) > 1% indicates that a LEFT SHIFT is Present. Performed By: #### L 506.1001, L501.9910, L100.0100, L501.9520, L500.4050, L501.9985 #### [facility] Laboratory [address] [place], [address] Lymphocytes/100 WBC (Bld) 23.1 % Normal 19-41 [facility] Comment on above: Performed By: #### L 506.1001, L501.9910, L100.0100, L501.9520, L500.4050, L501.9985 #### [facility] Laboratory [address] [place], [address] MCH (RBC) [Entitic mass] 31.4 pg Normal 27.0-32.0 [facility] Comment on above: Performed By: #### L 506.1001, L501.9910, L100.0100, L501.9520, L500.4050, L501.9985 #### [facility] Laboratory [address] [place], [address] MCHC (RBC) [Mass/Vol] 32.3 g/dL Normal 32-36 [facility] Comment on above: Performed By: #### L 506.1001, L501.9910, L100.0100, L501.9520, L500.4050, L501.9985 #### [facility] Laboratory [address] [place], [address] MCV (RBC) [Entitic vol] 97.1 fL High 80-94 [facility] Comment on above: Performed By: #### L 506.1001, L501.9910, L100.0100, L501.9520, L500.4050, L501.9985 #### [facility] Laboratory [address] [place], [address] Monocytes/100 WBC (Bld) 9.6 % Normal 0-10 [facility] Comment on above: Performed By: #### L 506.1001, L501.9910, L100.0100, L501.9520, L500.4050, L501.9985 #### [facility] Laboratory [address] [place], [address] Neutrophils/100 WBC (Bld) 65.3 % Normal 47-70 [facility] Comment on above: Performed By: #### L 506.1001, L501.9910, L100.0100, L501.9520, L500.4050, L501.9985 #### [facility] Laboratory [address] [place], [address] Nucleated RBC (Bld) [#/Vol] 0 10*3/uL Normal 0-5 [facility] Comment on above: Performed By: #### L 506.1001, L501.9910, L100.0100, L501.9520, L500.4050, L501.9985 #### [facility] Laboratory [address] [place], [address] Platelet mean volume (Bld) [Entitic vol] 10.0 fL Normal 6.2-12.0 [facility] Comment on above: Performed By: #### L 506.1001, L501.9910, L100.0100, L501.9520, L500.4050, L501.9985 #### [facility] Laboratory [address] [place], [address] Platelets (Bld) [#/Vol] 244 10*3/uL Normal 150-450 [facility] Comment on above: Performed By: #### L 506.1001, L501.9910, L100.0100, L501.9520, L500.4050, L501.9985 #### [facility] Laboratory [address] [place], [address] RBC (Bld) [#/Vol] 4.14 10*6/uL Low 4.6-6.2 [facility] Comment on above: Performed By: #### L 506.1001, L501.9910, L100.0100, L501.9520, L500.4050, L501.9985 #### [facility] Laboratory [address] [place], [address] RDW SD 49.9 fl High 35.1-43.9 [facility] Comment on above: Performed By: #### L 506.1001, L501.9910, L100.0100, L501.9520, L500.4050, L501.9985 #### [facility] Laboratory [address] [place], [address] WBC (Bld) [#/Vol] 8.9 10*3/uL Normal 4.4-11.0 [facility] Comment on above: Performed By: #### L 506.1001, L501.9910, L100.0100, L501.9520, L500.4050, L501.9985 #### [facility] Laboratory [address] [place], [address] Carbon dioxide, total [Moles /volume] in Central venous bloodOrdered By: Trey Geiger on 12-02-2024 CO2 [Moles/Vol] 24.2 mmol/L 21.0-32.0 [facility] Chloride assayOrdered By: Thea Geiger on 12-02-2024 Chloride [Moles/Vol] 104 mmol/L 98-108 [facility] Comprehensive Metabolic Prof ilon 12-02-2024 Albumin [Mass/Vol] 3.8 g/dL Normal 3.4-4.8 [facility] Comment on above: Performed By: #### L 506.1001, L501.9910, L100.0100, L501.9520, L500.4050, L501.9985 #### [facility] Laboratory [address] [place], [address] Albumin/Globulin [Mass ratio] 1.6 {ratio} Normal 0.9-2.4 [facility] Comment on above: Performed By: #### L 506.1001, L501.9910, L100.0100, L501.9520, L500.4050, L501.9985 #### [facility] Laboratory [address] [place], [address] ALK PHOS 83 U/L Normal 40-129 [facility] Comment on above: Performed By: #### L 506.1001, L501.9910, L100.0100, L501.9520, L500.4050, L501.9985 #### [facility] Laboratory [address] [place], [address] ALT [Catalytic activity/Vol] 18 U/L Normal <=46 [facility] Comment on above: Performed By: #### L 506.1001, L501.9910, L100.0100, L501.9520, L500.4050, L501.9985 #### [facility] Laboratory [address] [place], [address] AST [Catalytic activity/Vol] 25 U/L Normal <=37 [facility] Comment on above: Performed By: #### L 506.1001, L501.9910, L100.0100, L501.9520, L500.4050, L501.9985 #### [facility] Laboratory [address] [place], [address] Bilirubin [Mass/Vol] 0.29 mg/dL Normal 0.00-1.30 [facility] Comment on above: Performed By: #### L 506.1001, L501.9910, L100.0100, L501.9520, L500.4050, L501.9985 #### [facility] Laboratory [address] [place], [address] BUN/CRE 13.6 RATIO Normal 10-20 [facility] Comment on above: Performed By: #### L 506.1001, L501.9910, L100.0100, L501.9520, L500.4050, L501.9985 #### [facility] Laboratory [address] [place], [address] Calcium [Mass/Vol] 9.4 mg/dL Normal 7.6-11.0 [facility] Comment on above: Performed By: #### L 506.1001, L501.9910, L100.0100, L501.9520, L500.4050, L501.9985 #### [facility] Laboratory [address] [place], [address] Chloride [Moles/Vol] 104 mmol/L Normal 98-108 [facility] Comment on above: Performed By: #### L 506.1001, L501.9910, L100.0100, L501.9520, L500.4050, L501.9985 #### [facility] Laboratory [address] [place], [address] CO2 [Moles/Vol] 24.2 mmol/L Normal 21.0-32.0 [facility] Comment on above: Performed By: #### L 506.1001, L501.9910, L100.0100, L501.9520, L500.4050, L501.9985 #### [facility] Laboratory [address] [place], [address] Creatinine [Mass/Vol] 0.97 mg/dL Normal 0.70-1.20 [facility] Comment on above: Performed By: #### L 506.1001, L501.9910, L100.0100, L501.9520, L500.4050, L501.9985 #### [facility] Laboratory [address] [place], [address] GAP 10 Normal 5-15 [facility] Comment on above: Performed By: #### L 506.1001, L501.9910, L100.0100, L501.9520, L500.4050, L501.9985 #### [facility] Laboratory [address] [place], [address] GFR/1.73 sq M.predicted among non-blacks MDRD (S/P/Bld) [Vol rate/Area] 76 mL/min/{1.73_m2} Normal >60 [facility] Comment on above: Result Comment: mL/m in/1.73m2 CKD-EPI Creatinine Equation (2020) Performed By: #### L 506.1001, L501.9910, L100.0100, L501.9520, L500.4050, L501.9985 #### [facility] Laboratory [address] [place], [address] Globulin (S) [Mass/Vol] 2.3 g/dL Normal 2.2-4.2 [facility] Comment on above: Performed By: #### L 506.1001, L501.9910, L100.0100, L501.9520, L500.4050, L501.9985 #### [facility] Laboratory [address] [place], [address] Glucose [Mass/Vol] 126 mg/dL High 70-99 [facility] Comment on above: Performed By: #### L 506.1001, L501.9910, L100.0100, L501.9520, L500.4050, L501.9985 #### [facility] Laboratory [address] [place], [address] Potassium [Moles/Vol] 5.0 mmol/L Normal 3.3-5.1 [facility] Comment on above: Performed By: #### L 506.1001, L501.9910, L100.0100, L501.9520, L500.4050, L501.9985 #### [facility] Laboratory [address] [place], [address] Sodium [Moles/Vol] 138 mmol/L Normal 133-145 [facility] Comment on above: Performed By: #### L 506.1001, L501.9910, L100.0100, L501.9520, L500.4050, L501.9985 #### [facility] Laboratory [address] [place], [address] T PROT 6.0 g/dL Normal 5.9-8.4 [facility] Comment on above: Performed By: #### L 506.1001, L501.9910, L100.0100, L501.9520, L500.4050, L501.9985 #### [facility] Laboratory [address] [place], [address] Urea nitrogen [Mass/Vol] 13 mg/dL Normal 4-19 [facility] Comment on above: Performed By: #### L 506.1001, L501.9910, L100.0100, L501.9520, L500.4050, L501.9985 #### [facility] Laboratory [address] [place], [address] Eosinophil percentageOrdered By: Trey Geiger on 12-02-2024 Eosinophils/100 WBC (Bld) 1.0 % 0-5 [facility] Erythrocyte distribution wid th ratioOrdered By: [facility] 12-[facility]-2024 Erythrocyte distribution width (RBC) [Ratio] 13.9 % 11.6-14.6 [facility] Erythrocyte distribution wid th standard deviationOrdered By: [facility] on 12-02-2024 Erythrocyte distribution width (RBC) [Ratio] 49.9 fl High 35.1-43.9 [facility] Glomerular filtration rate ( GFR) estimation/1.73 sq m using serum, plasma, or whole bOrdered By: [facility] on 12-02-2024 GFR/1.73 sq M.predicted among non-blacks MDRD (S/P/Bld) [Vol rate/Area] 76 mL/min/{1.73_m2} >60 [facility] Comment on above: mL/min/1.73m2 CKD-EP I Creatinine Equation (2020) Hematocrit Auto (Bld) [Volum e fraction]Ordered By: [facility] on 12-02-2024 Hematocrit (Bld) [Volume fraction] 40.2 % 40-54 [facility] Hemoglobin A1con 12-02-2024 HbA1c (Bld) [Mass fraction] 6.2 % High <=5.6 [facility] Comment on above: Result Comment: Norm al < 5.7 % Prediabetic 5.7 - 6.4 % Diabetic >or= 6.5 % Please note range changes. Performed By: #### L 506.1001, L501.9910, L100.0100, L501.9520, L500.4050, L501.9985 #### [facility] Laboratory [address] [place], [place], [address] Hemoglobin A1c percentageOrd ered By: Trey Geiger on 12-02-2024 HbA1c (Bld) [Mass fraction] 6.2 % High <5.7 [facility] Comment on above: Normal < 5.7 % Predi abetic 5.7 - 6.4 % Diabetic >or= 6.5 % Please note range changes. Hemoglobin measurementOrdere d By: Trey Geiger on 12-02-2024 Hemoglobin (Bld) [Mass/Vol] 13.0 g/dL 13.0-16.5 [facility] Immature granulocytes/100 WB C Auto (Bld)Ordered By: Trey Geiger on 12-02-2024 Immature granulocytes/100 WBC (Bld) 0.300 % 0.0-0.9 [facility] Comment on above: IG% - Immature Granu locytes (promyelocytes, myelocytes and metamyelocytes) > 1% indicates that a LEFT SHIFT is Present. Laboratory - Chemistry and C hemistry - challengeOrdered By: Trey Geiger on 12-02-2024 AST [Catalytic activity/Vol] 25 U/L <38 [facility] MCV (mean corpuscular volume ) determinationOrdered By: Trey Geiger on 12-02-2024 MCV (RBC) [Entitic vol] 97.1 fL High 80-94 [facility] Mean corpuscular hemoglobin (MCH) determinationOrdered By: Trey Geiger on 12-02-2024 MCH (RBC) [Entitic mass] 31.4 pg 27.0-32.0 [facility] Mean corpuscular hemoglobin concentration (MCHC) determinationOrdered By: Trey Geiger on 12-02-2024 MCHC (RBC) [Mass/Vol] 32.3 g/dL 32-36 [facility] Mean platelet volume determi nationOrdered By: Trey Geiger on 12-02-2024 Platelet mean volume (Bld) [Entitic vol] 10.0 fL 6.2-12.0 [facility] Monocyte percentageOrdered B y: Trey Geiger on 12-02-2024 Monocytes/100 WBC (Bld) 9.6 % 0-10 [facility] Neutrophil percentageOrdered By: Trey Geiger on 12-02-2024 Neutrophils/100 WBC (Bld) 65.3 % 47-70 [facility] Nucleated red blood cell per centageOrdered By: Trey Geiger on 12-02-2024 Nucleated RBC/100 WBC (Bld) [Ratio] 0 % 0-5 [facility] PSA,Total - Annual Screenon 12-02-2024 PSA,TOT SCREEN 2.47 ng/mL Normal 0.02-4.00 [facility] Comment on above: Result Comment: This test [...] 506.1001, L501.9910, L100.0100, L501.9520, L500.4050, L501.9985 #### [facility] Laboratory [address] [place], [address] Platelet countOrdered By: Thea Geiger on 12-02-2024 Platelets (Bld) [#/Vol] 244 10*3/uL 150-450 [facility] Potassium measurement (mass/ volume)Ordered By: Trey Geiger on 12-02-2024 Potassium (Unsp spec) [Mass/Vol] 5.0 mmol/L 3.3-5.1 [facility] RBC Auto (Bld) [#/Vol]Ordere d By: Trey Geiger on 12-02-2024 RBC (Bld) [#/Vol] 4.14 10*6/uL Low 4.6-6.2 [facility] Serum creatinine measurement (mass/volume)Ordered By: Trey Geiger on 12-02-2024 Creatinine [Mass/Vol] 0.97 mg/dL 0.70-1.20 [facility] Serum globulin measurementOr dered By: Trey Geiger on 12-02-2024 Globulin (S) [Mass/Vol] 2.3 g/dL 2.2-4.2 [facility] Serum glucose measurement (m ass/volume)Ordered By: Trey Geiger on 12-02-2024 Glucose [Mass/Vol] 126 mg/dL High 70-99 [facility] Serum or plasma alanine bae otransferase (ALT) measurementOrdered By: Trey Geiger on 12-02-2024 ALT [Catalytic activity/Vol] 18 U/L <47 [facility] Serum or plasma albumin rafy urement (mass/volume)Ordered By: Trey Geiger on 12-02-2024 Albumin [Mass/Vol] 3.8 g/dL 3.4-4.8 [facility] Serum or plasma albumin/glob ulin mass ratioOrdered By: Trey Geiger on 12-02-2024 Albumin/Globulin [Mass ratio] 1.6 {ratio} 0.9-2.4 [facility] Serum or plasma alkaline angela sphatase measurementOrdered By: Trey Geiger on 12-02-2024 ALP [Catalytic activity/Vol] 83 U/L 40-129 [facility] Serum or plasma calcium rafy urement (mass/volume)Ordered By: Trey Geiger on 12-02-2024 Calcium [Mass/Vol] 9.4 mg/dL 7.6-11.0 [facility] Serum or plasma urea nitroge n measurement (mass/volume)Ordered By: Trey Geiger on 12-02-2024 Urea nitrogen [Mass/Vol] 13 mg/dL 4-19 [facility] Sodium levelOrdered By: Ion Geiger on 12-02-2024 Sodium [Moles/Vol] 138 mmol/L 133-145 [facility] TSH DL <= 0.005 mIU/L QnOrde red By: Trey Geiger on 12-02-2024 TSH Qn 1.570 uIU/mL 0.300-4.200 [facility] Thyroid Stim Hormone (TSH)on 12-02-2024 TSH 1.570 uIU/mL Normal 0.300-4.200 [facility] Comment on above: Performed By: #### L 506.1001, L501.9910, L100.0100, L501.9520, L500.4050, L501.9985 #### [facility] Laboratory [facility] [place], [address] Total proteinOrdered By: Anabell Geiger on 12-02-2024 Protein [Mass/Vol] 6.0 g/dL 5.9-8.4 [facility] [facility] Vitamin D,25 Hydroxyon 12-02 Vitamin D 25-OH 59.2 ng/mL Normal 30-100 [facility] Comment on above: Result Comment: Karlene min D Status Deficiency: <20 ng/mL (50nmol/L) Insufficiency: 20-30 ng/mL (50-75 nmol/L) Sufficiency: 30-100 ng/mL (75-250 nmol/L) Toxicity: >100 ng/mL (>250 nmol/L) Performed By: #### L 506.1001, L501.9910, L100.0100, L501.9520, L500.4050, L501.9985 #### [facility] Laboratory [address] [place], [place], [id number] White blood cell (WBC) count Ordered By: Trey Geiger on 12-02-2024 WBC (Bld) [#/Vol] 8.9 10*3/uL 4.4-11.0 [facility] Foot min 3 Viewson 4 Foot min 3 Views [facility] Imaging Services [address] [place], [place] [id number] Foot min 3 Views MR#: [id number] Acct: [id number] Name: REGINA GORDON Rep #: [id number] : [id number] M [id number] From: George Locke MD PCP: Dr. Trey Geiger MD Status: REG CLI Study: Foot min 3 Views Date of Exam: 04/25/24 Exam# [id number] Ordering Dr: Trey Geiger MD [id number] INDICATION: DEFORMITY, PAIN EXAMINATION/TECHNIQUE: X-RAY - LEFT [...] EDT , CC: Dr. Trey Geiger MD Web Press Operator: Signed Normal [facility] Foot min 3 Views [facility] Imaging Services [address] [place] [address] Foot min 3 Views MR#: [id number] Acct: [id number] Name: REGINA GORDON Rep #: [id number] : [id number] M [id number] From: George Locke MD PCP: Dr. Trey Geiger MD Status: REG CLI Study: Foot min 3 Views Date of Exam: 04/25/24 Exam# [id number] Ordering Dr: Trey Geiger MD ADDENDUM by Dr. George Locke MD on 04/26/24 at 1032 ====== ADDENDUM ====== [id number] Corrected report: INDICATION: DEFORMITY, PAIN EXAMINATION/TECHNIQUE: X-RAY [...] cc: Dr. Trey Geiger MD * Signed [id number] INDICATION: DEFORMITY, PAIN EXAMINATION/TECHNIQUE: X-RAY - RIGHT [...] EDT , CC: Dr. Trey Geiger MD Web Press Operator: Signed Normal [facility] Absolute lymphocyte countOrd ered By: Donell Belen on 03-21-2023 Lymphocytes Auto (Unsp spec) [#/Vol] 1.54 10*3/uL 0.83-4.51 [facility] Basophil percentageOrdered B y: Donell Belen on 03-21-2023 Basophil percentage 0 SEEN /hpf 0-5 [facility] Basophils/100 WBC (Bld) 0.2 % 0-1 [facility] Bilirubin [Mass/Vol] 0.50 mg/dL 0.20-1.00 [facility] Comment on above: For patients on eltr ombopag therapy, use of Dimension [place] TBIL is not recommended. Chloride [Moles/Vol] 107 mmol/L 98-107 [facility] Eosinophils/100 WBC (Bld) 0.5 % 0-5 [facility] Glucose [Mass/Vol] 157 mg/dL 74-106 [facility] Comment on above: Fasting Glucose resu lt greater than or equal to 126 mg/dL suggests DIABETES MELLITUS per A.D.A. criteria. Neutrophils (Bld) [#/Vol] 8.6 10*3/uL 2.0-7.7 [facility] Neutrophils/100 WBC (Bld) 75.8 % 47-70 [facility] Potassium [Moles/Vol] 4.6 mmol/L 3.5-5.1 [facility] Protein [Mass/Vol] 6.8 g/dL 6.4-8.2 [facility] Sodium [Moles/Vol] 138 mmol/L 136-145 [facility] WBC (Bld) [#/Vol] 11.3 10*3/uL 4.4-11.0 [facility] Bilirubin Test strip Ql (U)O rdered By: Donell Glover on 03-21-2023 Bilirubin Ql (U) Negative Negative [facility] Blood erythrocytes count (nu mber/volume)Ordered By: Donell Glover on 03-21-2023 RBC (Bld) [#/Vol] 4.42 10*6/uL 4.6-6.2 [facility] Blood hemoglobin measurement (mass/volume)Ordered By: Donell Glover on 03-21-2023 Hemoglobin (Bld) [Mass/Vol] 13.5 g/dL 13.0-16.5 [facility] Blood lymphocytes/100 leukoc ytesOrdered By: Donell Glover on 03-21-2023 Lymphocytes/100 WBC (Bld) 13.6 % 19-41 [facility] Blood monocytes/100 leukocyt esOrdered By: Donell Glover on 03-21-2023 Monocytes/100 WBC (Bld) 9.3 % 0-10 [facility] Blood platelet mean volumeOr dered By: Donell Glover on 03-21-2023 Platelet mean volume (Bld) [Entitic vol] 9.8 fL 6.2-12.0 [facility] Determination of erythrocyte mean corpuscular volume (MCV)Ordered By: Donell Glover on 03-21-2023 MCV (RBC) [Entitic vol] 95.2 fL 80-94 [facility] Hematocrit Auto (Bld) [Volum e fraction]Ordered By: Donell Glover on 03-21-2023 Hematocrit (Bld) [Volume fraction] 42.1 % 40-54 [facility] Ketones Test strip Ql (U)Ord ered By: Donell Glover on 03-21-2023 Ketones Ql (U) 15 mg/dl Negative [facility] Laboratory - Chemistry and C hemistry - challengeOrdered By: Donell Glover on 03-21-2023 ALP [Catalytic activity/Vol] 86 U/L 45-117 [facility] ALT [Catalytic activity/Vol] 33 U/L 16-61 [facility] CO2 [Moles/Vol] 28.0 mmol/L 21.0-32.0 [facility] Globulin (S) [Mass/Vol] 3.6 g/dL 2.2-4.2 [facility] Urea nitrogen/Creatinine [Mass ratio] 17.8 mg/mg 10-20 [facility] Laboratory - Hematology and Cell countsOrdered By: Donell Glover on 03-21-2023 Erythrocyte distribution width (RBC) [Entitic vol] 51.2 fL 35.1-43.9 [facility] Erythrocyte distribution width (RBC) [Ratio] 14.6 % 11.6-14.6 [facility] Immature granulocytes/100 WBC (Bld) 0.600 % 0.0-0.9 [facility] Comment on above: IG% - Immature Granu locytes (promyelocytes, myelocytes and metamyelocytes) > 1% indicates that a LEFT SHIFT is Present. MCH (RBC) [Entitic mass] 30.5 pg 27.0-32.0 [facility] Nucleated RBC/100 WBC (Bld) [Ratio] 0 % 0-5 [facility] MCHC Auto (RBC) [Mass/Vol]Or dered By: Donell Glover on 03-21-2023 MCHC (RBC) [Mass/Vol] 32.1 g/dL 32-36 [facility] Mucus LM Ql (Urine sed)Order ed By: Donell Glover on 03-21-2023 Mucus Ql (Urine sed) 0 SEEN /hpf [facility] Nitrite Test strip Ql (U)Ord ered By: Donell Glover on 03-21-2023 Nitrite Ql (U) Negative Negative [facility] No Panel InformationOrdered By: Donell Glover on 03-21-2023 Estimated Creatinine Clearance Calc 49.63 ml/min [facility] Estimated GFR (MDRD) Amer 76 mL/min >60 [facility] Comment on above: GFR Calc Estimated GFR (MDRD) Non-Af Amer 63 mL/min >60 [facility] Comment on above: Non- GFR Calc Platelets bldOrdered By: Aneta Glover on 03-21-2023 Platelets (Bld) [#/Vol] 206 10*3/uL 150-450 [facility] Protein Test strip Ql (U)Ord ered By: Donell Glover on 03-21-2023 Protein Ql (U) Negative Negative [facility] Serum or plasma albumin rafy urement (mass/volume)Ordered By: Donell Glover on 03-21-2023 Albumin [Mass/Vol] 3.2 g/dL 3.2-5.0 [facility] Serum or plasma albumin/glob ulin mass ratioOrdered By: Donell Glover on 03-21-2023 Albumin/Globulin [Mass ratio] 0.9 {ratio} 0.9-2.4 [facility] Serum or plasma calcium rafy urement (mass/volume)Ordered By: Donell Glover on 03-21-2023 Calcium [Mass/Vol] 9.7 mg/dL 8.5-10.1 [facility] Serum or plasma creatinine m easurement (mass/volume)Ordered By: Donell Glover on 03-21-2023 Creatinine [Mass/Vol] 1.18 mg/dL 0.70-1.30 [facility] Comment on above: The validity of the calculated GFR & GFRAA in patients over 70 years has not been determined. Clinical correlation is essential. Serum or plasma urea nitroge n measurement (mass/volume)Ordered By: Donell Glover on 03-21-2023 Urea nitrogen [Mass/Vol] 21 mg/dL 7-18 [facility] Squamous epithelial cells de tection in urine sediment by light microscopyOrdered By: Donell Glover on 03-21-2023 Epithelial cells.squamous LM Ql (Urine sed) 0 SEEN /hpf 0-5 [facility] Thin prep Papanicolaou smear with manual screeningOrdered By: Donell Glover on 03-21-2023 Thin prep Papanicolaou smear with manual screening 36 U/L 15-37 [facility] Thin prep Papanicolaou smear with manual screening 3 5-15 [facility] Urine blood detectionOrdered By: Donell Glover on 03-21-2023 RBC Ql (U) Negative Negative [facility] RBC Ql (U) 0 SEEN /hpf 0-5 [facility] Urine clarityOrdered By: Aneta Glover on 03-21-2023 Clarity (U) Clear Clear [facility] Urine color determinationOrd ered By: Donell Glover on 03-21-2023 Color (U) Yellow Yellow [facility] Urine glucose detectionOrder ed By: Donell Glover on 03-21-2023 Glucose Ql (U) Normal mg/dl Normal [facility] Urine leukocyte esterase det ection by dipstickOrdered By: Donell Glover on 03-21-2023 Leukocyte esterase Test strip Ql (U) Negative Negative [facility] Urine pHOrdered By: Donell govea on 03-21-2023 pH (U) 5.0 [pH] 5.0 - 8.0 [facility] Urine sediment bacteria coun t by microscopy (number/high power field)Ordered By: Donell Glover on 03-21-2023 Bacteria LM.HPF (Urine sed) [#/Area] 0 /[HPF] None Seen [facility] Urine specific gravity measu rementOrdered By: Donell Glover on 03-21-2023 Specific gravity (U) [Rel density] 1.020 1.002-1.030 [facility] Urobilinogen Auto test strip Ql (U)Ordered By: Donell Glover on 03-21-2023 Urobilinogen Ql (U) Normal mg/dl Normal [facility] Absolute lymphocyte countOrd ered By: Trey Geiger on 01-26-2023 Lymphocytes Auto (Unsp spec) [#/Vol] 2.41 10*3/uL 0.83-4.51 [facility] Basophil percentageOrdered B y: Trey Geiger on 01-26-2023 Basophils/100 WBC (Bld) 0.7 % 0-1 [facility] Bilirubin [Mass/Vol] 0.50 mg/dL 0.20-1.00 [facility] Comment on above: For patients on eltr ombopag therapy, use of Dimension [place] TBIL is not recommended. Chloride [Moles/Vol] 108 mmol/L 98-107 [facility] Cholesterol [Mass/Vol] 126 mg/dL <200 [facility] Comment on above: <200 mg/dL Desirable 200-240 mg/dL Borderline >240 mg/dL High Risk Eosinophils/100 WBC (Bld) 1.7 % 0-5 [facility] Glucose [Mass/Vol] 112 mg/dL 74-106 [facility] Comment on above: Fasting Glucose resu lt from 100 to 125 mg/dL suggests IMPAIRED HOMEOSTASIS per A.D.A. criteria. Neutrophils (Bld) [#/Vol] 4.2 10*3/uL 2.0-7.7 [facility] Neutrophils/100 WBC (Bld) 55.6 % 47-70 [facility] Potassium [Moles/Vol] 4.3 mmol/L 3.5-5.1 [facility] Protein [Mass/Vol] 6.4 g/dL 6.4-8.2 [facility] Sodium [Moles/Vol] 141 mmol/L 136-145 [facility] Triglyceride [Mass/Vol] 83 mg/dL <199 [facility] Comment on above: The drugs N-Acetylcy steine and Metamizole may falsely depress this assay.Serum Triglycerides Reference Interval Normal <150 mg/dL Borderline high 150 - 199 mg/dL High 200 - 499 mg/dL Very High > or = 500 mg/dL WBC (Bld) [#/Vol] 7.6 10*3/uL 4.4-11.0 [facility] Blood erythrocytes count (nu mber/volume)Ordered By: Trey Geiger on 01-26-2023 RBC (Bld) [#/Vol] 4.10 10*6/uL 4.6-6.2 [facility] Blood hemoglobin measurement (mass/volume)Ordered By: Trey Geiger on 01-26-2023 Hemoglobin (Bld) [Mass/Vol] 12.6 g/dL 13.0-16.5 [facility] Blood lymphocytes/100 leukoc ytesOrdered By: Trey Geiger on 01-26-2023 Lymphocytes/100 WBC (Bld) 31.9 % 19-41 [facility] Blood monocytes/100 leukocyt esOrdered By: Trey Geiger on 01-26-2023 Monocytes/100 WBC (Bld) 9.4 % 0-10 [facility] Blood platelet mean volumeOr dered By: Trey Geiger on 01-26-2023 Platelet mean volume (Bld) [Entitic vol] 9.8 fL 6.2-12.0 [facility] Determination of erythrocyte mean corpuscular volume (MCV)Ordered By: [facility] on 01-26-2023 MCV (RBC) [Entitic vol] 96.3 fL 80-94 [facility] Hematocrit Auto (Bld) [Volum e fraction]Ordered By: [facility] Juanjo on 01-26-2023 Hematocrit (Bld) [Volume fraction] 39.5 % 40-54 [facility] Laboratory - Chemistry and C hemistry - challengeOrdered By: [facility] on 01-26-2023 ALP [Catalytic activity/Vol] 94 U/L 45-117 [facility] ALT [Catalytic activity/Vol] 26 U/L 16-61 [facility] CO2 [Moles/Vol] 27.0 mmol/L 21.0-32.0 [facility] Globulin (S) [Mass/Vol] 3.4 g/dL 2.2-4.2 [facility] Urea nitrogen/Creatinine [Mass ratio] 16.3 mg/mg 10-20 [facility] Laboratory - Hematology and Cell countsOrdered By: [facility] on 01-26-2023 Erythrocyte distribution width (RBC) [Entitic vol] 50.8 fL 35.1-43.9 [facility] Erythrocyte distribution width (RBC) [Ratio] 14.4 % 11.6-14.6 [facility] Immature granulocytes/100 WBC (Bld) 0.700 % 0.0-0.9 [facility] Comment on above: IG% - Immature Granu locytes (promyelocytes, myelocytes and metamyelocytes) > 1% indicates that a LEFT SHIFT is Present. MCH (RBC) [Entitic mass] 30.7 pg 27.0-32.0 [facility] Nucleated RBC/100 WBC (Bld) [Ratio] 0 % 0-5 [facility] MCHC Auto (RBC) [Mass/Vol]Or dered By: [facility] 01-26-2023 MCHC (RBC) [Mass/Vol] 31.9 g/dL 32-36 [facility] No Panel InformationOrdered By: Trey Geiger on 01-26-2023 Estimated GFR (MDRD) Amer 88 mL/min >60 [facility] Comment on above: GFR Calc Estimated GFR (MDRD) Non-Af Amer 72 mL/min >60 [facility] Comment on above: Non- GFR Calc Thyroid Stimulating Hormone (TSH) 1.45 uIU/mL 0.358-3.74 [facility] Platelets bldOrdered By: Anabell Geiger on 01-26-2023 Platelets (Bld) [#/Vol] 236 10*3/uL 150-450 [facility] Serum or plasma albumin rafy urement (mass/volume)Ordered By: Trey Geiger on 01-26-2023 Albumin [Mass/Vol] 3.0 g/dL 3.2-5.0 [facility] Serum or plasma albumin/glob ulin mass ratioOrdered By: Trey Geiger on 01-26-2023 Albumin/Globulin [Mass ratio] 0.9 {ratio} 0.9-2.4 [facility] Serum or plasma calcium rafy urement (mass/volume)Ordered By: Trey Geiger on 01-26-2023 Calcium [Mass/Vol] 9.2 mg/dL 8.5-10.1 [facility] Serum or plasma cholesterol in HDL measurement (mass/volume)Ordered By: Trey Geiger on 01-26-2023 Cholesterol in HDL [Mass/Vol] 56 mg/dL >40 [facility] Comment on above: The drugs N-Acetylcy steine and Metamizole may falsely depress this assay. Reference Range HDL <40 mg/dL Low HDL Cholesterol HDL >or= 60 mg/dL High HDL Cholesterol Serum or plasma cholesterol in VLDL measurement (mass/volume)Ordered By: Trey Geiger on 01-26-2023 Cholesterol in VLDL [Mass/Vol] 17 mg/dL 5-40 [facility] Serum or plasma creatinine m easurement (mass/volume)Ordered By: Trey Geiger on 01-26-2023 Creatinine [Mass/Vol] 1.04 mg/dL 0.70-1.30 [facility] Comment on above: The validity of the calculated GFR & GFRAA in patients over 70 years has not been determined. Clinical correlation is essential. Serum or plasma low density lipoprotein (LDL) cholesterol measurement (mass/volume)Ordered By: Trey Geiger on 01-26-2023 Cholesterol in LDL [Mass/Vol] 53 mg/dL 0-130 [facility] Serum or plasma urea nitroge n measurement (mass/volume)Ordered By: Trey Geiger on 01-26-2023 Urea nitrogen [Mass/Vol] 17 mg/dL 7-18 [facility] Thin prep Papanicolaou smear with manual screeningOrdered By: Trey Geiger on 01-26-2023 Thin prep Papanicolaou smear with manual screening 21 U/L 15-37 [facility] Thin prep Papanicolaou smear with manual screening 6 5-15 [facility] Whole blood hemoglobin A1c/t otal hemoglobin ratio (mass fraction)Ordered By: Trey Geiger on 01-26-2023 HbA1c (Bld) [Mass fraction] 6.2 % 3.8-5.6 [facility] Comment on above: Normal < 5.7 % Predi abetic 5.7 - 6.4 % Diabetic >or= 6.5 % Please note range changes. Absolute lymphocyte countOrd ered By: Dr. Vincent on 12-18-2022 Lymphocytes Auto (Unsp spec) [#/Vol] 2.44 10*3/uL 0.83-4.51 [facility] Basophil percentageOrdered B y: Dr. Vincent on 12-18-2022 Basophils/100 WBC (Bld) 0.8 % 0-1 [facility] Chloride [Moles/Vol] 106 mmol/L 98-107 [facility] Eosinophils/100 WBC (Bld) 2.3 % 0-5 [facility] Glucose [Mass/Vol] 88 mg/dL 74-106 [facility] Neutrophils (Bld) [#/Vol] 5.3 10*3/uL 2.0-7.7 [facility] Neutrophils/100 WBC (Bld) 59.8 % 47-70 [facility] Potassium [Moles/Vol] 4.4 mmol/L 3.5-5.1 [facility] Sodium [Moles/Vol] 141 mmol/L 136-145 [facility] WBC (Bld) [#/Vol] 8.9 10*3/uL 4.4-11.0 [facility] Blood erythrocytes count (nu mber/volume)Ordered By: Dr. Vincent on 12-18-2022 RBC (Bld) [#/Vol] 4.28 10*6/uL 4.6-6.2 [facility] Blood hemoglobin measurement (mass/volume)Ordered By: Dr. Vincent on 12-18-2022 Hemoglobin (Bld) [Mass/Vol] 13.3 g/dL 13.0-16.5 [facility] Blood lymphocytes/100 leukoc ytesOrdered By: Dr. Vincent on 12-18-2022 Lymphocytes/100 WBC (Bld) 27.6 % 19-41 [facility] Blood monocytes/100 leukocyt esOrdered By: Dr. Vincent on 12-18-2022 Monocytes/100 WBC (Bld) 9.2 % 0-10 [facility] Blood platelet mean volumeOr dered By: Dr. Vincent on 12-18-2022 Platelet mean volume (Bld) [Entitic vol] 9.8 fL 6.2-12.0 [facility] Determination of erythrocyte mean corpuscular volume (MCV)Ordered By: Dr. Vincent on 12-18-2022 MCV (RBC) [Entitic vol] 95.6 fL 80-94 [facility] Hematocrit Auto (Bld) [Volum e fraction]Ordered By: Dr. Vincent on 12-18-2022 Hematocrit (Bld) [Volume fraction] 40.9 % 40-54 [facility] INR in Blood by Coagulation assayOrdered By: Dr. Vincent on 12-18-2022 INR Coag (Bld) [Relative time] 1.1 {INR} [facility] Laboratory - Chemistry and C hemistry - challengeOrdered By: Dr. Vincent on 12-18-2022 CO2 [Moles/Vol] 29.0 mmol/L 21.0-32.0 [facility] Urea nitrogen/Creatinine [Mass ratio] 14.5 mg/mg 10-20 [facility] Laboratory - CoagulationOrde red By: Dr. Vincent on 12-18-2022 aPTT Coag (Bld) [Time] 32.7 s 24.1-36.2 [facility] PT Coag (PPP) [Time] 13.9 s 11.7-14.9 [facility] Laboratory - Hematology and Cell countsOrdered By: Dr. Vincent on 12-18-2022 Erythrocyte distribution width (RBC) [Entitic vol] 50.2 fL 35.1-43.9 [facility] Erythrocyte distribution width (RBC) [Ratio] 14.5 % 11.6-14.6 [facility] Immature granulocytes/100 WBC (Bld) 0.300 % 0.0-0.9 [facility] Comment on above: IG% - Immature Granu locytes (promyelocytes, myelocytes and metamyelocytes) > 1% indicates that a LEFT SHIFT is Present. MCH (RBC) [Entitic mass] 31.1 pg 27.0-32.0 [facility] Nucleated RBC/100 WBC (Bld) [Ratio] 0 % 0-5 [facility] MCHC Auto (RBC) [Mass/Vol]Or dered By: Dr. Vincent on 12-18-2022 MCHC (RBC) [Mass/Vol] 32.5 g/dL 32-36 [facility] No Panel InformationOrdered By: Dr. Vincent on 12-18-2022 Estimated GFR (MDRD) Amer 76 mL/min >60 [facility] Comment on above: GFR Calc Estimated GFR (MDRD) Non-Af Amer 63 mL/min >60 [facility] Comment on above: Non- GFR Calc Platelets bldOrdered By: Dr. Vincent on 12-18-2022 Platelets (Bld) [#/Vol] 208 10*3/uL 150-450 [facility] Serum or plasma calcium rafy urement (mass/volume)Ordered By: Dr. Vincent on 12-18-2022 Calcium [Mass/Vol] 10.0 mg/dL 8.5-10.1 [facility] Serum or plasma creatinine m easurement (mass/volume)Ordered By: Dr. Vincent on 12-18-2022 Creatinine [Mass/Vol] 1.17 mg/dL 0.70-1.30 [facility] Comment on above: The validity of the calculated GFR & GFRAA in patients over 70 years has not been determined. Clinical correlation is essential. Serum or plasma urea nitroge n measurement (mass/volume)Ordered By: Dr. Vincent on 12-18-2022 Urea nitrogen [Mass/Vol] 17 mg/dL 7-18 [facility] Thin prep Papanicolaou smear with manual screeningOrdered By: Dr. Vincent on 12-18-2022 Thin prep Papanicolaou smear with manual screening 6 5-15 [facility] XR Chest PA and Lateralon IMPRESSION: Bibasilar pulmonary infiltrates versus atelectasis. Consider follow-up. Web Press Operator: TERESA Transcribe Date/Time: Nov 27 2022 4:53P Dictated by : KEL RIVERA MD This examination was interpreted and the report reviewed and electronically signed by: KEL RIVERA MD on Nov 27 2022 4:55PM [facility] DIVISION OF RADIOLOGY * * *Final [...] shows degenerative changes. DIVISION OF RADIOLOGY Provider, [facility] - 11/27/2022 * * *Final Report* [...] Bibasilar pulmonary infiltrates versus atelectasis. Consider follow-up. Web Press Operator: PSCHazel Transcribe Date/Time: Nov 27 2022 4:53P Dictated by : KEL RIVERA MD This examination was interpreted and the report reviewed and electronically signed by: KEL RIVERA MD on Nov 27 2022 4:55PM EST [place] [facility] Study observation (narrative) [facility] XR Chest PA and LateralOrder ed By: [facility] Provider on 11-27-2022 [place] Vital Signs Date Time Vital Sign Value Performing Clinician Faci lity 03-21-2023 21:33-0400 Diastolic blood pressure 84 mm[Hg] Dr. Mary Lou Mitchell Work Phone: [facility] 03-21-2023 21:33-0400 Heart rate 71 /min Dr. Mary Lou Mitchell Work Phone: [facility] 03-21-2023 21:33-0400 Respiratory rate 14 /min Dr. Mary Lou Mitchell Work Phone: [facility] 03-21-2023 21:33-0400 SaO2% (BldA) [Mass fraction] 98 % Dr. Mary Lou Mitchell Work Phone: [facility] 03-21-2023 21:33-0400 Systolic blood pressure 124 mm[Hg] Dr. Mary Lou Mitchell Work Phone: [facility] 03-21-2023 19:34-0400 Body height 180.[address] Mary Lou Mitchell Work Phone: [facility] 03-21-2023 19:34-0400 Body mass index (BMI) [Ratio] 35.4 kg/m2 Dr. Mary Lou Mitchell Work Phone: [facility] 03-21-2023 19:34-0400 Body temperature 98 [degF] Dr. Mary Lou Mitchell Work Phone: [facility] 03-21-2023 19:34-0400 Body weight 115.[address] Mary Lou Mitchell Work Phone: [facility] 03-21-2023 19:08-0400 Body temperature 98.1 [degF] Sabrina Athy PA-C Work Phone: [place] 03-21-2023 19:08-0400 Body weight 114.13 kg Sabrina Athy PA-C Work Phone: [place] 03-21-2023 19:08-0400 Diastolic blood pressure 72 mm[Hg] Sabrina Athy PA-C Work Phone: [place] 03-21-2023 19:08-0400 Heart rate 79 /min Sabrina Athy PA-C Work Phone: [place] 03-21-2023 19:08-0400 Respiratory rate 18 /min Sabrina Athy PA-C Work Phone: [place] 03-21-2023 19:08-0400 SaO2% (BldA) [Mass fraction] 95 % Sabrina Athy PA-C Work Phone: [place] 03-21-2023 19:08-0400 Systolic blood pressure 140 mm[Hg] Sabrina Athy PA-C Work Phone: [place] 12-26-2022 13:51-0400 Body height 180.3 cm Mary Lou Mitchell MD Work Phone: [place] 12-26-2022 13:51-0400 Body temperature 97.5 [degF] Mary Lou Mitchell MD Work Phone: [place] 12-26-2022 13:51-0400 Body weight 120.2 kg Mary Lou Mitchell MD Work Phone: [place] 12-26-2022 13:51-0400 Diastolic blood pressure 68 mm[Hg] Mary Lou Mitchell MD Work Phone: [place] 12-26-2022 13:51-0400 Heart rate 72 /min Mary Lou Mitchell MD Work Phone: [place] 12-26-2022 13:51-0400 Respiratory rate 14 /min Mary Lou Mitchell MD Work Phone: [place] 12-26-2022 13:51-0400 SaO2% (BldA) [Mass fraction] 98 % Mary Lou Mitchell MD Work Phone: [place] 12-26-2022 13:51-0400 Systolic blood pressure 130 mm[Hg] Mary Lou Mitchell MD Work Phone: [place] 12-21-2022 14:49-0400 Body temperature 97 [degF] [facility] 12-21-2022 14:49-0400 Diastolic blood pressure 64 mm[Hg] [facility] 12-21-2022 14:49-0400 Heart rate 72 /min [facility] 12-21-2022 14:49-0400 Respiratory rate 18 /min [facility] 12-21-2022 14:49-0400 SaO2% (BldA) [Mass fraction] 96 % [facility] 12-21-2022 14:49-0400 Systolic blood pressure 131 mm[Hg] [facility] 12-21-2022 09:13-0400 Body height 180.34 cm [facility] 12-21-2022 09:13-0400 Body mass index (BMI) [Ratio] 35.3 kg/m2 [facility] 12-21-2022 09:13-0400 Body weight 115 kg [facility] 04-11-2022 11:46-0400 Body height 180.3 cm Mary Lou Mitchell MD Work Phone: [place] 04-11-2022 11:46-0400 Body temperature 98.4 [degF] Mary Lou Mitchell MD Work Phone: [place] 04-11-2022 11:46-0400 Body weight 109.77 kg Mary Lou Mitchell MD Work Phone: [place] 04-11-2022 11:46-0400 Diastolic blood pressure 52 mm[Hg] Mary Lou Mitchell MD Work Phone: [place] 04-11-2022 11:46-0400 Heart rate 72 /min Mary Lou Mitchell MD Work Phone: [place] 04-11-2022 11:46-0400 Respiratory rate 14 /min Mary Lou Mitchell MD Work Phone: [place] 04-11-2022 11:46-0400 SaO2% (BldA) [Mass fraction] 96 % Mary Lou Mitchell MD Work Phone: [place] 04-11-2022 11:46-0400 Systolic blood pressure 110 mm[Hg] Mary Lou Mitchell MD Work Phone: [place] 11-30-2021 08:08-0400 Body height 180.3 cm Mary Lou Mitchell MD Work Phone: [place] 11-30-2021 08:08-0400 Body temperature 96.8 [degF] Mary Lou Mitchell MD Work Phone: [place] 11-30-2021 08:08-0400 Body weight 107.96 kg Mary Lou Mitchell MD Work Phone: [place] 11-30-2021 08:08-0400 Diastolic blood pressure 58 mm[Hg] Mary Lou Mitchell MD Work Phone: [place] 11-30-2021 08:08-0400 Heart rate 58 /min Mary Lou Mitchell MD Work Phone: [place] 11-30-2021 08:08-0400 Respiratory rate 14 /min Mary Lou Mitchell MD Work Phone: [place] 11-30-2021 08:08-0400 SaO2% (BldA) [Mass fraction] 97 % Mary Lou Mitchell MD Work Phone: [place] 11-30-2021 08:080400 Systolic blood pressure 122 mm[Hg] Mary Lou Mitchell MD Work Phone: [place] Encounters Encounter Date Encounter Type Care Provider Facility Start: 02-26-2025 End: 02-26-2025 ambulatory Trey Geiger MD Work Phone: [facility] [place] Start: 02-26-2025 End: 02-26-[address] Trey Geiger MD [facility] [place] Work Phone: Start: 02-26-2025 End: 02-26-2025 ambulatory Trey Geiger Facility:[facility] Start: 12-02-2024 End: 12-02-2024 ambulatory Trey Geiger MD Work Phone: [facility] Work Phone: Start: 12-02-2024 End: 12-02-[address] Trey Geiger MD -[place] Start: 12-02-2024 End: 12-02-2024 ambulatory Trey Geiger Facility:[facility] Start: 05-12-2024 End: 05-12-2024 ambulatory Monica Connell MA [facility] Start: 05-12-2024 End: 05-12-2024 Patient encounter procedure Monica Connell MA [facility] Comment on above: Population Health Na vigation Outreach (ACO QAE Surge list CONTINUED FROM 05/05 ENCOUNTER) Start: 05-05-2024 End: 05-05-2024 ambulatory Monica Connell MA [facility] Start: 05-05-2024 End: 05-05-2024 Patient encounter procedure Monica Connell MA [facility] Comment on above: Population Health Na vigation Outreach (ACO QAE Surge list 2023/) Start: 04-25-2024 End: 04-25-2024 ambulatory Trey Geiger Facility:[facility] Start: 04-23-2023 Refill Nica De La Torre APRN, .CNP Work Phone: [facility] [place] Comment on above: Refill Request Start: 03-21-2023 End: 03-21-2023 Emergency department patient visit Dr. Mary Lou Mitchell Work Phone: [facility]Emergency [facility] Work Phone: Start: 03-21-2023 End: 03-21-2023 Patient encounter procedure Sabrina Dave PA-C Work Phone: [facility] Comment on above: Abdominal pain, unsp ecified abdominal location (Primary Dx); Urinary retention; Acute constipation Start: 02-02-2023 Non-patient / Non-visit Dr. Thea Mitchell Work Phone: [facility] Start: 02-02-2023 End: 02-02-[address] Mary Lou Mitchell Work Phone: [facility] Work Phone: Start: 01-26-2023 End: 01-26-2023 ambulatory [facility] Work Phone: Start: 01-26-2023 End: 01-26-2023 Patient encounter procedure [facility] Start: 12-26-2022 End: 12-26-2022 Patient encounter procedure Mary Lou Mitchell MD Work Phone: [facility] [place] Comment on above: S/P lumbar fusion (P rimary Dx); Mixed hyperlipidemia; Essential hypertension; Prediabetes; Constipation, unspecified constipation type Start: 12-24-2022 Refill Nica De La Torre APRN, .CNP Work Phone: [facility] Comment on above: Refill Request Start: 12-21-2022 End: 12-21-2022 Admission to same day surgery center [facility] Start: 12-21-2022 End: 12-21-2022 ambulatory [facility] Work Phone: Start: 12-18-2022 End: 12-18-2022 Non-patient / Non-visit Dr. Mary Lou Mitchell Work Phone: [facility] Work Phone: Start: 12-11-2022 ambulatory Mary Lou Deleon Work Phone: [facility] [place] Comment on above: Pre-Operative reques t Start: 12-11-2022 Telephone encounter Mary Lou bhardwaj MD Work Phone: [facility] [place] Comment on above: Patient Update; Form s Start: 11-27-2022 End: 11-27-2022 Preoperative state Xr [facility] Work Phone: [place] Start: 11-27-2022 End: 11-27-2022 Subsequent hospital visit by physician Xr [facility] Work Phone: Radiology Comment on above: Pre-operative cleara nce [Z01.818] Start: 10-13-2022 Refill Nica De La Torre APRN .SKIN CARE SPECIALIST Work Phone: [facility] [place] Comment on above: Refill Request Start: 04-23-2022 Refill Nicolasa Adkins APRN.SKIN CARE SPECIALIST Work Phone: [facility] [place] Comment on above: Refill Request Start: 04-11-2022 End: 04-11-2022 Patient encounter procedure Mary Lou Mitchell MD Work Phone: [facility] [place] Comment on above: Elevated blood sugar (Primary Dx); Mixed hyperlipidemia; Essential hypertension Start: 01-19-2022 Refill Mary Lou Deleon Work Phone: [facility] Comment on above: Refill Request Start: 12-02-2021 Refill Harry BLISSSKIN CARE SPECIALIST Work Phone: [facility] [place] Comment on above: Refill Request Start: 11-30-2021 End: 11-30-2021 Patient encounter procedure Mary Lou Mitchell MD Work Phone: [facility] [place] Comment on above: Medicare annual well ness visit, subsequent (Primary Dx); Essential hypertension; Mixed hyperlipidemia; Encounter for immunization; Abnormal dreams; Prediabetes; Hereditary and idiopathic peripheral neuropathy; Open wound of left elbow, initial encounter Start: 03-10-2015 Patient encounter procedure Mary Lou Mitchell MD Work Phone: [place] Procedures Date Procedure Procedure Detail Performing Clinician [...] Start: 04-06-2025 Diabetes Screening Diabetes Screenin g [place] Start: 03-09-2024 Covid-19 Vaccine () Covid-19 Vaccine () [place] Start: 03-09-2024 Covid-19 Vaccine () Covid-19 Vaccine () [place] Start: 03-09-2024 Influenza vaccination Influenza Vacc ine (#1) [place] Start: 07-09-2023 Advance Directive Discussion Advance Directive Discussion [place] Start: 03-09-2023 Covid-19 Vaccine ( season) Covid-19 Vaccine () [place] Start: 12-21-2022 Anesthesia lumbar region nos ANESTH SPINE CORD SURGERY [facility] Start: 12-21-2022 Levine facetectomy & foramotomy 1 segment lumbar LEVINE FACETEC & FORAMOT LUMBAR [facility] Start: 12-21-2022 Patient discharge [facility] Start: 10-10-2022 End: 12-10-2022 Hemoglobin A1c in Blood HGB A1C Lab Routine Elevated blood sugar Mixed hyperlipidemia Expected: 10/10/2022, Expires: 12/10/2022 [facility] Work Phone: Comment on above: Expected: 10/10/2022 , Expires: 12/10/2022 Start: 10-10-2022 End: 12-10-2022 Lipid 1996 panel - Serum or Plasma LIPID PANEL BASIC Lab Routine Mixed hyperlipidemia Expected: 10/10/2022, Expires: 12/10/2022 [facility] Work Phone: Comment on above: Expected: 10/10/2022 , Expires: 12/10/2022 Start: 09-06-2022 Covid-19 Vaccine (3 - Pfizer series) Covid-19 Vaccine (3 - Pfizer series) [place] Start: 07-09-2022 ADVANCE DIRECTIVE DISCUSSION ADVANCE DIRECTIVE DISCUSSION [place] Start: 07-09-2022 DEPRESSION ASSESSMENT DEPRESSION ASS ESSMENT [place] Start: 06-02-2022 End: 08-02-2022 LIPID PANEL BASIC LIPID PANEL BASIC Lab Routine Mixed hyperlipidemia Expected: 06/02/2022, Expires: 08/02/2022 [facility] Work Phone: Comment on above: Expected: 06/02/2022 , Expires: 08/02/2022 Start: 05-26-2022 Hemoglobin A1c/Hemoglobin.total in Blood HBA1C [place] Start: 05-02-2022 End: 07-02-2022 CBC W Auto Differential panel - Blood CBC + DIFF Lab Routine Essential hypertension Expected: 05/02/2022, Expires: 07/02/2022 [facility] Work Phone: Comment on above: Expected: 05/02/2022 , Expires: 07/02/2022 Start: 05-02-2022 End: 07-02-2022 Comprehensive metabolic 2000 panel - Serum or Plasma COMP METABOLIC PANEL Lab Routine Essential hypertension Expected: 05/02/2022, Expires: 07/02/2022 [facility] Work Phone: Comment on above: Expected: 05/02/2022 , Expires: 07/02/2022 Start: 03-09-2022 Influenza vaccination INFLUENZA (#1) [place] Start: 02-04-2022 Hepatitis C antibody , confirmatory test DILATED RETINAL EXAM [place] Start: 12-31-2021 Urine microalbumin profile DTAP,TDAP,TD (2 - Tdap) [place] Comment on above: Postponed from 02/07 (Postponed To Appropriate Date) Start: 12-14-2021 Hepatitis B surface antibody level LDL CHOLESTEROL [place] Start: 07-09-2021 DEPRESSION ASSESSMENT DEPRESSION ASS ESSMENT [place] Start: 04-27-2021 COVID-19 VACCINE (2 - Pfizer series) COVID-19 VACCINE (2 - Pfizer series) [place] Start: 02-07-2017 Urine microalbumin profile [place] Start: 2013 RSV Vaccine (1 - 1-d ose 75+ series) RSV Vaccine (1 - 1-dose 75+ series) [place] Start: 04-15-2012 SHINGRIX VACCINE (2 of 3) SHINGRIX VACCINE (2 of 3) [place] Start: 1998 Hepatitis B Vaccine (1 of 3 - Risk 3-dose series) Hepatitis B Vaccine (1 of 3 - Risk 3-dose series) [place] Start: 1998 RSV Vaccine (1 - 1-d ose 60+ series) RSV Vaccine (1 - 1-dose 60+ series) [place] Start: 1956 Anxiety Screening Anxiety Screening [place] Start: 1956 Depression Screening Depression Scre ening [place] Patient Education ED Constipatio n (Adult) ED Fecal Impaction, Treated ED Marr Catheter, Care ED Urinary Retention, Male [facility] Work Phone: Patient referral [facility] Work Phone: [facility] Immunizations Immunization Date Immunization Notes Care Provider Fa cility 01-11-2024 tetanus toxoid, redu wilfredo diphtheria toxoid, and acellular pertussis vaccine, adsorbed Trey Geiger MD Work Phone: [facility] 03-18-2023 influenza virus vacc ine, unspecified formulation Xr [place] Work Phone: [place] 11-30-2021 pneumococcal polysaccharide vaccine, 23 valent Mary Lou Mitchell MD Work Phone: [place] Work Phone: 04-21-2019 influenza, high dose seasonal, preservative-free Mary Lou Mitchell MD Work Phone: [place] Work Phone: 04-29-2018 influenza, high dose jada, preservative-free Mary Lou Mitchell MD Work Phone: [place] Work Phone: 05-11-2017 influenza, high dose jada, preservative-free Mary Lou Mitchell MD Work Phone: [place] Work Phone: 04-20-2016 influenza, high dose seasonal, preservative-free Mary Lou Mitchell MD Work Phone: [place] 04-21-2015 influenza, high dose seasonal, preservative-free Mary Lou Mitchell MD Work Phone: [place] Work Phone: 10-20-2014 pneumococcal conjuga te vaccine, 13 valent Mary Lou Mitchell MD Work Phone: [place] 04-23-2014 influenza, high dose jada, preservative-free Mary Lou Mitchell MD Work Phone: [place] Work Phone: 03-18-2013 influenza virus vacc ine, unspecified formulation Mary Lou Mitchell MD Work Phone: [place] 02-19-2012 zoster vaccine, live Mary Lou Mitchell MD Work Phone: [place] Work Phone: 02-07-2007 diphtheria and tetan us toxoids, adsorbed for pediatric use Mary Lou Mitchell MD Work Phone: [place] Work Phone: 01-02-2006 pneumococcal polysaccharide vaccine, 23 valent Mary Lou Mitchell MD Work Phone: [place] 01-02-2006 pneumococcal vaccine , unspecified formulation [facility] Payers Date Payer Category Payer Self-pay 2013 Private Health Insurance [id number] 2012 Private Health Insurance HUMANA HUMANA MEDICARE SUPPLEMENT [id number] 2012-Present [phone] [address] [address] [place] [address] Indemnity [id number] 2012 Private Health Insurance HUMANA HUMANA MEDICARE SUPPLEMENT [id number] 2012-Present [phone] [address] [address] [place] [address] Indemnity [id number] 2003 Medicare MEDICARE MEDICAR E A AND B [id number] 2003-Present [phone] [address] [address] [place] [address] Medicare [id number] 2003 Medicare MEDICARE MEDICAR E A AND B [id number] 2003-Present [phone] [place] [address] Medicare [id number] 2003 Medicare MEDICARE PART A B [id number] 2003 Medicare [id number] Unknown [id number] Unknown [id number] Unknown [id number] Social History Date Type Detail Facility Start: 06-29-2014 End: 11-22-2023 Tobacco smoking status CTIS Never smoked tobacco [place] Work Phone: Start: 11-30-2021 End: 03-21-2023 Alcohol intake Current non-drinker of alcohol (finding) [place] Start: 12-24-2020 End: 12-24-2022 History SDOH Alcohol Frequency 3 [place] Start: 12-24-2020 End: 12-24-2022 History SDOH Alcohol Std Drinks 1 [place] Start: 12-24-2020 End: 12-24-2022 History SDOH Social Connections Phone 5 [place] Start: 12-24-2020 End: 12-24-2022 History SDOH Social Connections Get Together 2 [place] Start: 12-24-2020 History SDOH Physical Activity DPW 7 [place] Start: 12-24-2020 Education 17 [place] Start: 1940 Sex Assigned At Male [place] Start: 11-20-2021 End: 04-11-2022 Exposure to SARS-CoV-2 (event) Not sure [place] Work Phone: Start: 06-29-2014 Tobacco use and exposure Smokeless tobacco non-user [place] Start: 12-18-2022 End: 03-21-2023 Tobacco smoking status NHIS Unknown if ever smoked [facility] Start: 03-27-2014 Occasional [facility] Start: 03-27-2014 None [facility] Start: 03-27-2014 Spouse/ Significant Other [facility] Start: 03-27-2014 Non-smoker [facility] Start: 12-24-2022 History SDOH Social Connections Faith 98 [place] Start: 12-24-2022 History SDOH Physical Activity DPW 6 [place] Start: 12-24-2022 History SDOH Physical Activity MPS 4 [place] Start: 11-27-2022 End: 12-24-2022 History of Social function [place] Start: 11-27-2022 End: 12-24-2022 Social connection and isolation panel [place] How often do you att end hoahaoism or taoism services? Patient refused [place] Do you belong to any clubs or organizations such as hoahaoism groups, unions, fraternal or athletic groups, or school groups? Yes [place] Are you now , , , , never or living with a partner? [place] How often to you hav e a drink containing alcohol? Monthly or less [place] How many standard dr inks containing alcohol do you have on a typical day? 1 or 2 [place] How often do you hav e 6 or more drinks on 1 occasion? Never [place] Do you feel stress - tense, restless, nervous, or anxious, or unable to sleep at night because your mind is troubled all the time - these days [OSQ] Not at all [place] (I/We) worried jody er (my/our) food would run out before (I/we) got money to buy more. Never true [place] In the past 12 month s, was there a time when you were not able to pay the mortgage or rent on time? No [place] Start: 11-24-2021 Gender identity Identifies as male gender (finding) [place] Start: 11-24-2021 Sexual orientation Heterosexual (finding) [place] How often to you hav e a drink containing alcohol? 2-4 times a month [place] Do you feel stress - tense, restless, nervous, or anxious, or unable to sleep at night because your mind is troubled all the time - these days [OSQ] Only a little [place] Medical Equipment Procedure Code Equipment Code Equipment Origin al Text Equipment Identifier Dates Screw [id number] Start: 03-03-2014 Comment on above: Description: LEGACY Aaron [id number] Start: 03-03-2014 Comment on above: Description: LEGACY Set Screw [id number] Start: 03-03-2014 Comment on above: Description: LEGACY Interbody Fusion Device [id number] Start: 03-03-2014 [id number], [id number] Start: 02-03-2014 Comment on above: Test blood sugar(s) once daily. Dx: E11.9. Insulin: No Test blood sugar(s) once daily. Dx: 250.00. Insulin: No [id number] FDA Start: 12-21-2022 ([id number]) Collagen haemost atic agent, non-antimicrobial ()[id number] FDA Start: 12-21-2022 [id number] FDA Start: 12-21-2022 [id number] FDA Start: 12-21-2022 [id number] FDA Start: 12-21-2022 Goals Date Patient Goal Desired Activity /State Mental Status Date Assessment Result Facility 12-21-2022 Cognitive function Level Of Consciousness Sedated [facility] Work Phone: 12-21-2022 Cognitive function Voice/Name [facility] Work Phone: Clinical Notes 02-24-2016 to 02-26-2025 Monica Connell MA - 05/12/2024 3:08 PM Monica Gudino MA - 05/05/2024 12:12 PM EDTTelephone Encounter - Anay Emanuel - 04/24/2023 12:17 PM EDT Note Date & Type Note Facility 02-26-2025 Radiology Diagnostic study note [facility] Imaging Services [address] [place], [place] [id number] Foot min 3 Views MR#: [id number] Acct: [id number] Name: REGINA GORDON Rep #: [id number] : [id number] M 84 From: Chirag Voss MD PCP: Dr. Trey Geiger MD Status: REG CL I Study:Foot min 3 Views Date of Exam: Exam# [id number] Ordering Dr: Anabell Geiger MD PROCEDURE: FOOT [...] osseous abnormalities. Osteoarthrosis. Osseous demineralization. Reading Location: [facility] [address] CC: Dr. Trey Geiger MD ~ Web Press Operator: Signed [facility] 02-26-2025 Radiology Diagnostic study note [facility] Imaging Services [address] [place] [address] Foot min 3 Views MR#: [id number] Acct: [id number] Name: REGINA GORDON Rep #: [id number] : 1940 M 84 From: Chirag Voss MD PCP: Dr. Trey Geiger MD Status: REG CL I Study:Foot min 3 Views Date of Exam: Exam# [id number] Ordering Dr: Anabell Geiger MD PROCEDURE: FOOT MIN 3 VIEWS 02/26/2025 REASON FOR EXAM: FOOT DEFORMITY TECHNIQUE: FOOT MIN 3 VIEWS Laterality: COMPARISON: 04/25/2024. FINDINGS: No evidence acute fracture or dislocation. Mild degenerative changes throughoutthe foot. No acute soft tissue abnormalities. Osseous demineralization. RAD/Foot min 3 Views IMPRESSION: No acute osseous abnormalities. Osteoarthrosis. Osseous demineralization. Reading Location: [facility] CC: Dr. Trey Geiger MD ~ Web Press Operator: Signed [facility] 02-26-2025 Radiology Diagnostic study note [facility] Imaging Services [address] [place], [place] [id number] Lumbar Spine 2 or 3 Views MR#: [id number] Acct: [id number] Name: REGINA GORDON Rep #: [id number] : 1940 M 84 From: Chirag Voss MD PCP: Dr. Trey Geiger MD Status: REG CL I Study:Lumbar Spine 2 or 3 Views Date of Exam: 02/26/25 Exam# [id number] Ordering Dr: Anabell Geiger MD PROCEDURE: LUMBAR [...] IMPRESSION: L5-S1 fusion. Spondylosis. Spondylolisthesis. Reading Location: [facility] [address] CC: Dr. Trey Geiger MD ~ Web Press Operator: Signed [facility] 05-12-2024 Note HNO ID: [id number] Author: MONICA CONNELL MA Service: ? Author Type: Hose Seamer Type: Progress Notes Filed: 05/12/2024 15:12 Note Text: POPULATION HEALTH NAVIGATION OUTREACH Action/FYI Patient called back and states he is no longer using [facility]- PCPis now Dr. Geiger at [place]. Updated PCP field. Reason for Outreach Care Gap/HCC or Scheduling Wellness Visits Care Gaps due: Medicare Annual Wellness Visit Flu Vaccine Patient Contacted: Spoke to patient/parent/or legal guardian Patient identified by name and : Yes Care Gap/HCC/Scheduling Wellness actions taken: PCP field updated Navigation Signature: Monica Connell MA May 12, 2024 3:09 PM [facility] 05-12-2024 History of Presen t illness Narrative POPULATION HEALTH NAVIGATION OUTREACH Action/FYI Patient called back and states he is no longer using [facility]- PCPis now Dr. Geiger at [place]. Updated PCP field. Reason for Outreach Care Gap/HCC or Scheduling Wellness Visits Care Gaps due: Medicare Annual Wellness Visit Flu Vaccine Patient Contacted: Spoke to patient/parent/or legal guardian Patient identified by name and : Yes Care Gap/HCC/Scheduling Wellness actions taken: PCP field updated Navigation Signature: Monica Connell MA May 12, 2024 3:09 PM documented in this encounter [place] 05-12-2024 Note Patient Outreach (NE TNAV) REGINA GORDON ([id number]) 1940 M Date Time Provider Department 05/12/24 MONICA CONNELL During your visit today, we recorded the following information about you: Monica Connell MA 05/12/2024 3:12 PM Signed POPULATION HEALTH NAVIGATION OUTREACH Action/FYI Patient called back and states he is no longer using [facility]- PCPis now Dr. Geiger at [place]. Updated PCP field. Reason for Outreach Care [...] Standing INR monthly and prn Dx:453.40 License #[id number] - Lancets lancets Test blood sugar(s) once [...] Encounter Status:Closed by MONICA CONNELL on 05/12/24 [facility] 05-05-2024 Note HNO ID: [id number] Author: MONICA CONNELL MA Service: ? Author Type: Hose Seamer Type: Progress Notes Filed: 05/05/2024 12:19 Note Text: POPULATION HEALTH NAVIGATION OUTREACH Action/FYI Left message for patient to call back. HowGoodhart message sent. Reason for Outreach Care Gap/HCC or Scheduling Wellness Visits Care Gaps due: Medicare Annual Wellness Visit Flu Vaccine Patient Contacted: Unable or unnecessary to reach patient: Left message Aligned TeleHealthhart message sent Navigation Signature: Monica Connell MA May 05, 2024 12:14 PM [facility] 05-05-2024 History of Presen t illness Narrative POPULATION HEALTH NAVIGATION OUTREACH Action/FYI Left message for patient to call back. Mychart message sent. Reason for Outreach Care Gap/HCC or Scheduling Wellness Visits Care Gaps due: Medicare Annual Wellness Visit Flu Vaccine Patient Contacted: Unable or unnecessary to reach patient: Left message Differential Dynamicst message sent Navigation Signature: Monica Connell MA May 05, 2024 12:14 PM documented in this encounter [place] 05-05-2024 Note Patient Outreach (LEEANN TNAV) REGINA GORDON ([id number]) 1940 M Date Time Provider Department 05/05/24 BECKI, MONICA FLAVIO During your visit today, we recorded the following information about you: Monica Connell MA 05/05/2024 12:19 PM Signed POPULATION HEALTH NAVIGATION OUTREACH Action/FYI Left message for patient to call back. HowGoodhart message sent. Reason for Outreach Care Gap/HCC [...] Standing INR monthly and prn Dx:453.40 License #[id number] - Lancets lancets Test blood sugar(s) once [...] Encounter Status:Closed by MONICA CONNELL on 05/05/24 [facility] 04-24-2023 Miscellaneous Notes Patient has been [...] you. Anay Emanuel. documented in this encounter [place] 03-21-2023 Discharge summary Note Date/Time March 21, 2023 8:19pm [facility] Medical Records Department [address] [place] [id number] Emergency Department Summary 03/21/23 MR#: [id number] Acct: [id number] Name: REGINA GORDON Rep #:[id number] : 1940 82 From: Donell Glover MD [...] to have suprapubic discomfort from bladder distention. [facility] Medical History High cholesterol History of DVT [...] 75.8 H Lymph % (Auto) 13.6 L Marshall % (Auto) 9.3 Eos % (Auto) 0.5 [...] Clarity Clear Urine pH 5.0 Ur Specific [place] 1.020 Urine Protein Negative Urine Glucose (UA) [...] PO QHS Patient Comments: reduce cholesterol glucosamine SQm-ekg-ffebwjtmrd 1 EACH tablet 1,500 mg PO BID [...] your Primary Care Provider. Call [facility] ([phone]) or report to the closest Emergency Room. Call 911 if necessary. 03/21/232301 <Electronically signed by Donell Glover MD> Cosigner Signature (if applicable): CC: Dr. Trey Geiger MD ~ Signed [facility] Work Phone: [phone]) 383-510309-13-2023 History of Present illness Narrative* Sabrina Dave PA-C - 03/21/2023 7:26 PM EDT This note was created using iovationter. Subjective Regina Gordon is a 82 year [...] Standing INR monthly and prn Dx:453.40 License #[id number] 1 Each 99 Lancets lancets Test blood [...] with plan. She will take him to [facility] across the street. ER passport sent. 2. Urinary retention - ICD9: 788.20, ICD10: R33.9 3. Acute constipation - ICD9: 564.00, ICD10: K59.00 Sabrina Dave PA-C documented in this encounter[place]06-20-2023 History of Present illness Narrative* Mary Lou [...] Blood-Glucose Meter misc POTASSIUM 99 MG TAB Vzlrqkmhattls-Tqopvlww-Sgjsce (CENTRUM SILVER) ORAL Tab Review of Systems [...] Mary Lou Mitchell MD documented in this encounter[place]06-19-2023 Miscellaneous Notes* Telephone Encounter - Anay Richardsgregory [...] you. Anay Peace LPN documented in this encounterCenterville06-15-[address] Vincent [facility] December 21, 2022 12:32pm Note Date/Time December 21, 2022 9:17 am [facility] Medical Records Department [address] [place] [address] Progress Note - Orthopedic 12/21/2217 MR#: [id number] Acct: [id number] Name: REGINA GORDON Rep #:[id number] : 1940 81 From: Munir Richards PCP: Dr. Mary Lou Mitchell MD Status:REG S DC Location: [place] [address] Subjective Subjective The patient was seen and [...] Leonidesigner Signature (if applicable): CC: ~ Signed [facility] Work Phone: 1(433) 215-265006-15-2023 Procedure [facility] 12-12-2022 Miscellaneous Notes* Telephone Encounter - Anay Peace LPN - 12/12/2022 9:35 AM EDT Phoned patient to notify him that we have faxed the preop clearance form to office on November 29 and then again on December 11 and we can again refax today as well. patient understood Phoned [facility] and left message that we have [...] Mary Lou Mitchell MD documented in this encounterCenterville06-05-2023 Miscellaneous Notes* Telephone Encounter - Aimee Go Ma - 12/11/2022 12:02 PM EDT Pre- op form and OV note refaxed. * Telephone Encounter - Adriana Patel RN - 12/11/2022 8:39 AM EDT Patient calls to check on pre-op forms that were to be sent to Dr. Vincent. Noted OV note but no forms. Please fax to [phone]. During call, patient reports that pain to [...] understanding. Adriana Patel RN documented in this encounterCenterville05-22-2023 History of Present illness Narrative* Sandra Ya [...] 27, 2022 4:43 PM documented in this encounterCenterville05-22-2023 History of Past illness Narrative* Problem Noted [...] of this encounter (statuses as of 12/27/2022) [place]05-22-2023 History of Past illness Narrative* Problem Noted [...] of this encounter (statuses as of 03/22/2023) [place]05-22-2023 History of Past illness Narrative* Problem Noted [...] of this encounter (statuses as of 04/25/2023) [place]04-10-2023 Miscellaneous Notes* Telephone Encounter - Anay Peace [...] you. Anay Peace LPN documented in this encounterCenterville10-17-2022 Miscellaneous Notes* Telephone Encounter - Daisha Andrews LPN - 04/24/2022 1:04 PM EDT Patient phones requesting refills as follows: Requested Prescriptions Pending Prescriptions Disp Refills enalapril (VASOTEC) 10 mg tablet 90 tablet 3 Sig: Take 1 tablet by mouth once daily. LISA-04/11/22 Labs-04/06/22 NOV-none med filled 06/10/21 Please review and advise. Daisha Andrews LPN documented in this encounterCenterville10-04-2022 History of Present illness Narrative* Mary Lou [...] Blood-Glucose Meter misc POTASSIUM 99 MG TAB Tpihturnsuwyk-Jiwooqoo-Jttrsl (CENTRUM SILVER) ORAL Tab Review of Systems [...] Mary Lou Mitchell MD documented in this encounterCenterville07-15-2022 Miscellaneous Notes* Telephone Encounter - Nica De [...] you. Anay Peace LPN documented in this encounterCenterville05-28-2022 Miscellaneous Notes* Telephone Encounter - Jessica Glynn LPN - 12/03/2021 11:22 AM EDT Pharmacy electronically requests the following refill(s) Pending Prescriptions Disp Refills SIMVASTATIN 40 MG TABLET 90 tablet 3 Sig: Take 1 tablet by mouth daily at bedtime. DONAVON: No Jessica Glynn LPN Last Office visit: 11/30/2021 Next Office visit: 04/11/2022 documented in this encounterCenterville05-25-2022 History of Present illness Narrative* Mary Lou [...] Blood-Glucose Meter misc POTASSIUM 99 MG TAB Xkicldyrhsytd-Oryxwngv-Yanype (CENTRUM SILVER) ORAL Tab Review of Systems [...] Mary Lou Mitchell MD [place] [address]-18[place]2016 History of Past illness Narrative* Problem Noted [...] of this encounter (statuses as of 11/30/2021) [place]08-18-2016 History of Past illness Narrative* Problem Noted [...] of this encounter (statuses as of 12/07/2021) [place]08-18-2016 History of Past illness Narrative* Problem Noted [...] of this encounter (statuses as of 01/20/2022) [place]08-18-2016 History of Past illness Narrative* Problem Noted [...] of this encounter (statuses as of 04/11/2022) [place]08-18-2016 History of Past illness Narrative* Problem Noted [...] of this encounter (statuses as of 04/24/2022) [place]08-18-2016 History of Past illness Narrative* Problem Noted [...] of this encounter (statuses as of 10/17/2022) [place]-18-2016 History of Past illness Narrative* Problem Noted [...] of this encounter (statuses as of 12/11/2022) [place]-18-2016 History of Past illness Narrative* Problem Noted [...] of this encounter (statuses as of 12/12/2022) [place]-18-2016 History of Past illness Narrative* Problem Noted [...] of this encounter (statuses as of 12/25/2022) [facility]* Diagnosis Medicare annual wellness visit, subsequent- Primary Routine general medical examination at a [facility] care facility Essential hypertension Unspecified essential hypertension Mixed hyperlipidemia Encounter for immunization Need for other specified prophylactic vaccination against single bacterial disease Abnormal dreams Other dysfunctions of sleep stages or arousal from sleep Prediabetes Other abnormal glucose Hereditary and idiopathic peripheral neuropathy Unspecified hereditary and idiopathic peripheral neuropathy Open wound of left elbow, initial encounter documented in this encounter [place]* Diagnosis Mixed hyperlipidemia documented in this encounter [place]* Diagnosis Hereditary and idiopathic peripheral neuropathy Unspecified hereditary and idiopathic peripheral neuropathy documented in this encounter [place]* Diagnosis Elevated blood sugar- Primary Other abnormal glucose Mixed hyperlipidemia Essential hypertension Unspecified essential hypertension documented in this encounter [place]* Diagnosis Essential hypertension Unspecified essential hypertension [facility] Mixed hyperlipidemia documented in this [facility] [place]* Diagnosis Onset Date Resolution Status Lumbar stenosis [facility] Work Phone: Evaluation note* Diagnosis Hereditary and idiopathic peripheral neuropathy Unspecified hereditary and idiopathic peripheral neuropathy documented in this encounter [place]* Diagnosis S/P lumbar fusion- Primary Arthrodesis status Mixed hyperlipidemia Essential hypertension Unspecified essential hypertension Prediabetes Other abnormal glucose Constipation, unspecified constipation type documented in this encounter [place] [facility]* Diagnosis Abdominal pain, unspecified abdominal location- Primary Urinary retention Retention of urine, unspecified Acute constipation Unspecified constipation documented in this encounter [facility]* Diagnosis Essential hypertension Unspecified essential hypertension Mixed hyperlipidemia [facility] Diagnosis Chronic anticoagulation- Primary Long-term (current) [...] Preoperative examination, unspecified documented in this encounter [facility] noteNo assessment information availableWKettering [facility] Work Phone: Hospital Discharge instructions Additional Instructions [...] any questions, problems or concerns. Implant Used?: YesWKet[facility] Work Phone: Hospital Discharge instructions Additional Instructions Take MiraLAX as directed. If no bowel movement within an hour, you may repeat the dose. Do not target Marr catheter. Call Dr. Bee for an appointment to have the Marr catheter removed within 1 week. Continue your stool softener as previously directed.[facility] Work Phone: Reason for referral (narrative)No reason for referral information availableWKettering Health [facility] Work Phone: Reason for Referral Specialty Diagnoses / Procedures Referred By Sampson phillips Referred To Contact Diagnoses Abnormal dreams Procedures CONSULT TO SLEEP MEDICINE - ADULT OFFICE/OUTPATIENT [facility] 60-74 MINUTES Mary Lou Mitchell MD [address] [place] [address] Referral ID Status Reason Start Date Expiration Date Visits Requested Visits Authorized [id number] Authorized PCP Requested Referral 11/30/2021 11/30/2022 1 1 Advance Directives No Advanced Directives Records FoundDocuments on File Type Date Recorded 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 Advance Directive(s) 03/03/2013 11:36 AM Documents on File Type Date Recorded 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 Advance Directive(s) 03/03/2013 11:36 AM Advance Directive Response Recorded Date/ Time Advance Directives Yes March 11:55am Living Will Yes December 18, 2022 11:50am Power of Medical Office Receptionist Assistant Yes December 18 11:50am Name of Medical Power of Medical Office Receptionist Assistant ALIYAH GIANG December 18, 2022 11:50am Advance Directive Response Recorded Date/ Time Name of Medical Power of Medical Office Receptionist Assistant ALIYAH GIANG December 18, 2022 11:50am Name of Medical Power of Medical Office Receptionist Assistant aliyah grace March 21, 2023 8:12pm Advance Directives Yes March 11:55am Living Will Yes March 21, 2023 8:12pm Power of Medical Office Receptionist Assistant Yes March 8:12pm Advance Directive Response Recorded [...] or prosecute any alcohol or drug abuse patient.[place]ervilleIn the event this information is protected by the Federal Confidentiality of Alcohol and Drug Abuse Patient Records regulations: The Federal rules restrict any use of the information to criminally investigate or prosecute any alcohol or drug abuse patient.[place]In the event this information is protected by the Federal Confidentiality of Alcohol and Drug Abuse Patient Records regulations: The Federal rules restrict any use of the information to criminally investigate or prosecute any alcohol or drug abuse patient.[facility] the event this information is protected by the Federal Confidentiality of Alcohol and Drug Abuse Patient Records regulations: The Federal rules restrict any use of the information to criminally investigate or prosecute any alcohol or drug abuse patient.[place]ervilleIn the event this information is protected by the Federal Confidentiality of Alcohol and Drug Abuse Patient Records regulations: The Federal rules restrict any use of the information to criminally investigate or prosecute any alcohol or drug abuse patient.[place]ervilleIn the event this information is protected by the Federal Confidentiality of Alcohol and Drug Abuse Patient Records regulations: The Federal rules restrict any use of the information to criminally investigate or prosecute any alcohol or drug abuse patient.[place]ervilleIn the event this information is protected by the Federal Confidentiality of Alcohol and Drug Abuse Patient Records regulations: The Federal rules restrict any use of the information to criminally investigate or prosecute any alcohol or drug abuse patient.[place]ervilleIn the event this information is protected by the Federal Confidentiality of Alcohol and Drug Abuse Patient Records regulations: The Federal rules restrict any use of the information to criminally investigate or prosecute any alcohol or drug abuse patient.[place]ervilleIn the event this information is protected by the Federal Confidentiality of Alcohol and Drug Abuse Patient Records regulations: The Federal rules restrict any use of the information to criminally investigate or prosecute any alcohol or drug abuse patient.[place]ervilleIn the event this information is protected by the Federal Confidentiality of Alcohol and Drug Abuse Patient Records regulations: The Federal rules restrict any use of the information to criminally investigate or prosecute any alcohol or drug abuse patient.[place]ervilleIn the event this information is protected by the Federal Confidentiality of Alcohol and Drug Abuse Patient Records regulations: The Federal rules restrict any use of the information to criminally investigate or prosecute any alcohol or drug abuse patient.[place]ervilleIn the event this information is protected by the Federal Confidentiality of Alcohol and Drug Abuse Patient Records regulations: The Federal rules restrict any use of the information to criminally investigate or prosecute any alcohol or drug abuse patient.[place]ervilleIn the event this information is protected by the Federal Confidentiality of Alcohol and Drug Abuse Patient Records regulations: The Federal rules restrict any use of the information to criminally investigate or prosecute any alcohol or drug abuse patient.[place]ervilleIn the event this information is protected by the Federal Confidentiality of Alcohol and Drug Abuse Patient Records regulations: The Federal rules restrict any use of the information to criminally investigate or prosecute any alcohol or drug abuse patient.[place]ervilleIn the event this information is protected by the Federal Confidentiality of Alcohol and Drug Abuse Patient Records regulations: The Federal rules restrict any use of the information to criminally investigate or prosecute any alcohol or drug abuse patient.[place] Reason for Visit (unrecogniz ed section and [...] Care Teams (unrecognized sec tion and content) Fax Machine Operator Relationship Specialty Start Date End Date Mary Lou Mitchell MD [address] [place], [place] [id number] PCP - General Internal Medicine 11/09/16 Kong Pollack NO FORWARDING ADDRESS 05/02/02 Fax Machine Operator Relationship Specialty Start Date End Date Mary Lou Mitchell MD [address], [place] [id number] PCP - General Internal Medicine 11/09/16 Kong Pollack NO FORWARDING ADDRESS 05/02/02 Fax Machine Operator Relationship Specialty Start Date End Date Mary Lou Mitchell MD [address], [place] [id number] PCP - General Internal Medicine 11/09/16 Kong Pollack NO FORWARDING ADDRESS 05/02/02 Fax Machine Operator Relationship Specialty Start Date End Date Mary Lou Mitchell MD [address] [facility] [place] [place] [address] PCP - General Internal Medicine 11/09/16 Kong Pollack NO FORWARDING ADDRESS 05/02/02 Fax Machine Operator Relationship Specialty Start Date End Date Mary Lou Mitchell MD [address] [facility] [place] [place] [address] PCP - General Internal Medicine 11/09/16 Kong Pollack NO FORWARDING ADDRESS 05/02/02 Team Status: Active Member Role Status Dates Dr. Mary Lou Mitchell MD Family Provider Active Dr. Mary Lou Mitchell MD Primary Care Provider Active Team Status: Inactive Member Role Status Dates Dr. Mary Lou Mitchell MD Primary Care Provider Active Dr. Munir Vincent DO Attending Provider, Referring P romana Active Fax Machine Operator Relationship Specialty Start Date End Date Mary Lou Mitchell MD [address] [facility] [place] [place] [address] PCP - General Internal Medicine 11/09/16 Kong Pollack NO FORWARDING ADDRESS 05/02/02 Fax Machine Operator Relationship Specialty Start Date End Date Mary Lou Mitchell MD [address] [facility] [place] [place] [address] PCP - General Internal Medicine 11/09/16 Kong [...] Munir Vincent , DO Other Provider Active Fax Machine Operator Relationship Specialty Start Date End Date Mary Lou Mitchell MD [address] [facility] [place] [place] [address] PCP - General Internal Medicine 11/09/16 Kong Pollack NO FORWARDING ADDRESS 05/02/02 Fax Machine Operator Relationship Specialty Start Date End Date Mary Lou Mitchell MD [address] [facility] [place], [place] [id number] PCP - General Internal Medicine 11/09/16 Kong Pollack NO FORWARDING ADDRESS 05/02/02 Fax Machine Operator Relationship Specialty Start Date End Date Mary Lou Mitchell MD [address] [facility] [place], [place] [id number] PCP - General Internal Medicine 11/09/16 Kong Pollack NO FORWARDING ADDRESS 05/02/02 Fax Machine Operator Relationship Specialty Start Date End Date Mary Lou Mitchell MD [address] [facility] [place] [place] [address] PCP - General Internal Medicine 11/09/16 Kong Pollack NO FORWARDING ADDRESS 05/02/02 Fax Machine Operator Relationship Specialty Start Date End Date Trey Geiger MD [place] [address], [place] [id number] PCP - General Internal Medicine 05/12/24 Kong Pollack NO FORWARDING ADDRESS 05/02/02 Team [...] section and content) DATE CREATED AUTHOR 05/13/2024 [facility] DATE CREATED AUTHOR AUTHOR'S DANIELLE KELLOGG 03/17/2025 [facility] Goals (unrecognized section and content) Goals may [...] BE BASED ON THE PRIMARY CLINICAL RECORDS. [facility] [employer] [facility]. provides no warranty or guarantee of the accuracy or completeness of information in this document.
--- NOTE | 2025-03-27 10:12 | ECHOD_ITS ---
Reason For Study Reason For Study: TIA/CVA Procedure This was a 2D Doppler, Color Flow transthoracic echocardiogram. The study was technically difficult. Exam performed portable in patient room. Left Ventricle Normal LV size. The left ventricular ejection fraction is 65 %. No regional wall motion abnormalities noted. Right Ventricle Normal RV size. Normal systolic function. Atria Normal left atrium. Normal right atrium. Mitral Valve Normal mitral valve. Mild (1+) eccentric mitral valve insufficiency. Tricuspid Valve Normal tricuspid valve. Mild (1+) tricuspid valve insufficiency. Pulmonary artery systolic pressure is 30 mmHg. Aortic Valve Trisinus/trileaflet aortic valve. Pulmonic Valve Normal pulmonic valve. Great Vessels Normal aortic root. The pulmonary artery is normal size. Inferior vena cava collapse with respiration. Pericardium/Pleural No pericardial effusion. MMode/2D Measurements & Calculations LVIDd: 5.2 cm IVSd: 1.2 cm LVOT diam: 2.0 cm LVIDs: 3.1 cm LVPWd: 1.1 cm LVOT area: 3.2 cm2 RVDd: 3.6 cm FS: 41.3 % asc Aorta Diam: 2.9 cm LAV(MOD-bp): 47.2 ml LVAd ap4: 19.6 cm2 LAV(MOD-bp) Indexed: 21.6 ml/m2 LVLd ap4: 7.1 cm LAV(MOD-sp2): 49.5 ml EDV(MOD-sp4): 44.3 ml LAV(MOD-sp4): 42.7 ml EDV(sp4-el): 45.7 ml LVAs ap4: 10.6 cm2 LVLs ap4: 6.1 cm ESV(MOD-sp4): 15.3 ml ESV(sp4-el): 15.4 ml EF(MOD-sp4): 65.4 % EF(sp4-el): 66.2 % LVAd ap2: 17.0 cm2 SV(MOD-sp4): 29.0 ml SV(MOD-sp2): 21.0 ml LVLd ap2: 7.2 cm SI(MOD-sp4): 13.2 ml/m2 SI(MOD-sp2): 9.6 ml/m2 EDV(MOD-sp2): 33.2 ml EDV(sp2-el): 34.3 ml LVAs ap2: 9.3 cm2 LVLs ap2: 5.8 cm ESV(MOD-sp2): 12.2 ml ESV(sp2-el): 12.5 ml EF(MOD-sp2): 63.3 % SV(sp4-el): 30.2 ml Ao sinus diam: 3.[address] Junction: 2.5 cm LA dimension(2D): 3.8 cm LA A4 area: 16.6 cm2 RA A4 area: 11.9 cm2 TAPSE: 2.2 cm Time Measurements MV dec time: 0.22 sec Doppler Measurements & Calculations MV E max jaden: 97.7 cm/sec Lat Peak E' Jaden: 10.2 cm/sec Med Peak E' Jaden: 9.3 cm/sec MV A max jaden: 90.9 cm/sec E/E' lat: 9.6 E/E' med: 10.5 MV E/A: 1.1 MV dec slope: 440.9 cm/sec2 Ao V2 max: 150.2 cm/sec LV V1 max: 137.4 cm/sec Ao max P.0 mmHg LV V1 max P.5 mmHg Ao V2 mean: 105.5 cm/sec LV V1 mean P.0 mmHg Ao mean P.1 mmHg LV V1 mean: 107.7 cm/sec Ao V2 VTI: 38.5 cm LV V1 VTI: 32.9 cm AV (velocity ratio): 0.85 KONG(I,D): 2.7 cm2 KONG(V,D): 2.9 cm2 SV(LVOT): 104.0 ml PA V2 max: 107.5 cm/sec TR max jaden: 254.8 cm/sec TR max P.0 mmHg ECHO/Echo Complete Interpretation Summary Normal LV size. The left ventricular ejection fraction is 65 %. Pulmonary artery systolic pressure is 30 mmHg. Mild (1+) eccentric mitral valve insufficiency. Ordering Physician: Kong Vargas Performed By: Carli Gutierres RDCS
--- NOTE | 2025-03-27 11:20 | CASEMGMT ---
Social Work Per imaging pt negative for stroke, therefore PHQ9 not completed. ARIADNE Lovett
[2025-03-27] MEDS: 0.9% Normal Saline (1000mL) 1,000 ML 150 ML IV ×2 (11:22→18:40)
[2025-03-27] MEDS: 0.9% Saline Lock 10 ML Syringe IV (11:33)
--- NOTE | 2025-03-27 15:37 | CHAPLAIN ---
Type of Pastoral Visit _x__ Initial Visit ___ Follow-up Visit ___ On-call Visit ___ General Patient Visit ___ Spiritual Assessment ___ Family Conference ___ Bereavement ___ Rapid Response ___ Code Blue ___ Other (describe below) Pastoral Care Referral From _x__ Patient _x__ Family ___ Nurse ___ Physician ___ Cloth Coverer ___ Soft Drink Powder Mixer ___ Other (describe below) Sacrament/Intervention _x__ Active listening ___ Anointing ___ Anabaptist ___ Bereavement ___ Communion ___ Magaly exploration ___ _x__ Life review _x__ Prayer ___ Reconciliation ___ Sacrament of Sick _x__ Supportive presence ___ Wedding ___ Other (describe below) Pastoral Comments patient is sitting up in the chair and spouse and daughter are in the room in conversation with him; pt and family report on the situation and 'how many people are coming and doing their job to help here'; pt has obvious bruises from a fall but presents self with good attitude and humor; pt is accepting of situation but hopeful about going home as soon as tomorrow; pt and family welcome company, presence, and spiritual care support
[2025-03-27] MEDS: MELATONIN 10 MG TABLET PO (22:48)
[2025-03-28 01:21] VITALS: BMI 30.4
[2025-03-28 03:32] VITALS: BP 121/76; PULSE 60; RESP 16; TEMP 36.7; O2SAT 96
[2025-03-28 05:44] VITALS: BMI 31.8
[2025-03-28 06:36] LABS: Hematocrit 36.5 % (40-54); Hemoglobin 12.2 g/dL (13.0-16.5); Immature Granulocytes Count 0.040 X10^3/uL (0.0-0.0); Mean Corp Hgb Conc 33.4 g/dL (32-36); Mean Corpuscular Volume 94.6 fL (80-94); Mean Platelet Vol. 10.1 fl (6.2-12.0); NRBC Flagged by Analyzer 0 % (0-5); Platelet Count 224 K/mm3 (150-450); RBC Distribution Width CV 13.6 % (11.6-14.6); RBC Distribution Width SD 47.1 fl (35.1-43.9); Red Blood Count 3.86 M/mm3 (4.6-6.2); White Blood Count 9.3 K/mm3 (4.4-11.0)
[2025-03-28 07:25] LABS: Anion Gap 10 (5-15); BUN 17 mg/dL (4-19); BUN/Creat Ratio 19.2 RATIO (10-20); Calcium,Total 9.0 mg/dL (7.6-11.0); Carbon Dioxide 20.8 mmol/L (21.0-32.0); Chloride 108 mmol/L (98-108); Cholesterol 128 mg/dL (<=200); Estimated Creatinine Clearance 75.61 ml/min (50-250); Glucose 111 mg/dL (70-99); Low Density Lipoprotein Calc. 54 mg/dL; Magnesium 1.8 mg/dL (1.5-2.2); Potassium 4.4 mmol/L (3.3-5.1); Triglycerides 78 mg/dL; Very Low Density Lipoprotein 16 mg/dL (5-40); cholesterol:hdl ratio screen 2.18
[2025-03-28 07:36] VITALS: O2SAT 95
[2025-03-28 08:03] VITALS: BP 136/72; PULSE 56; RESP 18; TEMP 36.6; O2SAT 98
--- NOTE | 2025-03-28 08:08 | PCM.PN.HOSP ---
Reason for Visit Chief Complaint: Fall Subjective Subjective Patient seen had a relatively uneventful night. MRI obtained was negative for acute CVA NIH subsequently discontinued. Plan is for patient to be assessed for possible discharge after PT/OT eval Objective Data Objective Data Vital Signs: Vital Signs Temp Pulse Resp BP Pulse Ox O2 Del Method 97.8 F 56 L 18 136/72 H 98 Room Air 03/28/25 08:03 03/28/25 08:03 03/28/25 08:03 03/28/25 08:03 03/28/25 08:03 03/28/25 08:03 Oxygen Delivery Method Room Air Weight: 103.8 kg Body Mass Index (BMI) 31.8 Intake & Output: Intake and Output for Last 24 Hours 03/26/25 03/27/25 03/28/25 23:59 23:59 23:59 Intake Total 1000 / 1000 1000 / 1000 Output Total 200 / 500 300 / 300 Balance 800 / 500 700 / 700 Lab / Micro Data 03/28/25 05:47 03/28/25 05:47 Labs: Laboratory Results - last 24 hr 03/27/25 06:24: Hemoglobin A1c 6.2 H, Total Bilirubin 0.40, Direct Bilirubin 0.21, AST 35, ALT 27, Alkaline Phosphatase 87, Total Protein 6.2, Albumin 3.8, Globulin 2.4, TSH Cancelled, Ethyl Alcohol < 10.1 03/27/25 11:47: POC Glucose 119 H 03/27/25 17:27: POC Glucose 138 H 03/27/25 22:01: POC Glucose 120 H 03/28/25 05:47: WBC 9.3, RBC 3.86 L, Hgb 12.2 L, Hct 36.5 L, MCV 94.6 H, MCH 31.6, MCHC 33.4, RDW Std Deviation 47.1 H, RDW Coeff of Leigha 13.6, Plt Count 224, MPV 10.1, Immature Gran % (Auto) 0.400, Neut % (Auto) 67.1, Lymph % (Auto) 21.0, [place] % (Auto) 9.9, Eos % (Auto) 1.1, Baso % (Auto) 0.5, Absolute Neuts (auto) 6.2, Absolute Lymphs (auto) 1.94, Nucleated RBC % 0, Sodium 139, Potassium 4.4, Chloride 108, Carbon Dioxide 20.8 L, Anion Gap 10, BUN 17, Creatinine 0.86, Estim Creat Clear Calc 75.61, Est GFR (MDRD) Non-Af 84, BUN/Creatinine Ratio 19.2, Glucose 111 H, Calcium 9.0, Phosphorus 2.7, Magnesium 1.8, Triglycerides 78, Cholesterol 128, LDL Cholesterol, Calc 54, VLDL Cholesterol 16, HDL Cholesterol 59, Cholesterol/HDL Ratio 2.18 03/28/25 06:58: POC Glucose 113 H Radiography Diagnostic Testing: Radiology Impression Chest X-Ray 03/27/25 06:36 IMPRESSION: No acute cardiopulmonary abnormality. Reading Location: [facility] Pelvis X-Ray 03/27/25 06:37 IMPRESSION: No fracture seen. Reading Location: [place] [address] Brain MRI 03/27/25 07:57 IMPRESSION: No acute brain abnormalities. Chronic changes as detailed. Reading Location: [facility] Physical Exam Narrative GENERAL: cooperative HEENT: Atraumatic; normocephalic EYES; Anicteric, bruising on the superior aspect of the nasal bones NECK; supple, normal thyroid, RESPIRATORY: Diminished to auscultation CARDIOVASCULAR: Regular S1 S2, GI: soft, normoactive bowel sounds, : No Renal angle tenderness; EXTREMITIES: No edema, no clubbing, MUSCULOSKELETAL: no muscle wasting NEURO: Awake; no lateralizing signs. SKIN: No Rash PSYCH; Flat affect Assessment & Plan Assessment/Plan (1) Closed head injury: (2) Paresthesias: (3) Hypertension: (4) Hyperlipidemia: PLAN: Plan Patient is an 84-year-old gentleman who presented to the emergency department following a fall. He had also complained of subjective right upper extremity weakness and numbness 1. Transient ischemic attack ? Patient has been admitted to monitored bed. Ordered every 4 neurochecks as well as MRI and a 2D echo. Initial head CT and CTA negative. Patient is already on statin therapy continued added aspirin as well consult was placed to [facility] 03/28/2025;Patient seen had a relatively uneventful night. MRI obtained was negative for acute CVA NIH subsequently discontinued. Plan is for patient to be assessed for possible discharge after PT/OT eval. Patient 2D echo pending. 2. Physical debility ? Secondary to above requested for PT OT eval and criminal justice social worker to assist with discharge planning 3. Dyslipidemia ? Patient is on simvastatin at home substituted with atorvastatin 4. Hypertension ? Blood pressure controlled, home medications continued with dose adjustment as needed 5. Generalized osteoarthritis ? Pain meds?acetaminophen as needed 6. Diabetes mellitus type 2 ? Controlled on diet placed on Accu-Cheks AC and at bedtime with sliding scale coverage 7. Diabetic polyneuropathy ? Patient is on gabapentin did continue at home dose 8. DVT prophylaxis ? On enoxaparin Time spent in the patient's overall evaluation,decision-making process, review of diagnostic data, adjustment of management, discussion with other providers, nursing nursing and ancillary staff involved in patient's care documentation, 35 Minutes Charges/Coding Visit Charges Inpatient E&M: 26060 Subs Hosp L2 NIHSS NIHSS Nursing Documentation NIHSS Nursing Documentation: NIHSS: Ischemic Stroke/TIA Start: 03/27/25 10:12 Text: For ICU Patients: NIH sroke scale at Status: Complete presentation and every 2 hours or with change in RN caregiver Freq: [id number] Protocol: Activity Type Activity Date Activity User E-sign Co-sign Detail Recorded Client Recorded Date Recorded By Document 03/27/25 16:00 PATRICK [id number] 03/27/25 16:49 PATRICK 03/27/25 16:00 NIH Stroke Scale [NIHSS] A score of 0 is normal or asymptomatic . Total possible score is 42. Inpatient: RN or Physician to activate a stroke alert for onset of new stroke symptoms or with NIHSS increase >/= 3 points. Following change in neurological status, NIHSS will be performed per physician order or more frequently PRN. -1a. Level of Consciousness 0 - Alert; keenly responsive -1b. LOC Questions 0 - Answers BOTH questions correctly -1c. LOC Commands 0 - Performs BOTH tasks correctly -2. Best Gaze 0 - Normal -3. Visual 0 - No visual loss -4. Facial Palsy 1 - Minor paralysis ( flattened nasolabial fold , asymmetry on smiling) -5a. Left Arm 0 - No drift; arm holds 90 ( or 45) degrees for full 10 seconds -5b. Right Arm 0 - No drift; arm holds 90 ( or 45) degrees for full 10 seconds -6a. Left Leg 0 - No drift; leg holds 30- degree position for full 5 seconds -6b. Right Leg 0 - No drift; leg holds 30- degree position for full 5 seconds -7. Limb Ataxia 0 - Absent -8. Sensory 0 - Normal; no sensory loss -9. Best Language 0 - No aphasia; normal -10. Dysarthria 0 - Normal -11. Extinction and Inattention 0 - No abnormality -Total 1 Query Text:A score of 0 is normal or asymptomatic. Total possible score is 42 . ED: Notify Physician for NIHSS increase by > / = 3 points. Inpatient: RN or Physician to activate a stroke alert for NIHSS increase of > / = 3 points. Coma Scale [Assess] -Eye Opening Spontaneous -Motor Obeys Commands -Verbal Oriented [Total] -Coma Scale Total 15
--- NOTE | 2025-03-28 09:44 | PN.NEURO_ITS ---
Assessment and Plan: Neuro Assessment/Plan Telestroke (Audio/Video Interface) Attending Progress Note 84 y/o man with h/o generalized osteoarthritis, HTN and DLD p/w after a fall while on the toilet seat (he reports that he just slept on it and fell) and developed numbness in RUE and weakness. No deficits on arrival to ER. CT Head- no acute intracranial process. CTA- no LVO. CT C-spine -no acute pathology noticed. MRI Brain - no acute stroke. Today, sitting cofortably in chair and reports that he is bacl to normal with no new complaints. NIHSS-0 Diagnosis: TIA vs C-spine injury vs syncope Plan: ASA and statin. Follow up MRI C-spine. Follow up TTE and event monitor on discharge. OT/PT/[facility]. Control of vascular risk factors. I personally attended this patient and spent a total time of 40 minutes evaluating this patient including clinical assessment, review of chart, medical history imaging, and determining appropriate treatment and workup. Subject: Neurology Subjective 84 y/o man with h/o generalized osteoarthritis, HTN and DLD p/w after a fall while on the toilet seat (he reports that he just slept on it and fell) and developed numbness in RUE and weakness. No deficits on arrival to ER. CT Head- no acute intracranial process. CTA- no LVO. CT C-spine -no acute pathology noticed. MRI Brain - no acute stroke. Today, sitting cofortably in chair and reports that he is bacl to normal with no new complaints. NIHSS-0 EEG Results Procedure Details EEG Procedure Details: REGINA DELAROSA is a 84 year old M with a past medical history of , who presents for evaluation of Electroencephalogram on DATE at TIME Objective Data Objective Data Vital Signs: Vital Signs Temp Pulse Resp BP Pulse Ox O2 Del Method 97.8 F 56 L 18 136/72 H 98 Room Air 03/28/25 08:03 03/28/25 08:03 03/28/25 08:03 03/28/25 08:03 03/28/25 08:03 03/28/25 08:03 Oxygen Delivery Method Room Air Weight: 103.8 kg Body Mass Index (BMI) 31.8 Intake & Output: Intake and Output for Last 24 Hours 03/26/25 03/27/25 03/28/25 23:59 23:59 23:59 Intake Total 1000 / 1000 1000 / 1000 Output Total 200 / 500 300 / 300 Balance 800 / 500 700 / 700 Lab / Micro Data 03/28/25 05:47 03/28/25 05:47 Labs: Laboratory Results - last 24 hr 03/27/25 11:47: POC Glucose 119 H 03/27/25 17:27: POC Glucose 138 H 03/27/25 22:01: POC Glucose 120 H 03/28/25 05:47: WBC 9.3, RBC 3.86 L, Hgb 12.2 L, Hct 36.5 L, MCV 94.6 H, MCH 31.6, MCHC 33.4, RDW Std Deviation 47.1 H, RDW Coeff of Leigha 13.6, Plt Count 224, MPV 10.1, Immature Gran % (Auto) 0.400, Neut % (Auto) 67.1, Lymph % (Auto) 21.0, [place] % (Auto) 9.9, Eos % (Auto) 1.1, Baso % (Auto) 0.5, Absolute Neuts (auto) 6.2, Absolute Lymphs (auto) 1.94, Nucleated RBC % 0, Sodium 139, Potassium 4.4, Chloride 108, Carbon Dioxide 20.8 L, Anion Gap 10, BUN 17, Creatinine 0.86, Estim Creat Clear Calc 75.61, Est GFR (MDRD) Non-Af 84, BUN/Creatinine Ratio 19.2, Glucose 111 H, Calcium 9.0, Phosphorus 2.7, Magnesium 1.8, Triglycerides 78, Cholesterol 128, LDL Cholesterol, Calc 54, VLDL Cholesterol 16, HDL Cholesterol 59, Cholesterol/HDL Ratio 2.18 03/28/25 06:58: POC Glucose 113 H Radiography Diagnostic Testing: Radiology Impression Brain MRI 03/27/25 07:57 IMPRESSION: No acute brain abnormalities. Chronic changes as detailed. Reading Location: [facility] Physical Exam Narrative General: The patient appears nutritionally appropriate, well-groomed, and appears comfortable in no acute distress. Mental Status:? The patient?s mental status was normal including orientation.? Language was intact.? Cranial nerves:? Visual martinez full, and extra-ocular motion was intact. Symmetric face. Motor: Normal strength in all extremities. Sensation: Intact to touch in all extremities.? Coordination:? Bilateral finger to nose was normal.? There was no dysmetria. Gait:? deferred. NIHSS NIHSS Nursing Documentation NIHSS Nursing Documentation: NIHSS: Ischemic Stroke/TIA Start: 03/27/25 10:12 Text: For ICU Patients: NIH sroke scale at Status: Complete presentation and every 2 hours or with change in RN caregiver Freq: [id number] Protocol: Activity Type Activity Date Activity User E-sign Co-sign Detail Recorded Client Recorded Date Recorded By Document 03/27/25 16:00 PATRICK [id number] 03/27/25 16:49 PATRICK 03/27/25 16:00 NIH Stroke Scale [NIHSS] A score of 0 is normal or asymptomatic . Total possible score is 42. Inpatient: RN or Physician to activate a stroke alert for onset of new stroke symptoms or with NIHSS increase >/= 3 points. Following change in neurological status, NIHSS will be performed per physician order or more frequently PRN. -1a. Level of Consciousness 0 - Alert; keenly responsive -1b. LOC Questions 0 - Answers BOTH questions correctly -1c. LOC Commands 0 - Performs BOTH tasks correctly -2. Best Gaze 0 - Normal -3. Visual 0 - No visual loss -4. Facial Palsy 1 - Minor paralysis ( flattened nasolabial fold , asymmetry on smiling) -5a. Left Arm 0 - No drift; arm holds 90 ( or 45) degrees for full 10 seconds -5b. Right Arm 0 - No drift; arm holds 90 ( or 45) degrees for full 10 seconds -6a. Left Leg 0 - No drift; leg holds 30- degree position for full 5 seconds -6b. Right Leg 0 - No drift; leg holds 30- degree position for full 5 seconds -7. Limb Ataxia 0 - Absent -8. Sensory 0 - Normal; no sensory loss -9. Best Language 0 - No aphasia; normal -10. Dysarthria 0 - Normal -11. Extinction and Inattention 0 - No abnormality -Total 1 Query Text:A score of 0 is normal or asymptomatic. Total possible score is 42 . ED: Notify Physician for NIHSS increase by > / = 3 points. Inpatient: RN or Physician to activate a stroke alert for NIHSS increase of > / = 3 points. Coma Scale [Assess] -Eye Opening Spontaneous -Motor Obeys Commands -Verbal Oriented [Total] -Coma Scale Total 15 NIHSS 1a. Level of Consciousness: 0 - Alert; keenly responsive 1b. LOC Questions: 0 - Answers BOTH questions correctly 1c. LOC Commands: 0 - Performs BOTH tasks correctly 2. Best Gaze: 0 - Normal 3. Visual: 0 - No visual loss 4. Facial Palsy: 0 - Normal symmetrical movements 5a. Left Arm: 0 - No drift; arm holds 90 (or 45) degrees for full 10 seconds 5b. Right Arm: 0 - No drift; arm holds 90 (or 45) degrees for full 10 seconds 6a. Left Le - No drift; leg holds 30-degree position for full 5 seconds 6b. Right Le - No drift; leg holds 30-degree position for full 5 seconds 7. Limb Ataxia: 0 - Absent 8. Sensory: 0 - Normal; no sensory loss 9. Best Language: 0 - No aphasia; normal 10. Dysarthria: 0 - Normal 11. Extinction and Inattention: 0 - No abnormality Total: 0
--- NOTE | 2025-03-28 11:20 | CASEMGMT ---
Addendum entered by Rosalind Baeza 03/28/25 15:13: TESSIE LEMUS updated by floor nurse that patient did better with ambulation, at side and that patient and would like to discharge home. TESSIE CM in to discuss options for therapy, HHC vs outpatient therapy. Patient and agreeable to HHC for a few weeks and then transition to outpatient therapy. TESSIE LEMUS provided patient and with HHC. Patient and prefer [facility]. RN CM encouraged to stop at drugstore and pickup gait belt for at home, voiced understanding. RN CM updated patient and that referral will be made to [facility] and this RN CM will follow up with them on Sunday if [facility] is able to accept, patient and voiced understanding and appreciations. Patient and had no further questions or concerns. TESSIE LEMUS made referral to [facility]. TESSIE LEMUS updated hospitalist and floor nursing. Discharge plan updated. Original Note: TESSIE LEMUS Face to Face with patient for initial transition planning/care coordination assessment. TESSIE LEMUS introduced self and role at [facility]. Patient sitting in chair, alert and oriented, at bedside. Patient willing to participate in assessment and is able to answer all questions appropriately. Care providers, pharmacy, and demographics verified. Strata: 2 PCP: Juanjo Specialists: Octavio medicare interviewer Preferred Pharmacy: [facility] Insurance: [employer] [facility] Prescription Benefit: yes Living Will/HPOA: yes, [facility] LNOK: , daughter Living Arrangements: Patient lives with in a single story home with 2 steps and railing to enter the home. Patient states he was independent at home. Transportation: self, DME/HHC: Patient shower chair, raised toilet, cane, walker, grab bars. No previous HHC. Patient has been to [facility] Rehab Unit. Patient wishes to discharge home. Therapy recommending SNF/Rehab at discharge. TESSIE LEMUS discussed home with HHC or outpatient therapy vs SNF. Patient and agreeable to walk later with staff to see how he does and if thinks patient is safe to return home, CM updated nurseALLAN to follow-up this afternoon. Patient states he has no further needs or concerns at this time. CM to follow for discharge planning needs that may arise. TESSIE LEMUS explained MORFIN form with patient, patient voiced understanding. Patient signed MORFIN Form and filed in chart. Patient provided with copy of signed MORFIN form. Disposition Plan: TBD, anticipate home with HHC or outpatient therapy vs SNF. Rosalind CAGLE, RN, CM
--- NOTE | 2025-03-28 14:25 | CASEMGMT ---
Social Work SW created in [facility] a list of home health care agencies in network w/pt's insurance, in pt's preferred geographic area, and complete w/quality and resource use data. PANCHO Hawk
--- NOTE | 2025-03-28 14:43 | DS.PCM_ITS ---
Providers Date of Admission: 03/27/25 Date of Discharge: 03/28/25 Primary Care Physician: Trey Geiger MD Consultations 03/27/25 10:12 Consult: Tele-Neurology Routine Consulting Provider: [facility] Reason for Consult: Acute Ischemic Stroke/TIA EMERGENT Consult: No Notified: Yes Date Notified: 03/27/25 Time Notified: 11:02 Method of Notification: Answering Service Nursing Unit Staff Notify [facility] of Tele-Neurology Consult: Yes Reason For Visit: TIA Diagnosis Discharge Diagnosis (1) Closed head injury: Status: Acute Code(s): S09.90XA - Unspecified injury of head, initial encounter (2) Paresthesias: Status: Acute Code(s): R20.2 - Paresthesia of skin (3) Hypertension: Status: Chronic (4) Hyperlipidemia: Status: Chronic Plan Patient is an 84-year-old gentleman who presented to the emergency department following a fall. He had also complained of subjective right upper extremity weakness and numbness 1. Transient ischemic attack ? Patient has been admitted to monitored bed. Ordered every 4 neurochecks as well as MRI and a 2D echo. Initial head CT and CTA negative. Patient is already on statin therapy continued added aspirin as well consult was placed to [facility] 03/28/2025;Patient seen had a relatively uneventful night. MRI obtained was negative for acute CVA NIH subsequently discontinued. Plan is for patient to be assessed for possible discharge after PT/OT eval. Patient 2D echo pending. 2D echo did show Normal LV size. The left ventricular ejection fraction is 65 %. Pulmonary artery systolic pressure is 30 mmHg. Mild (1+) eccentric mitral valve insufficiency. 2. Physical debility ? 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 Patient was offered the option of being discharged to senior living facility patient spouse decided to go home with home health 3. Dyslipidemia ? Patient is on simvastatin at home substituted with atorvastatin 4. Hypertension ? Blood pressure controlled, home medications continued with dose adjustment as needed 5. Generalized osteoarthritis ? Pain meds?acetaminophen as needed 6. Diabetes mellitus type 2 ? Controlled on diet placed on Accu-Cheks AC and at bedtime with sliding scale coverage 7. Diabetic polyneuropathy ? Patient is on gabapentin did continue at home dose 8. DVT prophylaxis ? On enoxaparin Time spent in the patient's overall evaluation,decision-making process, review of diagnostic data, adjustment of management, discussion with other providers, nursing nursing and ancillary staff involved in patient's care documentation, 35 Minutes Medications at Discharge Home Medications glucosamine HCl 500 mg-msm 83 mg-chondroitin 400 mg tablet 1,500 mg PO BID SUPPLEMENT 03/26/14 potassium 99 mg tablet 99 mg PO DAILY SUPPLEMENT 03/27/14 vitamin B complex 2 cap PO DAILY SUPPLEMENT 12/18/22 enalapril maleate 10 mg tablet 10 mg PO Q24H 03/21/23 gabapentin 600 mg tablet 600 mg PO Q6H 03/27/25 simvastatin 40 mg tablet 40 mg PO QHS 03/27/25 Weight / BMI Weight Weight: 103.8 kg Body Mass Index (BMI) 31.8 ABG / Lab / Microbiology Data 03/28/25 05:47 03/28/25 05:47 Laboratory: Laboratory Results - last 24 hr 03/27/25 17:27: POC Glucose 138 H 03/27/25 22:01: POC Glucose 120 H 03/28/25 05:47: WBC 9.3, RBC 3.86 L, Hgb 12.2 L, Hct 36.5 L, MCV 94.6 H, MCH 31.6, MCHC 33.4, RDW Std Deviation 47.1 H, RDW Coeff of Eligha 13.6, Plt Count 224, MPV 10.1, Immature Gran % (Auto) 0.400, Neut % (Auto) 67.1, Lymph % (Auto) 21.0, [place] % (Auto) 9.9, Eos % (Auto) 1.1, Baso % (Auto) 0.5, Absolute Neuts (auto) 6.2, Absolute Lymphs (auto) 1.94, Nucleated RBC % 0, Sodium 139, Potassium 4.4, Chloride 108, Carbon Dioxide 20.8 L, Anion Gap 10, BUN 17, Creatinine 0.86, Estim Creat Clear Calc 75.61, Est GFR (MDRD) Non-Af 84, BUN/Creatinine Ratio 19.2, Glucose 111 H, Calcium 9.0, Phosphorus 2.7, Magnesium 1.8, Triglycerides 78, Cholesterol 128, LDL Cholesterol, Calc 54, VLDL Cholesterol 16, HDL Cholesterol 59, Cholesterol/HDL Ratio 2.18 03/28/25 06:58: POC Glucose 113 H 03/28/25 11:41: POC Glucose 124 H Radiography Diagnostic Testing: Radiology Impression Echocardiogram 03/27/25 10:12 Interpretation Summary Normal LV size. The left ventricular ejection fraction is 65 %. Pulmonary artery systolic pressure is 30 mmHg. Mild (1+) eccentric mitral valve insufficiency. Ordering Physician: Kong Vargas Performed By: Carli Gutierres RDCS D/C Instructions Discharge Activity: Return to Normal Activity Call your doctor if you observe: Fever of 101 or Higher, Shortness of breath, Fainting spells and Chest pain DC O2, CPAP, BIPAP Needs Home O2 Discharge instructions: No Meaningful Use Info Meaningful Use Meaningful Use Diagnoses (Choose all that apply): None applicable Discharge Plan Admission Admit Date/Time: 03/27/25 07:51 Attending Provider: Kong Vargas Primary Care Provider: Trey Geiger Consulting Providers: Iron Guan; Laisha Knight; Ashanti Hernandez; Christin Edward; Sophia Mccray; Ramiro Jay; Halley Aponte; Raphael Wild; Maynor Alanis; Keron Rivera; Justina Scott; Ale Ferrari; George Quinteros; Judy Hebert; Savanna Kaplan; Gill Umaña; Juancho Hong; Geeta Allison; Ponce Osorio; Bonita Costa; Anabela Casey Discharge Orders/Prescriptions Prescriptions: No Action glucosamine EXs-cho-oljitmwzlo 1 EACH tablet 1,500 mg PO BID Patient Comments: DIABETES potassium 99 MG tablet 99 mg PO DAILY Patient Comments: DIETARY SUPPLEMENT vitamin B complex Capsule 2 cap PO DAILY enalapril maleate 10 mg tablet 10 mg PO Q24H gabapentin 600 mg tablet 600 mg PO Q6H simvastatin 40 mg tablet 40 mg PO QHS Other Ambulatory Orders: 30 Day Event Recorder Preventi (Urgent) Timeframe: 1 Day Facility: [facility] - Location: Cardiovascular Services Ordered By: Dr. Kong Vargas Referrals / Follow Up: Trey Geiger MD [Primary Care Provider, Family Practice] - Within 1 Week Disposition Disposition (needs filled in before D/C Order can be placed): Home Health Service Charges/Coding Visit Charges Inpatient E&M: 17988 Disch Hosp >30min
[2025-03-28 14:44] VITALS: BP 159/68; PULSE 77; RESP 18; TEMP 36.9; O2SAT 99
== END 2025-03-28 16:01 | disposition home health service (06) ==
LOC: ED 08:17 → PCU 08:51
PROVIDERS: Admitting Provider Internal Medicine; Emergency Provider Emergency Medicine; PCP Family Medicine; Visit Provider Internal Medicine
DX: G45.9 Transient cerebral ischemic attack, unspecified (principal); E11.42 Type 2 diabetes mellitus with diabetic polyneuropathy; S09.90XA Unspecified injury of head, initial encounter; I10 Essential (primary) hypertension; R26.2 Difficulty in walking, not elsewhere classified; Z86.718 Personal history of other venous thrombosis and embolism; R29.898 Other symptoms and signs involving the musculoskeletal system; W18.11XA Fall from or off toilet without subsequent striking against object, initial encounter; E78.5 Hyperlipidemia, unspecified; R20.2 Paresthesia of skin; Z79.899 Other long term (current) drug therapy; M15.9 Polyosteoarthritis, unspecified
CPT/HCPCS: 36415; 70450; 70486; 70496; 70498; 70551; 71045; 72125; 72170; 80048; 80061; 80076; 82077; 82962; 83036; 83735; 84100; 84443; 85025; 85610; 85730; 93005; 93306; 94668; 94762; 96360; 96361; 96372; 97116; 97162; 97166; 97530; 97535; 97802; 99221; 99285; Q9967; A4216; G0378

== ENCOUNTER → 2025-04-29 | Outpatient (CLI) | payer MEDICARE, SELFPAY ==
--- NOTE | 2025-04-29 12:49 | ART_ITS ---
Reason For Study Reason For Study: Claudication Procedure A bilateral lower extremity continuous wave Doppler with analog waveform analysis and ankle brachial indexes. Left Segmental Pressures Left brachial= 149mmHg. Left posterior tibial artery = 192mmHg. Left dorsalis pedis artery = 187mmHg. Left digit = 160 mmHg. The left dorsalis pedis waveforms are triphasic. The left posterior tibial artery waveforms are triphasic. Right Segmental Pressures Right brachial= 143mmHg. Right posterior tibial artery = 184mmHg. Right dorsalis pedis artery = 189mmHg. Right digit = 144 mmHg. The right dorsalis pedis waveforms are triphasic. The right posterior tibial artery waveforms are triphasic. Indices The right ankle brachial index by the dorsalis pedis is 1.27. The right ankle brachial index by the posterior tibial artery is 1.23. The right digital-brachial index is 0.97. The left ankle brachial index by the dorsalis pedis is 1.26. The left ankle brachial index by the posterior tibial artery is 1.29. The left digital-brachial index is 1.07. VL/Ankle Brachial Index Interpretation Summary Right ART 1.27, normal. TBI and Doppler/PVR waveforms of the right ankle normal at rest. Left ART 1.29, normal. TBI and Doppler/PVR waveforms of the left ankle normal a t rest. Ordering Physician: Trey Geiger Referring Physician: TREY GEIGER MD Performed By: Rosalind Cisse RVT and Student
== END | disposition home or self-care (01) ==
LOC: CVS 12:48
PROVIDERS: PCP Family Medicine; Referring Provider Family Medicine; Visit Provider Family Medicine
DX: I73.9 Peripheral vascular disease, unspecified (principal)
CPT/HCPCS: 93922

== ENCOUNTER → 2025-06-02 | Outpatient (CLI) | payer MEDICARE, SELFPAY | END | disposition home or self-care (01) | LOC: MFPLAB 11:35 | PROVIDERS: PCP Family Medicine; Visit Provider Family Medicine | DX: E11.40 Type 2 diabetes mellitus with diabetic neuropathy, unspecified (principal) | CPT/HCPCS: 36415; 83036 ==